=== PATIENT | female | born 1990 | race Caucasian/White ===

== ENCOUNTER 2023-07-02 08:39 | Outpatient (OUT) | payer BC, SELFPAY ==
--- NOTE | 2023-07-02 08:43 | US_ITS ---
The [address] [address] Patient Name: WINSTON MOSES MRN: [id number] date: 1990 Sex: F Assigned Patient Location: US Current Patient Location: Accession/Order Number: [id number] Exam Date: 07/02/2023 08:43 Report Date: 07/02/2023 15:12 At the request of: PABLITO PALOMO Procedure: US OB transvaginal EXAMINATION: US OB transvaginal HISTORY: MISSED MENSES COMPARISON: No relevant comparison available. FINDINGS: GESTATIONAL SAC: Present and normal appearing. YOLK SAC: Present and normal appearing. POLE: Present and normal appearing. CARDIAC: Present. UTERUS: Normal size and appearance. OVARIES: Right: Normal. Left: Normal. CERVIX: 4.2 cm in length and closed. CUL-DE-SAC: Normal. OTHER: None. AGE BY LMP: 8 weeks 1 day HAYLEY BY LMP: 02/10/2024 AGE BY US CRL: 7 weeks 2 days HAYLEY BY US CRL: 02/16/2024 US/US OB transvaginal IMPRESSION: 1. Single live intrauterine . Electronically authenticated by: ONEYDA MEDEL Date: 07/02/2023 15:12
== END 2023-07-02 08:40 | disposition home or self-care (01) ==
LOC: US 08:40
PROVIDERS: Visit Provider Obstetrics & Gynecology
DX: Z34.91 Encounter for supervision of normal pregnancy, unspecified, first trimester (principal); N92.6 Irregular menstruation, unspecified
CPT/HCPCS: 76817

== ENCOUNTER 2023-07-21 08:41 | Outpatient (OUT) | payer BC, SELFPAY ==
[2023-07-21 09:13] LABS: Basophils Percent Auto 0.5 % (0.2-2.0); Eosinophils Absolute Auto 0.1 10^3/uL (0.0-0.7); Eosinophils Percent Auto 1.4 % (0.9-7.0); Hematocrit 33.5 % (36.0-48.0); Hemoglobin 11.4 g/dL (12.0-16.0); Immature Granulocytes Abs Auto 0.01 10^3/uL (0.00-0.03); Immature Granulocytes Pct Auto 0.2 % (0.0-0.5); Lymphocytes Absolute Auto 1.5 10^3/uL (1.2-3.8); Lymphocytes Percent Auto 23.7 % (20.5-60.0); Mean Corpuscular Hemoglobin 30.6 pg (26.7-34.0); Mean Corpuscular Volume 89.8 fL (81.0-99.0); Mean Platelet Volume 11.3 fL (9.5-13.5); Monocytes Absolute Auto 0.3 10^3/uL (0.3-0.8); Monocytes Percent Auto 4.8 % (1.7-12.0); Neutrophils Absolute Auto 4.4 10^3/uL (1.4-6.5); Neutrophils Percent Auto 69.4 % (43.0-75.0); Platelet Count 187 10^3/uL (150-450); Red Blood Count 3.73 10^6/uL (4.20-5.40); Red Cell Distribution Width 11.9 % (11.0-15.0); White Blood Count 6.3 10^3/uL (4.0-11.0)
[2023-07-21 09:43] LABS: Estimated Average Glucose 100 mg/dL; Glycohemoglobin A1C 5.1 % (4.5-6.2)
[2023-07-21 09:52] LABS: Thyroid Stimulating Hormone 1.925 uIU/mL (0.358-3.740)
[2023-07-22 06:08] LABS: HBsAg Screen Negative (Negative); HCV Ab Non Reactive (Non Reactive); HIV Ab/p24 Ag Screen Non Reactive (Non Reactive); Rubella Antibodies, IgG 1.06 index (Immune >0.99)
[2023-07-22 10:10] LABS: Rapid Plasma Reagin, Quant Non Reactive titer (NonRea<1:1)
== END 2023-07-21 08:42 | disposition home or self-care (01) ==
PROVIDERS: Visit Provider Obstetrics & Gynecology
DX: N92.6 Irregular menstruation, unspecified (principal)
CPT/HCPCS: 36415; 83036; 84443; 85025; 86592; 86762; 86803; 86850; 86900; 86901; 87086; 87340; 87389

== ENCOUNTER 2023-09-07 20:08 | Outpatient (REF) | payer BC, SELFPAY ==
[2023-09-11 13:12] LABS: Age Gdln ACOG Testing Note (.); HPV Aptima Negative (Negative); IGP, Aptima HPV, rfx 16/18,45 Note (.)
== END 2023-09-07 20:09 | disposition home or self-care (01) ==
LOC: LAB 20:08
PROVIDERS: Visit Provider Physician Assistant
DX: Z12.4 Encounter for screening for malignant neoplasm of cervix (principal)
CPT/HCPCS: 87624; G0145

== ENCOUNTER 2023-10-11 13:59 | Outpatient (OUT) | payer BC, SELFPAY ==
--- NOTE | 2023-10-11 | US_ITS ---
[address] [address] Patient Name: WINSTON NAJERA MRN: [id number] date: 1990 Sex: F Assigned Patient Location: US Current Patient Location: Accession/Order Number: [id number] Exam Date: 10/11/2023 14:01 Report Date: 10/11/2023 15:36 At the request of: PABLITO PALOMO Procedure: US OB cervical length EXAMINATION: US OB anatomy, US OB cervical length HISTORY: ANATOMY COMPARISON: No relevant comparison available. TECHNIQUE: Transabdominal sonographic examination was performed for obstetrical and evaluation. FINDINGS: Number: 1 Heart Rate: 130.0 bpm H.B. /min Amniotic Fluid Volume: Subjectively normal position: Breech presentation, longitudinal lie Placental Location: ANTERIOR, the placental edge is 5.0 cm from the internal os Cervix Length: 4 cm , closed Normal anatomy: Lateral ventricles, cerebellum, posterior fossa, nose, lips, orbits, four-chamber heart, RVOT, LVOT, diaphragm, stomach, kidneys, abdominal cord insertion, bladder, umbilical cord arteries, three-vessel cord, spine, extremities BIOMETRY: BPD: 5.1 cm 21 weeks 2 days , 31% HC: 19.9 cm 22 weeks 0 days, 53% AC: 16.4 cm 21 weeks 3 days, 34% FL: 3.7 cm 21 weeks 5 days , 38% EFW:435.7 grams; 15 ounces, 38% FL/AC: 22.4 FL/BPD: 72.7 HC/AC: 1.2 GESTATIONAL AGE: Age by EDC: 21 weeks 5 days Age by current US: 21 weeks 4 days HAYLEY by current US: 02/17/2024 HAYLEY by EDC: 02/16/2024 US/US OB cervical length IMPRESSION: Normal anatomy scan Closed cervix measuring 4.0 cm in length *Reference: [employer] Practice Guideline for the performance of Obstetric Ultrasound Examinations, July 04, 2007. Electronically authenticated by: DOMO ARRIOLA Date: 10/11/2023 15:36
--- NOTE | 2023-10-11 | US_ITS ---
[address] [address] Patient Name: WINSTON NAJERA MRN: [id number] date: 1990 Sex: F Assigned Patient Location: US Current Patient Location: US Accession/Order Number: [id number] Exam Date: 10/11/2023 14:01 Report Date: 10/11/2023 15:36 At the request of: PABLITO PALOMO Procedure: US OB anatomy EXAMINATION: US OB anatomy, US OB cervical length HISTORY: ANATOMY COMPARISON: No relevant comparison available. TECHNIQUE: Transabdominal sonographic examination was performed for obstetrical and evaluation. FINDINGS: Number: 1 Heart Rate: 130.0 bpm H.B. /min Amniotic Fluid Volume: Subjectively normal position: Breech presentation, longitudinal lie Placental Location: ANTERIOR, the placental edge is 5.0 cm from the internal os Cervix Length: 4 cm , closed Normal anatomy: Lateral ventricles, cerebellum, posterior fossa, nose, lips, orbits, four-chamber heart, RVOT, LVOT, diaphragm, stomach, kidneys, abdominal cord insertion, bladder, umbilical cord arteries, three-vessel cord, spine, extremities BIOMETRY: BPD: 5.1 cm 21 weeks 2 days , 31% HC: 19.9 cm 22 weeks 0 days, 53% AC: 16.4 cm 21 weeks 3 days, 34% FL: 3.7 cm 21 weeks 5 days , 38% EFW:435.7 grams; 15 ounces, 38% FL/AC: 22.4 FL/BPD: 72.7 HC/AC: 1.2 GESTATIONAL AGE: Age by EDC: 21 weeks 5 days Age by current US: 21 weeks 4 days HAYLEY by current US: 02/17/2024 HAYLEY by EDC: 02/16/2024 US/US OB anatomy IMPRESSION: Normal anatomy scan Closed cervix measuring 4.0 cm in length *Reference: [employer] Practice Guideline for the performance of Obstetric Ultrasound Examinations, July 04, 2007. Electronically authenticated by: DOMO ARRIOLA Date: 10/11/2023 15:36
== END 2023-10-11 14:00 | disposition home or self-care (01) ==
LOC: US 13:59
PROVIDERS: Visit Provider Obstetrics & Gynecology
DX: Z34.92 Encounter for supervision of normal pregnancy, unspecified, second trimester (principal); Z3A.21 21 weeks gestation of pregnancy
CPT/HCPCS: 76805; 76817

== ENCOUNTER 2023-11-10 13:23 | Outpatient (OUT) | payer BC, SELFPAY ==
--- OUTSIDE RECORDS SUMMARY | 2023-11-10 13:33 | XMS_ITS | CCD ---
Author Name Unknown Address [address] [facility] [address] [place] [address] Organization [facility] Care Team Providers Care Wash Barrel Leader Name Role Phone Pamela Colvin Primary Care Physician Pamela Colvin Attending Unavailable Pamela Colvin Admitting Unavailable PABLITO PALOMO Attending Unavailable PAMELA DICK Attending Unavailable Medications Current Medications Medication Drug Class(es) Dates Sig (Normalized) Sig (Original) Depo-Provera (1 source) Progestin Start: 01-15-2011 Depo-Provera 4 00 mg, IntraMuscular, Refills(s) 0 Start Date: 01/15/11 Status: Ordered Completed/Discontinued Medications Medication Drug Class(es) Dates Sig (Normalized) Sig (Original) sulfamethoxazole 800 mg / trimethoprim 160 mg oral tablet (1 source) Dihydrofolate Reductase Inhibitor Antibacterial, Sulfonamide Antimicrobial Start: 01-15-2011 End: 01-22-2011 Bactrim D.S. 800 mg-160 mg Tab 0, 1 tab(s), Oral, BID, 14 tab(s), Refill(s) 0, 0, Take one tab by mouth twice a day for seven days, Print Requisition Start Date: 01/15/11 Stop Date: 01/22/11 Status: Ordered Results Test Name Value Interpretation Reference Range Facil ity Coding Summary.on 06-30-2022 Coding Summary. [id number] 4EFi2iCu+PGhlYWQ+P A2EWWAjZ42rmBWzeT6 FM8bAFY8SUFDFLYFHE F3QAH2jwZP7OJggO2D ybiAv IzetaPFyST29QMs9TB T3jQpuDYjcsU5xdXCw C1j4ZlSfWH26wI35TK axNGJzAtR4BiGrquxa bWFy U9guMrFltQAeIph+PH RhYmxlIHdpZHRoPScx MPYtTdVvpPumZE9sJc 9yZGVyLWNvbGxhcHNl OiBj d5ppUVEiIGmkCP9eiU thA5NuvLU2NJApt8w9 Lw86tHM+WNNiVOL6pT yqTFaoz842UfJhi5vv IDM3 gIZdXJgaVNJ8D59bw3 E8PMEyUKMmDHR9kMF3 oO4utPhkugusA4OfrD OzFoO5ZGD9rBYidZ3h bGln bvwqrI3uCsh+Q09ESU 7GYMWXGA5WScu5K9Tn PjwvdHI+US16URRfLB 50tVAdhKPzm1tecDg9 JzEw NRIsMIR9wNioZCtkw6 OnXXEnQ36lhRGkd1R8 IGNvbGxhcHNlOyBlbX J9cM7uEAdzjqevq9oc dzsn Efmyi1orjk38wO90U7 6sXEjbMQHbCTC3MIJk QONnpGntth9bpA6uGv 8+QXbrf0roj7ipjGr3 IjIw JMJontKmsVrlGPL6t8 VlQy38D9EktZjgu5Bd Stz9kf60sPBpx8G7zK A4KXsfQQWucT6oVXuc ZnQ6 ZTNzQuSjaU44rKZjGP gsVx6hxEhawSgjKZ5n TSQulxdbQPCrlA5mIL WfrZJraQxrDY7dPIGx bjtm l426WtDqFYH3NCVkhS YrB3LlqC8lJyAfFDMe TQXaN8PzaKGvSPtnU0 80MIxyVdK0DHNmdqVd Y2Fs CQDakRvtYwK7y6T1Xk 4Oe6DkjpndRSO1JNss VQJ0BzY4UsWcSiU5N6 YiPyb8NMMmaOgfIZ6d J3Bh FVBnunmstmpnsSP2TU IwRDUokL69iBXyKOzm Ol3fl7V9s653UFGrBR UeoK14Bd0fcRqjLAEm dCBU iI4ahdamb3bygsetBm PtKFJbWVt4HBg4MHOe jAvtApBiBFN4CjX3BG O4fPWwuD0jiExqvgum dG9w Oyc+Y54ldS8wXQC7QR H2cgsiQKHnemYtZX85 LA71T7DhFftfzSXpkR U+ABXhboFjgJniVM8p YmFj c0teo0JeQTluG9TgWM McABprIue3PHPiMZS5 aUC0nX3cMDAeJUwie4 I3oBJ8Q3PhdyJois5n b2xs KVOaSNuoS51ljTOla7 Q4XQGsmYP6IAKxaOby PlDheK69Chg+PGNvbG prn2FoYhbpe9iuj1mo dGg9 IjMwJSIgdmFsaWduPS V4b4QaNz35L29fAJql ZHRoPSIxNSUiIHZhbG mrfd6bbQ6pFg9+PGNv bCB3 rZW6lY3jDETwObF7WK vcO840JxRpuRWpEvjk s4sex5zyjGl3EoTyZQ TxdcUjfSqhWZQ5s9Xq Lz48 B78zVTqvMVVlXHHyYC AaTRMrzDyiqt8eiE8i Ii8+LE5cq5agcn14eZ 48dHI+YACkFDT0uIkm PSdw PLEjpZ5yTCcpVkV8TQ TiDyInmA76vGBqDFpm Mq6mcWealImmUM0sYR Enswtex637TsMgh4cm IDEw dVSfSLryOLL0R59fn4 U4XQFyAPLaDMM6jVE8 kB5waZnijczkkQRavV sgdmVydGljYWwtYWxp Z246 IHRvcDsnPlBhdGllbn GwPyYyTXc2W3ZcAvs0 GYMjmHgfEK5mvFLwZY xvTt5opWepsAcyCP9r NTBp thvnp454VtGpj3kgMR WraLAxQVffGOJ1V10n w9F7PXYtGEMqNJW0fJ T0hP7krWwqbkmrdFFp dDsg dmVydGljYWwtYWxpZ2 46IHRvcDsnPkJpcnRo YCEggYK3JW00PD84hW Bnf8B7gBC4T2TaJVDz bmct esyeuOP2ZDMzXASodH 83Vr3ssAegXm9aMIPc LOY4FHHliCGsX5MixU 5eMhEeTDVyFYYcV8Rl eHQt ILdbE775ANxaDaH5SP DkidLqF0IxYLDhlSfc JcZ8y7S4Fs2AT7M1ZQ 70KD49aCKvt0I0bPV0 J3Bh NHEdccdcnefzaQL1GY GpTGNfcB54Zm0xxIpt Ht0wHVEiRBG4KZFjoM LzT4EtoD1pSlAfGEKc MDAw L6XqvYRdWZxrN590IZ baHbK3VQHrvlPkV2Lj BOBmiOiiPuP3o4Z8Xu 9MPFp0QG18PY69wWSx c3R5 hWA1W5FiVYLgbjsmnn gilTM9ZPRlRHSjsK65 Au5hiPuzPj9lWJHmMO Z0KFWubFKcH9LfpB5u OiAj ZRQfHDOpZ0OhtMCfEN miJ969PDjwNeF8OANv vmQwS9LxILTbzTjlAj Y7w9N0Nd5MZKDgZN21 IFR5 oPH5SV06NV83Y6KiTj wvdGFibGU+PHRhYmxl IHdpZHRoPScxMDAlJy KbwNxqWP7eLe5bABZz LWNv bAezgOElEdEgq5qkYC FkIEhmIS8vbZepC6Tu pTZ1DKAhx7o2Hr85K5 9qK4XnuTC+PGNvbCB3 aWR0 tV4pIkRaHdW5RIpxT0 66JzFniKXtMlxxs7ao y9tinHo5BxR0WQZalg DvbKkqDLZ6c8LjZs52 Y29s IHdpZHRoPSIxNSUiIH OhwIiggx6toV5oAn3+ XLSrwLP4qJH0qE5fYu EmIaN1EIsvO299FpNf cCIv Ljnuw0tjv6wrtNh8De IwJSIgdmFsaWduPSJ0 s3NuSc36Y0MxbJlyq4 QaVnr0hb86gQJuj0I5 bGU9 P4QhNFWrxtgikSMrgC mmML6dZQAbxaumOGQp hM0qTOJaK2g4BoIaVy Y8JUrvB4NkjdO5DHTe cHQg LVyrISM8M34ol4O5KZ FtUSHhAQJ8sQS8eO3g bGlnbjogbGVmdDsgdm ClpKndOJxcEZryD919 IHRv pCyrHGEshY5uJNUtyL AlgEhwET2zFCXtbkdk PkNPTUJTLCBBTUFORE EgTjwvdGQ+PHRkIHN0 eWxl LOjyHUSicW1iKUTaQ6 f7YiRhToB1VPrkS6Io LXCndzdkGp13fK4jSy QqIhA0CYifV2MpmxB3 IDEw yXTeQQiwPOL6P32ix7 S5KRCsVOXxVGO5rEF2 yT4znCdjhbonvHCiaM sgdmVydGljYWwtYWxp Z246 IDRkiZejFoMrEyP6Ot C4UYZ2H4AmDvi7QGVo hOnnCV8lqWUdDWldDr 6atRyuiEdbPU3nXVBt bjtw IXRooR9cQSUxqABziR jcYO5hGHAbpglki543 EhTwOHN0ECHdqOEmK3 VkaH4mLjWlAIXmEMSu O3Rl eQHhWFhqG776NBnkTm Q2WYSwlhOqP4IyTAVl sRszTbO5t7C1Pm4iYR BZZWFyczwvdGQ+PHRk IHN0 dNeiDTybCJJvzJ8mJD VqW0g4KhQdYtK3ATom B6DjNXHwrnkgDt12kP 0eSgRkWgL7HNfaS8Ye bnQ6 FZWtgZCvKOopQWF0I3 0pw8O0MTOdPAMmNQJ0 nMG6cJ3uiTvbbwqtgG VmdDsgdmVydGljYWwt YWxp T160LILskHsaPdYlcO FsZTwvdGQ+PHRkIHN0 oRksCEjhLGQpeT9iDV KeH2v3MwPqBaW9GNoy O3Bh HTEcfvqnCh45zO9uWi YfEtK2HKbcS7NcivX5 OYPdzGKuEJssMMU8B4 8mh8B3CARhXAYeNQS0 dGV4 nL4doDiggjtblXLngU sgdmVydGljYWwtYWxp L741FYXdsJcxEa84aF HedZndufB8J8MwKqle dHI+ WV02KNDzSE46aZRxyC Mfi0dkaSt6HfUnPBAj FHJ5hGiiQKwof7PoPT NwA30qxZLqg6X6GZKi bGxh dBFpOqSygXM0tP9vQF axiegyc0qxasauZcak h2xuqv50oR12N58uRS dpZHRoPSIzMCUiIHZh bGln dp6feP4fMt5+PGNvbC L6nPQ9zB5tWlZgUnB8 FHbeH937NjSceIPhGc prv8yjp9iokSd5QiCt JSIg qwNifGacWBR9g8XvBq 99U72pECvgKBOsVIHf YMPuWIHinTqpgu1arT 9wIi8+DS9li9uulq86 cD48 dHI+EGXdCGA0zWouHQ nzFDSgzX6hDZkrTjL0 VSHhTvJdvA84cMCuII ymPr8ezDbatLeeTB9m NTBp cdizi775XhYoa2ymCS UpoVVoTJffUBQ9V24n f8E0GOWeXQYrPMI9mM G8oT6dpXhswohpuMMa dDsg dmVydGljYWwtYWxpZ2 46IHRvcDsnPlBoeXNp X5niuuKDSX5lNwpfgW Q+XEFkLMA2zPpoOVua YWRk aD5fBNLoZ6q9KxEiQp N1ZYjhW8VnajC7UNNm xZZhUBZgfELKcF7mno jdl7rruwocUpHuPRWl MDt0 AKg7QGMzpGdlSmMoXG U8SzG3BVU4jBQksT3j kQppvcrazN5dHgh+Rk lOOjwvdGQ+PHRkIHN0 eWxl PGryGFRxmO6uBCEjX8 q1ZqJcHrQ9IOsmR5Nn vmJ7JFKyhILdHVSsoD DMkJ2radzmk4uhnwcm IzAw VGFfIRi7QYl3GGPmyP hxSiGsUNM6UhJ5ROD5 nZUahS5giDqnlvkkuQ 9wOyc+TVJOOjwvdGQ+ PHRk SMI3cTghMEixYKKvcO 2kQDNqQ4y1MpPtPfE9 CHedZ4GrdoR0XYTfbZ PmEMBgmUVKoE9tdrew b2xv mzwlDhBaGUQqZSm5RP f8IPTaaWbeTfQkHZJ3 MbQ4CRV2bSUvtG5ltJ ntqimabF8nPch+UGF5 ZXI6 NG50PS41O5KhCbrfmE FibGU+PHRhYmxlIHdp ZHRoPScxMDAlJyBzdH nfUB5zGy2kOXPqQYBf bGxh cHNl (more content not included)... [facility] Consent for Treatmenton 06-05 Consent for Treatment [id number]:127 Normal [facility] Physician Orderon 06-24-2022 Physician Order [id number]:127 Normal [facility] XR Spine Cervical 4 or 5 Vie wson 06-24-2022 XR Spine Cervical 4 or 5 Views Exam Date/Time: 06/24/2022 11:53 EDT Reason for Exam: M54.2 Report IMPRESSION: NEGATIVE CERVICAL SPINE. CLINICAL HISTORY: M54.2. Burning sensation both hands and feet. COMMENT: 5 views. The cervical spine appears normal without evidence of fracture or subluxation. FINAL REPORT Dictated: 06/24/2022 1:34 pm Timmy Brown M.D. Signed (Electronic Signature): 06/24/2022 1:34 pm Signed by: Timmy Brown M.D. Transcribed by: ORLANDO Technologist: ANNMARIE [facility] Encounters Encounter Date Encounter Type Care Provider Facility Start: 10-11-2023 End: 10-11-2023 ambulatory PABLITO PALOMO Not Available Start: 09-07-2023 End: 09-07-2023 ambulatory PAMELA DICK Not Available Start: 06-24-2022 End: 06-25-2022 ambulatory Pamela Colvin Facility:[facility] Start: 06-24-2022 End: 06-24-2022 Patient encounter procedure Pamela Colvin [facility] Payers Date Payer Category Payer Unknown [id number] 1990 Unknown [id number] 1990 Unknown [id number] 1990 Unknown [id number] Social History Date Type Detail Facility Tobacco smoking status No Smoking Status Entered [facility] Sex Assigned At Female [facility] Evaluation + Plan note Note Date & Type Note Facility Evaluation + Plan note No data available for this section [facility] Hospital Discharge instructions Note Date & Type Note Facility Hospital Discharge instructions No data available for this section [facility] Progress note Note Date & Type Note Facility Progress note No data available for this section [facility] Summary Purpose Family History No Family History Records FoundNo Family History Records Found Advance Directives No Advanced Directives Records FoundNo Advanced Directives Records Found Additional Source Comments Care Team (unrecognized sect ion and content) Personnel Name: Pamela Colvin DO Address: [address] [place] [address], [facility], [facility] [address] [place] [address]- INFORMATION SOURCE (unrecogn ized section and content) DATE CREATED AUTHOR 07/05/2022 [facility] DATE CREATED AUTHOR AUTHOR'S ORGANIZ ATION 10/12/2023 [facility] EPIC FOR RECORDS PERTAINING TO PATIENTS WHO ARE OR HAVE BEEN ENROLLED IN A CHEMICAL DEPENDENCY/SUBSTANCEABUSE PROGRAM, SOME INFORMATION MAY BE OMITTED. This clinical summary was aggregated from multiple sources. Caution should be exercised in using it in the provision of clinical care. This summary normalizes information from multiple sources, and as a consequence, information in this document may materially change the coding, format and clinical context of patient data. In addition, data may be omitted in some cases. CLINICAL DECISIONS SHOULD BE BASED ON THE PRIMARY CLINICAL RECORDS. [facility]. provides no warranty or guarantee of the accuracy or completeness of information in this document.
[2023-11-10 14:34] LABS: Basophils Percent Auto 0.3 % (0.2-2.0); Eosinophils Absolute Auto 0.1 10^3/uL (0.0-0.7); Eosinophils Percent Auto 0.8 % (0.9-7.0); Hemoglobin 10.6 g/dL (12.0-16.0); Immature Granulocytes Abs Auto 0.04 10^3/uL (0.00-0.03); Immature Granulocytes Pct Auto 0.4 % (0.0-0.5); Lymphocytes Absolute Auto 1.6 10^3/uL (1.2-3.8); Lymphocytes Percent Auto 14.7 % (20.5-60.0); Mean Corpuscular HGB Conc 33.1 g/dL (29.9-35.2); Mean Corpuscular Hemoglobin 30.7 pg (26.7-34.0); Mean Corpuscular Volume 92.8 fL (81.0-99.0); Mean Platelet Volume 11.4 fL (9.5-13.5); Monocytes Absolute Auto 0.5 10^3/uL (0.3-0.8); Monocytes Percent Auto 4.4 % (1.7-12.0); Neutrophils Absolute Auto 8.5 10^3/uL (1.4-6.5); Neutrophils Percent Auto 79.4 % (43.0-75.0); Platelet Count 186 10^3/uL (150-450); Red Blood Count 3.45 10^6/uL (4.20-5.40); Red Cell Distribution Width 12.6 % (11.0-15.0); White Blood Count 10.7 10^3/uL (4.0-11.0)
[2023-11-10 15:12] LABS: Glucose 1 Hour 136 mg/dL
== END 2023-11-10 13:24 | disposition home or self-care (01) ==
LOC: LAB 13:23
PROVIDERS: Visit Provider Obstetrics & Gynecology
DX: Z13.1 Encounter for screening for diabetes mellitus (principal)
CPT/HCPCS: 36415; 82950; 85025

== ENCOUNTER 2024-01-11 08:32 | Outpatient (OUT) | payer BC, SELFPAY ==
--- NOTE | 2024-01-11 08:35 | US_ITS ---
[address] [address] Patient Name: WINSTON NAJERA MRN: [id number] date: 1990 Sex: F Assigned Patient Location: [facility] Current Patient Location: [facility] Accession/Order Number: [id number] Exam Date: 01/11/2024 08:36 Report Date: 01/11/2024 10:10 At the request of: DION DICK Procedure: US OB growth EXAMINATION: US OB growth HISTORY: SIZE INCONSISTENT WITH DATES COMPARISON: No relevant comparison available. FINDINGS: Heart Rate: 158.0 bpm Amniotic Fluid Volume: 14.1 cm Number: 1.0 Position: cephalic presentation, longitudinal lie Maximum Vertical Pocket: 4.2 cm cm 4.1 cm cm 3.2 cm cm 2.6 cm cm BIOMETRY: BPD: 8.3 cm cm; 33 weeks 3 days; 15% HC: 31.7 cmcm; 35 weeks 4 days , 34% AC: 30.1 cm cm; 34 weeks 0 days, 33% FL: 6.7 cm cm; 34 weeks 2 days; 28.2 % % EFW: 2381.9 grams, 5 lb 4 oz, 29% FL/AC: 22.2 FL/BPD: 80.3 HC/AC: 1.1 GESTATIONAL AGE: Age by EDC: 34 weeks 6 days HAYLEY by EDC: 02/16/24 Age by US: 34 weeks, 2 days HAYLEY by US: US/US OB growth IMPRESSION: Normal interval growth Electronically authenticated by: DOMO ARRIOLA Date: 01/11/2024 10:10
--- OUTSIDE RECORDS SUMMARY | 2024-01-11 09:00 | XMS_ITS | CCD ---
Author Organization [facility] Care Team Providers Care Sales Manager Name Role Phone Pamela Colvin Primary Care Physician Pamela Colvin MD Primary Care Provider Matt Aguero Primary Care Physician Unavail able Matt Aguero Attending Unavailable Matt Aguero Attending Unavailable Matt Aguero Attending Unavailable Matt Aguero Attending Unavailable Matt Aguero Attending Unavailable PABLITO HAM Attending Unavailable PAMELA DICK Attending Unavailable PABLITO HAM Attending Unavailable PAMELA DICK Attending Unavailable PABLITO HAM Attending Unavailable PABLITO HAM Attending Unavailable PAMELA DICK Attending Unavailable Medications Current Medications Medication Drug Class(es) Dates Sig (Normalized) Sig (Original) escitalopram 10 mg oral tablet (2 sources) Serotonin Reuptake Inhibitor Start: 11-25-2023 escitalopram 10 mg Tab 30 tab(s), 0 Refill(s), Refills(s) 0 Start Date: 11/25/23 Status: Ordered Depo-Provera (3 sources) Progestin Start: 01-15-2011 Depo-Provera 400 mg, IntraMuscular, Refills(s) 0 Start Date: 01/15/11 Status: Ordered meloxicam 7.5 mg oral tablet (2 sources) Nonsteroidal Anti-inflammatory Drug Start: 11-04-2017 methocarbamol 500 mg oral tablet (2 sources) Muscle Relaxant Start: 11-04-2017 Multivitamins with Vitamin B Complex, Vitamin C, Minerals and L-Methylfolate oral capsule (2 sources) Start: 11-26-2023 Multivitamins with Vitamin B Complex, Vitamin C, Minerals and L-Methylfolate oral capsule 1 cap(s), Oral, Daily, 30 cap(s), Refill(s) 0 Start Date: 11/26/23 Status: Ordered MV-Min-Fe Fum-FA-DHA ( 1 PO) (3 sources) MV-Min- Fe Fum-FA-DHA ( 1 PO) Take by mouth. 0 Active Completed/Discontinued Medications Medication Drug Class(es) Dates Sig (Normalized) Sig (Original) 21 day ethinyl estradiol 0.705301 mg/hr / etonogestrel 0.005 mg/hr vaginal system (2 sources) Progestin, Estrogen Start: 11-25-2023 ethinyl estradiol-etonog estrel 0.015 mg-0.120 mg Vag Ring Refill(s) 0, 3 EA, 0 Refill(s) Start Date: 11/25/23 Status: Ordered sulfamethoxazole 800 mg / trimethoprim 160 mg oral tablet (2 sources) Dihydrofolate Reductase Inhibitor Antibacterial, Sulfonamide Antimicrobial Start: 01-15-2011 End: 01-22-2011 Bactrim D.S. 800 mg-160 mg Tab 0, 1 tab(s), Oral, BID, 14 tab(s), Refill(s) 0, Take one tab by mouth twice a day for seven days Start Date: 01/15/11 Stop Date: 01/22/11 Status: Ordered Problems Problem Classification Problem Date Documented Date Episodic/Chronic Administrative/social admission (1 source) Patient encounter status; Translations: [Persons encountering health services in other specified circumstances] Onset: 4 Episodic Anxiety disorders (4 sources) Anxiety disorder; Translations: [Anxiety disorder, unspecified] Onset: 4 Chronic Disorders of teeth and jaw (2 sources) Temporomandibular joint disorder; Translations: [Other specified disorders of temporomandibular joint] Onset: 4 Episodic Other bone disease and musculoskeletal deformities (3 sources) Segmental and somatic dysfunction; Translations: [Segmental and somatic dysfunction of thoracic region] Onset: 4 Episodic Other bone disease and musculoskeletal deformities (1 source) Cervical somatic dysfunction 12-27-2023 Episodic Other bone disease and musculoskeletal deformities (1 source) Somatic dysfunction of thoracic region 12-27-2023 Episodic Other bone disease and musculoskeletal deformities (1 source) Somatic dysfunction of upper limb 12-27-2023 Episodic Other connective tissue disease (2 sources) Adhesive capsulitis of shoulder; Translations: [Adhesive capsulitis of unspecified shoulder] Onset: 4 Episodic Other connective tissue disease (1 source) Spasm; Translations: [Other muscle spasm] Onset: 4 Episodic Other connective tissue disease (1 source) Muscle spasm of cervical muscle of neck 12-27-2023 Episodic Other non-traumatic joint disorders (2 sources) Disorder of joint of shoulder region; Translations: [Other specified joint disorders, unspecified shoulder] Onset: 4 Episodic Other non-traumatic joint disorders (2 sources) Disorder of shoulder 11-26-2023 Episodic Other and delivery including normal (5 sources) Second trimester ; Translations: [Encounter for supervision of normal , unspecified, second trimester] Onset: 4 11-05-2023 Episodic Residual codes; unclassified (1 source) Body mass index 20-24 - normal; Translations: [Body mass index (BMI) 24.0-24.9, adult] Onset: 4 Episodic Spondylosis; intervertebral disc disorders; other back problems (2 sources) Neck pain; Translations: [Cervicalgia] Onset: 4 Episodic Unclassified (3 sources) OB Reminders Onset: 3 07-12-2023 Unclassified (1 source) Patient encounter status 11-25-2023 Results Test Name Value Interpretation Reference Range Facility Ambulatory Visit Summaryon 0 12-28-2023 Ambulatory Visit Summary [facility] Olayinka :1990 Visit Date:12/28/2023 Ambulatory Visit Instructions Your Diagnosis Shoulder impingement Frozen shoulder Trapezius muscle spasm Somatic dysfunction of cervical region Somatic dysfunction of thoracic region Somatic dysfunction of upper extremities BMI 24.0-24.9, adult TMJ locking Anxiety Neck pain Your Care Team Attending Physician - Matt Aguero DO Primary Care Physician - Matt Aguero DO This Is Your Medications List escitalopram (escitalopram 10 mg Tab) ethinyl estradiol-etonogestre l (ethinyl estradiol-etonogestre l 0.015 mg-0.120 mg Vag Ring) medroxyPROGESTERone (Depo-Provera) meloxicam (meloxicam 7.5 mg Tab) methocarbamol (methocarbamol 500 mg Tab) multivitamin, ( Multivitamins with Vitamin B Complex, Vitamin C, Minerals and L-Methylfolate oral capsule) Procedures Performed Tonsillectomy. Discharge Vitals Heart Rate (Peripheral) 89 Blood Pressure 90/60 Height 166.5 cm Height 66 in Weight 69.12 kg Weight 152.064 lb BMI 24.93 What to do next Scheduled Follow-Up Appointments Wednesday 8:20 AM EDT With: Matt Aguero DO Where: [facility] Medicine [place] Invalid Interpretation Code [address] [place] [address]-\.br\ Wednesday 9:00 AM EST \.br\ With: Matt Aguero DO\.br\ Where: [facility] Office/Clini c Noteon 12-28-2023 Family Medicine Office/Clinic Note Chief Complaint F/U OMT HPI Staff Patient here today for F/U OMT/Shoulder EMILY 11/26/23 No Other concerns History of Present Illness 33 Years old Female here to f/u for NECK PAIN *my dad is Almas Michaud and he loves you This is the best I've ever seen my dad Social: The patient is ; Ghulam Carter since 2022 Her 's family is Raul - there's a lot of Stangs in the area *her is a li 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 Ham - delivering at [place] Chiropractor - Dr. Aldrich HPI staff / Chief Complaint confirmed with the patient This patient was seen for this complaint previously and treated with manipulation (OMT aka OMM). The patient reports SOME improvement of symptoms after OMT. Today, the patient reports their symptoms are PRESENT and is requesting OMT again. Based on their report of symptoms and my exam findings, I believe OMT is appropriate today. The patient expresses consent for manipulation today. Today, the patient describes stiffness in the neck NECK pain is 2 out of 10 Described as tight on the left The patient describes NO radiation down the ARMS prn TYLENOL maybe once or twice a week Interval history: My shoulders are no longer bothering me She's been to the chiropractor twice since her last appt mentions today that she'll occasionally have some stiffness with her jaw this has improved since she's been he dentist hasn't mentioned if she grinds her teeth she experience time when her jaw won't open all the way - this will last for a day or so and then resolve This started approximately a year ago happening once a week now *reports an injury where she fell off a horse before age 18 the chiropractor treated my hip was out one time also addressed some mid back pain she also had a spasm in her neck PHYSICAL EXAM Constitutional: Vital signs reviewed; WINSTON CARTER is well nourished, no acute distress Lungs: Clear to auscultation, non-labored respiration - expansion is symmetric Heart: Normal rate and rhythm, normal peripheral perfusion MSK: Thoracic paraspinal muscles are tight/tender bilaterally; worse on the right Cervical AROM: Rotation is full bilaterally Flexion is full Extension is full Side bending is full bilaterally Skin: Warm, dry Neurologic: Awake, alert and oriented Psychiatric: Cooperative, appropriate mood and affect, judgement is appropriate Procedure documentation - Osteopathic Manipulation Head: OA dysfunction - treated with BLT and FPR - with objective and subjective improvement Cervical Spine: Reduced range of motion, tenderness at the insertion of the middle scalene on rib 1 on BILAT; worse on the left - treated with BLT and FPR - with objective and subjective improvement Thoracic Spine: Chronic and acute tissue texture changes of the trapezius, rhomboid BILAT; worse on the right - treated with myofascial, BLT and FPR - with objective and subjective improvement PLAN 1. Neck pain (M54.2) Acute on Chronic NO recent trauma There are no neurologic symptoms or signs that raise concern for cord compression no - lower extremity weakness no - gait or coordination difficulties no - bladder or bowel dysfunction no - Lhermitte?s sign (electric or shock-like sensations that run down the back and/or limbs upon flexion or the neck) NO OTHER obvious red flag signs some tenderness at the OA today complicated by poor posture See instructions below for more specifics for today's plan between today and the patient's next appt: F/u 1 month or PRN 2. Spasm of the trapezius muscle (M62.838) Acute on chronic Likely contributing to the above Etiology is likely a combination of sub-optimal mechanics, muscle imbalance, posture vs other Recommend that the patient work on postural exercises Improved with OMM today F/u 1 month or PRN 3. Abdominal weakness (R19.8) Acute on chronic Sub-optimal Likely playing a role in the patient's thoracic back pain as this contributes to mechanics and posture Complicated by current *will address rehab after delivery f/u 1 month or PRN 4. Poor posture (R29.3) Acute on chronic Likely contributes to above Discussed how to work on this between appts Discussed on this can play a role in straining the muscles of the cervical spine and can contribute to headaches as well Work on postural exercises see #3 F/u 1 month or PRN 7. Somatic dysfunction of the head (M99.00) Manipulation described as above Provided with permission by the patient The patient tolerated manipulation well and the procedure went as planned without incident Range of motion and function have improved with objective improvement of signs and subjective improvement of symptoms Patient to follow-up in 3-4 weeks for ad (more content not included)... Normal [facility] Comment on above: Result Comment: Elec tronically Signed By: Matt Aguero DO\.daryl\Date and Time Signed: 12/28/23 17:22 EDT Patient Educationon 12-28-19 Patient Education Orthopedics Temporomandibular Joint Syndrome Temporomandibular joint syndrome (TMJ syndrome) is a condition that causes pain in the temporomandibular joints. These joints are located near your ears and allow your jaw to open and close. For people with TMJ syndrome, chewing, biting, or other movements of the jaw can be difficult or painful. TMJ syndrome is often mild and goes away within a few weeks. However, sometimes the condition becomes a long-term (chronic) problem. What are the causes? This condition may be caused by: ? Grinding your teeth or clenching your jaw. Some people do this when they are stressed. ? Arthritis. ? An injury to the jaw. ? A head or neck injury. ? Teeth or dentures that are not aligned well. In some cases, the cause of TMJ syndrome may not be known. What are the signs or symptoms? The most common symptom of this condition is aching pain on the side of the head in the area of the TMJ. Other symptoms may include: ? Pain when moving your jaw, such as when chewing or biting. ? Not being able to open your jaw all the way. ? Making a clicking sound when you open your mouth. ? Headache. ? Earache. ? Neck or shoulder pain. How is this diagnosed? This condition may be diagnosed based on: ? Your symptoms and medical history. ? A physical exam. Your health care provider may check the range of motion of your jaw. ? Imaging tests, such as X-rays or an MRI. You may also need to see your dentist, who will check if your teeth and jaw are lined up correctly. How is this treated? TMJ syndrome often goes away on its own. If treatment is needed, it may include: ? Eating soft foods and applying ice or heat. ? Medicines to relieve pain or inflammation. ? Medicines or massage to relax the muscles. ? A splint, bite plate, or mouthpiece to prevent teeth grinding or jaw clenching. ? Relaxation techniques or counseling to help reduce stress. ? A therapy for pain in which an electrical current is applied to the nerves through the skin (transcutaneous electrical nerve stimulation). ? Acupuncture. This may help to relieve pain. ? Jaw surgery. This is rarely needed. Follow these instructions at home: Eating and drinking ? Eat a soft diet if you are having trouble chewing. ? Avoid foods that require a lot of chewing. Do not chew gum. General instructions ? Take jsua-aam-acxlruw and prescription medicines only as told by your health care provider. ? If directed, put ice on the painful area. To do this: ? Put ice in a plastic bag. ? Place a towel between your skin and the bag. ? Leave the ice on for 20 minutes, 2?3 times a day. ? Remove the ice if your skin turns bright red. This is very important. If you cannot feel pain, heat, or cold, you have a greater risk of damage to the area. ? Apply a warm, wet cloth (warm compress) to the painful area as told. ? Massage your jaw area and do any jaw stretching exercises as told by your health care provider. ? If you were given a splint, bite plate, or mouthpiece, wear it as told by your health care provider. ? Keep all follow-up visits. This is important. Where to find more information ? National [place] [employer]io[employer] Research: www.nidcr.nih.gov Contact a health care provider if: ? You have trouble eating. ? You have new or worsening symptoms. Get help right away if: ? Your jaw locks. Summary ? Temporomandibular joint syndrome (TMJ syndrome) is a condition that causes pain in the temporomandibular joints. These joints are located near your ears and allow your jaw to open and close. ? TMJ syndrome is often mild and goes away within a few weeks. However, sometimes the condition becomes a long-term (chronic) problem. ? Symptoms include an aching pain on the side of the head in the area of the TMJ, pain when chewing or biting, and being unable to open your jaw all the way. You may also make a clicking sound when you open your mouth. ? TMJ syndrome often goes away on its own. If treatment is needed, it may include medicines to relieve pain, reduce inflammation, or relax the muscles. A splint, bite plate, or mouthpiece may also be used to prevent teeth grinding or jaw clenching. This information is not intended to replace advice given to you by your health care provider. Make sure you discuss any questions you have with your health care provider. Document Revised: 05/03/2022 Document Reviewed: 05/03/2022 [employer] Patient Education ? 2022 [employer] [facility] Transfer Inon 12-28-2023 Transfer In [id number] .00TIFF [facility] Auth for Release of Medical Recordson 11-29-2023 Auth for Release of Medical Records [id number]# 1.00TIFF [facility] Ambulatory Visit Summaryon 0 11-26-2023 Ambulatory Visit Summary WINSTON CARTER :1990 Visit Date:11/26/2023 Ambulatory Visit Instructions Your Diagnosis Establishing care with new doctor, encounter for Shoulder impingement Anxiety Your Care Team Attending Physician - Matt Aguero DO Primary Care Physician - Matt Aguero DO This Is Your Medications List escitalopram (escitalopram 10 mg Tab) ethinyl estradiol-etonogestre l (ethinyl estradiol-etonogestre l 0.015 mg-0.120 mg Vag Ring) medroxyPROGESTERone (Depo-Provera) meloxicam (meloxicam 7.5 mg Tab) methocarbamol (methocarbamol 500 mg Tab) multivitamin, ( Multivitamins with Vitamin B Complex, Vitamin C, Minerals and L-Methylfolate oral capsule) sulfamethoxazole-trim ethoprim (Bactrim D.S. 800 mg-160 mg Tab) Procedures Performed Tonsillectomy. Discharge Vitals Heart Rate (Peripheral) 96 Blood Pressure 96/60 Height 166.5 cm Height 66 in Weight 66.1 kg Weight 145.42 lb BMI 23.84 What to do next Scheduled Follow-Up Appointments Wednesday 4:20 PM EDT With: Matt Aguero DO Where: [facility] Medicine [place] Invalid Interpretation Code [address] [place] [address]-\.br\ Wednesday 9:00 AM EST \.br\ With: Matt Aguero DO\.br\ Where: [facility] Family Medicine Office/Clini c Noteon 11-26-2023 Family Medicine Office/Clinic Note Chief Complaint EST CARE HPI Staff Establish Care: History: Last provider: Robert Pierson Any recent labs: DUE Health Maintenance UTD: Colonoscopy:N/A PSA: N/A Mammogram: Pelvic/Pap: 09/25 Social: Patient First child on way/boy Employed [employer] Acute: Patients father recommended you/ D Steff Current issues/complaints: Having joint issues, shoulder/ right side. 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 Ham - delivering at [place] Chiropractor - Dr. Aldrich [facility] staff / Chief Complaint confirmed with the patient Interval history: dislocated her shoulder when she was 20 still has occasional shoulder issues when she sleeps on that shoulder, she'll wake up in so much pain that she can't get off the shoulder last appt with PCP she was experiencing some hand numbness the doctor suggested EMG - it was going to be $3500 previously took escitalopram *ok to call in to resuming escitalopram LABS Cr/eGFR: No qualifying data available. A1c: No qualifying data available. TSH: No qualifying data available. Vit D: No qualifying data available. LDL: No qualifying data available. Lipids: No qualifying data available. Microalbumin: No qualifying data available. INR: No qualifying data available. Testosterone: No qualifying data available. Free and total testosterone: No qualifying data available. PHYSICAL EXAM Constitutional: Vital signs reviewed; WINSTON CARTER is well nourished, no acute distress Head: Atraumatic, normocephalic Eye: EOMI, normal conjunctiva ENT: Moist oral mucosa, external inspection of ears and nose is unremarkable Neck: Trachea is midline, no tenderness Lungs: Clear to auscultation, non-labored respiration - expansion is symmetric Heart: Normal rate and rhythm, normal peripheral perfusion Lymph: Deferred Abd: Deferred : Deferred MSK: Normal gait and station Skin: Warm, dry Neurologic: Awake, alert and oriented, speech is normal, no focal deficits, CN II-XII grossly intact Psychiatric: Cooperative, appropriate mood and affect, judgement is appropriate Review of Systems PHQ Score Initial Depression Screen Score: 0 SCORE Physical Exam Vitals & Measurements HR: 96(Peripheral) BP: 96/60 SpO2: 99% HT: 66 in HT: 166.5 cm WT: 66.1 kg WT: 145.42 lb BMI: 23.84 Assessment/Plan 1. Establishing care with new doctor, encounter for (Z76.89: Persons encountering health services in other specified circumstances) noted as it relates to significantly more time spent with reviewing the patient's records and chart preparation today 2. Shoulder impingement (M25.819: Other specified joint disorders, unspecified shoulder) Subacute Not resolving as expected Unclear etiology The patient does not engage in sports that require significant over the head activity - tennis, swimming, weight lifting, throwing sports, volleyball, gymnastics The patient DOES not work in an occupation that requires significant over the head activity with the upper extremities There is NO instability of the GH joint found on exam today There is some evidence of scapular dyskinesia on exam today; which can predispose to SIS CONSERVATIVE treatment includes NSAIDs, tylenol, PT Discussed the rationale for PT at some point in the future If no improvement, will proceed with plain films If no improvement after PT, may require MRI Discussed rationale for referral to ortho; declined today F/u 1 month 3. (Z34.90: Encounter for supervision of normal , unspecified, unspecified trimester) 4. Anxiety (F41.9: Anxiety disorder, unspecified) Total time spent TODAY preparing the chart, face to face with the patient and family and time spent documenting, reviewing, and ordering tests was 30 mins. Patient was counseled on the above diagnosis and treatment, all questions were answered and patient agrees to adhere to the plan above. Risk and benefits of appropriate procedures and medications were reviewed as well with patient, who voiced understanding and agreement. Patient was counseled on smoking cessation and/or continuing to abstain from nicotine/tobacco products as appropriate based on history; as smoking/nicotine can contribute to increased pain overall and decreased wound healing. Patient counseled on maintaining a healthy BMI as part of the total treatment of their pain a (more content not included)... Normal [facility] Comment on above: Result Comment: Elec tronically Signed By: Matt Aguero DO\Date and Time Signed: 11/26/23 10:45 EST Formson 11-26-2023 Forms [id number] #1.00TIFF Normal [facility] ALL CBC WITH AUTO DIFFon BASOPHILS ABSOLUTE AUTO 0.0 [facility] Basophils/100 WBC (Bld) 0.3 % 0.2 - 2.0 % [facility] Eosinophils/100 WBC (Bld) 0.8 % Low 0.9 - 7.0 % [facility] Erythrocyte distribution width (RBC) [Ratio] 12.6 % 11.0 - 15.0 % [facility] Hematocrit (Bld) [Volume fraction] 32.0 % Low 36.0 - 48.0 % [facility] Hemoglobin (Bld) [Mass/Vol] 10.6 g/dL Low 12.0 - 16.0 g/dL [facility] IMMATURE GRANULOCYTES ABS AUTO 0.04 High [facility] Immature granulocytes/100 WBC (Bld) 0.4 % 0.0 - 0.5 % [facility] Interpretation and review of laboratory results Abnormal [facility] LYMPHOCYTES ABSOLUTE AUTO 1.6 [facility] Lymphocytes/100 WBC (Bld) 14.7 % Low 20.5 - 60.0 % [facility] MCH (RBC) [Entitic mass] 30.7 pg 26.7 - 34.0 pg [facility] MCHC (RBC) [Mass/Vol] 33.1 g/dL 29.9 - 35.2 g/dL [facility] MCV (RBC) [Entitic vol] 92.8 fL 81.0 - 99.0 fL [facility] MONOCYTES ABSOLUTE AUTO 0.5 [facility] Monocytes/100 WBC (Bld) 4.4 % 1.7 - 12.0 % [facility] NEUTROPHILS ABSOLUTE AUTO 8.5 High [facility] Neutrophils/100 WBC (Bld) 79.4 % High 43.0 - 75.0 % [facility] Platelet mean volume (Bld) [Entitic vol] 11.4 fL 9.5 - 13.5 fL [facility] TBH EO # 0.1 [facility] TB PLT [address] [facility] RBC 3.45 Low [facility] [facility] TB WBC 10.7 [facility] CLINISYNC [facility] Urinalysis macro (dipstick) panel (U)Ordered By: Melvina Tong on 11-10-2023 Bilirubin, UA Negative Negative - 4(70) +++ mg/dL [facility] Work Phone: Blood, UA Negative Negative - 50 Joel/mcL [facility] Work Phone: Clarity, UA Clear [facility] Work Phone: Color, UA Yellow [facility] Work Phone: Glucose, UA Positive Negative - 2000(110) ++++ mg/dL [facility] Work Phone: Interpretation and review of laboratory results Abnormal [facility] Work Phone: Ketones, UA Negative Negative - 160(16) ++++ mg/dL [facility] Work Phone: Leukocytes, UA Negative Negative - 500+++ Shar/mcL [facility] Work Phone: Nitrite, UA Negative Negative - Positive [facility] Work Phone: pH, UA 6.5 5 - 9 [facility] Work Phone: Protein, UA Negative Negative - 2000(20) ++++ mg/dL [facility] Work Phone: Spec Grav, UA 1.010 1 - 1.03 [facility] Work Phone: Urobilinogen, UA 1.0 0.2 - 12 mg/dL [facility] Work Phone: [facility] Work Phone: Vital Signs Date Time Vital Sign Value Performing Clinician Faci lity 12-28-2023 16:29-0400 Blood Pressure Location [facility] 12-28-2023 16:29-0400 Diastolic blood pressure 60 mm[Hg] [facility] 12-28-2023 16:29-0400 Heart rate 89 /min [facility] 12-28-2023 16:29-0400 SaO2% (BldA) [Mass fraction] 99 % [facility] 12-28-2023 16:29-0400 Systolic blood pressure 90 mm[Hg] [facility] 11-26-2023 08:52-0500 Blood Pressure Location [facility] 11-26-2023 08:52-0500 Diastolic blood pressure 60 mm[Hg] [facility] 11-26-2023 08:52-0500 Heart rate 96 /min Matt Cromley [facility] 11-26-2023 08:52-0500 SaO2% (BldA) [Mass fraction] 99 % Wallace More [facility] 11-26-2023 08:52-0500 Systolic blood pressure 96 mm[Hg] Wallace More [facility] 11-10-2023 16:00-0500 Body weight 64.86 kg Pamela PARDO Work Phone: [facility] 11-10-2023 16:00-0500 Diastolic blood pressure 70 mm[Hg] Pamela PARDO Work Phone: [facility] 11-10-2023 16:00-0500 Systolic blood pressure 102 mm[Hg] Pamela PARDO Work Phone: [facility] Encounters Encounter Date Encounter Type Care Provider Facility Start: 11-29-2024 ambulatory Matt Aguero Facili ty:[facility] Start: 03-28-2024 ambulatory Matt Aguero Facili ty:[facility] Start: 03-07-2024 ambulatory Matt Aguero Facili ty:[facility] Start: 01-05-2024 End: 01-05-2024 ambulatory PABLITO STACIA Not Available Start: 12-28-2023 End: 12-29-2023 ambulatory Matt Aguero Facility:[facility] Start: 12-28-2023 End: 12-28-2023 Patient encounter procedure Matt Aguero [facility] Start: 12-22-2023 End: 12-22-2023 ambulatory PABLITO STACIA Not Available Start: 12-09-2023 End: 12-09-2023 ambulatory PAMELA DICK Not Available Start: 11-26-2023 End: 11-27-2023 ambulatory Matt Aguero Facility:[facility] Start: 11-26-2023 End: 11-26-2023 Patient encounter procedure Matt Aguero [facility] Start: 11-24-2023 ambulatory Matt Aguero Facility :[facility] Start: 11-24-2023 End: 11-24-2023 ambulatory PABLITO JOHNSTONO Not Available Start: 11-10-2023 End: 11-10-2023 ambulatory PAMELA DICK Not Available Start: 11-10-2023 End: 11-10-2023 flow sheet Pamela PARDO Work Phone: [facility] Comment on above: Second trimester pre gnancy Start: 11-10-2023 Bamboo flowsheet Pamela PARDO Work Phone: [facility] Start: 11-10-2023 Bamboo flowsheet Pamela PARDO Work Phone: [facility] Start: 11-10-2023 Clinisync Result Encounter Pablito Ham DO Work Phone: [facility] Unsolicited Start: 10-11-2023 End: 10-11-2023 ambulatory PABLITO HAM Not Available Start: 09-07-2023 End: 09-07-2023 ambulatory PAMELA DICK Not Available Start: 06-24-2022 End: 06-24-2022 Patient encounter procedure Pamela Colvin [facility] Procedures Date Procedure Procedure Detail Performing Clinician Start: 11-10-2023 Urnls dip stick/tabl et rgnt non-auto w/o micrscp Pamela PARDO Work Phone: Start: 11-10-2023 ALL CBC WITH AUTO DIFF Pablito Ham DO Work Phone: Tonsillectomy Matt Aguero Plan of Treatment Date Care Activity Detail Author Start: 11-24-2023 End: 11-24-2023 Patient encounter procedure 11/24/2023 10:50 AM EST Routine [facility] [address] [place] [address] Pablito Ham, DO [address] [place] [address] [facility] Start: 11-10-2023 End: 11-10-2023 Patient encounter procedure 11/10/2023 3:40 PM EST Routine [facility] [address] [place] [address] Pamela Dick PA [address] [place] [address] Second trimester [facility] Comment on above: Second trimester pre gnancy Immunizations Immunization Date Immunization Notes Care Provider Fa cility NEGATED: Highlighted row has not occurred!11-26-2023 influenza virus vaccine, unspecified formulation Matt Aguero [facility] [place] Payers Date Payer Category Payer Unknown BCBS BCBS xxxxxx [id number] 2019-Present [phone] [address] [place] [address] [id number] 2019 Unknown [id number] 1992 Unknown [id number] 1992 Unknown [id number] 1992 Unknown [id number] [id number] 1992 Unknown [id number] [id number] 1992 Unknown [id number] [id number] 1992 Unknown [id number] [id number] 1992 Unknown [id number] [id number] 1992 Unknown [id number] [id number] 1992 Unknown [id number] [id number] 1992 Unknown [id number] [id number] 1992 Unknown [id number] [id number] 1992 Unknown [id number] [id number] 1992 Unknown [id number] Social History Date Type Detail Facility Tobacco smoking status No Smoking Status Entered [facility] Sex Assigned At Female [facility] Tobacco smoking status NHIS Tobacco smoking consumption unknown [facility] Start: 05-26-2023 [facility] Start: 1990 Sex Assigned At Not on file [facility] Start: 11-26-2023 End: 12-28-2023 Tobacco smoking status Never smoked tobacco (finding) [facility] Tobacco smoking status Never [facility] Goals Date Patient Goal Desired Activity /State Personal health goal Functional Status Date Assessment Result Facility 12-28-2023 Functional Status N/A [facility] 11-26-2023 Functional Status N/A [facility] Hospital Discharge instructions 12-28-2023 Note Date & Type Note Facility 12-28-2023 Hospital Discharge instructions Patient Education 12/28/2023 16:52:59 Temporomandibular Joint Syndrome Temporomandibular Joint Syndrome Temporomandibular joint syndrome (TMJ syndrome) is a condition that causes pain in the temporomandibular joints. These joints are located near your ears and allow your jaw to open and close. For people with TMJ syndrome, chewing, biting, or other movements of the jaw can be difficult or painful. TMJ syndrome is often mild and goes away within a few weeks. However, sometimes the condition becomes a long-term (chronic) problem. What are the causes? This condition may be caused by: Grinding your teeth or clenching your jaw. Some people do this when they are stressed. Arthritis. An injury to the jaw. A head or neck injury. Teeth or dentures that are not aligned well. In some cases, the cause of TMJ syndrome may not be known. What are the signs or symptoms? The most common symptom of this condition is aching pain on the side of the head in the area of the TMJ. Other symptoms may include: Pain when moving your jaw, such as when chewing or biting. Not being able to open your jaw all the way. Making a clicking sound when you open your mouth. Headache. Earache. Neck or shoulder pain. How is this diagnosed? This condition may be diagnosed based on: Your symptoms and medical history. A physical exam. Your health care provider may check the range of motion of your jaw. Imaging tests, such as X-rays or an MRI. You may also need to see your dentist, who will check if your teeth and jaw are lined up correctly. How is this treated? TMJ syndrome often goes away on its own. If treatment is needed, it may include: Eating soft foods and applying ice or heat. Medicines to relieve pain or inflammation. Medicines or massage to relax the muscles. A splint, bite plate, or mouthpiece to prevent teeth grinding or jaw clenching. Relaxation techniques or counseling to help reduce stress. A therapy for pain in which an electrical current is applied to the nerves through the skin (transcutaneous electrical nerve stimulation). Acupuncture. This may help to relieve pain. Jaw surgery. This is rarely needed. Follow these instructions at home: Eating and drinking Eat a soft diet if you are having trouble chewing. Avoid foods that require a lot of chewing. Do not chew gum. General instructions Take nssx-pdr-yeqajlw and prescription medicines only as told by your health care provider. If directed, put ice on the painful area. To do this: ?Put ice in a plastic bag. ?Place a towel between your skin and the bag. ?Leave the ice on for 20 minutes, 2 3 times a day. ?Remove the ice if your skin turns bright red. This is very important. If you cannot feel pain, heat, or cold, you have a greater risk of damage to the area. Apply a warm, wet cloth (warm compress) to the painful area as told. Massage your jaw area and do any jaw stretching exercises as told by your health care provider. If you were given a splint, bite plate, or mouthpiece, wear it as told by your health care provider. Keep all follow-up visits. This is important. Where to find more information [employer] [place] [employer]: www.nidcr.nih.gov Contact a health care provider if: You have trouble eating. You have new or worsening symptoms. Get help right away if: Your jaw locks. Summary Temporomandibular joint syndrome (TMJ syndrome) is a condition that causes pain in the temporomandibular joints. These joints are located near your ears and allow your jaw to open and close. TMJ syndrome is often mild and goes away within a few weeks. However, sometimes the condition becomes a long-term (chronic) problem. Symptoms include an aching pain on the side of the head in the area of the TMJ, pain when chewing or biting, and being unable to open your jaw all the way. You may also make a clicking sound when you open your mouth. TMJ syndrome often goes away on its own. If treatment is needed, it may include medicines to relieve pain, reduce inflammation, or relax the muscles. A splint, bite plate, or mouthpiece may also be used to prevent teeth grinding or jaw clenching. This information is not intended to replace advice given to you by your health care provider. Make sure you discuss any questions you have with your health care provider. Document Revised: 05/03/2022 Document Reviewed: 05/03/2022 [employer] Patient Education 2022 [employer] Follow Up Care 11/26/2023 09:54:55 With:More COWART, Matt Cueva, LOREN, PED Address: [address] [place] [address] [phone] When:1 month Comments:OMT PRN - 40 min slotTo go instructions (to paste into follow up):Work on engaging core muscles - supine with knees bentOur goal is to address trunk stability and share the work with the other erector musclesWork on shoulder retraction exercisesConsider reading Driven to Distraction as discussedFor equip tech, I recommend Dr. Mar CrowleyIf you want to see a family doctor, I recommend my colleague in this office Dr. Dickson Salazar/chriss 1 month or PRN [facility] [place] History of Present illness Narrative 11-10-2023 EDVIN James - 11/10/2023 3:40 PM EST Note Date & Type Note Facility 11-10-2023 History of Presen t illness Narrative Reason for Appointment: Patient ID: Winston Carter is a 33 y.o. female who presents for Routine Visit Patient presents today for Return OB appointment. Current Medications: has a current medication list which includes the following prescription(s): mv-min-fe fum-fa-dha. Medical History: Active Ambulatory Problems Diagnosis Date Noted No Active Ambulatory Problems Resolved Ambulatory Problems Diagnosis Date Noted No Resolved Ambulatory Problems No Additional Past Medical History No family history on file. Social History Tobacco Use Smoking status: Not on file Smokeless tobacco: Not on file Substance Use Topics Alcohol use: Not on file Drug use: Not on file Past Surgical History: Procedure Laterality Date TONSILLECTOMY No Known Allergies Review of Systems: Review of Systems Constitutional: Negative. HENT: Negative. Eyes: Negative. Respiratory: Negative. Cardiovascular: Negative. Gastrointestinal: Negative. Genitourinary: Negative. Musculoskeletal: Negative. Skin: Negative. Neurological: Negative. All other systems reviewed and are negative. Hematological: Negative. Endocrine: Negative. Allergic/Immunologic: Negative. Objective Physical Exam Constitutional: Appearance: Normal appearance. She is normal weight. HENT: Head: Normocephalic. Cardiovascular: Rate and Rhythm: Normal rate. Pulses: Normal pulses. Pulmonary: Effort: Pulmonary effort is normal. Breath sounds: Normal breath sounds. Abdominal: Palpations: Abdomen is soft. Musculoskeletal: General: Normal range of motion. Neurological: General: No focal deficit present. Mental Status: She is alert and oriented to person, place, and time. Psychiatric: Mood and Affect: Mood normal. Behavior: Behavior normal. Thought Content: Thought content normal. Judgment: Judgment normal. Vitals and nursing note reviewed. Vitals: There is no height or weight on file to calculate BMI. BP: 102/70 Patient's last menstrual period was 05/06/2023. Assessment/Plan Encounter Diagnosis Name Primary? Second trimester Patient presents today for a routine obstetrics appointment. Patient is currently 26w0d with a Estimated Date of Delivery: 02/16/24. Patient presents today for a routine obstetrics appointment. Patient is currently 26w0d . Patient states she is doing well but has complaints of being tired due to current . Patient has verbalizes frequent movement. labor precautions was discussed/given Follow Up: Patient is to return to office in 4 weeks for routine OB appointment. Documented by EDVIN James on behalf of: EDVIN James documented in this encounter [facility] Hospital Discharge instructions 10-06-2023 Note Date & Type Note Facility 10-06-2023 Hospital Discharg e instructions Follow Up Care 10/06/2023 12:21:08 With:Matt Aguero DO, FAM, PED Address: [facility] [place] [address] [phone] When:1 year Comments:To go instructions:f/u as neededWork on shoulder active range of motion exercises Consider reading Driven to Distraction - by Stanton Emerson [facility] Evaluation + Plan note Note Date & Type Note Facility Evaluation + Plan note No data available for this section [facility] Evaluation + Plan note Note Date & Type Note Facility Evaluation + Plan note Future Appointments Appointment Date:12/28/2023 04:20:00 PM Scheduled Provider:Matt Aguero DO Location:[facility] Appointment Type:FM Procedure Appointment Date:03/28/2024 08:20:00 AM Scheduled Provider:Matt Aguero DO Location:[facility] Appointment Type:FM Procedure Appointment Date:11/29/2024 09:00:00 AM Scheduled Provider:Matt Aguero DO Location:[facility] Appointment Type:FM Open [facility] Evaluation + Plan note Note Date & Type Note Facility Evaluation + Plan note Future Appointments Appointment Date:03/07/2024 08:20:00 AM Scheduled Provider:Matt Aguero DO Location:[facility] Appointment Type:FM Procedure Appointment Date:03/28/2024 08:20:00 AM Scheduled Provider:Matt Aguero DO Location:[facility] Appointment Type:FM Procedure Appointment Date:11/29/2024 09:00:00 AM Scheduled Provider:Matt Aguero DO Location:[facility] Appointment Type:FM Open [facility] [place] Evaluation note Note Date & Type Note Facility Evaluation note Diagnosis Second trimester state, incidental documented in this encounter [facility] Discharge instructions Note Date & Type Note Facility Hospital Discharge instructions No data available for this section [facility] Progress note Note Date & Type Note Facility Progress note No data available for this section [facility] Summary Purpose Family History No Family History Records Found Advance Directives No Advanced Directives Records FoundNo Advanced Directives Records Found Additional Source Comments Care Team (unrecognized sect ion and content) Sales Manager Relationship Specialty Start Date End Date Pamela Colvin MD [address] [place] [address] PCP - General [facility] 07/02/23 Sales Manager Relationship Specialty Start Date End Date Pamela Colvin MD [address] [place] [address] PCP - [facility] 07/02/23 Sales Manager Relationship Specialty Start Date End Date Pamela Colvin MD [address] [place] [place] [address] PCP - General [facility] 07/02/23 Reason for Visit (unrecogniz ed section and content) Reason Comments Routine Visit INFORMATION SOURCE (unrecogn ized section and content) DATE CREATED AUTHOR 12/29/2023 [facility] DATE CREATED AUTHOR AUTHOR'S ORGANIZ ATION 01/06/2024 [facility] dical Specialists EPIC FOR RECORDS PERTAINING TO [...] BE BASED ON THE PRIMARY CLINICAL RECORDS. [facility] provides no warranty or guarantee of the accuracy or completeness of information in this document.
== END 2024-01-11 08:33 | disposition home or self-care (01) ==
LOC: NOMS 08:34
PROVIDERS: Visit Provider Physician Assistant
DX: O26.849 Uterine size-date discrepancy, unspecified trimester (principal); Z3A.34 34 weeks gestation of pregnancy
CPT/HCPCS: 76816

== ENCOUNTER 2024-01-20 20:20 | Outpatient (REF) | payer BC, SELFPAY ==
--- OUTSIDE RECORDS SUMMARY | 2024-01-20 20:24 | XMS_ITS | CCD ---
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 Name Role Phone Pamela Colvin Primary Care Physician [phone] Pamela Colvin MD Primary Care Provider [phone] Matt Aguero Primary Care Physician Unavail able PABLITO HMA Attending Unavailable PAMELA DICK Attending Unavailable PABLITO HAM Attending Unavailable PAMELA DICK Attending Unavailable PABLITO HAM Attending Unavailable PABLITO HAM Attending Unavailable PAMELA DICK Attending Unavailable Matt Aguero Attending Unavailable Matt Aguero Attending Unavailable Matt Aguero Attending Unavailable Matt Aguero Attending Unavailable Matt Aguero Attending Unavailable Matt Aguero Attending Unavailable Matt Aguero Attending Unavailable Medications Current Medications Medication Drug Class(es) Dates Sig (Normalized) Sig (Original) escitalopram 10 mg oral tablet (3 sources) Serotonin Reuptake Inhibitor Start: 11-25-2023 escitalopram 10 mg Tab 30 tab(s), 0 Refill(s), Refills(s) 0 Start Date: 11/25/23 Status: Ordered Depo-Provera (4 sources) Progestin Start: 01-15-2011 Depo-Provera 400 mg, IntraMuscular, Refills(s) 0 Start Date: 01/15/11 Status: Ordered meloxicam 7.5 mg oral tablet (3 sources) Nonsteroidal Anti-inflammatory Drug Start: 11-04-2017 methocarbamol 500 mg oral tablet (3 sources) Muscle Relaxant Start: 11-04-2017 Multivitamins with Vitamin B Complex, Vitamin C, Minerals and L-Methylfolate oral capsule (3 sources) Start: 11-26-2023 Multivitamins with Vitamin B Complex, Vitamin C, Minerals and L-Methylfolate oral capsule 1 cap(s), Oral, Daily, 30 cap(s), Refill(s) 0 Start Date: 11/26/23 Status: Ordered MV-Min-Fe Fum-FA-DHA ( 1 PO) (3 sources) MV-Min- Fe Fum-FA-DHA ( 1 PO) Take by mouth. 0 Active Completed/Discontinued Medications Medication Drug Class(es) Dates Sig (Normalized) Sig (Original) 21 day ethinyl estradiol 0.920610 mg/hr / etonogestrel 0.005 mg/hr vaginal system (3 sources) Progestin, Estrogen Start: 11-25-2023 ethinyl estradiol-etonog [...] specified circumstances] Onset: 4 Episodic Anxiety disorders (5 sources) Anxiety disorder; Translations: [Anxiety disorder, unspecified] Onset: 4 Chronic Disorders of teeth and jaw (3 sources) Temporomandibular joint disorder; Translations: [Other specified disorders of temporomandibular joint] Onset: 4 Episodic Other bone disease and musculoskeletal deformities (6 sources) Segmental and somatic dysfunction; Translations: [Segmental and somatic dysfunction of thoracic region] Onset: 4 Episodic Other bone disease and musculoskeletal deformities (2 sources) Cervical somatic dysfunction 12-27-2023 Episodic Other bone disease and musculoskeletal deformities (2 sources) Somatic dysfunction of thoracic region 12-27-2023 Episodic Other bone disease and musculoskeletal deformities (2 sources) Somatic dysfunction of upper limb 12-27-2023 Episodic Other connective tissue disease (3 sources) Adhesive capsulitis of shoulder; Translations: [Adhesive capsulitis of unspecified shoulder] Onset: 4 Episodic Other connective tissue disease (1 source) Spasm; Translations: [Other muscle spasm] Onset: 4 Episodic Other connective tissue disease (2 sources) Muscle spasm of cervical muscle of neck 12-27-2023 Episodic Other non-traumatic joint disorders (2 sources) Disorder of joint of shoulder region; Translations: [Other specified joint disorders, unspecified shoulder] Onset: 4 Episodic Other non-traumatic joint disorders (3 sources) Disorder of shoulder 11-26-2023 Episodic Other nutritional; endocrine; and metabolic disorders (1 source) Overweight in adulthood with body mass index of 25 or more but less than 30; Translations: [Body mass index (BMI) 25.0-25.9, adult] Onset: 4 Episodic Other and delivery including normal (7 sources) Second trimester ; Translations: [Encounter for supervision of normal , unspecified, second trimester] Onset: 4 11-05-2023 Episodic Residual codes; unclassified (1 source) Body mass index 20-24 - normal; Translations: [Body mass index (BMI) 24.0-24.9, adult] Onset: 4 Episodic Spondylosis; intervertebral disc disorders; other back problems (7 sources) Neck pain; Translations: [Cervicalgia] Onset: 4 Episodic Unclassified (3 sources) OB Reminders Onset: 3 07-12-2023 Unclassified (1 source) Patient encounter status 11-25-2023 Results Test Name Value Interpretation Reference Range Facility Ambulatory Visit Summaryon 0 01-18-2024 Ambulatory Visit Summary WINSTON CARTER :1990 Visit Date:01/18/2024 Ambulatory Visit Instructions Your Diagnosis Low back pain Lumbar paraspinal muscle spasm Somatic dysfunction of cervical region Somatic dysfunction of thoracic region Somatic dysfunction of upper extremities Adult BMI 25.0-25.9 kg/sq m Your Care Team Attending Physician - Matt [...] Performed Tonsillectomy. Discharge Vitals Heart Rate (Peripheral) 90 Blood Pressure 90/60 Height 166.5 cm Height 66 in Weight 70.6 kg Weight 155.32 lb BMI 25.47 What to do next Scheduled Follow-Up Appointments Wednesday 8:20 AM EDT With: Matt Aguero DO Where: [facility] Invalid Interpretation Code [address] [place] [address]-\.br\ Wednesday 2:00 PM EDT \.br\ With: Matt Aguero DO\.br\ Where: [facility] Family Medicine Office/Clini c Noteon 01-18-2024 Family Medicine Office/Clinic Note Chief Complaint F/U HPI Staff Patient here today for F/U OMT EMILY 12/28/23 Patient has no other concerns today History of Present Illness 33 Years old Female here to f/u for NECK PAIN *my dad is Almas Michaud and he loves you This is the best I've ever seen my dad Social: The patient is ; Ghulam Carter since 2022 Her 's family is Raul - there's a lot of Denys in the area *her is a li 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 Ham - delivering at [facility] - Dr. Aldrich HPI staff / [...] The patient expresses consent for manipulation today. Neck isn't bothering her today having some left low back and hip pain today hasn't been to her chiropractor since her last appt *Driven to Distraction --> hasn't read it yet PHYSICAL EXAM Constitutional: Vital signs reviewed; this patient is well nourished, no acute distress Lungs: Clear to auscultation, non-labored respiration - expansion is symmetric Heart: Normal rate and rhythm, normal peripheral perfusion MSK: Gait is fluid SI joint is tender on the left Lumbar paraspinal muscle tight/tender bilaterally; worse on the left Core muscles are sub-optimal in tension at rest Skin: Warm, dry Neurologic: Awake, alert and oriented Psychiatric: Cooperative, appropriate mood and affect, judgement is appropriate Procedure documentation - Osteopathic Manipulation: Lumbar Spine: Lumbar paraspinal restriction on the BILAT; worse on the left - treated with myofascial, BLT and FPR - with objective and subjective improvement Sacral: SI dysfunction on the BILAT; worse on the left - treated with BLT and FPR - with objective and subjective improvement Lower Extremity: Psoas restriction and tenderness on the left - treated with BLT and FPR - with objective and subjective improvement PLAN: 1. Low Back pain (M54.50) Chronic. Stable Multifactorial etiology * is likely a major factor here Does get benefit from OMT Discussed the importance of optimizing mechanics Discussed the rationale of manipulation in the future F/u 1 month or PRN *Patient denies any symptoms of progressively worsening upper/lower extremity weakness, progressively worsening gait abnormality, new onset bowel/bladder incontinence/ urinary retention, or saddle anesthesia. No new or worsening symptoms of fever, chills, night sweats. 2. Spasm of lumbar paraspinous muscle (M62.830) Acute on chronic Likely contributing to the above *see #1 Discussed with the patient today Improved with OMM F/u 1 month 3. Abdominal weakness (R19.8) Acute on chronic Sub-optimal Reduced reliance on rectus during is a commone cause of low back pain Given instructions on how to begin engaging core muscles - supine with knees bent Discussed how this will help with trunk stability and share the work with her other erector muscles f/u 1 month 4. Hip flexor tightness (M24.559) Chronic Sub-optimal control Likely stemming from sub-optimal mechanics Discussed how underuse of abdominal muscles to provide trunk stability can lead to an overreliance on hip flexors, hamstrings and lumbar paraspinals which can lead to increase/ worsening of low back pain And if the patient has DDD, arthritis etc, can aggravate those symptoms as well Trunk stability exercises reviewed today Address abdominal weakness F/u 1 month or PRN 8. Somatic dysfunction of the Lumbar Spine (M99.03) Manipulation described as above Provided with permission by the patient The patient tolerated manipulation well and the procedure went as planned without incident Range of motion and function have improved with objective improvement of signs and subjective improvement of symptoms Patient to follow-up in 3-4 weeks for additional manipulation if needed (or sooner PRN) Discussed the importance of addressing core strength 9. Somatic dysfunction of the Sacral Spine (M99.04) see OMM portion for more details 10. Somatic dysfunction of the Lower Extremities (M99.06) see OMM portion for more details Total time spent TODAY preparing the chart, face to face with the patient and family and time spent documenting, reviewing, and ordering tests was 30 mins. Time spent with manipulation was over and above the noted 30 minutes. Patient was counseled on the above diagnosis and treatment, all questions were answered and patient agrees to adhere to the plan abov (more content not included)... Normal [facility] Comment on above: Result Comment: Elec tronically Signed By: Matt Aguero DO\.br\Date and Time Signed: 01/18/24 11:38 EDT Ambulatory Visit Summaryon 0 12-28-2023 Ambulatory Visit Summary WINSTON CARTER :1990 Visit Date:12/28/2023 Ambulatory Visit Instructions Your [...] AM EDT With: Matt Aguero DO Where: [facility] Invalid Interpretation Code [address] [place] [address]-\.br\ Wednesday 9:00 AM EST \.br\ With: Matt Aguero DO\.br\ Where: [facility] Medicine Office/Clini c Noteon 12-28-2023 Family Medicine Office/Clinic [...] is Raul - there's a lot of Blugs in the area *her is a li 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 Ham - delivering at [facility] - Dr. Aldrich HPI staff / [...] for ad (more content not included)... Normal [facility] Comment on above: Result Comment: Elec tronically Signed By: Matt Aguero DO\Date and Time Signed: 12/28/23 17:22 EDT Patient [...] not chew gum. General instructions ? Take nxvx-nfw-fjecyjn and prescription medicines only as told by [...] Where to find more information ? National [place] of Dental and Craniofacial Research: www.nidcr.nih.gov Contact [...] provider. Document Revised: 05/03/2022 Document Reviewed: 05/03/2022 [employer] Patient Education ? [address] [employer] [facility] Transfer Inon 12-28-2023 Transfer In [id number]#[address]00[address] [facility] Auth for Release of Medical Recordson 11-29-2023 Auth for Release of Medical Records [id number]# 1.00TIFF [facility] Ambulatory Visit Summaryon 0 11-26-2023 Ambulatory Visit [...] PM EDT With: Matt Aguero DO Where: [facility] Invalid Interpretation Code [address] [place] [address]-\.br\ Wednesday 9:00 AM EST \.br\ With: Matt Aguero DO\.br\ Where: [facility] Medicine Office/Clini c Noteon 11-26-2023 Family Medicine Office/Clinic Note Chief Complaint EST CARE HPI Staff Establish Care: History: Last provider: Robert Pierson Any recent labs: DUE Health Maintenance UTD: Colonoscopy:N/A PSA: N/A Mammogram: Pelvic/Pap: 09/25 Social: Patient First child on way/boy Employed [employer] Acute: Patients father recommended monse/ Lc Artis Current issues/complaints: Having joint issues, shoulder/ right [...] is Raul - there's a lot of [place] in the area *her is a li 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 Ham - delivering at [facility] - Dr. Aldrich [facility] staff / Chief Complaint confirmed with [...] pain a (more content not included)... Normal [facility] Comment on above: Result Comment: Elec tronically Signed By: Matt Aguero DO\Date and Time Signed: 11/26/23 10:45 EST Formson 11-26-2023 Forms [id number] #1.00TIFF [facility] ALL CBC WITH AUTO DIFFon BASOPHILS ABSOLUTE AUTO 0.0 [facility] Basophils/100 WBC (Bld) 0.3 % 0.2 - 2.0 % [facility] Eosinophils/100 WBC (Bld) 0.8 % Low 0.9 - 7.0 % [facility] Erythrocyte distribution width (RBC) [Ratio] 12.6 % 11.0 - 15.0 % [facility] Hematocrit (Bld) [Volume fraction] 32.0 % Low 36.0 - 48.0 % [facility] Hemoglobin (Bld) [Mass/Vol] 10.6 g/dL Low 12.0 - 16.0 g/dL [facility] IMMATURE GRANULOCYTES ABS AUTO 0.04 High [facility] Immature granulocytes/100 WBC (Bld) 0.4 % 0.0 - 0.5 % [facility] Interpretation and review of laboratory results Abnormal [facility] LYMPHOCYTES ABSOLUTE AUTO 1.6 [facility] Lymphocytes/100 WBC (Bld) 14.7 % Low 20.5 - 60.0 % [facility] MCH (RBC) [Entitic mass] 30.7 pg 26.7 - 34.0 pg [facility] MCHC (RBC) [Mass/Vol] 33.1 g/dL 29.9 - 35.2 g/dL [facility] MCV (RBC) [Entitic vol] 92.8 fL 81.0 - 99.0 fL [facility] MONOCYTES ABSOLUTE AUTO 0.5 [facility] Monocytes/100 WBC (Bld) 4.4 % 1.7 - 12.0 % [facility] NEUTROPHILS ABSOLUTE AUTO 8.5 High [facility] Neutrophils/100 WBC (Bld) 79.4 % High 43.0 - 75.0 % [facility] Platelet mean volume (Bld) [Entitic vol] 11.4 fL 9.5 - 13.5 fL [facility] TBH EO # 0.1 [facility]H PLT [facility] RBC 3.45 Low [facility] TB WBC 10.7 [facility] Urinalysis macro (dipstick) panel (U)Ordered By: Melvina Tong on 11-10-2023 Bilirubin, UA Negative Negative - 4(70) +++ mg/dL [facility] Work Phone: Blood, UA Negative Negative - 50 Joel/mcL [facility] Work Phone: Clarity, UA Clear [facility] Work Phone: Color, UA Yellow [facility] Work Phone: Glucose, UA Positive Negative - 1999(110) ++++ mg/dL [facility] Work Phone: Interpretation and review of laboratory results Abnormal [facility] Work Phone: Ketones, UA Negative Negative - 160(16) ++++ mg/dL [facility] Work Phone: Leukocytes, UA Negative Negative - 500+++ Shar/mcL [facility] Work Phone: Nitrite, UA Negative Negative - Positive [facility] Work Phone: pH, UA 6.5 5 - 9 [facility] Work Phone: Protein, UA Negative Negative - 1999(20) ++++ mg/dL [facility] Work Phone: Spec Grav, UA 1.010 1 - 1.03 [facility] Work Phone: Urobilinogen, UA 1.0 0.2 - 12 mg/dL [facility] Work Phone: [facility] Work Phone: Vital Signs Date Time Vital Sign Value Performing Clinician Sage uriostegui 01-18-2024 10:35-0400 Blood Pressure Location [facility] 01-18-2024 10:35-0400 Diastolic blood pressure 60 mm[Hg] [facility] 01-18-2024 10:35-0400 Heart rate 90 /min [facility] 01-18-2024 10:35-0400 SaO2% (BldA) [Mass fraction] 98 % [facility] 01-18-2024 10:35-0400 Systolic blood pressure 90 mm[Hg] [facility] 12-28-2023 16:29-0400 Blood Pressure Location [facility] 12-28-2023 16:29-0400 Diastolic blood pressure 60 mm[Hg] [facility] 12-28-2023 16:29-0400 Heart rate 89 /min [facility] 12-28-2023 16:29-0400 SaO2% (BldA) [Mass fraction] 99 % [facility] 12-28-2023 16:29-0400 Systolic blood pressure 90 mm[Hg] [facility] 11-26-2023 08:52-0500 Blood Pressure Location [facility] 11-26-2023 08:52-0500 Diastolic blood pressure 60 mm[Hg] [facility] 11-26-2023 08:52-0500 Heart rate 96 /min [facility] 11-26-2023 08:52-0500 SaO2% (BldA) [Mass fraction] 99 % [facility] 11-26-2023 08:52-0500 Systolic blood pressure 96 mm[Hg] [facility] 11-10-2023 16:00-0500 Body weight 64.86 kg Pamela PARDO Work Phone: [facility] 11-10-2023 16:00-0500 Diastolic blood pressure 70 mm[Hg] Pamela PARDO Work Phone: [facility] 11-10-2023 16:00-0500 Systolic blood pressure 102 mm[Hg] Pamela PARDO Work Phone: [facility] Encounters Encounter Date Encounter Type Care Provider Facility Start: 11-29-2024 ambulatory Matt Diaz ty:[facility] Start: 04-28-2024 ambulatory Matt Diaz ty:[facility] Start: 03-28-2024 ambulatory Matt Diaz ty:[facility] Start: 03-07-2024 ambulatory Matt Diaz ty:[facility] Start: 01-18-2024 End: 01-19-2024 ambulatory Matt Aguero Facility:[facility] Start: 01-18-2024 End: 01-18-2024 Patient encounter procedure Matt Aguero [facility] Start: 01-05-2024 End: 01-05-2024 ambulatory PABLITO JITENDRA Not Available Start: 12-28-2023 End: 12-29-2023 ambulatory Matt Aguero Facility:[facility] Start: 12-28-2023 End: 12-28-2023 Patient encounter procedure Matt Aguero [facility] Start: 12-22-2023 End: 12-22-2023 ambulatory PABLITO JITENDRA Not Available Start: 12-09-2023 End: 12-09-2023 ambulatory PAMELA DICK Not Available Start: 11-26-2023 End: 11-27-2023 ambulatory Matt Aguero Facility:[facility] Start: 11-26-2023 End: 11-26-2023 Patient encounter procedure Matt Aguero [facility] Start: 11-24-2023 ambulatory Matt Aguero Facility :[facility] Start: 11-24-2023 End: 11-24-2023 ambulatory PABLITO JITENDRA Not Available Start: 11-10-2023 End: 11-10-2023 ambulatory PAMELA DICK Not Available Start: 11-10-2023 End: 11-10-2023 flow sheet Pamela PARDO Work Phone: [facility] Comment on above: Second trimester pre gnancy Start: 11-10-2023 Bamboo flowsheet Pamela PARDO Work Phone: [facility] Start: 11-10-2023 Bamboo flowsheet Pamela PARDO Work Phone: [facility] Start: 11-10-2023 [facility] Result Encounter Pablito Jitendra DO Work Phone: [facility] Unsolicited Start: 10-11-2023 End: 10-11-2023 ambulatory PABLITO JITENDRA Not Available Start: 09-07-2023 End: 09-07-2023 ambulatory PAMELA DICK Not Available Start: 06-24-2022 End: 06-24-2022 Patient encounter procedure Pamela Colvin [facility] Procedures Date Procedure Procedure Detail Performing Clinician Start: 11-10-2023 Urnls dip stick/tabl et rgnt non-auto w/o micrscp Pamela PARDO Work Phone: Start: 11-10-2023 ALL CBC WITH AUTO DIFF Pablito Ham DO Work Phone: Tonsillectomy Matt Aguero Plan of Treatment Date Care Activity Detail Author Start: 11-24-2023 End: 11-24-2023 Patient encounter procedure 11/24/2023 10:50 AM EST Routine [facility] [address] [place] [address] Pablito Ham, DO [address] [place], [facility] Start: 11-10-2023 End: 11-10-2023 Patient encounter procedure 11/10/2023 3:40 PM EST Routine [facility] [address] [place] [address] Pamela Dick PA [address] [place], [facility] Second trimester [facility] Comment on above: Second trimester pre gnancy Immunizations Immunization Date Immunization Notes Care Provider Fa cility NEGATED: Highlighted row has not occurred!11-26-2023 influenza virus vaccine, unspecified formulation Matt Aguero [facility] [place] Payers Date Payer Category Payer Unknown BCBS BCBS [id number] 2019-Present [phone] [address] [place] [address] [id number] 2019 Unknown [id number] 1990 Unknown [id number] [id number] 1990 Unknown [id number] 2.16.840.1.112643.3.579.2.1258 1990 Unknown [id number] 2.16.840.1.637753.3.579.2.1258 1990 Unknown [id number] 2.16.840.1.910631.3.579.2.1258 1990 Unknown [id number] 2.16.840.1.351307.3.579.2.1258 1990 Unknown [id number] 2.16.840.1.933679.3.579.2.1258 1990 Unknown [id number] 2.16.840.1.492777.3.579.2.1258 1990 Unknown [id number] 2.16.840.1.763927.3.579.2. 1990 Unknown [id number] 2.16.840.1.468534.3.579.2. 1990 Unknown [id number] 2.16.840.1.227794.3.579.2.72 1990 Unknown [id number] 2.16.840.1.312541.3.579.2. 1990 Unknown [id number] 2.16.840.1.370547.3.579.2.72 1990 Unknown [id number] 2.16.840.1.460138.3.579.2. 1990 Unknown [id number] 2.16.840.1.880681.3.579.2.72 1990 Unknown [id number] [id number] Social History Date Type Detail Facility Tobacco smoking status No Smoking Status Entered [facility] Sex Assigned At Female [facility] Tobacco smoking status NHIS Tobacco smoking consumption unknown [facility] Start: 05-26-2023 [facility] Start: 1990 Sex Assigned At Not on file [facility] Start: 11-26-2023 End: 01-18-2024 Tobacco smoking status Never smoked tobacco (finding) [facility] Tobacco smoking status Never [facility] Goals Date Patient Goal Desired Activity /State Personal health goal Functional Status Date Assessment Result Facility 01-18-2024 Functional Status N/A [facility] 12-28-2023 Functional Status N/A [facility] 11-26-2023 Functional Status N/A [facility] Clinical Notes 10-06-2023 to 12-31-2023 EDVIN James - 11/10/2023 3:40 PM EST Note Date & Type Note Facility 12-31-2023 Hospital Discharge instructions Follow Up Care 12/31/2023 09:48:20 With:More COWART, LOREN Kohler, PED Address: [address] [place] [address] [phone] When:1 month Comments:To go instructions (to paste into follow up):Work on engaging core muscles - supine with knees bentOur goal is to address trunk stability and share the work with the other erector musclesWork on shoulder retraction exercisesF/u 1 month or PRN [facility] 12-28-2023 Hospital Discharge instructions Patient Education 12/28/2023 [...] Do not chew gum. General instructions Take krqz-qmu-jmulpkf and prescription medicines only as told by [...] important. Where to find more information [employer] [place] of Dental and Craniofacial Research: www.nidcr.nih.gov Contact [...] provider. Document Revised: 05/03/2022 Document Reviewed: 05/03/2022 [employer] Patient Education 2022 [employer]. Follow Up Care 11/26/2023 09:54:55 With:More COWART, LOREN Kohler, PED Address: [address] [place] [address] [phone] When:1 month Comments:OMT PRN - 40 min slotTo go instructions (to paste into follow up):Work on engaging core muscles - supine with knees bentOur goal is to address trunk stability and share the work with the other erector musclesWork on shoulder retraction exercisesConsider reading Driven to Distraction as discussedFor foreign banknote teller, I recommend Dr. Mar CrowleyIf you want to see a family doctor, I recommend my colleague in this office Dr. Dickson Salazar/chriss 1 month or PRN [facility] [place] 11-10-2023 History of Present illness Narrative Reason for Appointment: Patient ID: [...] of: EDVIN James documented in this encounter [facility] 10-06-2023 Hospital Discharge instructions Follow Up Care 10/06/2023 12:21:08 With:Matt Aguero DO, FAM, PED Address: [facility] [address] [place] [address] [id number] When:3 year Comments:To go instructions:f/u as neededWork on shoulder active range of motion exercises Consider reading Driven to Distraction - by Stanton Emerson [facility] Evaluation + Plan note No data available for this section [facility] Evaluation + Plan note Future Appointments Appointment Date:12/28/2023 04:20:00 PM Scheduled Provider:Matt Aguero DO Location:[facility] Appointment Type: Procedure Appointment Date:03/28/2024 08:20:00 AM Scheduled Provider:Matt Aguero DO Location:[facility] Appointment Type: Procedure Appointment Date:11/29/2024 09:00:00 AM Scheduled Provider:Matt Aguero DO Location:[facility] Appointment Type:[facility] Evaluation + Plan note Future Appointments Appointment Date:03/07/2024 08:20:00 AM Scheduled Provider:Matt Aguero DO Location:[facility] Appointment Type:FM Procedure Appointment Date:03/28/2024 08:20:00 AM Scheduled Provider:Matt Aguero DO Location:[facility] Appointment Type: Procedure Appointment Date:11/29/2024 09:00:00 AM Scheduled Provider:Matt Aguero DO Location:[facility] Appointment Type:[facility] Evaluation + Plan note Future Appointments Appointment Date:03/07/2024 08:20:00 AM Scheduled Provider:Matt Aguero DO Location:[facility] Appointment Type:FM Procedure Appointment Date:03/28/2024 08:20:00 AM Scheduled Provider:Matt Aguero DO Location:[facility] Appointment Type:FM Procedure Appointment Date:04/28/2024 02:00:00 PM Scheduled Provider:Matt Aguero DO Location:[facility] Appointment Type:FM Procedure Appointment Date:11/29/2024 09:00:00 AM Scheduled Provider:Matt Aguero DO Location:[facility] Appointment Type:FM Open 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 Start Date End Date Pamela Colvin MD [address] [place] [address] PCP - General Family Medicine 07/02/23 Ground Equipment Mechanic Relationship Specialty Start Date End Date Pamela Colvin MD [address] [place] [address] PCP - General Family Medicine 07/02/23 Ground Equipment Mechanic Relationship Specialty Start Date End Date Pamela Colvin MD [address] [place] [address] PCP - General Family Medicine 07/02/23 Reason for Visit (unrecogniz ed section and content) Reason Comments Routine Visit INFORMATION SOURCE (unrecogn ized section and content) DATE CREATED AUTHOR 01/06/2024 [facility] EPIC DATE CREATED AUTHOR AUTHOR'S ORGANIZ ATION 01/19/2024 [facility] FOR RECORDS PERTAINING TO PATIENTS WHO ARE [...] BE BASED ON THE PRIMARY CLINICAL RECORDS. [facility] [facility] provides no warranty or guarantee of the accuracy or completeness of information in this document.
== END 2024-01-20 20:21 | disposition home or self-care (01) ==
LOC: LAB 20:20
PROVIDERS: Visit Provider Obstetrics & Gynecology
DX: Z34.93 Encounter for supervision of normal pregnancy, unspecified, third trimester (principal)
CPT/HCPCS: 87081

== ENCOUNTER 2024-02-04 13:55 | Outpatient (OUT) | payer BC, SELFPAY ==
--- NOTE | 2024-02-04 14:14 | US_ITS ---
[address] [address] Patient Name: WINSTON NAJERA MRN: [id number] date: 1990 Sex: F Assigned Patient Location: US Current Patient Location: US Accession/Order Number: [id number] Exam Date: 02/04/2024 14:22 Report Date: 02/04/2024 16:12 At the request of: DION DICK Procedure: US OB BPP wo non-stress EXAMINATION: US OB BPP wo non-stress HISTORY: ABDOMINAL PAIN R10.9 COMPARISON: No relevant comparison available. TECHNIQUE: Ultrasound biophysical profile was performed in the radiology department. FINDINGS: BREATHING MOVEMENTS: 2.0 GROSS BODY MOVEMENTS: 2.0 TONE: 2.0 QUALITATIVE AMNIOTIC FLUID VOLUME: 2.0 PRESENTATION: CEPHALIC HEART RATE: 135.0 bpm H.B./min AMNIOTIC FLUID VOLUME: 14.1 cm cm GESTATIONAL AGE: 38 weeks 2 days CONCLUSION: Total biophysical profile score: 8.0 Electronically authenticated by: DOMO ARRIOLA Date: 02/04/2024 16:12
--- OUTSIDE RECORDS SUMMARY | 2024-02-04 14:14 | XMS_ITS | CCD ---
Author Organization [facility] Care Team Providers Care Proof Machine Operator Name Role Phone Pamela Colvin Primary Care Physician [phone] Pamela Colvin MD Primary Care Provider Matt Aguero Primary Care Physician Unavail able Matt Aguero Attending Unavailable Matt Aguero Attending Unavailable Matt Aguero Attending Unavailable Matt Aguero Attending Unavailable Matt Aguero Attending Unavailable Matt Aguero Attending Unavailable Matt Aguero Attending Unavailable PABLITO HAM Attending Unavailable KAPIL, PAMELA Attending Unavailable STACIA, PABLITO Attending Unavailable KAPIL, PAMELA Attending Unavailable STACIA, PABLITO Attending Unavailable STACIA, PABLITO Attending Unavailable KAPIL, PAMELA Attending Unavailable STACIA, PABLITO Attending Unavailable KAPIL, PAMELA Attending Unavailable PABLITO HAM Attending Unavailable Medications Current Medications Medication Drug [...] and L-Methylfolate oral capsule (3 sources) Start: 02-23-2024 Multivitamins with Vitamin B Complex, Vitamin C, Minerals and L-Methylfolate oral capsule 1 cap(s), Oral, Daily, 30 cap(s), Refill(s) 0 Start Date: 11/26/23 Status: Ordered MV-Min-Fe Fum-FA-DHA ( 1 PO) (3 sources) MV-Min- Fe Fum-FA-DHA ( 1 PO) Take by mouth. 0 Active Completed/Discontinued Medications Medication Drug Class(es) Dates Sig (Normalized) Sig (Original) 21 day ethinyl estradiol 0.247733 mg/hr / etonogestrel 0.005 mg/hr vaginal system [...] AM EDT With: Matt Aguero DO Where: [facility] [place] Invalid Interpretation Code [address] [place] [address]-\.br\ Wednesday 2:00 PM EDT \.br\ With: Matt Aguero DO\.br\ Where: [facility] Family Medicine Office/Clini c Noteon 01-18-2024 Family [...] a li The patient is currently working; [employer] and [email or web address] 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 Ham - delivering at [place] Chiropractor - Dr. Aldrich HPI staff / [...] plan abov (more content not included)... 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 Ham - delivering at [place] Chiropractor - Dr. Aldrich HPI staff / [...] for ad (more content not included)... Normal [facility] Comment on above: Result Comment: Elec tronically Signed By: Matt Aguero DO.daryl\Date and Time Signed: 12/28/23 17:22 EDT Patient [...] not chew gum. General instructions ? Take wuxj-wxx-polkggt and prescription medicines only as told by [...] Where to find more information ? National [place] of Dental and Craniofacial Research: www.nidcr.nih.gov Contact [...] provider. Document Revised: 05/03/2022 Document Reviewed: 05/03/2022 [employer] Patient Education ? 2022 [employer] [facility] Transfer Inon 12-28-2023 Transfer In [id number]#1 .00TIFF [facility] Auth for Release of Medical Recordson 11-29-2023 Auth for Release of Medical Records [id number]# 1.00TIFF [facility] Ambulatory Visit Summaryon 0 11-26-2023 Ambulatory [...] PM EDT With: Matt Aguero DO Where: [facility] Invalid Interpretation Code [address] [place] [address]-\.br\ Wednesday 9:00 AM EST \.br\ With: Matt Aguero DO\.br\ Where: [facility] Medicine Office/Clini c Noteon 11-26-2023 Family Medicine Office/Clinic Note Chief Complaint EST CARE HPI Staff Establish Care: History: Last provider: Robert Amador recent labs: DUE Health Maintenance UTD: Colonoscopy:N/A PSA: N/A Mammogram: Pelvic/Pap: 09/25 Social: Patient First child on way/boy Employed [employer] Acute: Patients father recommended you/ Lc Artis Current issues/complaints: Having joint issues, [...] a li The patient is 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 Ham - delivering at [place] Chiropractor - Dr. Aldrich [facility] staff / Chief Complaint confirmed with the [...] pain a (more content not included)... Normal [facility] Comment on above: Result Comment: Elec tronically Signed By: Matt Aguero DO\Date and Time Signed: 11/26/23 10:45 EST Formson 11-26-2023 Forms [id number] #1.00TIFF [facility] ALL CBC WITH AUTO DIFFon BASOPHILS ABSOLUTE AUTO 0.0 [facility] Basophils/100 WBC (Bld) 0.3 % 0.2 - 2.0 % [facility] Eosinophils/100 WBC (Bld) 0.8 % Low 0.9 - 7.0 % [facility] Erythrocyte distribution width (RBC) [Ratio] 12.6 % 11.0 - 15.0 % [facility] Hematocrit (Bld) [Volume fraction] 32.0 % Low 36.0 - 48.0 % [facility] Hemoglobin (Bld) [Mass/Vol] 10.6 g/dL Low 12.0 - 16.0 g/dL [facility] IMMATURE GRANULOCYTES ABS AUTO 0.04 High [facility] Immature granulocytes/100 WBC (Bld) 0.4 % 0.0 - 0.5 % [facility] Interpretation and review of laboratory results Abnormal [facility] LYMPHOCYTES ABSOLUTE AUTO 1.6 [facility] Lymphocytes/100 WBC (Bld) 14.7 % Low 20.5 - 60.0 % [facility] MCH (RBC) [Entitic mass] 30.7 pg 26.7 - 34.0 pg [facility] MCHC (RBC) [Mass/Vol] 33.1 g/dL 29.9 - 35.2 g/dL [facility] MCV (RBC) [Entitic vol] 92.8 fL 81.0 - 99.0 fL [facility] MONOCYTES ABSOLUTE AUTO 0.5 [facility] Monocytes/100 WBC (Bld) 4.4 % 1.7 - 12.0 % [facility] NEUTROPHILS ABSOLUTE AUTO 8.5 High [facility] Neutrophils/100 WBC (Bld) 79.4 % High 43.0 - 75.0 % [facility] Platelet mean volume (Bld) [Entitic vol] 11.4 fL 9.5 - 13.5 fL [facility] TBH EO # 0.1 [facility] TBH PLT 186 [facility] TB RBC 3.45 Low [facility] TB WBC 10.7 [facility] Urinalysis macro (dipstick) panel (U)Ordered By: Melvina Tong on 11-10-2023 Bilirubin, UA Negative Negative - 4(70) +++ mg/dL [facility] Work Phone: Blood, UA Negative Negative - 50 Joel/mcL [facility] Work Phone: Clarity, UA Clear [facility] Work Phone: Color, UA Yellow [facility] Work Phone: Glucose, UA Positive Negative - 1999(110) ++++ mg/dL [facility] Work Phone: Interpretation and review of laboratory results Abnormal [facility] Work Phone: Ketones, UA Negative Negative - 160(16) ++++ mg/dL [facility] Work Phone: Leukocytes, UA Negative Negative - 500+++ Shar/mcL [facility] Work Phone: Nitrite, UA Negative Negative - Positive [facility] Work Phone: pH, UA 6.5 5 - 9 [facility] Work Phone: Protein, UA Negative Negative - 1999(20) ++++ mg/dL [facility] Work Phone: Spec Grav, UA 1.010 1 - 1.03 [facility] Work Phone: Urobilinogen, UA 1.0 0.2 - 12 mg/dL [facility] Work Phone: [facility] Work Phone: Vital Signs Date Time Vital Sign Value Performing Clinician Sage uriostegui 01-18-2024 10:35-0400 Blood Pressure Location [facility] 01-18-2024 10:35-0400 Diastolic blood pressure 60 mm[Hg] [facility] 01-18-2024 10:35-0400 [facility] 90 [facility] 01-18-2024 10:35-0400 SaO2% (BldA) [Mass fraction] 98 % [facility] 01-18-2024 10:35-0400 Systolic blood pressure 90 mm[Hg] [facility] 12-28-2023 16:29-0400 Blood Pressure Location [facility] 12-28-2023 16:29-0400 Diastolic blood pressure 60 mm[Hg] [facility] 12-28-2023 16:29-0400 Heart rate 89 /min [facility] 12-28-2023 16:29-0400 SaO2% (BldA) [Mass fraction] 99 % [facility] 12-28-2023 16:29-0400 Systolic blood pressure 90 mm[Hg] [facility] 11-26-2023 08:52-0500 Blood Pressure Location [facility] 11-26-2023 08:52-0500 Diastolic blood pressure 60 mm[Hg] [facility] 11-26-2023 08:52-0500 Heart rate 96 /min [facility] 11-26-2023 08:52-0500 SaO2% (BldA) [Mass fraction] 99 % [facility] 11-26-2023 08:52-0500 Systolic blood pressure 96 mm[Hg] [facility] 11-10-2023 16:00-0500 Body weight 64.86 kg Pamela PARDO Work Phone: [facility] 11-10-2023 16:00-0500 Diastolic blood pressure 70 mm[Hg] Pamela PARDO Work Phone: [facility] 11-10-2023 16:00-0500 Systolic blood pressure 102 mm[Hg] Pamela PARDO Work Phone: [facility] Encounters Encounter Date Encounter Type Care Provider Facility Start: 11-29-2024 ambulatory Matt Diaz ty:[facility] Start: 04-28-2024 ambulatory Matt Diaz ty:[facility] Start: 03-28-2024 ambulatory Matt Diaz ty:[facility] Start: 03-07-2024 ambulatory Matt Aguero Facili ty:[facility] Start: 02-01-2024 End: 02-01-2024 ambulatory PABLITO STACIA Not Available Start: 01-27-2024 End: 01-27-2024 ambulatory PAMELA JUSTICEEY Not Available Start: 01-20-2024 End: 01-20-2024 ambulatory PABLITO STACIA Not Available Start: 01-18-2024 End: 01-19-2024 ambulatory Matt Aguero Facility:[facility] Start: 01-18-2024 End: 01-18-2024 Patient encounter procedure Matt Aguero [facility] Start: 01-05-2024 End: 01-05-2024 ambulatory PABLITO STACIA Not Available Start: 12-28-2023 End: 12-29-2023 ambulatory Matt Aguero Facility:[facility] Start: 12-28-2023 End: 12-28-2023 Patient encounter procedure Matt Aguero [facility] Start: 12-22-2023 End: 12-22-2023 ambulatory PABLITO STACIA Not Available Start: 12-09-2023 End: 12-09-2023 ambulatory PAMELA DICK Not Available Start: 11-26-2023 End: 11-27-2023 ambulatory Matt Aguero Facility:[facility] Start: 11-26-2023 End: 11-26-2023 Patient encounter procedure Matt Aguero [facility] Start: 11-24-2023 ambulatory Matt Aguero Facility :[facility] Start: 11-24-2023 End: 11-24-2023 ambulatory PABLITO STACIA Not Available Start: 11-10-2023 End: 11-10-2023 ambulatory [...] End: 06-24-2022 Patient encounter procedure Pamela Colvin [facility] Procedures Date Procedure Procedure Detail Performing Clinician Start: 11-10-2023 Urnls dip stick/tabl et rgnt non-auto w/o micrscp Pamela PARDO Work Phone: Start: 11-10-2023 ALL CBC WITH AUTO DIFF Pablito Ham DO Work Phone: Tonsillectomy Matt Aguero Plan of Treatment Date Care Activity Detail Author Start: 11-24-2023 End: 11-24-2023 Patient encounter procedure 11/24/2023 10:50 AM EST Routine [facility] [address] [place] [address] Pablito Ham DO [address] [place] [address] [facility] Start: 11-10-2023 End: 11-10-2023 Patient encounter procedure 11/10/2023 3:40 PM EST Routine [facility] [address] [place] [address] Pamela Dick PA [address] [place] [address] Second trimester [facility] Comment on above: Second trimester pre gnancy Immunizations Immunization Date Immunization Notes Care Provider Fa cility NEGATED: Highlighted row has not occurred!11-26-2023 influenza virus vaccine, unspecified formulation Matt Aguero [facility] Payers Date Payer Category Payer Unknown BCBS BCBS [id number] 2019-Present [phone] [address] [place] [address] [id number] 2019 Unknown [id number] 1990 Unknown [id number] [id number] 1992 Unknown [id number] 2.16.840.1.086819.3.579.2.727 1992 Unknown [id number] 2.16.840.1.272985.3.579.2.727 1992 Unknown [id number] 2.16.840.1.575041.3.579.2.727 1992 Unknown [id number] 2.16.840.1.226909.3.579.2.727 1992 Unknown [id number] 2.16.840.1.409671.3.579.2.727 1992 Unknown [id number] 2.16.840.1.097655.3.579.2.727 1992 Unknown [id number] 2.16.840.1.308211.3.579.2.727 1992 Unknown [id number] 2.16.840.1.833723.3.579.2.1259 1992 Unknown [id number] 2.16.840.1.474272.3.579.2.9 1992 Unknown [id number] 2.16.840.1.366050.3.579.2.1259 1992 Unknown [id number] 2.16.840.1.113242.3.579.2.1259 1992 Unknown [id number] 2.16.840.1.732006.3.579.2.9 1992 Unknown [id number] 2.16.840.1.440695.3.579.2.9 1992 Unknown [id number] 2.16.840.1.742053.3.579.2.9 1992 Unknown [id number] 2.16.840.1.327749.3.579.2.9 1992 Unknown [id number] 2.16.840.1.599194.3.579.2.9 1992 Unknown [id number] 2.16.840.1.628049.3.579.2.1258 Social History Date Type Detail Facility Tobacco smoking status No Smoking Status Entered [facility] Sex Assigned At Female [facility] Tobacco smoking status NHIS Tobacco smoking consumption unknown [facility] Start: 05-26-2023 [facility] Start: 1990 Sex Assigned At Not on file [facility] Start: 11-26-2023 End: 01-18-2024 Tobacco smoking status Never smoked tobacco (finding) [facility] Tobacco smoking status Never [facility] Goals Date Patient Goal Desired Activity /State Personal health goal Functional Status Date Assessment Result Facility 01-18-2024 Functional Status N/A [facility] 12-28-2023 Functional Status N/A [facility] 11-26-2023 Functional Status N/A [facility] Clinical Notes 10-06-2023 to 12-31-2023 EDVIN James - 11/10/2023 3:40 PM EST Note Date & Type Note Facility 12-31-2023 Hospital Discharge instructions Follow Up Care 12/31/2023 09:48:20 With:Matt Aguero DO, FAM, PED Address: [address] [place] [address] [place] [address] [phone] When:1 month Comments:To go instructions (to paste into follow up):Work on engaging core muscles - supine with knees bentOur goal is to address trunk stability and share the work with the other erector musclesWork on shoulder retraction exercisesF/u 1 month or PRN [facility] [place] 12-28-2023 Hospital Discharge instructions Patient Education 12/28/2023 [...] Do not chew gum. General instructions Take dyjo-jjo-uejoxyu and prescription medicines only as told by [...] important. Where to find more information National [place] of Dental and Craniofacial Research: www.nidcr.nih.gov Contact [...] provider. Document Revised: 05/03/2022 Document Reviewed: 05/03/2022 [employer] Patient Education 2022 [employer] Follow Up Care 11/26/2023 09:54:55 With:Matt Aguero DO, FAM, PED Address: [address] [place] [address] [phone] When:1 month Comments:OMT PRN - 40 min slotTo go instructions (to paste into follow up):Work on engaging core muscles - supine with knees bentOur goal is to address trunk stability and share the work with the other erector musclesWork on shoulder retraction exercisesConsider reading Driven to Distraction as discussedFor student records coordinator, I recommend Dr. Mar CrowleyIf you want to see a family doctor, I recommend my colleague in this office Dr. Dickson Salazar/chriss 1 month or PRN [facility] [place] 11-10-2023 History of Present illness Narrative Reason [...] of: EDVIN James documented in this encounter [facility] 10-06-2023 Hospital Discharge instructions Follow Up Care 10/06/2023 12:21:08 With:Matt Aguero DO, FAM, PED Address: [address] [place] [address] [phone] When:1 year Comments:To go instructions:f/u as neededWork on shoulder active range of motion exercises Consider reading Driven to Distraction - by Stanton Emerson [facility] [place] Evaluation + Plan note No data available for this section [facility] Evaluation + Plan note Future Appointments Appointment Date:12/28/2023 04:20:00 PM Scheduled Provider:Matt Aguero DO Location:[facility] Appointment Type:FM Procedure Appointment Date:03/28/2024 08:20:00 AM Scheduled Provider:Matt Aguero DO Location:[facility] Appointment Type:FM Procedure Appointment Date:11/29/2024 09:00:00 AM Scheduled Provider:Matt Aguero DO Location:[facility] Appointment Type:[facility] Medicine [place] Evaluation + Plan note Future Appointments Appointment Date:03/07/2024 08:20:00 AM Scheduled Provider:Matt Aguero DO Location:[facility] Appointment Type:FM Procedure Appointment Date:03/28/2024 08:20:00 AM Scheduled Provider:Matt Aguero DO Location:[facility] Appointment Type:FM Procedure Appointment Date:11/29/2024 09:00:00 AM Scheduled Provider:Matt Aguero DO Location:[facility] Appointment Type:[facility] Evaluation + Plan note Future Appointments Appointment Date:03/07/2024 08:20:00 AM Scheduled Provider:Matt Aguero DO Location:[facility] Appointment Type:FM Procedure Appointment Date:03/28/2024 08:20:00 AM Scheduled Provider:Matt Aguero DO Location:[facility] Appointment Type:FM Procedure Appointment Date:04/28/2024 02:00:00 PM Scheduled Provider:Matt Aguero DO Location:[facility] Appointment Type:FM Procedure Appointment Date:11/29/2024 09:00:00 AM Scheduled Provider:Matt Aguero DO Location:[facility] Appointment Type:[facility] Evaluation note Diagnosis Second trimester state, incidental documented [facility] this encounter [facility] No data available for this section [facility] No data available for this section [facility] Summary Purpose Family History No Family History Records Found Advance Directives No Advanced Directives Records FoundNo Advanced Directives Records Found Additional Source Comments Care Team (unrecognized sect ion and content) Proof Machine Operator Relationship Specialty Start Date End Date Pamela Colvin MD [address] [place] [address] [place] [phone] PCP - General Family Medicine 07/02/23 Proof Machine Operator Relationship Specialty Start Date End Date Pamela Colvin MD [address] [place] [phone] PCP - General Family Medicine 07/02/23 Proof Machine Operator Relationship Specialty Start Date End Date Pamela Colvin MD [address] [place] [address] PCP - General Family Medicine 07/02/23 Reason for Visit (unrecogniz ed section and content) Reason Comments Routine Visit INFORMATION SOURCE (unrecogn ized section and content) DATE CREATED AUTHOR 01/19/2024 [facility] DATE CREATED AUTHOR 'S MARA SANTANA 02/02/2024 [facility] dical Specialists [facility] FOR RECORDS PERTAINING TO PATIENTS WHO ARE [...] BE BASED ON THE PRIMARY CLINICAL RECORDS. [facility] [employer] provides no warranty or guarantee of the accuracy or completeness of information in this document.
--- NOTE | 2024-02-04 14:15 | US_ITS ---
The [address] [address] Patient Name: WINSTON NAJERA MRN: [id number] date: 1990 Sex: F Assigned Patient Location: US Current Patient Location: US Accession/Order Number: [id number] Exam Date: 02/04/2024 14:22 Report Date: 02/04/2024 16:14 At the request of: DION DICK Procedure: US OB placenta EXAMINATION: US OB transvaginal, US OB placenta HISTORY: ABDOMINAL PAIN R10.9 COMPARISON: No relevant comparison available. FINDINGS: position: Cephalic presentation, longitudinal lie Amniotic fluid volume: 14.1 cm, normal range 6.5 to 26.5 cm Largest fluid pocket: 6.8 cm Placenta: Anterior. No intraplacental or retroplacental echogenic abnormality. Grade 2. Heart rate: 135 beats minute Cervix: 3.2 cm, small amount of fluid identified within the endocervical canal measuring up to 2 mm. Clinical age: 38 weeks 2 days Clinical HAYLEY: 02/16/2024 US/US OB placenta IMPRESSION: No evidence of placental abruption The cervix measures 3.2 cm in length with a small fluid in the endocervical canal Electronically authenticated by: DOMO ARRIOLA Date: 02/04/2024 16:14
--- NOTE | 2024-02-04 14:15 | US_ITS ---
The [address] [address] Patient Name: WINSTON NAJERA MRN: [id number] date: 1990 Sex: F Assigned Patient Location: US Current Patient Location: US Accession/Order Number: [id number] Exam Date: 02/04/2024 14:22 Report Date: 02/04/2024 16:14 At the request of: DION DICK Procedure: US OB transvaginal EXAMINATION: US OB transvaginal, US OB placenta HISTORY: ABDOMINAL PAIN R10.9 COMPARISON: No relevant comparison available. FINDINGS: position: Cephalic presentation, longitudinal lie Amniotic fluid volume: 14.1 cm, normal range 6.5 to 26.5 cm Largest fluid pocket: 6.8 cm Placenta: Anterior. No intraplacental or retroplacental echogenic abnormality. Grade 2. Heart rate: 135 beats minute Cervix: 3.2 cm, small amount of fluid identified within the endocervical canal measuring up to 2 mm. Clinical age: 38 weeks 2 days Clinical HAYLEY: 02/16/2024 US/US OB transvaginal IMPRESSION: No evidence of placental abruption The cervix measures 3.2 cm in length with a small fluid in the endocervical canal Electronically authenticated by: DOMO ARRIOLA Date: 02/04/2024 16:14
== END 2024-02-04 14:59 | disposition home or self-care (01) ==
LOC: US 13:58 → FBC 13:59
PROVIDERS: Visit Provider Physician Assistant
DX: R10.9 Unspecified abdominal pain (principal); Z3A.38 38 weeks gestation of pregnancy
CPT/HCPCS: 76815; 76817; 76819

== ENCOUNTER 2024-02-10 05:04 | Inpatient (IN) | payer BC, SELFPAY ==
[2024-02-10] VITALS (77 sets, daily range): BP systolic 86–170; BP diastolic 50–103; PULSE 58–184; TEMP 36.4–37.1
--- OUTSIDE RECORDS SUMMARY | 2024-02-10 05:06 | XMS_ITS | CCD ---
Author Organization [facility] Care Team Providers Care Manufacturing Planner Name Role Phone Pamela Colvin Primary Care [...] PAMELA Attending Unavailable STACIA, PABLITO Attending Unavailable Medications Current Medications Medication Drug [...] (Normalized) Sig (Original) 21 day ethinyl estradiol 0.456641 mg/hr / etonogestrel 0.005 mg/hr vaginal system [...] AM EDT With: Matt Aguero DO Where: [facility] [place] Invalid Interpretation Code [address] [place] [address]-\.br\ Wednesday 2:00 PM EDT \.br\ With: Matt Aguero DO\.br\ Where: [facility] Medicine Office/Clini c Noteon 01-18-2024 Family Medicine [...] a li The patient is currently working; [employer]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 Ham - delivering at [employer] Chi[facility]ractor - Dr. Aldrich HPI staff / [...] plan abov (more content not included)... 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 Ham - delivering at [employer] Chiropractor - Dr. Aldrich HPI staff / [...] for ad (more content not included)... Normal [facility] Comment on above: Result Comment: Elec [...] not chew gum. General instructions ? Take xwkm-onn-qzarxcl and prescription medicines only as told by [...] Where to find more information ? National Vernal of Dental and Craniofacial Research: www.nidcr.nih.gov Contact [...] provider. Document Revised: 05/03/2022 Document Reviewed: 05/03/2022 [employer] Patient Education ? [address] [employer] [address] [facility] Transfer Inon 12-28-2023 Transfer In [id number] [facility] Auth for Release of Medical Recordson 11-29-2023 Auth for Release of Medical Records [id number]# 1.00TIFF [facility] Ambulatory Visit Summaryon 0 11-26-2023 [...] PM EDT With: Matt Aguero DO Where: [facility] [place] Invalid Interpretation Code [address] [place] [address]-\.br\ Wednesday 9:00 AM EST \.br\ With: Matt Aguero DO\.br\ Where: [facility] Family Medicine Office/Clini c Noteon 11-26-2023 Family Medicine Office/Clinic Note Chief Complaint EST CARE HPI Staff Establish Care: History: Last provider: Robert Pierson Any recent labs: DUE Health Maintenance UTD: Colonoscopy:N/A PSA: N/A Mammogram: Pelvic/Pap: 09/25 Social: Patient First child on way/boy Employed [employer] Acute: Patients father recommended you/ D Steff [...] a li 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 Ham - delivering at [employer] Chiropractor - Dr. Aldrich [employer] staff / Chief Complaint confirmed with the [...] pain a (more content not included)... Normal [facility] Comment on above: Result Comment: Elec tronically Signed By: Matt Aguero DO.br\Date and Time Signed: 11/26/23 10:45 EST Formson 11-26-2023 Forms [id number] #1.00TIFF Normal [facility] ALL CBC WITH AUTO DIFFon BASOPHILS ABSOLUTE AUTO 0.[address] [facility] Basophils/100 WBC (Bld) 0.3 % 0.2 - 2.0 % [facility] Eosinophils/100 WBC (Bld) 0.8 % Low 0.9 - 7.0 % [facility] Erythrocyte distribution width (RBC) [Ratio] 12.6 % 11.0 - 15.0 % [facility] Hematocrit (Bld) [Volume fraction] 32.0 % Low 36.0 - 48.0 % [facility] Hemoglobin (Bld) [Mass/Vol] 10.6 g/dL Low 12.0 - 16.0 g/dL [facility] IMMATURE GRANULOCYTES ABS AUTO 0.[address] [facility] Immature granulocytes/100 WBC (Bld) 0.4 % 0.0 - 0.5 % [facility] Interpretation and review of laboratory results Abnormal [facility] LYMPHOCYTES ABSOLUTE AUTO 1.[address] [facility] Lymphocytes/100 WBC (Bld) 14.7 % Low 20.5 - 60.0 % [facility] MCH (RBC) [Entitic mass] 30.7 pg 26.7 - 34.[address] [facility] MCHC (RBC) [Mass/Vol] 33.1 g/dL 29.9 - 35.2 g/dL [facility] MCV (RBC) [Entitic vol] 92.8 fL 81.0 - 99.[address] [facility] MONOCYTES ABSOLUTE AUTO 0.[address] [facility] Monocytes/100 WBC (Bld) 4.4 % 1.7 - 12.0 % [facility] NEUTROPHILS ABSOLUTE AUTO 8.[address] [facility] Neutrophils/100 WBC (Bld) 79.4 % High 43.0 - 75.0 % [facility] Platelet mean volume (Bld) [Entitic vol] 11.4 fL 9.5 - 13.[address] [facility] EO # 0.[address] [facility] PLT [address] [facility] RBC 3.[address] [facility] TB WBC 10.[address] [facility] Urinalysis macro (dipstick) panel (U)Ordered By: Melvina Tong on 11-10-2023 Bilirubin, UA Negative Negative - 4(70) +++ mg/dL [facility] Work Phone: Blood, UA Negative Negative - 50 Joel/mcL [facility] Work Phone: Clarity, UA Clear [facility] Work Phone: Color, UA Yellow [facility] Work Phone: Glucose, UA Positive Negative - 1999(110) ++++ mg/dL [facility] Work Phone: Interpretation and review of laboratory results Abnormal [facility] Work Phone: Ketones, UA Negative Negative - 160(16) ++++ mg/dL [facility] Work Phone: Leukocytes, UA Negative Negative - 500+++ Shar/mcL [facility] Work Phone: Nitrite, UA Negative Negative - Positive [facility] Work Phone: pH, UA 6.5 5 - 9 [facility] Work Phone: Protein, UA Negative Negative - 1999(20) ++++ mg/dL [facility] Work Phone: Spec Grav, UA 1.010 1 - 1.03 [facility] Work Phone: Urobilinogen, UA 1.0 0.2 - 12 mg/dL [facility] Work Phone: [facility] Work Phone: Vital Signs Date Time Vital Sign Value Performing Clinician Sage uriostegui 01-18-2024 10:35-0400 Blood Pressure Location [facility] 01-18-2024 10:35-0400 Diastolic blood pressure 60 mm[Hg] [facility] 01-18-2024 10:35-0400 Heart rate 90 /min [facility] 01-18-2024 10:35-0400 SaO2% (BldA) [Mass fraction] 98 % [facility] 01-18-2024 10:35-0400 Systolic blood pressure 90 mm[Hg] [facility] 12-28-2023 16:29-0400 Blood Pressure Location [facility] 12-28-2023 16:29-0400 Diastolic blood [facility] 60 mm[Hg[facility] 12-28-2023 16:29-0400 Heart rate 89 /min [facility] 12-28-2023 16:29-0400 SaO2% (BldA) [Mass fraction] 99 % [facility] 12-28-2023 16:29-0400 Systolic blood pressure 90 mm[Hg] [facility] 11-26-2023 08:52-0500 Blood Pressure Location [facility] 11-26-2023 08:52-0500 Diastolic blood pressure 60 mm[Hg] [facility] 11-26-2023 08:52-0500 Heart rate 96 /min [facility] 11-26-2023 08:52-0500 SaO2% (BldA) [Mass fraction] 99 % [facility] 11-26-2023 08:52-0500 Systolic blood pressure 96 mm[Hg] [facility] 11-10-2023 16:00-0500 Body weight 64.86 kg Pamela PARDO Work Phone: [facility] 11-10-2023 16:00-0500 Diastolic blood pressure 70 mm[Hg] Pamela PARDO Work Phone: [facility] 11-10-2023 16:00-0500 Systolic blood pressure 102 mm[Hg] Pamela PARDO Work Phone: [facility] Encounters Encounter Date Encounter Type Care Provider Facility Start: 11-29-2024 ambulatory Matt Diaz ty:[facility] Start: 04-28-2024 ambulatory Matt Diaz ty:[facility] Start: 03-28-2024 ambulatory Matt Duvali ty:[facility] Start: 03-07-2024 ambulatory Matt Aguero Facili ty:[facility] Start: 02-07-2024 End: 02-07-2024 ambulatory PABLITO STACIA Not Available Start: 02-03-2024 End: 02-03-2024 ambulatory PAMELA KAPIL Not Available Start: 02-01-2024 End: 02-01-2024 ambulatory PABLITO STACIA Not Available Start: 01-27-2024 End: 01-27-2024 ambulatory PAMELA KAPIL Not Available Start: 01-20-2024 End: 01-20-2024 ambulatory PABLITO STACIA Not Available Start: 01-18-2024 End: 01-19-2024 ambulatory Matt Aguero Facility:[facility] Start: 01-18-2024 End: 01-18-2024 Patient encounter procedure Matt Aguero [facility] Start: 01-05-2024 End: 01-05-2024 ambulatory PABLITO STACIA Not Available Start: 12-28-2023 End: 12-29-2023 ambulatory Matt Aguero Facility:[facility] Start: 12-28-2023 End: 12-28-2023 Patient encounter procedure Matt Aguero [facility] Start: 12-22-2023 End: 12-22-2023 ambulatory PABLITO STACIA Not Available Start: 12-09-2023 End: 12-09-2023 ambulatory PAMELA KAPIL Not Available Start: 11-26-2023 End: 11-27-2023 ambulatory Matt Aguero Facility:[facility] Start: 11-26-2023 End: 11-26-2023 Patient encounter procedure Matt Aguero [facility] Start: 11-24-2023 ambulatory Matt Aguero Facility :[facility] Start: 11-24-2023 End: 11-24-2023 ambulatory PABLITO STACIA Not Available Start: 11-10-2023 End: 11-10-2023 ambulatory PAMELA KAPIL Not Available Start: 11-10-2023 End: 11-10-2023 flow [...] Patient encounter procedure Pamela Colvin [facility] Procedures Date Procedure Procedure Detail Performing Clinician Start: 11-10-2023 Urnls dip stick/tabl et rgnt non-auto w/o micrscp Pamela PARDO Work Phone: Start: 11-10-2023 ALL CBC WITH AUTO DIFF Pablito Ham DO Work Phone: Tonsillectomy Matt Aguero Plan of Treatment Date Care Activity Detail Author Start: 11-24-2023 End: 11-24-2023 Patient encounter procedure 11/24/2023 10:50 AM EST Routine [facility] [address] [place] [address] Pablito Ham DO [address] [place] [address] [facility] Start: 11-10-2023 End: 11-10-2023 Patient encounter procedure 11/10/2023 3:40 PM EST Routine [facility] [address] [place] [address] Pamela Dick PA [address] [place] [address] Second trimester [facility] Comment on above: Second trimester pre gnancy Immunizations Immunization Date Immunization Notes Care Provider Fa cility NEGATED: Highlighted row has not occurred!11-26-2023 influenza virus vaccine, unspecified formulation Matt Aguero [facility] [place] Payers Date Payer Category Payer Unknown BCBS BCBS [id number] 2019-Present [phone] [address] [place] [address] [id number] 2019 Unknown [id number] 1992 Unknown [id number] 2.16.840.1.693429.3.579.2.727 1992 Unknown [id number] 2.16.840.1.875372.3.579.2.727 1992 Unknown [id number] 2.16.840.1.128323.3.579.2.727 1992 Unknown [id number] 2.16.840.1.624765.3.579.2.727 1992 Unknown [id number] 2.16.840.1.631513.3.579.2.727 1992 Unknown [id number] 2.16.840.1.083818.3.579.2.727 1992 Unknown [id number] 2.16.840.1.113850.3.579.2.727 1992 Unknown [id number] 2.16.840.1.763522.3.579.2.727 1992 Unknown [id number] 2.16.840.1.867535.3.579.2.1259 1992 Unknown [id number] 2.16.840.1.480424.3.579.2.1259 1992 Unknown [id number] 2.16.840.1.617376.3.579.2.9 1992 Unknown [id number] 2.16.840.1.129932.3.579.2.1258 1992 Unknown [id number] 2.16.840.1.637482.3.579.2.1258 1992 Unknown [id number] 2.16.840.1.822457.3.579.2.1258 1992 Unknown [id number] 2.16.840.1.523027.3.579.2.1258 1992 Unknown [id number] 2.16.840.1.003317.3.579.2.1258 1992 Unknown [id number] 2.16.840.1.036667.3.579.2.1258 1992 Unknown [id number] 2.16.840.1.029401.3.579.2.1258 1992 Unknown [id number] 2.16.840.1.784643.3.579.2.1258 1992 Unknown [id number] 2.16.840.1.423462.3.579.2.9 Social History Date Type Detail Facility Tobacco smoking status No Smoking Status Entered [facility] Sex Assigned At Female [facility] Tobacco smoking status NHIS Tobacco smoking consumption unknown [facility] Start: 05-26-2023 [facility] Start: 1990 Sex Assigned At Not on file [facility] Start: 11-26-2023 End: 01-18-2024 Tobacco smoking status Never smoked tobacco (finding) [facility] Tobacco smoking status Never [facility] Goals Date Patient Goal Desired Activity /State Personal health goal Functional Status Date Assessment Result Facility 01-18-2024 Functional Status N/A [facility] 12-28-2023 Functional Status N/A [facility] 11-26-2023 Functional Status N/A [facility] Clinical Notes 10-06-2023 to 12-31-2023 EDVIN James - 11/10/2023 3:40 PM EST Note Date & Type Note Facility 12-31-2023 Hospital Discharge instructions Follow Up Care 12/31/2023 09:48:20 With:Matt Aguero DO, FAM, PED Address: [facility][note 3] [address] [place] [address] [phone] When:1 month Comments:To go instructions (to paste into follow up):Work on engaging core muscles - supine with knees bentOur goal is to address trunk stability and share the work with the other erector musclesWork on shoulder retraction exercisesF/u 1 month or PRN [facility] 12-28-2023 Hospital Discharge instructions Patient [...] Do not chew gum. General instructions Take aacm-xgy-rhvnueh and prescription medicines only as told by [...] important. Where to find more information National Vernal of Dental and Craniofacial Research: www.nidcr.nih.gov Contact [...] provider. Document Revised: 05/03/2022 Document Reviewed: 05/03/2022 [employer] Patient Education 2022 [email or web address] Follow Up Care 11/26/2023 09:54:55 With:More COWART, LOREN Kohler, PED Address: [address] [place] [address] [phone] When:1 month Comments:OMT PRN - 40 min slotTo go instructions (to paste into follow up):Work on engaging core muscles - supine with knees bentOur goal is to address trunk stability and share the work with the other erector musclesWork on shoulder retraction exercisesConsider reading Driven to Distraction as discussedFor splitting machine feeder, I recommend Dr. Mar CrowleyIf you want to see a family doctor, I recommend my colleague in this office Dr. Dickson Salazar/u 1 month or PRN [facility] [place] 11-10-2023 History of Present illness Narrative Reason [...] of: EDVIN James documented in this encounter [facility] 10-06-2023 Hospital Discharge instructions Follow Up Care 10/06/2023 12:21:08 With:Matt Aguero DO, FAM, PED Address: [address] [place] [address] [phone] When:1 year Comments:To go instructions:f/u as neededWork on shoulder active range of motion exercises Consider reading Driven to Distraction - by Stanton Emerson [facility] [place] Evaluation + Plan note No data available for this section [facility] Evaluation + Plan note Future Appointments Appointment Date:12/28/2023 04:20:00 PM Scheduled Provider:Matt Aguero DO Location:[facility] Appointment Type:FM Procedure Appointment Date:03/28/2024 08:20:00 AM Scheduled Provider:Matt Aguero DO Location:[facility] Appointment Type:FM Procedure Appointment Date:11/29/2024 09:00:00 AM Scheduled Provider:Matt Aguero DO Location:[facility] Appointment Type:FM [facility] Evaluation + Plan note Future Appointments Appointment Date:03/07/2024 08:20:00 AM Scheduled Provider:Matt Aguero DO Location:[facility] Appointment Type:FM Procedure Appointment Date:03/28/2024 08:20:00 AM Scheduled Provider:Matt Aguero DO Location:[facility] Appointment Type:FM Procedure Appointment Date:11/29/2024 09:00:00 AM Scheduled Provider:Matt Aguero DO Location:[facility] Appointment Type:[facility] Evaluation + Plan note Future Appointments Appointment Date:03/07/2024 08:20:00 AM Scheduled Provider:Matt Aguero DO Location:[facility] Appointment Type:FM Procedure Appointment Date:03/28/2024 08:20:00 AM Scheduled Provider:Matt Aguero DO Location:[facility] Appointment Type:FM Procedure Appointment Date:04/28/2024 02:00:00 PM Scheduled Provider:Matt Aguero DO Location:[facility] Appointment Type:FM Procedure Appointment Date:11/29/2024 09:00:00 AM Scheduled Provider:Matt Aguero DO Location:[facility] Appointment Type:[facility] Evaluation note Diagnosis Second trimester state, incidental [facility] No data available for this section [facility] No data available for this section [facility] Summary Purpose Family History No Family History Records Found Advance Directives No Advanced Directives Records FoundNo Advanced Directives Records Found Additional Source Comments Care Team (unrecognized sect ion and content) Manufacturing Planner Relationship Specialty Start Date End Date Pamela Colvin MD [address] [place] [address] PCP - [facility] 07/02/23 Manufacturing Planner Relationship Specialty Start Date End Date Pamela Colvin MD [address] [place] [address] PCP - [facility] 07/02/23 Manufacturing Planner Relationship Specialty Start Date End Date Pamela Colvin MD [address] [place] [address] PCP - [facility] 07/02/23 Reason for Visit (unrecogniz ed section and content) Reason Comments Routine Visit INFORMATION SOURCE (unrecogn ized section and content) DATE CREATED AUTHOR 01/19/2024 [facility] DATE CREATED AUTHOR AUTHOR'S MARA SANTANA 02/08/2024 [facility] EPIC FOR RECORDS PERTAINING TO [...] BE BASED ON THE PRIMARY CLINICAL RECORDS. [employer] provides no warranty or guarantee of the accuracy or completeness of information in this document.
[2024-02-10] MEDS: 0.9 % SODIUM CHLORIDE 1,000 ML 125 ML IV ×2 (05:49→12:25)
[2024-02-10 05:52] LABS: Hematocrit 32.8 % (36.0-48.0); Mean Corpuscular HGB Conc 33.5 g/dL (29.9-35.2); Mean Corpuscular Hemoglobin 29.3 pg (26.7-34.0); Mean Corpuscular Volume 87.2 fL (81.0-99.0); Platelet Count 137 10^3/uL (150-450); Red Blood Count 3.76 10^6/uL (4.20-5.40); Red Cell Distribution Width 13.4 % (11.0-15.0); White Blood Count 7.9 10^3/uL (4.0-11.0)
[2024-02-10] MEDS: OXYTOCIN/0.9 % SODIUM CHLORIDE 10 UNITS/500 ML PLAST..BAG 6 UNIT IV (05:57)
[2024-02-10 10:16] LABS: Amphetamine Screen Urine NEGATIVE (NEGATIVE); Barbiturates Screen Urine NEGATIVE (NEGATIVE); Benzodiazepines Screen Urine NEGATIVE (NEGATIVE); Buprenorphine Screen Urine NEGATIVE (NEGATIVE); Cannabinoid Screen Urine NEGATIVE (NEGATIVE); Cocaine Screen Urine NEGATIVE (NEGATIVE); Methadone Screen Urine NEGATIVE (NEGATIVE); Methamphetamines Screen Urine NEGATIVE (NEGATIVE); Opiate Screen Urine NEGATIVE (NEGATIVE); Oxycodone Screen Urine NEGATIVE (NEGATIVE); Phencyclidine Screen Urine NEGATIVE (NEGATIVE); Tricyclic Antidepressant Urine NEGATIVE (NEGATIVE)
[2024-02-10] MEDS: 0.9 % SODIUM CHLORIDE 1,000 ML 1000 ML IV (11:08)
[2024-02-10] MEDS: ROPIVACAINE HCL/PF 400 MG/200 ML PREMIX 12 MG EPIDURAL (12:27)
[2024-02-10] MEDS: ROPIVACAINE HCL 0.2% PF 40 MG/20 ML VIAL EPIDURAL (12:30)
--- NOTE | 2024-02-10 16:24 | PM.OBPRCVD ---
Procedure Intrapartal events: None Induction method: per pitocin protocol Delivery augmentation: rupture of membranes and pitocin Delivery monitor: external FHT and external uterine Route of delivery: Episiotomy Description: midline L&D Laceration Description: periurethral - 2nd degree Delivery repair: Vicryl Estimated blood loss (mL): 250 Anesthesia type: Epidural Disposition: floor Infant presentation: vertex
[2024-02-10] MEDS: OXYTOCIN/0.9 % SODIUM CHLORIDE 20 UNITS/1,000 ML PLAST..BAG 125 UNIT IV (16:39)
[2024-02-10] MEDS: IBUPROFEN 600 MG TABLET PO ×2 (17:39→23:12)
[2024-02-10] MEDS: GLYCERIN/WITCH HAZEL PADS 1 PAD TOPICAL (17:39)
[2024-02-10] MEDS: BENZOCAINE/MENTHOL 85 GRAM SPRAY BOTTLE 1 APPLIC TOPICAL (17:40)
[2024-02-11 06:06] LABS: Basophils Percent Auto 0.2 % (0.2-2.0); Eosinophils Percent Auto 0.3 % (0.9-7.0); Hematocrit 25.5 % (36.0-48.0); Hemoglobin 8.5 g/dL (12.0-16.0); Immature Granulocytes Abs Auto 0.04 10^3/uL (0.00-0.03); Immature Granulocytes Pct Auto 0.3 % (0.0-0.5); Mean Corpuscular HGB Conc 33.3 g/dL (29.9-35.2); Mean Corpuscular Hemoglobin 29.5 pg (26.7-34.0); Mean Corpuscular Volume 88.5 fL (81.0-99.0); Mean Platelet Volume 13.1 fL (9.5-13.5); Monocytes Absolute Auto 0.8 10^3/uL (0.3-0.8); Monocytes Percent Auto 5.7 % (1.7-12.0); Neutrophils Absolute Auto 10.5 10^3/uL (1.4-6.5); Neutrophils Percent Auto 78.5 % (43.0-75.0); Platelet Count 109 10^3/uL (150-450); Red Blood Count 2.88 10^6/uL (4.20-5.40); Red Cell Distribution Width 13.8 % (11.0-15.0); White Blood Count 13.4 10^3/uL (4.0-11.0)
[2024-02-11] MEDS: IBUPROFEN 600 MG TABLET PO ×3 (06:42→21:10)
[2024-02-11 08:50] VITALS: BP 108/68; PULSE 66
[2024-02-11] MEDS: DOCUSATE SODIUM 100 MG CAPSULE PO ×2 (08:50→21:10)
[2024-02-11] MEDS: ACETAMINOPHEN 325 MG TABLET 650 MG PO (08:50)
--- NOTE | 2024-02-11 09:11 | P.OBPN_ITS ---
OB - PN: Subj Subjective Patient comments: no complaints and pain well controlled [place] status: doing well Exam Constitutional Vital Signs, click to edit/add: Last Vital Signs Temp 98.2 F 02/10/24 23:30 Pulse 66 02/11/24 08:50 Resp 16 02/11/24 09:05 BP 108/68 02/11/24 08:50 O2 Del Method Room Air 02/11/24 09:05 Documenting provider has reviewed patient's vital signs: yes Common normals: no apparent distress Respiratory Common normals: clear to auscultation bilaterally Cardio Common normals: regular rate and regular rhythm GI Common normals: Normal to inspection, nondistended, normoactive bowel sounds present Extremity Common normals: no clubbing, cyanosis or edema and no calf tenderness Results Labs Labs: Short CBC 02/11/24 Range/Units 06:00 WBC 13.4 H (4.0-11.0) 10^3/uL Hgb 8.5 L (12.0-16.0) g/dL Hct 25.5 L (36.0-48.0) % Plt Count 109 L (150-450) 10^3/uL OB - PN: A/P Plan - Vaginal Delivery day: 1 Plan: routine care Time Spent with Patient Time: Total time spent is greater than 50% in coordination of care (as documented) at patient's floor/unit and/or counseling patient: Total time spent with greater than 50% in coordination of care (as documented) at patient's floor/unit and/or counseling patient: less than 15 minutes
[2024-02-11 17:47] VITALS: BP 107/62; PULSE 76; TEMP 36.9
[2024-02-12 00:01] VITALS: BP 108/53; PULSE 67; TEMP 36.9
[2024-02-12] MEDS: IBUPROFEN 600 MG TABLET PO (05:36)
[2024-02-12] MEDS: DOCUSATE SODIUM 100 MG CAPSULE PO (08:29)
[2024-02-12] MEDS: ACETAMINOPHEN 325 MG TABLET 650 MG PO (08:29)
--- NOTE | 2024-02-12 09:09 | P.OBPN_ITS ---
OB - PN: Subj Subjective Patient comments: no complaints [place] status: doing well feeding status: exclusively bottle feeding Exam Constitutional Vital Signs, click to edit/add: Last Vital Signs Temp 98.4 F 02/12/24 00:01 Pulse 67 02/12/24 00:01 Resp 14 02/12/24 00:04 BP 108/53 02/12/24 00:01 O2 Del Method Room Air 02/12/24 00:04 Documenting provider has reviewed patient's vital signs: yes Common normals: no apparent distress General appearance: cooperative Orientation/consciousness: Yes awake, Yes oriented to person, Yes oriented to place and Yes oriented to time HENMT Common normals: normocephalic Eye Common normals: EOMs intact bilaterally Neck & C-Spine Common normals: full ROM Lymph Lymphatic: no lymphadenopathy noted Chest Common normals: inspection of chest normal Respiratory Common normals: normal respiratory effort Auscultation: clear to auscultation bilaterally Cardio Common normals: regular rate and regular rhythm Rate: regular rate Rhythm: regular rhythm GI Inspection: normal to inspection Palpation: soft Common normals: no CVA tenderness Back & Pelvis Common normals: no CVA tenderness Extremity Common normals: normal to inspection Neuro Common normals: oriented x3 Sensorium/orientation: awake, oriented to person, oriented to place and oriented to time Psych Common normals: mental status grossly normal Attitude: calm OB - PN: A/P Plan - Vaginal Delivery day: 2 Plan: discharge home Time Spent with Patient Time: Total time spent is greater than 50% in coordination of care (as documented) at patient's floor/unit and/or counseling patient: Total time spent with greater than 50% in coordination of care (as documented) at patient's floor/unit and/or counseling patient: less than 15 minutes
--- OUTSIDE RECORDS SUMMARY | 2024-02-14 10:47 | XMS_ITS | CCD ---
Author Organization [facility] Care Team Providers Care Gimp Tacker Name Role Phone Pamela Colvin Primary Care Physician Pamela Colvin MD Primary Care Provider [phone] Matt Aguero Primary Care Physician Unavail able [...] (Normalized) Sig (Original) 21 day ethinyl estradiol 0.614647 mg/hr / etonogestrel 0.005 mg/hr vaginal system [...] AM EDT With: Matt Aguero DO Where: [facility] [place] Invalid Interpretation Code [address] [place] [address]-\.br\ Wednesday 2:00 PM EDT \.br\ With: Matt Aguero DO\.br\ Where: [facility] Medicine Office/Clini c Noteon 01-18-2024 Family Medicine [...] a li The patient is currently working; [employer]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 Ham - delivering at [facility] - Dr. Aldrich HPI staff / [...] plan abov (more content not included)... 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 Ham - delivering at [facility] - Dr. Aldrich HPI staff / [...] for ad (more content not included)... [facility] Comment on above: Result Comment: Elec [...] not chew gum. General instructions ? Take uybu-dzs-slrzsaz and prescription medicines only as told by [...] Where to find more information ? National Sheldon of Dental and Craniofacial Research: www.nidcr.nih.gov Contact [...] provider. Document Revised: 05/03/2022 Document Reviewed: 05/03/2022 [employer] Patient Education ? 2022 [employer] [facility] Transfer Inon 12-28-2023 Transfer In [id number]#1 .00TIFF [facility] Auth for Release of Medical Recordson 11-29-2023 Auth for Release of Medical Records [id number] 1.00TIFF [facility] Ambulatory Visit Summaryon 0 11-26-2023 Ambulatory [...] PM EDT With: Matt Aguero DO Where: [facility] [place] Invalid Interpretation Code [address] [place] [address]-\.br\ Wednesday 9:00 AM EST \.br\ With: Matt Aguero DO\.br\ Where: [facility] Family Medicine Office/Clini c Noteon 11-26-2023 Family Medicine Office/Clinic Note Chief Complaint EST CARE HPI Staff Establish Care: History: Last provider: Robert Pierson Any recent labs: DUE Health Maintenance UTD: Colonoscopy:N/A PSA: N/A Mammogram: Pelvic/Pap: 09/25 Social: Patient First child on way/boy Employed [employer] Acute: Patients father recommended you/ D Steff [...] a li 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 Ham - delivering at [facility] - Dr. Aldrich [facility] staff / Chief Complaint confirmed [...] pain a (more content not included)... [facility] Comment on above: Result Comment: Elec tronically Signed By: Matt Aguero DO.br\Date and Time Signed: 11/26/23 10:45 EST Formson 11-26-2023 Forms [id number] #1.00TIFF [facility] ALL CBC WITH AUTO DIFFon BASOPHILS ABSOLUTE AUTO 0.0 [facility] Basophils/100 WBC (Bld) 0.3 % 0.2 - 2.0 % [facility] Eosinophils/100 WBC (Bld) 0.8 % Low 0.9 - 7.0 % [facility] Erythrocyte distribution width (RBC) [Ratio] 12.6 % 11.0 - 15.0 % [facility] Hematocrit (Bld) [Volume fraction] 32.0 % Low 36.0 - 48.0 % [facility] Hemoglobin (Bld) [Mass/Vol] 10.6 g/dL Low 12.0 - 16.0 g/dL [facility] IMMATURE GRANULOCYTES ABS AUTO 0.04 High [facility] Immature granulocytes/100 WBC (Bld) 0.4 % 0.0 - 0.5 % [facility] Interpretation and review of laboratory results Abnormal [facility] LYMPHOCYTES ABSOLUTE AUTO 1.6 [facility] Lymphocytes/100 WBC (Bld) 14.7 % Low 20.5 - 60.0 % [facility] MCH (RBC) [Entitic mass] 30.7 pg 26.7 - 34.0 pg [facility] MCHC (RBC) [Mass/Vol] 33.1 g/dL 29.9 - 35.2 g/dL [facility] MCV (RBC) [Entitic vol] 92.8 fL 81.0 - 99.0 fL [facility] MONOCYTES ABSOLUTE AUTO 0.5 [facility] Monocytes/100 WBC (Bld) 4.4 % 1.7 - 12.0 % [facility] NEUTROPHILS ABSOLUTE AUTO 8.5 High [facility] Neutrophils/100 WBC (Bld) 79.4 % High 43.0 - 75.0 % [facility] Platelet mean volume (Bld) [Entitic vol] 11.4 fL 9.5 - 13.5 fL [facility] TBH EO # 0.1 [facility] PLT 186 [facility] TBH RBC 3.45 Low [facility] TB WBC 10.7 [facility] Urinalysis macro (dipstick) panel (U)Ordered By: Melvina Tong on 11-10-2023 Bilirubin, UA Negative Negative - 4(70) +++ mg/dL [facility] Work Phone: Blood, UA Negative Negative - 50 Joel/mcL [facility] Work Phone: Clarity, UA Clear [facility] Work Phone: Color, UA Yellow [facility] Work Phone: Glucose, UA Positive Negative - 1999(110) ++++ mg/dL [facility] Work Phone: Interpretation and review of laboratory results Abnormal [facility] Work Phone: Ketones, UA Negative Negative - 160(16) ++++ mg/dL [facility] Work Phone: Leukocytes, UA Negative Negative - 500+++ Shar/mcL [facility] Work Phone: Nitrite, UA Negative Negative - Positive [facility] Work Phone: pH, UA 6.5 5 - 9 [facility] Work Phone: Protein, UA Negative Negative - 1999(20) ++++ mg/dL [facility] Work Phone: Spec Grav, UA 1.010 1 - 1.03 [facility] Work Phone: Urobilinogen, UA 1.0 0.2 - 12 mg/dL [facility] Work Phone: [facility] Work Phone: Vital Signs Date Time Vital Sign Value Performing Clinician Sage uriostegui 01-18-2024 10:35-0400 Blood Pressure Location [facility] 01-18-2024 10:35-0400 Diastolic blood pressure 60 mm[Hg] [facility] 01-18-2024 10:35-0400 Heart rate 90 /min [facility] 01-18-2024 10:35-0400 SaO2% (BldA) [Mass fraction] 98 % [facility] 01-18-2024 10:35-0400 Systolic blood pressure 90 mm[Hg] [facility] 12-28-2023 16:29-0400 Blood Pressure Location [facility] 12-28-2023 16:29-0400 Diastolic blood pressure 60 mm[facility]Hg] [facility] 12-28-2023 16:29-0400 Heart rate 89 /min [facility] 12-28-2023 16:29-0400 SaO2% (BldA) [Mass fraction] 99 % [facility] 12-28-2023 16:29-0400 Systolic blood pressure 90 mm[Hg] [facility] 11-26-2023 08:52-0500 Blood Pressure Location [facility] 11-26-2023 08:52-0500 Diastolic blood pressure 60 mm[Hg] [facility] 11-26-2023 08:52-0500 Heart rate 96 /min [facility] 11-26-2023 08:52-0500 SaO2% (BldA) [Mass fraction] 99 % [facility] 11-26-2023 08:52-0500 Systolic blood pressure 96 mm[Hg] [facility] 11-10-2023 16:00-0500 Body weight 64.86 kg Pamela PARDO Work Phone: [facility] 11-10-2023 16:00-0500 Diastolic blood pressure 70 mm[Hg] Pamela PARDO Work Phone: [facility] 11-10-2023 16:00-0500 Systolic blood pressure 102 mm[Hg] Pamela PARDO Work Phone: [facility] Encounters Encounter Date Encounter Type Care Provider Facility Start: 11-29-2024 ambulatory Matt Diaz ty:[facility] Start: 04-28-2024 ambulatory Matt Diaz ty:[facility] Start: 03-28-2024 ambulatory Matt Duvali ty:[facility] Start: 03-07-2024 ambulatory Matt Aguero Facili ty:[facility] Start: 02-07-2024 End: 02-07-2024 ambulatory PABLITO STACIA Not Available Start: 02-03-2024 End: 02-03-2024 ambulatory PAMELA KAPIL Not Available Start: 02-01-2024 End: 02-01-2024 ambulatory PABLITO STACIA Not Available Start: 01-27-2024 End: 01-27-2024 ambulatory PAMELA KAPIL Not Available Start: 01-20-2024 End: 01-20-2024 ambulatory PABLITO STACIA Not Available Start: 01-18-2024 End: 01-19-2024 ambulatory Matt Aguero Facility:[facility] Start: 01-18-2024 End: 01-18-2024 Patient encounter procedure Matt Aguero [facility] Start: 01-05-2024 End: 01-05-2024 ambulatory PABLITO STACIA Not Available Start: 12-28-2023 End: 12-29-2023 ambulatory Matt Aguero Facility:[facility] Start: 12-28-2023 End: 12-28-2023 Patient encounter procedure Matt Aguero [facility] Start: 12-22-2023 End: 12-22-2023 ambulatory PABLITO STACIA Not Available Start: 12-09-2023 End: 12-09-2023 ambulatory PAMELA KAPIL Not Available Start: 11-26-2023 End: 11-27-2023 ambulatory Matt Aguero Facility:[facility] Start: 11-26-2023 End: 11-26-2023 Patient encounter procedure Matt Aguero [facility] Start: 11-24-2023 ambulatory Matt Aguero Facility :[facility] Start: 11-24-2023 End: 11-24-2023 ambulatory PABLITO STACIA [...] Pamela Colvin [facility] Procedures Date Procedure Procedure Detail Performing Clinician Start: 11-10-2023 Urnls dip stick/tabl et rgnt non-auto w/o micrscp Pamela PARDO Work Phone: Start: 11-10-2023 ALL CBC WITH AUTO DIFF Pablito Ham DO Work Phone: Tonsillectomy Matt Aguero Plan of Treatment Date Care Activity Detail Author Start: 11-24-2023 End: 11-24-2023 Patient encounter procedure 11/24/2023 10:50 AM EST Routine [facility] [address] [place] [address] Pablito Ham DO [address] [place] [address] [facility] Start: 11-10-2023 End: 11-10-2023 Patient encounter procedure 11/10/2023 3:40 PM EST Routine [facility] [address] [place] [address] Pamela Dick PA [address] [place] [address] Second trimester [facility] Comment on above: Second trimester pre gnancy Immunizations Immunization Date Immunization Notes Care Provider Fa cility NEGATED: Highlighted row has not occurred!11-26-2023 influenza virus vaccine, unspecified formulation Matt Aguero [facility] [place] Payers Date Payer Category Payer Unknown BCBS BCBS [id number] 2019-Present [phone] [address] [place] [address] [id number] 2019 Unknown [id number] 1992 Unknown [id number] 2.16.840.1.248683.3.579.2.727 1992 Unknown [id number] 2.16.840.1.179035.3.579.2.727 1992 Unknown [id number] 2.16.840.1.085749.3.579.2.727 1992 Unknown [id number] 2.16.840.1.639758.3.579.2.727 1992 Unknown [id number] 2.16.840.1.176718.3.579.2.727 1992 Unknown [id number] 2.16.840.1.007151.3.579.2.727 1992 Unknown [id number] 2.16.840.1.051046.3.579.2.727 1992 Unknown [id number] 2.16.840.1.738208.3.579.2.727 1992 Unknown [id number] 2.16.840.1.572705.3.579.2.1259 1992 Unknown [id number] 2.16.840.1.502525.3.579.2.1259 1992 Unknown [id number] 2.16.840.1.168748.3.579.2.9 1992 Unknown [id number] 2.16.840.1.207351.3.579.2.1258 1992 Unknown [id number] 2.16.840.1.028320.3.579.2.1258 1992 Unknown [id number] 2.16.840.1.861803.3.579.2.1258 1992 Unknown [id number] 2.16.840.1.021779.3.579.2.1258 1992 Unknown [id number] 2.16.840.1.302241.3.579.2.1258 1992 Unknown [id number] 2.16.840.1.651941.3.579.2.1258 1992 Unknown [id number] 2.16.840.1.944541.3.579.2.1258 1992 Unknown [id number] 2.16.840.1.223385.3.579.2.1258 1992 Unknown [id number] 2.16.840.1.999656.3.579.2.9 Social History Date Type Detail Facility Tobacco smoking status No Smoking Status Entered [facility] Sex Assigned At Female [facility] Tobacco smoking status NHIS Tobacco smoking consumption unknown [facility] Start: 05-26-2023 [facility] Start: 1990 Sex Assigned At Not on file [facility] Start: 11-26-2023 End: 01-18-2024 Tobacco smoking status Never smoked tobacco (finding) [facility] Tobacco smoking status Never [facility] Goals Date Patient Goal Desired Activity /State Personal health goal Functional Status Date Assessment Result Facility 01-18-2024 Functional Status N/A [facility] 12-28-2023 Functional Status N/A [facility] 11-26-2023 Functional Status N/A [facility] Clinical Notes 10-06-2023 to 12-31-2023 EDVIN James - 11/10/2023 3:40 PM EST Note Date & Type Note Facility 12-31-2023 Hospital Discharge instructions Follow Up Care 12/31/2023 09:48:20 With:Matt Aguero DO, FAM, PED Address: [facility] [place] [address] [place] [address] [phone] When:1 month Comments:To go instructions (to paste into follow up):Work on engaging core muscles - supine with knees bentOur goal is to address trunk stability and share the work with the other erector musclesWork on shoulder retraction exercisesF/u 1 month or PRN [facility] 12-28-2023 Hospital Discharge instructions Patient Education 12/28/2023 [...] Do not chew gum. General instructions Take clpm-cju-qtkvfyv and prescription medicines only as told by [...] important. Where to find more information National Sheldon of Dental and Craniofacial Research: www.nidcr.nih.gov Contact [...] provider. Document Revised: 05/03/2022 Document Reviewed: 05/03/2022 [employer] Patient Education 2022 [employer]. Follow Up Care 11/26/2023 09:54:55 With:More COWART, LOREN Kohler, PED Address: [address] [place] [address] [phone] When:1 month Comments:OMT PRN - 40 min slotTo go instructions (to paste into follow up):Work on engaging core muscles - supine with knees bentOur goal is to address trunk stability and share the work with the other erector musclesWork on shoulder retraction exercisesConsider reading Driven to Distraction as discussedFor golf coach, I recommend Dr. Mar CrowleyIf you want to see a family doctor, I recommend my colleague in this office Dr. Dickson Salazar/u 1 month or PRN [facility] [place] 11-10-2023 History of Present illness Narrative Reason [...] James documented in this encounter [facility] 10-06-2023 Hospital Discharge instructions Follow Up Care 10/06/2023 12:21:08 With:Matt Aguero DO, FAM, PED Address: [address] [place] [address] [phone] When:1 year Comments:To go instructions:f/u as neededWork on shoulder active range of motion exercises Consider reading Driven to Distraction - by Stanton Emerson [facility] [place] Evaluation + Plan note No data available for this section [facility] Evaluation + Plan note Future Appointments Appointment Date:12/28/2023 04:20:00 PM Scheduled Provider:Matt Aguero DO Location:[facility] Appointment Type:FM Procedure Appointment Date:03/28/2024 08:20:00 AM Scheduled Provider:Matt Aguero DO Location:[facility] Appointment Type:FM Procedure Appointment Date:11/29/2024 09:00:00 AM Scheduled Provider:Matt Aguero DO Location:[facility] Appointment Type:FM [facility] Evaluation + Plan note Future Appointments Appointment Date:03/07/2024 08:20:00 AM Scheduled Provider:Matt Aguero DO Location:[facility] Appointment Type:FM Procedure Appointment Date:03/28/2024 08:20:00 AM Scheduled Provider:Matt Aguero DO Location:[facility] Appointment Type:FM Procedure Appointment Date:11/29/2024 09:00:00 AM Scheduled Provider:Matt Aguero DO Location:[facility] Appointment Type:[facility] Evaluation + Plan note Future Appointments Appointment Date:03/07/2024 08:20:00 AM Scheduled Provider:Matt Aguero DO Location:[facility] Appointment Type:FM Procedure Appointment Date:03/28/2024 08:20:00 AM Scheduled Provider:aMtt Aguero DO Location:[facility] Appointment Type:FM Procedure Appointment Date:04/28/2024 02:00:00 PM Scheduled Provider:Matt Aguero DO Location:[facility] Appointment Type:FM Procedure Appointment Date:11/29/2024 09:00:00 AM Scheduled Provider:Matt Aguero DO Location:[facility] Appointment Type:[facility] Evaluation note Diagnosis Second trimester state, incidental [facility] No data available for this section [facility] No data available for this section [facility] Summary Purpose Family History No Family History Records Found Advance Directives No Advanced Directives Records FoundNo Advanced Directives Records Found Additional Source Comments Care Team (unrecognized sect ion and content) Gimp Tacker Relationship Specialty Start Date End Date Pamela Colvin MD [address] [place] [address] PCP - [facility] 07/02/23 Gimp Tacker Relationship Specialty Start Date End Date Pamela Colvin MD [address] [place] [address] PCP - [facility] 07/02/23 Gimp Tacker Relationship Specialty Start Date End Date Pamela Colvin MD [address] [place] [address] PCP - [facility] 07/02/23 Reason for Visit (unrecogniz ed section and content) Reason Comments Routine Visit INFORMATION SOURCE (unrecogn ized section and content) DATE CREATED AUTHOR 01/19/2024 [facility] DATE CREATED AUTHOR AUTHOR'S MARA SANTANA 02/08/2024 [facility] Special[facility] EPIC FOR RECORDS PERTAINING TO [...] BE BASED ON THE PRIMARY CLINICAL RECORDS. [employer] provides no warranty or guarantee of the accuracy or completeness of information in this document.
== END 2024-02-12 13:25 | disposition home or self-care (01) | DRG 807 ==
PROVIDERS: Admitting Provider Obstetrics & Gynecology; Visit Provider Midwife
DX: O70.1 Second degree perineal laceration during delivery (principal); Z37.0 Single live birth; Z3A.39 39 weeks gestation of pregnancy; O71.82 Other specified trauma to perineum and vulva
CPT/HCPCS: 36415; 59050; 59410; 80307; 85025; 85027; 86850; 86900; 86901; 96365; 96366; 96376

== ENCOUNTER 2024-10-25 19:07 | Outpatient (REF) | payer OTHER, SELFPAY ==
--- OUTSIDE RECORDS SUMMARY | 2024-10-25 19:12 | XMS_ITS | CCD ---
Author Organization [facility] Care Team Providers Care Instructor Business Education Name Role Phone Pamela Colvin Primary Care Physician Pamela Colvin MD Primary Care Provider [phone] Matt Aguero Primary Care Physician Unavail able PABLITO HAM Attending Unavailable PAMELA DICK Attending Unavailable JITENDRA, PABLITO Attending Unavailable PAMELA DICK Attending Unavailable JITENDRA, PABLITO Attending Unavailable JITENDRA, PABLITO Attending Unavailable PAMELA DICK Attending Unavailable JITENDRA, PABLITO Attending Unavailable KAPIL, PAMELA Attending Unavailable JITENDRA, PABLITO Attending Unavailable PAMELA DICK Attending Unavailable JITENDRA, PABLITO Attending Unavailable PABLITO HAM Attending Unavailable DO Matt Aguero Referring Unavailable DO Matt Aguero Admitting Unavailable DO Matt Aguero Attending Unavailable DO Matt Aguero Admitting Unavailable DO Matt Aguero Attending Unavailable DO Matt Aguero Attending Unavailable DO Matt Aguero Attending Unavailable DO Matt Aguero Admitting Unavailable Jarad Rodríguez Attending Unavailable DO Matt Aguero Referring Unavailable DO Matt Aguero Attending Unavailable DO Matt Aguero Attending Unavailable DO Matt Aguero Attending Unavailable DO Matt Aguero Attending Unavailable DO Matt Aguero Attending Unavailable DO Matt Aguero Attending Unavailable DO Matt Aguero Attending Unavailable DO Matt Aguero Attending Unavailable DO Matt Aguero Attending Unavailable DO Matt Aguero Attending Unavailable DO Matt Aguero Attending Unavailable DO Matt Aguero Attending Unavailable DO Matt Aguero Attending Unavailable Matt Aguero Attending Unavailable Matt Aguero Admitting Unavailable Matt Aguero Attending Unavailable Medications Current Medications Medication Drug Class(es) Dates Sig (Normalized) Sig (Original) amoxicillin 875 mg / clavulanate 125 mg oral tablet (1 source) Penicillin-class Antibacterial Start: 09-15-2024 End: 09-22-2024 take 1 tablet by mouth every twelve hours Augmentin 875 mg-125 mg Tab 1 tab(s), Oral, q12hr for 7 day(s), 14 tab(s), Refill(s) 0, [facility], 166, cm, 09/15/24 13:53:00 EST, Height/Length Dosing, 65.4, kg, 09/15/24 13:53:00 EST, Weight Dosing Start Date: 09/15/24 Stop Date: 09/22/24 Status: Ordered cyclobenzaprine hydrochloride 5 mg oral tablet (10 sources) Muscle Relaxant Start: 08-22-2024 take 1 tablet by mouth three times daily cyclobenzaprine 5 mg Tab 5 mg = 1 tab(s), Oral, TID, # 90 tab(s), Refills(s) 5, Pharmacy: [facility], 166, cm, 08/22/24 16:32:00 EST, Height/Length Dosing, 65, kg, 08/22/24 16:32:00 EST, Weight Dosing Start Date: 08/22/24 Status: Ordered Start: 06-22-2024 take 1 tablet by renetta th twice daily cyclobenzaprine 5 mg Tab 5 mg = 1 tab(s), Oral, BID, # 60 tab(s), Refills(s) 5, Pharmacy: [facility], 166, cm, 06/22/24 14:07:00 EDT, Height/Length Dosing, 64.3, kg, 06/22/24 14:04:00 EDT, Weight Dosing Start Date: 06/22/24 Status: Ordered Start: 06-09-2024 take 1 tablet by renetta th at bedtime cyclobenzaprine 5 mg Tab 5 mg = 1 tab(s), Oral, Bedtime, # 30 tab(s), Refills(s) 5, Pharmacy: [facility], 166, cm, 06/09/24 14:26:00 EDT, Height/Length Dosing, 64.5, kg, 06/09/24 14:26:00 EDT, Weight Dosing Start Date: 06/09/24 Status: Ordered Start: 05-02-2024 take 1 tablet by renetta th at bedtime cyclobenzaprine 5 mg Tab 5 mg = 1 tab(s), Oral, Bedtime, # 30 tab(s), Refills(s) 0, Pharmacy: [facility], 166, cm, 05/02/24 14:30:00 EDT, Height/Length Dosing, 62, kg, 05/02/24 14:30:00 EDT, Weight Dosing Start Date: 05/02/24 Status: Ordered DULoxetine 30 mg delayed release oral capsule (5 sources) Serotonin and Norepinephrine Reuptake Inhibitor Start: 09-15-2024 take 1 capsule by mouth twice daily duloxetine 30 mg oral delayed release capsule 30 mg = 1 cap(s), Oral, BID, # 60 cap(s), Refills(s) 11, Pharmacy: [facility], 166, cm, 09/15/24 13:53:00 EST, Height/Length Dosing, 65.4, kg, 09/15/24 13:53:00 EST, Weight Dosing Start Date: 09/15/24 Status: Ordered Start: 07-18-2024 take 1 capsule by mo [facility] twice daily duloxetine 30 mg oral delayed release capsule 30 mg = 1 cap(s), Oral, BID, # 60 cap(s), Refills(s) 5, Pharmacy: [facility], 166, cm, 07/18/24 8:33:00 EDT, Height/Length Dosing, 64.4, kg, 07/18/24 8:33:00 EDT, Weight Dosing Start Date: 07/18/24 Status: Ordered escitalopram 10 mg oral tablet (11 sources) Serotonin Reuptake Inhibitor Start: 07-18-2024 take 1 tablet by mouth once daily escitalopram 10 mg Tab 10 mg = 1 tab(s), Oral, Daily, # 90 tab(s), Refills(s) 4, Pharmacy: [facility], 166, cm, 07/18/24 8:33:00 EDT, Height/Length Dosing, 64.4, kg, 07/18/24 8:33:00 EDT, Weight Dosing Start Date: 07/18/24 Status: Ordered Start: 07-02-2024 take 1 tablet by renetta th once daily escitalopram 10 mg Tab 10 mg = 1 tab(s), Oral, Daily, # 90 tab(s), Refills(s) 4, Pharmacy: [facility], 166, cm, 03/07/24 8:30:00 EDT, Height/Length Dosing, 62.1, kg, 03/07/24 8:30:00 EDT, Weight Dosing Start Date: 04/04/24 Status: Ordered Start: 11-25-2023 escitalopram 1 0 mg Tab 30 tab(s), 0 Refill(s), Refills(s) 0 Start Date: 11/25/23 Status: Ordered 21 day ethinyl estradiol 0.736986 mg/hr / etonogestrel 0.005 mg/hr vaginal system (13 sources) Progestin, Estrogen Start: 05-01-2024 EluRyng 0. 120 mg-0.015 mg/24 hours vaginal ring Refill(s) 0, 1 EA, 0 Refill(s), INSERT ONE RING VAGINALLY AND LEAVE IN PLACE FOR 3 CONSECUTIVE WEEKS, THEN REMOVE FOR 1 WEEK. INSERT NEW RING 7 DAYS AFTER THE LAST WAS REMOVED Start Date: 05/01/24 Status: Ordered Start: 11-25-2023 ethinyl estrad iol-etonogestrel 0.015 mg-0.120 mg Vag Ring Refill(s) 0, 3 EA, 0 Refill(s) Start Date: 11/25/23 Status: Ordered fluconazole 150 mg oral tablet (2 sources) Azole Antifungal Start: 08-22-2024 fluconazole 1 50 mg Tab 300 mg = 2 tab(s), Oral, q7day, # 8 tab(s), Refills(s) 0, Pharmacy: [facility], 166, cm, 08/22/24 16:32:00 EST, Height/Length Dosing, 65, kg, 08/22/24 16:32:00 EST, Weight Dosing Start Date: 08/22/24 Status: Ordered Depo-Provera (4 sources) Progestin Start: 01-15-2011 Depo-Provera 4 00 mg, IntraMuscular, Refills(s) 0 Start Date: 01/15/11 Status: Ordered meloxicam 15 mg oral tablet (13 sources) Nonsteroidal Anti-inflammatory Drug Start: 08-22-2024 take 1 tablet by mouth once daily meloxicam 15 mg Tab 15 mg = 1 tab(s), Oral, Daily, # 30 tab(s), Refills(s) 0, other reason (Rx) Start Date: 08/22/24 Status: Ordered Start: 06-22-2024 take 1 tablet by renetta th once daily meloxicam 15 mg Tab 15 mg = 1 tab(s), Oral, Daily, # 90 tab(s), Refills(s) 0, Pharmacy: [facility], 166, cm, 06/22/24 14:07:00 EDT, Height/Length Dosing, 64.3, kg, 06/22/24 14:04:00 EDT, Weight Dosing Start Date: 06/22/24 Status: Ordered Start: 06-09-2024 take 1 tablet by [facility] once daily meloxicam 15 mg Tab 15 mg = 1 tab(s), Oral, Daily, # 90 tab(s), Refills(s) 0, Pharmacy: [facility], 166, cm, 06/09/24 14:26:00 EDT, Height/Length Dosing, 64.5, kg, 06/09/24 14:26:00 EDT, Weight Dosing Start Date: 06/09/24 Status: Ordered Start: 05-02-2024 take 1 tablet by [facility] once daily meloxicam 7.5 mg Tab 7.5 mg = 1 tab(s), Oral, Daily, # 30 tab(s), Refills(s) 2, Pharmacy: [facility], 166, cm, 05/02/24 14:30:00 EDT, Height/Length Dosing, 62, kg, 05/02/24 14:30:00 EDT, Weight Dosing Start Date: 05/02/24 Status: Ordered Start: 11-04-2017 methocarbamol 500 mg oral tablet (3 sources) Muscle Relaxant Start: 11-04-2017 Multivitamins with Vitamin B Complex, Vitamin C, Minerals and L-Methylfolate oral capsule (15 sources) Start: 11-26-2023 Multi vitamins with Vitamin B Complex, Vitamin C, Minerals [...] Problem Date Documented Date Episodic/Chronic Administrative/social admission (2 sources) Patient encounter status; Translations: [Persons encountering health services in other specified circumstances] Onset: 4 Episodic Anxiety disorders (18 sources) Anxiety disorder; Translations: [Anxiety disorder, unspecified] Onset: 4 Chronic Bacterial infection; unspecified site (1 source) Bacterial infectious disease; Translations: [Other specified bacterial agents as the cause of diseases classified elsewhere] Onset: 4 Episodic Disorders of teeth and jaw (16 sources) Temporomandibular joint disorder; Translations: [Other specified disorders of temporomandibular joint] Onset: 4 Episodic Mycoses (3 sources) Pityriasis versicolor; Translations: [Pityriasis versicolor] Onset: 4 Episodic Other bone disease and musculoskeletal deformities (20 sources) Segmental and somatic dysfunction; Translations: [Segmental and somatic dysfunction of thoracic region] Onset: 4 Episodic Other bone disease and musculoskeletal deformities (14 sources) Cervical somatic dysfunction 12-27-2023 Episodic Other bone disease and musculoskeletal deformities (14 sources) Somatic dysfunction of thoracic region 12-27-2023 Episodic Other bone disease and musculoskeletal deformities (14 sources) Somatic dysfunction of upper limb 12-27-2023 Episodic Other bone disease and musculoskeletal deformities (12 sources) Somatic dysfunction of abdominal region 03-07-2024 Episodic Other bone disease and musculoskeletal deformities (12 sources) Somatic dysfunction of head region 03-03-2024 Episodic Other bone disease and musculoskeletal deformities (12 sources) Somatic dysfunction of lumbar region 03-03-2024 Episodic Other bone disease and musculoskeletal deformities (8 sources) Somatic dysfunction of lower limb 06-09-2024 Episodic Other bone disease and musculoskeletal deformities (8 sources) Somatic dysfunction of sacral region 06-09-2024 Episodic Other connective tissue disease (17 sources) Adhesive capsulitis of shoulder; Translations: [Adhesive capsulitis of unspecified shoulder] Onset: 4 Episodic Other connective tissue disease (1 source) Spasm; Translations: [Other muscle spasm] Onset: 4 Episodic Other connective tissue disease (14 sources) Muscle spasm of cervical muscle of neck 12-27-2023 Episodic Other connective tissue disease (11 sources) Abnormal posture; Translations: [Abnormal posture] Onset: 4 Episodic Other connective tissue disease (5 sources) Musculoskeletal pain 07-18-2024 Episodic Other nervous system disorders (6 sources) Anesthesia of skin; Translations: [Anesthesia of skin] Onset: 4 Episodic Other nervous system disorders (5 sources) Paresthesia; Translations: [Paresthesia of skin] Onset: 4 Episodic Other nervous system disorders (10 sources) Numbness of hand 05-02-2024 Episodic Other nervous system disorders (10 sources) Paresthesia of foot 05-02-2024 Episodic Other non-traumatic joint disorders (4 sources) Disorder of joint of shoulder region; Translations: [Other specified joint disorders, unspecified shoulder] Onset: 4 Episodic Other non-traumatic joint disorders (15 sources) Disorder of shoulder 11-26-2023 Episodic Other nutritional; endocrine; and metabolic disorders (1 source) Overweight in adulthood with body mass index of 25 or more but less than 30; Translations: [Body mass index (BMI) 25.0-25.9, adult] Onset: 4 Episodic Other and delivery including normal (20 sources) Second trimester ; Translations: [Encounter for supervision of normal , unspecified, second trimester] Onset: 4 11-05-2023 Episodic Other screening for suspected conditions (not mental disorders or infectious disease) (1 source) Procedure carried out on subject; Translations: [Encounter for screening for lipoid disorders] Onset: 4 Episodic Other upper respiratory infections (2 sources) Chronic sinusitis; Translations: [Chronic sinusitis, unspecified] Onset: 4 Chronic Residual codes; unclassified (6 sources) Body mass index 20-24 - normal; Translations: [Body mass index (BMI) 24.0-24.9, adult] Onset: 4 Episodic Spondylosis; intervertebral disc disorders; other back problems (9 sources) Solitary sacroiliitis; Translations: [Sacroiliitis, not elsewhere classified] Onset: 4 Chronic Spondylosis; intervertebral disc disorders; other back problems (20 sources) Neck pain; Translations: [Cervicalgia] Onset: 4 Episodic Unclassified (3 sources) OB Reminders Onset: 3 07-12-2023 Unclassified (6 sources) Patient encounter status 11-25-2023 Results Test Name Value Interpretation Reference Range Facility Ambulatory Visit Summaryon 1 11-16-2023 Ambulatory Visit Summary Ambulatory Visit Summary [facility] Olayinka :1990 Visit Date:09/15/2024 Ambulatory Visit Instructions Your Diagnosis Bacterial sinusitis Musculoskeletal pain Other specified bacterial agents as the cause of diseases classified elsewhere Your Care Team Attending Physician - Matt Aguero DO Primary Care Physician - Matt Aguero DO This Is Your Medications List amoxicillin-clavulana te (Augmentin 875 mg-125 mg Tab) duloxetine (duloxetine 30 mg oral delayed release capsule) Contact prescribing physician if questions or concerns cyclobenzaprine (cyclobenzaprine 5 mg Tab) ethinyl estradiol-etonogestre l (EluRyng 0.120 mg-0.015 mg/24 hours vaginal ring) fluconazole (fluconazole 150 mg Tab) meloxicam (meloxicam 15 mg Tab) multivitamin, ( Multivitamins with Vitamin B Complex, Vitamin C, Minerals and L-Methylfolate oral capsule) Procedures Performed Tonsillectomy. Discharge Vitals Heart Rate (Peripheral) 83 Blood Pressure 110/62 Height 166 cm Height 65 in Weight 65.4 kg Weight 144.182 lb BMI 23.73 What to do next Scheduled Follow-Up Appointments Wednesday 9:00 AM EST With: Matt Aguero DO Where: [facility] [address] [place] [address]- Medications What How Much When Why Instructions New amoxicillin-clavulana te (Augmentin 875 mg-125 mg Tab) 1 Tablets By Mouth Every 12 hours Duration: 7 Days Pickup at [facility] Unchanged duloxetine (duloxetine 30 mg oral delayed release capsule) 1 Capsules By Mouth 2 times a day Musculoskeletal pain Pickup at [facility] 1985 Unchanged cyclobenzaprine (cyclobenzaprine 5 mg Tab) 1 Tablets By Mouth 3 times a day Spasm of thoracic back muscle Head ache Contact prescribing physician if questions or concerns Unchanged ethinyl estradiol-etonogestre l (EluRyng 0.120 mg-0.015 mg/ 24 hours vaginal ring) 1 EA, 0 Refill(s), INSERT ONE RING VAGINALLY AND LEAVE IN PLACE FOR 3 CONSECUTIVE WEEKS, THEN REMOVE FOR 1 WEEK. INSERT NEW RING 7 DAYS AFTER THE LAST WAS REMOVED Contact prescribing physician if questions or concerns Unchanged fluconazole (fluconazole 150 mg Tab) 2 Tablets By Mouth Every 7 days Tinea versicolor Contact prescribing physician if questions or concerns Unchanged meloxicam (meloxicam 15 mg Tab) 1 Tablets By Mouth Every day Contact prescribing physician if questions or concerns Unchanged multivitamin, ( Multivitamins with Vitamin B Complex, Vitamin C, Minerals and L-Methylfolate oral capsule) 1 Capsules By Mouth Every day Contact prescribing physician if questions or concerns Pharmacy Information [facility]: [address] [place] [address] [place] [phone] Allergies No Known Allergies Problems Ongoing - Any problem that you are currently receiving treatment for. Anxiety Bacterial sinusitis Frozen shoulder Low back pain Musculoskeletal pain Neck pain Numbness and tingling of both feet Posture abnormality Radicular low back pain Sacroiliitis Screening for hyperlipidemia Shoulder impingement Somatic dysfunction of abdominal region Somatic dysfunction of cervical region Somatic dysfunction of head region Somatic dysfunction of lower extremities Somatic dysfunction of lumbar region Somatic dysfunction of sacral region Somatic dysfunction of thoracic region Somatic dysfunction of upper extremities Spasm of lumbar paraspinous muscle Spasm of thoracic back muscle Tinea versicolor TMJ locking Trapezius muscle spasm Historical - Any problem that you are no longer receiving treatment for. Numbness in both hands Patient Survey You may receive a survey via text or e-mail asking about your office visit. Please share your experience with us by completing your survey. We appreciate your feedback and thank you for choosing us for your care. Devin Foster [facility] Family Medicine Office/Clini c Noteon 09-15-2024 Family Medicine Office/Clinic Note Family Medicine Office/Clinic Note Chief Complaint Medication f/u HPI Staff Patient here for 1 month F/U -pt states no complaints or concerns. 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 - Víctor Carlos named after his grandfather has been back to work nearly a month now (as of 06/09/24) List of Providers: Electrician Constructor Supervisor - Dr. Ham - delivering at [place] Chiropractor - Dr. Aldrich HPI staff / Chief Complaint confirmed with the patient Interval history: _ (anything tagged from the patients medical record will be at the bottom of this section) thought about cancelling today because she's doing well c/o congestion started last weekend jaw is somewhat better - previously had pain when she opened her jaw too far minimal pain when opening her jaw less pain with chewing *right TMJ fluconazole has helped somewhat with her spots - they are less itchy LABS Cr/eGFR: eGFR: 100 mL/min/1.73 m2 (08/09/24 09:25:00) Creatinine: 0.8 mg/dL (08/09/24 09:25:00) TSH: TSH: 2.28 mcIU/mL (08/09/24 09:25:00) LDL: LDL Direct: 145 mg/dL High (08/09/24 09:25:00) Lipids: Chol: 225 mg/dL High (08/09/24 09:25:00) HDL: 62 mg/dL (08/09/24 09:25:00) LDL Direct: 145 mg/dL High (08/09/24 09:25:00) Tri mg/dL (08/09/24 09:25:00) VLDL: 28 mg/dL (08/09/24 09:25:00) Future Appointments [facility] Appt. Date: 11/29/2024 9:00 AM Scheduled Provider: Matt Aguero DO [address] [place], [place], [id number] Phone: -- Fax: -- [phone], [address] [place], [address] Phone: -- Fax: [phone] From last note: Review of Systems PHQ Score Initial Depression Screen Score: 0 SCORE Physical Exam Vitals & Measurements HR: 83(Peripheral) BP: 110/62 SpO2: 100% HT: 65 in HT: 166 cm WT: 65.4 kg WT: 144.182 lb BMI: 23.73 Constitutional: Vital signs reviewed; Winston is well nourished, no acute distress - patient is Afebrile Head: Atraumatic, normocephalic Neck: Trachea is midline, there is minimal tenderness in the anterior lymph nodes Eye: EOMI, normal conjunctiva ENT: Moist oral mucosa mild turbinate hypertrophy with purplish discoloration Mild bilateral maxillary and frontal sinus tenderness Some evidence of excoriation in bilateral ear canals TMs clear bilaterally; this is no evidence of inner ear infection Lungs: Clear to auscultation, non-labored respiration Heart: Normal rate and rhythm, normal peripheral perfusion Abd: Deferred : Deferred Extremities: Deferred Skin: Warm, dry Neurologic: Awake, alert and oriented, speech is normal Psychiatric: Cooperative, appropriate mood and affect Assessment/Plan 1. Bacterial sinusitis (J32.9: Chronic sinusitis, unspecified) Acute New to ks Allergies vs viral etiology have been considered However, given the duration of symptoms and exam findings today, will treat as if this is bacterial sinusitis No known drug allergies - Augmentin 875-125 BID x 5-7 days Discussed treating symptoms with tylenol/ NSAIDs Discussed pseudoephedrine for sinus pressure - 30mg 1-2 tabs up for 4 times a day F/u with PCP if no improvement or if symptoms worsen Musculoskeletal pain (M79.18: Myalgia, other site) chronic stable no changes today refills for duloxetine submitted cyclobenzaprine is up to date f/u PRN Ordered: duloxetine, 30 mg = 1 cap(s), Oral, BID, # 60 cap(s), Refills(s) 11, Pharmacy: [facility], 166, cm, 09/15/24 13:53:00 EST, Height/Length Dosing, 65.4, kg, 09/15/24 13:53:00 EST, Weight Dosing Other specified bacterial agents as the cause of diseases classified elsewhere (B96.89: Other specified bacterial agents as the cause of diseases classified elsewhere) Orders: amoxicillin-clavulana te, 1 tab(s), Oral, q12hr for 7 day(s), 14 tab(s), Refill(s) 0, [facility], 166, cm, 09/15/24 13:53:00 EST, Height/Length Dosing, 65.4, kg, 09/15/24 13:53:00 EST, Weight Dosing Follow-up No qualifying data available Problem List/Past Medical History Ongoing Anxiety Bacterial sinusitis Frozen shoulder Low back pain Musculoskeletal pain Neck pain Numbness and tingling of both feet Posture abnormality Radicular low back pain Sacroiliitis Screening for hyperlipidemia Shoulder impingement Somatic dysfunction of abdominal region Somatic dysfunction of cervical region Somatic dysfunction of head region Somatic dysfunction of lower extremities Somatic dysfunction of lumbar region (more content not included)... Normal [facility] Comment on above: Result Comment: Elec tronically Signed By: Matt Aguero DO.daryl\Date and Time Signed: 09/15/24 14:12 EST Family Medicine Office/Clini c Noteon 08-23-2024 Family Medicine Office/Clinic Note Family Medicine Office/Clinic Note Chief Complaint Back pain/ review labs HPI Staff Patient here today for Back pain /OMT Lab review EMILY 07/18/24 Lab 08/19/24 No other concerns History of Present Illness 33 Years old Female here to f/u for Neck and LOW BACK PAIN *my dad is Almas Michaud and he loves you This is the best I've ever seen my dad Social: The patient is ; Ghulam Carter since 2022 Her 's family is Raul - there's a lot of Stangs in the area *her is a li --> he's been great with Víctor (their ) The patient 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 Ham - delivering at [place] Chiropractor - Dr. Aldrich [facility] staff / Chief Complaint confirmed with the patient Today, the patient reports their symptoms are PRESENT and is requesting OMT. Based on their report of symptoms and my exam findings, I believe OMT is appropriate today. The patient expresses consent for manipulation today. The patient is aware that a student may be present during treatment. having increased jaw pain is no longer taking the meloxicam is taking duloxetine BID is taking both tabs of cyclobenzaprine at night did occasionally use during the day and that was effective low back pain is ok From last note: (tagged below) PHYSICAL EXAM Constitutional: Vital signs reviewed; this patient is well nourished, no acute distress Lungs: Clear to auscultation, non-labored respiration - expansion is symmetric Heart: Normal rate and rhythm, normal peripheral perfusion MSK: Gait is fluid Cervical AROM is appropriatee does have some tenderness at bilat TMJ, as well as r Skin: Warm, dry Neurologic: Awake, alert and oriented Psychiatric: Cooperative, appropriate mood and affect, judgement is appropriate Procedure documentation - Osteopathic Manipulation: Head: OA dysfunction and pterygoid dysfunction - treated with pterygoid release and OA dysfunction treated with BLT and FPR - with [...] Back pain (M54.50) Chronic. Stable Multifactorial etiology Medication does seem to provide ample benefit Does get benefit from OMT - doing better today - deferred Discussed the importance of optimizing mechanics Discussed the rationale of manipulation in the future F/u 1 month or PRN *Patient denies any symptoms of progressively worsening upper/lower extremity weakness, progressively worsening gait abnormality, new onset bowel/bladder incontinence/ urinary retention, or saddle anesthesia. No new or worsening symptoms of fever, chills, night sweats. 2. Neck pain (M54.2) Acute on Chronic NO recent trauma There are no neurologic symptoms or signs that raise concern for cord compression no - lower extremity weakness no - gait or coordination difficulties no - bladder or bowel dysfunction no - Lhermitte???s sign (electric or shock-like sensations that run down the back and/or limbs upon flexion or the neck) *if positive, cervical spondylotic myelopathy NO OTHER obvious red flag signs Discussed the role of anti-inflammatory medication taking either PRN or consistently Discussed the role of anti-spasm medications especially in patients who have headaches regularly F/u 1 month or PRN 3. Spasm of lumbar paraspinous muscle (M62.830), Spasm of thoracic paraspinal muscle (M62.830), Cervical paraspinal muscle spasm (M62.838) Acute on chronic Likely contributing to the above Etiology is likely a combination of sub-optimal mechanics, muscle imbalance, posture vs other Discussed with the patient today about the importance of optimizing function and mechanics Emphasis placed on improving posture and trunk strength, stability Improved with OMM F/u 1 month 4. Spasm of the trapezius muscle (M62.838) Acute on chronic Likely contributing to the above Etiology is likely a combination of sub-optimal mechanics, muscle imbalance, posture vs other Recommend that the patient work on postural exercises Improved with OMM today F/u 1 month or PRN 5. Abdominal weakness (R19.8) Acute on chronic Sub-optimal *complicated by recent * Likely playing a role in the patient's low back pain - as weak core muscles lead to overuse of posterior erector muscle groups and hip flexors for postural stability Given instructions on how to begin engaging core muscles - supine with (more content not included)... Normal [facility] Comment on above: Result Comment: Elec tronically Signed By: Matt Aguero DO\Date and Time Signed: 08/23/24 20:05 EST Ambulatory Visit Summaryon 1 10-22-2023 Ambulatory Visit Summary Ambulatory Visit Summary WINSTON CARTER :1990 Visit Date:08/22/2024 Ambulatory Visit Instructions Your Diagnosis Sacroiliitis Radicular low back pain Spasm of lumbar paraspinous muscle, Spasm of thoracic back muscle Somatic dysfunction of thoracic region Somatic dysfunction of head region Somatic dysfunction of cervical region Tinea versicolor TMJ locking BMI 23.0-23.9, adult Head ache Your Care Team Attending Physician - Matt Aguero DO Primary Care Physician - Matt Aguero DO This Is Your Medications List cyclobenzaprine (cyclobenzaprine 5 mg Tab) fluconazole (fluconazole 150 mg Tab) meloxicam (meloxicam 15 mg Tab) Contact prescribing physician if questions or concerns duloxetine (duloxetine 30 mg oral delayed release capsule) ethinyl estradiol-etonogestre l (EluRyng 0.120 mg-0.015 mg/24 hours vaginal ring) multivitamin, ( Multivitamins with Vitamin B Complex, Vitamin C, Minerals and L-Methylfolate oral capsule) Procedures Performed Tonsillectomy. Discharge Vitals Heart Rate (Peripheral) 97 Blood Pressure 106/70 Height 166 cm Height 65 in Weight 65 kg Weight 143.3 lb BMI 23.59 What to do next Scheduled Follow-Up Appointments Wednesday 1:40 PM EST With: Matt Agueor DO Where: [facility] [address] [facility] [address] [place] [address]- Wednesday 9:00 AM EST With: Matt Aguero DO Where: [facility] [address] [facility] [address] [place] [address]- You Need to Schedule the Following Appointments Follow Up with Matt Aguero DO, FAM, PED When: Within 1 month Comments: OMT PRN - 40 min slot To go instructions (for follow up): On the day of manipulation, I strongly encourage you to to drink more water to help flush your system after today's treatment Work on using your core muscles more when standing and sitting, and especially when leaning away from your centerline or when lifting things This may take some concentration and work initially but it will eventually become more natural to you Work on shoulder retraction exercises For patients who can tolerate anti-inflammatories and/or tylenol, those medications can help provide some comfort while you work on optimizing function Getting adequate rest is important for managing musculoskeletal pain F/u 1 month or PRN Where: [address] [place] [address] [id number] Medications What How Much When Why Instructions New fluconazole (fluconazole 150 mg Tab) 2 Tablets By Mouth Every 7 days Tinea versicolor Pickup at [facility] 1985 New meloxicam (meloxicam 15 mg Tab) 1 Tablets By Mouth Every day Changed cyclobenzaprine (cyclobenzaprine 5 mg Tab) 1 Tablets By Mouth 3 times a day Spasm of thoracic back muscle Head ache Pickup at [facility] 1985 Unchanged duloxetine (duloxetine 30 mg oral delayed release capsule) 1 Capsules By Mouth 2 times a day Musculoskeletal pain Contact prescribing physician if questions or concerns Unchanged ethinyl estradiol-etonogestre l (EluRyng 0.120 mg-0.015 mg/ 24 hours vaginal ring) 1 EA, 0 Refill(s), INSERT ONE RING VAGINALLY AND LEAVE IN PLACE FOR 3 CONSECUTIVE WEEKS, THEN REMOVE FOR 1 WEEK. INSERT NEW RING 7 DAYS AFTER THE LAST WAS REMOVED Contact prescribing physician if questions or concerns Unchanged multivitamin, ( Multivitamins with Vitamin B Complex, Vitamin C, Minerals and L-Methylfolate oral capsule) 1 Capsules By Mouth Every day Contact prescribing physician if questions or concerns Pharmacy Information [facility] 1986: [address] [place] [id number] [phone] Allergies No Known Allergies Problems Ongoing - Any problem that you are currently receiving treatment for. Anxiety Frozen shoulder Low back pain Musculoskeletal pain Neck pain Numbness and tingling of both feet Posture abnormality Radicular low back pain Sacroiliitis Screening for hyperlipidemia Shoulder impingement Somatic dysfunction of abdominal region Somatic dysfunction of cervical region Somatic dysfunction of head region Somatic dysfunction of lower extremities Somatic dysfunction of lumbar region Somatic dysfunction of sacral region Somatic dysfunction of thoracic region Somatic dysfunction of upper extremities Spasm of lumbar paraspinous muscle Spasm of thoracic back muscle Tinea versicolor TMJ locking Trapezius muscle spasm Historical - Any problem that you are no longer receiving treatment for. Numbness in both hands Patient Survey You may receive a survey via text or e-mail asking about your office visit. Please share your experience with us by completing your survey. We appreciate your feedback and thank you for choosing us for your care. Education Materials Heat Therapy Heat therapy can help ease sore, stiff (more content not included)... Normal [facility] CBC w/ Auto Diffon 11-06-202 4 Basophils/100 WBC (Bld) 0.6 % Normal 0.0-2.0 [facility] Comment on above: Performed By: #### 2 [id number] #### [facility] [address] [place] [address] Basophils/Leukocytes Auto (Bld) [Pure # fraction] 0.0 E9/L Normal 0.0-0.2 [facility] Comment on above: Performed By: #### 2 [id number] #### [facility] [address] [place] [address] Eosinophils (Bld) [#/Vol] 0.1 E9/L Normal 0.0-0.5 [facility] Comment on above: Performed By: #### 2 [id number] #### [facility] [address] [place] [address] Eosinophils/100 WBC (Bld) 1.4 % Normal 0.0-8.0 [facility] Comment on above: Performed By: #### 2 [id number] #### [facility] [address] [place] [address] Erythrocyte distribution width (RBC) [Ratio] 13.2 % Normal 10.9-14.2 [facility] Comment on above: Performed By: #### 2 [id number] #### [facility] [address] [place] [address] Hematocrit (Bld) [Volume fraction] 37.8 % Normal 34.0-46.0 [facility] Comment on above: Performed By: #### 2 [id number] #### [facility] [address] [place] [address] Hemoglobin (Bld) [Mass/Vol] 13.1 g/dL Normal 12.0-16.0 [facility] Comment on above: Performed By: #### 2 [id number] #### [facility] [address] [place] [address] Lymphocytes (Bld) [#/Vol] 1.7 E9/L Normal 1.0-4.0 [facility] Comment on above: Performed By: #### 2 [id number] #### [facility] [address] [place] [address] Lymphocytes/100 WBC (Bld) 25.7 % Normal 14.0-50.0 [facility] Comment on above: Performed By: #### 2 [id number] #### [facility] [address] [place] [address] MCH (RBC) [Entitic mass] 30.8 pg Normal 27.0-34.0 [facility] Comment on above: Performed By: #### 2 [id number] #### [facility] [address] [place] [address] MCHC (RBC) [Mass/Vol] 34.7 g/dL Normal 31.4-36.0 [facility] Comment on above: Performed By: #### 2 [id number] #### [facility] [address] [place] [address] MCV (RBC) [Entitic vol] 88.8 fL Normal 80.0-100.0 [facility] Comment on above: Performed By: #### 2 [id number] #### [facility] [address] [place] [address] Monocytes (Bld) [#/Vol] 0.4 E9/L Normal 0.2-1.0 [facility] Comment on above: Performed By: #### 2 [id number] #### [facility] [address] [place] [address] Neutrophils (Bld) [#/Vol] 4.3 E9/L Normal 2.0-7.5 [facility] Comment on above: Performed By: #### 2 [id number] #### [facility] [address] [place] [address] Neutrophils/100 WBC (Bld) 66.3 % Normal 36.0-75.0 [facility] Comment on above: Performed By: #### 2 [id number] #### [facility] [address] [place] [address] Platelet 260.0 E9/L Normal 150.0-500.0 [facility] Comment on above: Performed By: #### 2 [id number] #### [facility] [address] [place] [address] Platelet mean volume (Bld) [Entitic vol] 9.9 fL Normal 6.4-10.8 [facility] Comment on above: Performed By: #### 2 [id number] #### [facility] [address] [place] [address] RBC (Bld) [#/Vol] 4.3 E12/L Normal 4.3-5.9 [facility] Comment on above: Performed By: #### 2 [id number] #### [facility] [address] [place] [address] WBC corrected for nucl RBC Auto (Bld) [#/Vol] 6.5 E9/L Normal 4.0-11.0 [facility] Comment on above: Performed By: #### 2 [id number] #### [facility] [address] [place] [address] CHEMISTRYOrdered By: SYSTEM SYSTEM on 08-09-2024 Albumin [Mass/Vol] 4.4 g/dL Normal 3.3 - 5.0 gm/dL [facility] Albumin/Globulin [Mass ratio] 1.5 {ratio} Normal 1.1 - 2.2 [facility] ALP [Catalytic activity/Vol] 64 [iU]/d Normal 21 - 98 Int._Unit/L [facility] ALT No additional P-5'-P [Catalytic activity/Vol] 12 [iU]/d Normal 6 - 46 Int._Unit/L [facility] Anion gap [Moles/Vol] 10 mmol/L Normal 6 - 16 mEq/L R [facility] AST [Catalytic activity/Vol] 20 [iU]/d Normal 5 - 43 Int._Unit/L [facility] Bilirubin [Mass/Vol] 0.4 mg/dL Normal 0.0 - 1 .1 mg/dL [facility] Calcium [Mass/Vol] 9.4 mg/dL Normal 8.9 - 11. 1 mg/dL [facility] Chloride [Moles/Vol] 104 mmol/L Normal 101 - 1 11 mmol/L [facility] Cholesterol [Mass/Vol] 225 mg/dL High 120 - 200 mg/dL [facility] Cholesterol in HDL [Mass/Vol] 62 mg/dL Invalid Interpretation Code [facility] Comment on above: Result Comment: '>= 60 LOW RISK' '<= 40 HIGH RISK' Cholesterol in LDL [Mass/Vol] 145 mg/dL High <=129mg/dL [facility] Cholesterol in VLDL [Mass/Vol] 28 mg/dL Normal 7 - 40 mg/dL [facility] CO2 [Moles/Vol] 26 mmol/L Normal 21 - 31 mmol/L [facility] Cobalamin (Vitamin B12) [Mass/Vol] 511 pg/mL Normal 50 - 1500 pg/mL [facility] Creatinine [Mass/Vol] 0.8 mg/dL Normal 0.5 - 1.3 mg/dL [facility] eGFR 100 mL/min/1.73 m2 Normal >=59mL/mi n/1 .73 m2 [facility] Folate [Mass/Vol] 21.3 ng/mL Normal >=6.7ng/mL [facility] Globulin (S) [Mass/Vol] 2.9 g/dL Normal 1.4 - 4.0 gm/dL [facility] Glucose [Mass/Vol] 80 mg/dL Normal 55 - 199 mg/dL [facility] Potassium [Moles/Vol] 4.1 mmol/L Normal 3.5 - 5.3 mmol/L [facility] Protein [Mass/Vol] 7.3 g/dL Normal 6.0 - 7.8 gm/dL [facility] Sodium [Moles/Vol] 136 mmol/L Normal 135 - 145 mmol/L [facility] Triglyceride [Mass/Vol] 140 mg/dL Normal <=149mg/dL [facility] TSH Qn 2.28 m[IU]/L Normal 0.34 - 5.60 mcIU/mL [facility] Urea nitrogen [Mass/Vol] 10 mg/dL Normal 5 - 21 mg/dL [facility] Urea nitrogen/Creatinine [Mass ratio] 12 mg/mg Normal 10 - 20 [facility] CMPon 08-09-2024 Albumin [Mass/Vol] 4.4 g/dL Normal 3.3-5.0 [facility] Comment on above: Performed By: #### 2 [id number] #### [facility] [address] [place] [address] Albumin/Globulin (S) [Mass conc ratio] 1.5 Normal 1.1-2.2 [facility] Comment on above: Performed By: #### 2 [id number] #### [facility] [address] [place] [address] ALP [Catalytic activity/Vol] 64 Int._Unit/L Normal 21-98 [facility] Comment on above: Performed By: #### 2 [id number] #### [facility] [address] [place] [address] ALT No additional P-5'-P [Catalytic activity/Vol] 12 Int._Unit/L Normal 6-46 [facility] Comment on above: Performed By: #### 2 [id number] #### [facility] [address] [place] [address] Anion gap [Moles/Vol] 10 mmol/L Normal 6-16 [facility] Comment on above: Performed By: #### 2 [id number] #### [facility] [address] [place] [address] AST [Catalytic activity/Vol] 20 Int._Unit/L Normal 5-43 [facility] Comment on above: Performed By: #### 2 [id number] #### [facility] [address] [place] [address] Bilirubin [Mass/Vol] 0.4 mg/dL Normal 0.0-1.1 [facility] Comment on above: Performed By: #### 2 [id number] #### [facility] [address] [place] [address] Calcium [Mass/Vol] 9.4 mg/dL Normal 8.9-11.1 [facility] Comment on above: Performed By: #### 2 [id number] #### [facility] [address] [place] [address] Chloride [Moles/Vol] 104 mmol/L Normal 101-111 [facility] Comment on above: Performed By: #### 2 [id number] #### [facility] [address] [place] [address] CO2 [Moles/Vol] 26 mmol/L Normal 21-31 [facility] Comment on above: Performed By: #### 2 [id number] #### [facility] [address] [place] [address] Creatinine [Mass/Vol] 0.8 mg/dL Normal 0.5-1.3 [facility] Comment on above: Performed By: #### 2 [id number] #### [facility] [address] [place] [address] Globulin (S) [Mass/Vol] 2.9 g/dL Normal 1.4-4.0 [facility] Comment on above: Performed By: #### 2 [id number] #### [facility] [address] [place] [address] Glucose [Mass/Vol] 80 mg/dL Normal 55-199 [facility] Comment on above: Performed By: #### 2 [id number] #### [facility] [address] [place] [address] Potassium [Moles/Vol] 4.1 mmol/L Normal 3.5-5.3 [facility] Comment on above: Performed By: #### 2 [id number] #### [facility] [address] [place] [address] Protein [Mass/Vol] 7.3 g/dL Normal 6.0-7.8 [facility] Comment on above: Performed By: #### 2 [id number] #### [facility] [address] [place] [address] Sodium [Moles/Vol] 136 mmol/L Normal 135-145 [facility] Comment on above: Performed By: #### 2 [id number] #### [facility] [address] [place] [address] Urea nitrogen [Mass/Vol] 10 mg/dL Normal 5-21 [facility] Comment on above: Performed By: #### 2 [id number] #### [facility] [address] [place] [address] Urea nitrogen/Creatinine [Mass ratio] 12 No Units Normal 10-20 [facility] Comment on above: Performed By: #### 2 [id number] #### [facility] [address] [place] [address] Folateon 08-09-2024 Folate [Mass/Vol] 21.3 ng/mL Normal >=6.7 [facility] Comment on above: Performed By: #### 2 [id number] #### [facility] [address] [place] [address] HEMATOLOGYOrdered By: SYSTEM SYSTEM on 08-09-2024 Basophils/100 WBC (Bld) 0.6 % Normal 0.0 - 2.0 % [facility] Basophils/Leukocytes Auto (Bld) [Pure # fraction] 0.0 E9/L Normal 0.0 - 0.2 E9/L [facility] Eosinophils (Bld) [#/Vol] 0.1 E9/L Normal 0.0 - 0.5 E9/L [facility] Eosinophils/100 WBC (Bld) 1.4 % Normal 0.0 - 8.0 % [facility] Erythrocyte distribution width (RBC) [Ratio] 13.2 % Normal 10.9 - 14.2 % [facility] Hematocrit (Bld) [Volume fraction] 37.8 % Normal 34.0 - 46.0 % [facility] Hemoglobin (Bld) [Mass/Vol] 13.1 g/dL Normal 12.0 - 16.0 gm/dL [facility] Lymphocytes (Bld) [#/Vol] 1.7 E9/L Normal 1.0 - 4.0 E9/L [facility] Lymphocytes/100 WBC (Bld) 25.7 % Normal 14.0 - 50.0 % [facility] MCH (RBC) [Entitic mass] 30.8 pg Normal 27.0 - 34.0 pg [facility] MCHC (RBC) [Mass/Vol] 34.7 g/dL Normal 31.4 - 36.0 gm/dL [facility] MCV (RBC) [Entitic vol] 88.8 fL Normal 80.0 - 100.0 fL [facility] Monocytes (Bld) [#/Vol] 0.4 E9/L Normal 0.2 - 1.0 E9/L [facility] Monocytes/100 WBC (Bld) 6.0 % Normal 4.0 - 14.0 % [facility] Neutrophils (Bld) [#/Vol] 4.3 E9/L Normal 2.0 - 7.5 E9/L [facility] Neutrophils/100 WBC (Bld) 66.3 % Normal 36.0 - 75.0 % [facility] Platelet 260.0 E9/L Normal 150.0 - 500.0 E9/L [facility] Platelet mean volume (Bld) [Entitic vol] 9.9 fL Normal 6.4 - 10.8 fL [facility] RBC (Bld) [#/Vol] 4.3 E12/L Normal 4.3 - 5.9 E12/L [facility] WBC corrected for nucl RBC Auto (Bld) [#/Vol] 6.5 E9/L Normal 4.0 - 11.0 E9/L [facility] Lipid Panelon 08-09-2024 Cholesterol [Mass/Vol] 225 mg/dL High 120-200 [facility] Comment on above: Performed By: #### 2 [id number] #### [facility] [address] [place] [address] Cholesterol in HDL [Mass/Vol] 62 mg/dL Invalid Interpretation Code [facility] Comment on above: Result Comment: '>= 60 LOW RISK' '<= 40 HIGH RISK' Performed By: #### 2 [id number] #### [facility] [address] [place] [address] Cholesterol in LDL [Mass/Vol] 145 mg/dL High <=129 [facility] Comment on above: Performed By: #### 2 [id number] #### [facility] [address] [place] [address] Cholesterol in VLDL [Mass/Vol] 28 mg/dL Normal 7-40 [facility] Comment on above: Performed By: #### 2 [id number] #### [facility] [address] [place] [address] Triglyceride [Mass/Vol] 140 mg/dL Normal <=149 [facility] Comment on above: Performed By: #### 2 [id number] #### [facility] [address] [place] [address] TSH With T4fr Reflexon 08-09 TSH Qn 2.28 m[IU]/L Normal 0.34-5.60 [facility] Comment on above: Performed By: #### 1 [id number] #### [facility] [address] [place] [address] Vit B12on 08-09-2024 Cobalamin (Vitamin B12) [Mass/Vol] 511 pg/mL Normal 50-1500 [facility] Comment on above: Performed By: #### 2 [id number] #### [facility] [address] [place] [address] eGFRon 08-09-2024 eGFR 100 mL/min/1.73 m2 Normal >=59 [facility] Comment on above: Performed By: #### 1 [id number] #### [facility] [address] [place] [id number] Ambulatory Visit Summaryon 1 Ambulatory Visit Summary Ambulatory Visit Summary WINSTON CARTER :1990 Visit Date:07/18/2024 Ambulatory Visit Instructions Your Diagnosis Sacroiliitis Anxiety Numbness and tingling of both feet Radicular low back pain Screening for hyperlipidemia BMI 23.0-23.9, adult Musculoskeletal pain Paresthesia of skin Your Care Team Attending Physician - Matt Aguero DO Primary Care Physician - Matt Aguero DO This Is Your Medications List duloxetine (duloxetine 30 mg oral delayed release capsule) escitalopram (escitalopram 10 mg Tab) Contact prescribing physician if questions or concerns cyclobenzaprine (cyclobenzaprine 5 mg Tab) ethinyl estradiol-etonogestre l (EluRyng 0.120 mg-0.015 mg/24 hours vaginal ring) meloxicam (meloxicam 15 mg Tab) multivitamin, ( Multivitamins with Vitamin B Complex, Vitamin C, Minerals and L-Methylfolate oral capsule) Procedures Performed Tonsillectomy. Discharge Vitals Heart Rate (Peripheral) 84 Blood Pressure 96/66 Height 166 cm Height 65 in Weight 64.4 kg Weight 141.68 lb BMI 23.37 What to do next Scheduled Follow-Up Appointments Wednesday 3:40 PM EST With: Matt Aguero DO Where: [address] [place] [address]- Wednesday 9:00 AM EST With: Matt Aguero DO Where: [place] [address] [place] [address]- Wednesday 9:00 AM EST With: Matt Aguero DO Where: [place] [facility] [address] [place] [address]- You Need to Schedule the Following Appointments Follow Up with Matt Aguero DO, LOREN, PED When: Within 1 month Comments: OMT PRN - 40 min slot STOP escitalopram BEGIN duloxetine/ cymbalta you'll start with 30mg daily if that's enough/ adequate, continue that if after at least 7 days, you're tolerating well but there's still room for improvement, you can increase to twice a day. An alternative, is to take both tabs at once. If you end up taking both tabs, we could always switch to single 60mg tab in the future ---- To go instructions (for follow up): On the day of manipulation, I strongly encourage you to to drink more water to help flush your system after today's treatment Work on using your core muscles more when standing and sitting, and especially when leaning away from your centerline or when lifting things This may take some concentration and work initially but it will eventually become more natural to you Work on shoulder retraction exercises For patients who can tolerate anti-inflammatories and/or tylenol, those medications can help provide some comfort while you work on optimizing function Getting adequate rest is important for managing musculoskeletal pain F/u 1 month or PRN Where: [facility] [place] [address] [place] [id number] You Need to Complete the Following CBC w/ Auto Diff, Blood, Routine collect, 07/18/24, Order for future visit, Lab Collect, Anemia, Print Label By Order Location Comprehensive Metabolic Panel, Blood, Routine collect, 07/18/24, Order for future visit, Lab Collect, Screening for hyperlipidemia, Print Label By Order Location Folate Level, Blood, Routine collect, 07/18/24, Order for future visit, Lab Collect, Numbness and tingling of both feet, Print Label By Order Location Lipid Panel, Blood, Routine collect, 07/18/24, Order for future visit, Lab Collect, Screening for hyperlipidemia, Print Label By Order Location TSH With T4fr Reflex, Blood, Routine collect, 07/18/24, Order for future visit, Lab Collect, Numbness and tingling of both feet, Print Label By Order Location Vitamin B12 Level, Blood, Routine collect, 07/18/24, Order for future visit, Lab Collect, Numbness and tingling of both feet, Print Label By Order Location Medications What How Much When Why Instructions New duloxetine (duloxetine 30 mg oral delayed release capsule) 1 Capsules By Mouth 2 times a day Musculoskeletal pain Refills: 5 Pickup at [facility] 1985 Unchanged escitalopram (escitalopram 10 mg Tab) 1 Tablets By Mouth Every day Pickup at [facility] 1985 Unchanged cyclobenzaprine (cyclobenzaprine 5 mg Tab) 1 Tablets By Mouth 2 times a day Spasm of thoracic back muscle Head ache Contact prescribing physician if questions or concerns Unchanged ethinyl estradiol-etonogestre l (EluRyng 0.120 mg-0.015 mg/ 24 hours vaginal ring) 1 EA, 0 Refill(s), INSERT ONE RING VAGINALLY AND LEAVE IN PLACE FOR 3 CONSECUTIVE WEEKS, THEN REMOVE FOR 1 WEEK. INSERT NEW RING 7 DAYS AFTER THE LAST WAS REMOVED Contact prescribing physician if questions or concerns Unchanged meloxicam (meloxicam 15 mg Tab) 1 Tablets By Mouth Every day Contact prescribing physician if questions or concerns Unchanged multivitamin, ( Multivitamins with Vitamin B Complex, Vitamin C, (more content not included)... Normal [facility] Family Medicine Office/Clini c Noteon 07-18-2024 Family Medicine Office/Clinic Note Family Medicine Office/Clinic Note Chief Complaint Back Pain HPI Staff Patient here today for Back pain /OMT EMILY 06/22/24 No New concerns today History of Present Illness 33 Years old Female here to f/u for LOW BACK PAIN Social: *my dad is Almas Michaud and he loves you This is the best I've ever seen my dad Social: The patient is ; Ghulam Carter since 2022 Her 's family is Raul - there's a lot of Blugs in the area *her is a li --> he's been great with Víctor (their ) The patient is currently working; [employer] 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 Ham - delivering at [place] Chiropractor - Dr. Aldrich [facility] staff / Chief Complaint confirmed with [...] for manipulation today. Today, the patient describes low back pain, hips and down into her ankles Low back pain is 0 out of 10 today as the patient sits At worst, low back pain is 1-2 out of 10 At best, low back pain is 0 out of 10 Described as dull ache along the belt line The patient describes NO radiation down the LEGS walking, standing for extended periods of time SOMETIMES seems to make it worse shoulder pain has returned occasionally will wake her from sleep knee pain has been minimal lately Interval history: hasn't been sleeping well lately when I don't sleep well, I feel worse overall, achiness has increased still taking meloxicam and cyclobenzaprine, now, two at bedtime hasn't noticed a difference since doubling the dose of cyclobenzaprine From last note: (tagged below) from last note: increase cyclobenzaprine to 5mg twice a day you can also double your dose at bedtime if that's better for you f/u PRN [1] forgot her muscle relaxer last night, and meloxicam this morning so I'm preston achy feet still hurt most mornings, but not nearly as bad as before explains today, that she had a lot of achiness prior to her it was worse in the first trimester when when could no longer take NSAIDs but then pain was better for the remainder of her desires one more child plans to try for second kiddo in fall is aware to avoid NSAIDs when trying to get [2] Review of Systems PHQ Score Initial Depression Screen Score: 0 SCORE Physical Exam Vitals & Measurements HR: 84(Peripheral) BP: 96/66 SpO2: 99% HT: 65 in HT: 166 cm WT: 64.4 kg WT: 141.68 lb BMI: 23.37 PHYSICAL EXAM Constitutional: Vital signs reviewed; this patient is well nourished, no acute distress Lungs: Clear to auscultation, non-labored respiration - expansion is symmetric Heart: Normal rate and rhythm, normal peripheral perfusion MSK: Gait is fluid Skin: Warm, dry Neurologic: Awake, alert and oriented Psychiatric: Cooperative, pleasant Assessment/Plan 1. Sacroiliitis (M46.1: Sacroiliitis, not elsewhere classified) Impression Acute on chronic Sub-optimal control of symptoms - overall improved This appears to be a combination of weak abdominals, poor posture, with sub-optimal mechanics OMT has been HELPFUL in the past Plan: imaging reviewed previously no changes to meloxicam and cyclobenzaprine discussed decreasing if cymbalta helps See instructions below for more specifics for today's plan between today and the patient's next appt: defer rheum referral f/u 1 month *Patient denies any symptoms of progressively worsening upper/lower extremity weakness, progressively worsening gait abnormality, new onset bowel/bladder incontinence/ urinary retention, or saddle anesthesia. No new or worsening symptoms of fever, chills, night sweats. 2. Anxiety (F41.9: Anxiety disorder, unspecified) Chronic Stable Coping is appropriate No new concerns See instructions below for more specifics for today's plan between today and the patient's next appt: Patient contracts for safety F/u 3 months 3. Numbness and tingling of both feet (R20.0: Anesthesia of skin) Chronic Stable EMG negative Unclear etiology N/v intact Will test labs F/u after Ordered: Folate Level TSH With T4fr Reflex Vitamin B12 Level 4. Radicular low back pain (M54.10: Radiculopathy, site unspecified) see #1 5. Screening for hyperlipidemia (Z13.220: Encounter for screening for lipoid disorders) The patient meets criteria for assessing for HLD based on age and family history Will d/w pt at f/u appt Ordered: Comprehensive Metabolic Panel Lip (more content not included)... Normal [facility] Comment on above: Result Comment: Elec tronically Signed By: Matt Aguero DO\Date and Time Signed: 07/18/24 09:21 EDT Family Medicine Office/Clini c Noteon 06-27-2024 Family Medicine Office/Clinic Note Family Medicine Office/Clinic Note Chief Complaint Review testing HPI Staff Patient here for shoulder Pain Discuss EMG EMILY 06/09/24 EMG 06/12/24 History of Present Illness 33 Years old Female here to f/u for Neck and LOW BACK PAIN Social: *my dad is Almas Michaud and he loves you This is the best I've ever seen my dad Social: The patient is ; Ghulam Carter since 2022 Her 's family is Raul - there's a lot of Stangs in the area *her is a li --> he's been great with Víctor (their ) The patient 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 - Víctor Carlos named after his grandfather has been back to work nearly a month now (as of 06/09/24) List of Providers: Electrician Constructor Supervisor - Dr. Ham - delivering at [place] Chiropractor - Dr. Aldrich HPI staff / Chief Complaint confirmed with the patient forgot her muscle relaxer last night, and meloxicam this morning so I'm preston achy feet still hurt most mornings, but not nearly as bad as before explains today, that she had a lot of achiness prior to her it was worse in the first trimester when when could no longer take NSAIDs but then pain was better for the remainder of her desires one more child plans to try for second kiddo in fall is aware to avoid NSAIDs when trying to get From last note: (tagged below) 1. Numbness and tingling of both feet, (R20.0: Anesthesia of skin)Numbness in both hands Chronic Stable Some improvement since last appt But has not resolved lumbar six vew films essentially unremarkable aside from what appears to be sacroilliitis on the right has EMG scheduled on wednesday will review results at f/u appt [1] 4. Spasm of lumbar paraspinous muscle, (M62.830: Muscle spasm of back)Spasm of thoracic back muscle improved since last appt refill for cyclobenzaprine submitted [2] Head ache (R51.9: Headache, unspecified) associated with neck pain improved with cyclobenzaprine no change today f/u PRN [3] refills for meloxicam (At the higher dose) and cyclobenzaprine submitted today proceed with EMG [4] Review of Systems PHQ Score Initial Depression Screen Score: 0 SCORE Physical Exam Vitals & Measurements HR: 80(Peripheral) BP: 98/66 SpO2: 97% HT: 65 in HT: 166 cm WT: 64.3 kg WT: 141.46 lb BMI: 23.33 PHYSICAL EXAM Constitutional: Vital signs reviewed; this patient is well nourished, no acute distress Lungs: Clear to auscultation, non-labored respiration - expansion is symmetric Heart: Normal rate and rhythm, normal peripheral perfusion MSK: Gait is fluid SI joint is tender on the right Lumbar paraspinal muscle tight/tender bilaterally; worse on the right Lumbar AROM is full Core muscles are sub-optimal in tension at rest Cervical AROM is full Skin: Warm, dry Neurologic: Awake, alert and oriented Psychiatric: Cooperative, appropriate mood and affect, judgement is appropriate Assessment/Plan 1. Sacroiliitis (M46.1: Sacroiliitis, not elsewhere classified) Chronic Stable Improved with meloxicam fam hx of sponyloarthritis discussed rationale for referral to rheum defer for now as she wants to avoid additional medications until after her last child is born f/u PRN 2. Head ache (R51.9: Headache, unspecified) Chronic Sub-optimal control Multifactorial etiology Discussed mechanics and posture Discussed stress management Discussed medications Improved with current regimen will increase cyclobenzaprine to BID f/u 1 month Ordered: cyclobenzaprine, 5 mg = 1 tab(s), Oral, BID, # 60 tab(s), Refills(s) 5, Pharmacy: [facility], 166, cm, 06/22/24 14:07:00 EDT, Height/Length Dosing, 64.3, kg, 06/22/24 14:04:00 EDT, Weight Dosing 3. Spasm of thoracic back muscle (M62.830: Muscle spasm of back) continue cyclobenzaprine Ordered: cyclobenzaprine, 5 mg = 1 tab(s), Oral, BID, # 60 tab(s), Refills(s) 5, [facility], 166, cm, 06/22/24 14:07:00 EDT, Height/Length Dosing, 64.3, kg, 06/22/24 14:04:00 EDT, Weight Dosing 4. Numbness and tingling of both feet (R20.0: Anesthesia of skin) improved EMG negative unclear etiology has never seen podiatry will defer for now f/u PRN Paresthesia of skin (R20.2: Paresthesia of skin) Orders: meloxicam, 15 mg = 1 tab(s), Oral, Daily, # 90 tab(s), Refills(s) 0, Pharmacy: [facility], 166, cm, 06/22/24 14:07:00 EDT, Height/Length Dosing, 64.3, kg, 06/22/24 14:04:00 EDT, Weight Dosing Total time spent TODAY preparing the chart for today's appt which included reviewing the patient's medical record, updating the patient's history in the EMR, time spent face to face with the patient including education about their conditions and counseling on how to manage, care coordination and time spent documenting, reviewing, and ordering tests was 30 mins. Patient was counseled on the above diagnos (more content not included)... Normal [facility] Comment on above: Result Comment: Elec tronically Signed By: Matt Aguero DO\.br\Date and Time Signed: 06/27/24 08:08 EDT Ambulatory Visit Summaryon 0 06-22-2024 Ambulatory Visit Summary Ambulatory Visit Summary BLUSandyWINSTON :1990 Visit Date:06/22/2024 Ambulatory Visit Instructions Your Diagnosis Sacroiliitis Head ache Spasm of thoracic back muscle Numbness and tingling of both feet Paresthesia of skin Your Care Team Attending Physician - Matt Aguero DO Primary Care Physician - Matt Aguero DO This Is Your Medications List cyclobenzaprine (cyclobenzaprine 5 mg Tab) meloxicam (meloxicam 15 mg Tab) Contact prescribing physician if questions or concerns escitalopram (escitalopram 10 mg Tab) ethinyl estradiol-etonogestre l (EluRyng 0.120 mg-0.015 mg/24 hours vaginal ring) multivitamin, ( Multivitamins with Vitamin B Complex, Vitamin C, Minerals and L-Methylfolate oral capsule) Procedures Performed Tonsillectomy. Discharge Vitals Heart Rate (Peripheral) 80 Blood Pressure 98/66 Height 166 cm Height 65 in Weight 64.3 kg Weight 141.46 lb BMI 23.33 What to do next Scheduled Follow-Up Appointments Wednesday 8:20 AM EDT With: Matt Aguero DO Where: [address] [place] [address]- Wednesday 3:40 PM EST With: Matt Aguero DO Where: [address] [facility] [place] [address]- Wednesday 9:00 AM EST With: Matt Aguero DO Where: [address] [place] [address]- Wednesday 9:00 AM EST With: Matt Aguero DO Where: [address] [place] [address]- You Need to Schedule the Following Appointments Follow Up with Matt Aguero DO, [facility], PED When: Within 1 month Comments: 20 min slot increase cyclobenzaprine to 5mg twice a day you can also double your dose at bedtime if that's better for you f/u PRN Where: [facility] [address] [place] [address] [phone] Medications What How Much When Why Instructions Changed cyclobenzaprine (cyclobenzaprine 5 mg Tab) 1 Tablets By Mouth 2 times a day Spasm of thoracic back muscle Head ache Pickup at [facility] Unchanged meloxicam (meloxicam 15 mg Tab) 1 Tablets By Mouth Every day Pickup at [facility] Unchanged escitalopram (escitalopram 10 mg Tab) 1 Tablets By Mouth Every day Contact prescribing physician if questions or concerns Unchanged ethinyl estradiol-etonogestre l (EluRyng 0.120 mg-0.015 mg/ 24 hours vaginal ring) 1 EA, 0 Refill(s), INSERT ONE RING VAGINALLY AND LEAVE IN PLACE FOR 3 CONSECUTIVE WEEKS, THEN REMOVE FOR 1 WEEK. INSERT NEW RING 7 DAYS AFTER THE LAST WAS REMOVED Contact prescribing physician if questions or concerns Unchanged multivitamin, ( Multivitamins with Vitamin B Complex, Vitamin C, Minerals and L-Methylfolate oral capsule) 1 Capsules By Mouth Every day Contact prescribing physician if questions or concerns Pharmacy Information [facility]: [address] [place] [id number] [phone] Medications and Immunizations Administered Not Given influenza virus vaccine, inactivated, Patient Refuses Allergies No Known Allergies Problems Ongoing - Any problem that you are currently receiving treatment for. Anxiety Frozen shoulder Low back pain Neck pain Numbness and tingling of both feet Posture abnormality Radicular low back pain Sacroiliitis Shoulder impingement Somatic dysfunction of abdominal region Somatic dysfunction of cervical region Somatic dysfunction of head region Somatic dysfunction of lower extremities Somatic dysfunction of lumbar region Somatic dysfunction of sacral region Somatic dysfunction of thoracic region Somatic dysfunction of upper extremities Spasm of lumbar paraspinous muscle Spasm of thoracic back muscle TMJ locking Trapezius muscle spasm Historical - Any problem that you are no longer receiving treatment for. Numbness in both hands Patient Survey You may receive a survey via text or e-mail asking about your office visit. Please share your experience with us by completing your survey. We appreciate your feedback and thank you for choosing us for your care. Normal [facility] Family Medicine Office/Clini c Noteon 06-09-2024 Family Medicine Office/Clinic Note Family Medicine Office/Clinic Note HPI Staff Patient here for shoulder pain /OMT EMILY 05/02/24 EMG 06/12/24 X ray 05/29/24 History of Present Illness 33 Years old Female here to f/u for Neck and LOW BACK PAIN Social: *my dad is Almas Michaud and he loves you This is the best I've ever seen my dad Social: The patient is ; Ghulam Carter since 2022 Her 's family is Raul - there's a lot of Stangs in the area *her is a li --> he's been great with Víctor (their ) The patient 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 Ham - delivering at [place] Chiropractor - Dr. Aldrich [facility] staff / Chief Complaint confirmed with [...] The patient expresses consent for manipulation today. the medications have helped I definitely feel worse in the morning if I don't take them feet continue to be achey/tingly in the morning... and after 50 steps, it's better ankles don't hurt quite as bad, but the arch of her foot are uncomfortable first thing in the morning hands have not been tingly at all since last appt wrists are a little achy Today, the patient describes chronic low back stiffness Low back pain is 0 out of 10 today as the patient sits At worst, low back pain is 1-2 out of 10 *hip was out earlier this week but that resolved At best, low back pain is 0 out of 10 Described as dull ache along the belt line The patient describes some radiation down the legs Neck pain/ trap pain is chronic in nature with varying intensity middle and top on the right Described as aching occasionally sharp on the right side The patient does not have symptoms that radiate down the arms Strength in the upper extremities is not affected The patient is somewhat consistent with medication reports an increase in tinea - but it's not that bad right now May 02, 2024 last appointment here Increased pain in bilateral ankles sometimes described as burning or tingling and occasional numbness Worsening neck and trap pain with some radiation down her upper extremities strength is not affected 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 Was recommended to have cervical x-ray and EMG but she did not complete these due to cost Low back pain without red flags Recommend lumbar x-ray Begin meloxicam 7.5 mg daily Begin cyclobenzaprine 5 mg nightly Given that her symptoms are complicated by occasional intermittent numbness in her feet, I would recommend evaluation by EMG Consider physical therapy; declined Numbness in both hands has returned in the last few months-discussed the rationale for evaluation with EMG, declined due to worsening symptoms in her bilateral lower extremities Will aniak back to this in the future Follow-up 1 month From last note: (tagged below) PHYSICAL EXAM Constitutional: Vital signs reviewed; this patient is well nourished, no acute distress Lungs: Clear to auscultation, non-labored respiration - expansion is symmetric Heart: Normal rate and rhythm, normal peripheral perfusion MSK: Gait is fluid SI joint is tender on the left Lumbar paraspinal muscle tight/tender bilaterally; worse on the right Core muscles are sub-optimal in tension at rest Cervical AROM is full right sided scalene tenderness Skin: Warm, dry Neurologic: Awake, alert and oriented Psychiatric: Cooperative, pleasant Procedure documentation - Osteopathic Manipulation: Head: OA dysfunction - treated with BLT and FPR - with objective and subjective improvement Cervical Spine: Reduced range of motion, tenderness at the insertion of the middle scalene on rib 1 on BILAT; worse on the right - treated with BLT and FPR - with objective and subjective improvement Thoracic Spine: Chronic and acute tissue texture changes of the trapezius, rhomboid BILAT; worse on the left - treated with myofascial, BLT and FPR - with objective and subjective improvement Lumbar Spine: Lumbar paraspinal restriction on the BILAT; worse on the right - treated with myofascial, BLT and FPR - with objective and subjective improvement Sacral: SI dysfunction on the BILAT; worse on the right - treated with BLT and FPR - with objective and subjective improvement Lower Extremity: Psoas restriction and tenderness on the right, and fibular head dysfunction and lateral gastroc restriction bilat but WORSE on the left, ANTERIOR talus on tibia bilat WORSE on the left requiring HVLA technique - treated with BLT and (more content not included)... Normal [facility] Comment on above: Result Comment: Elec tronically Signed By: Matt Aguero DO\Date and Time Signed: 06/09/24 17:26 EDT XR Spine Lumbar Complete Inc gini Saldaña 05-27-2024 XR Spine Lumbar Complete Including Bendi Exam Date/Time: 05/24/2024 11:54 EDT Reason for Exam: M54.40 low bakc pain;Back pain Report IMPRESSION: NEGATIVE STUDY. CLINICAL INFORMATION: Back pain, M54.40 low back pain COMPARISON: NONE. COMMENT: 7) views. Lumbar vertebral bodies are normal in height and alignment on flexion, extension, and neutral position. No fracture, dislocation, bone lesion. Disc spaces maintained. Ordering Provider: Matt Aguero FINAL REPORT Dictated: 05/27/2024 1:13 pm Harry Becker MD Signed (Electronic Signature): 05/27/2024 1:13 pm Signed by: Harry Becker MD Transcribed by: ORLANDO Technologist: AMARIS Technical Comments Radiation Dose: Ka,r in mGy = na DAP = na Normal [facility] Family Medicine Office/Clini c Noteon 05-05-2024 Family Medicine Office/Clinic Note Family Medicine Office/Clinic Note Chief Complaint Shoulder pain HPI Staff Patient here for F/U Back and neck pain /OMT EMILY 03/07/24 Patient wants to discuss her wrist and ankle pain. 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 - Víctor Carlos named after his grandfather 1 child - born February 2024 *going back to work May 04 List of Providers: Electrician Constructor Supervisor - Dr. Ham - delivering at [place] Chiropractor - Dr. Aldrich HPI staff / [...] for manipulation today. Today, the patient describes chronic low back stiffness Low back pain is 1 out of 10 today as the patient sits At worst, low back pain is 2-3 out of 10 At best, low back pain is 0 out of 10 Described as dull ache along the belt line The patient describes some radiation down the legs She is also describing chronic, intermittent pain in bilat ankles - sometimes described as burning or tingling occasional numbness has not noticed a correlation with activity or inactivity related to numbness however, the pain in her ankles does seem to be worse after periods of rest Neck pain/ trap pain is chronic in nature with varying intensity middle and top on the right Described as aching occasionally sharp on the right side The patient does not have symptoms that radiate down the arms Strength in the upper extremities is not affected The patient is somewhat consistent with medication Interval history: is having worse right wrist pain this has been an issue in the past for her it used to be tingly was evaluated for this in the past with cervical xray sent for EMG didn't complete due to concerns with cost also c/o bilat ankle pain that's worse in the morning, or when she rests and becomes active again *last appt declined low back OMT but I wondered if that was complicating shoulder and neck issues From last note: (tagged below) PHYSICAL EXAM Constitutional: Vital signs reviewed; this patient is well nourished, no acute distress Lungs: Clear to auscultation, non-labored respiration - expansion is symmetric Heart: Normal rate and rhythm, normal peripheral perfusion MSK: Gait is fluid SI joint is tender on the left Lumbar paraspinal muscle tight/tender bilaterally; worse on the right Core muscles are sub-optimal in tension at rest Cervical AROM is full right sided scalene tenderness Skin: Warm, dry Neurologic: Awake, alert and oriented Psychiatric: Cooperative, appropriate mood and affect, judgement is appropriate Procedure documentation - Osteopathic Manipulation: Head: OA dysfunction - treated with BLT and FPR - with objective and subjective improvement Cervical Spine: Reduced range of motion, tenderness at the insertion of the middle scalene on rib 1 on BILAT; worse on the right - treated with BLT and FPR - with objective and subjective improvement Thoracic Spine: Chronic and acute tissue texture changes of the trapezius, rhomboid BILAT; worse on the left - treated with myofascial, BLT and FPR - with objective and subjective improvement Lumbar Spine: Lumbar paraspinal restriction on the BILAT; worse on the right - treated with myofascial, BLT and FPR - with objective and subjective improvement Sacral: SI dysfunction on the BILAT; worse on the right - treated with BLT and FPR - with objective and subjective improvement Lower Extremity: Psoas restriction and tenderness on the right, and fibular head dysfunction and lateral gastroc restriction on the right - treated with BLT and FPR - with objective and subjective improvement PLAN: 1. Low Back pain (M54.50) Chronic. Stable Multifactorial etiology Medication does seem to provide ample benefit Does get benefit from OMT Discussed the importance of optimizing mechanics Discussed the rationale of manipulation in the future F/u 1 month or PRN *Patient denies any symptoms of progressively worsening upper/lower extremity weakness, progressively worsening gait abnormality, new onset bowel/bladder incontinence/ urinary retention, or saddle anesthesia. No new or worsening symptoms of fever, chills, night sweats. 2. Neck pain (M54.2) Ac (more content not included)... Normal [facility] Comment on above: Result Comment: Elec tronically Signed By: Matt Aguero DO\.br\Date and Time Signed: 05/05/24 17:27 EDT Ambulatory Visit Summaryon 0 05-02-2024 Ambulatory Visit Summary Ambulatory Visit Summary WINSTON CARTER Olayinka :1990 Visit Date:05/02/2024 Ambulatory Visit Instructions Your Diagnosis Low back pain Neck pain Shoulder impingement Spasm of thoracic back muscle, Spasm of lumbar paraspinous muscle Numbness in both hands, Numbness and tingling of both feet Posture abnormality Somatic dysfunction of head region Somatic dysfunction of cervical region Somatic dysfunction of thoracic region Somatic dysfunction of lumbar region Somatic dysfunction of upper extremities Somatic dysfunction of abdominal region BMI 22.0-22.9, adult Paresthesia of skin Your Care Team Attending Physician - Matt Aguero DO Primary Care Physician - Matt Aguero DO This Is Your Medications List cyclobenzaprine (cyclobenzaprine 5 mg Tab) meloxicam (meloxicam 7.5 mg Tab) Contact prescribing physician if questions or concerns escitalopram (escitalopram 10 mg Tab) ethinyl estradiol-etonogestre l (EluRyng 0.120 mg-0.015 mg/24 hours vaginal ring) multivitamin, ( Multivitamins with Vitamin B Complex, Vitamin C, Minerals and L-Methylfolate oral capsule) Procedures Performed Tonsillectomy. Discharge Vitals Heart Rate (Peripheral) 74 Blood Pressure 98/60 Height 166 cm Height 65 in Weight 62 kg Weight 136.4 lb BMI 22.5 What to do next Scheduled Follow-Up Appointments 2023 3:00 PM EDT With: Matt Aguero DO Where: [address] [place] [address]- Wednesday 2:00 PM EDT With: Matt Aguero DO Where: [address] [place] [address]- Wednesday 9:00 AM EST With: Matt Aguero DO Where: [address] [place] [address]- You Need to Schedule the Following Appointments Follow Up with Matt Aguero DO, LOREN, PED When: Within 1 month Comments: OMT PRN - 40 min slot To go instructions (for follow up): Have xray of lumbar spine done soon - you can have this done at the [facility] near [facility] on [address] the hospital will call to schedule your EMG soon Meloxicam Begin meloxicam 7.5 mg daily to help with your pain If after a week or two, there's still room for improvement, you can try doubling the dose If that works better, let me know and we can update the prescription to 15mg daily Begin cyclobenzaprine 5mg at bedtime ----- On the day of manipulation, I strongly encourage you to to drink more water to help flush your system after today's treatment Work on using your core muscles more when standing and sitting, and especially when leaning away from your centerline or when lifting things This may take some concentration and work initially but it will eventually become more natural to you Work on shoulder retraction exercises For patients who can tolerate anti-inflammatories and/or tylenol, those medications can help provide some comfort while you work on optimizing function Getting adequate rest is important for managing musculoskeletal pain F/u 1 month or PRN Where: [facility] [address] [place] [id number] You Need to Complete the Following XR Spine Lumbar Complete Including Bending, 05/02/24, Routine, Order for future visit, Transport Mode: Ambulatory, Reason: Back pain, No, Low back pain, pp_set_radiology[facility] Medications What How Much When Why Instructions New cyclobenzaprine (cyclobenzaprine 5 mg Tab) 1 Tablets By Mouth At bedtime Spasm of thoracic back muscle Pickup at [facility] 1985 New meloxicam (meloxicam 7.5 mg Tab) 1 Tablets By Mouth Every day Low back pain Refills: 2 Pickup at [facility] 1985 Unchanged escitalopram (escitalopram 10 mg Tab) 1 Tablets By Mouth Every day Contact prescribing physician if questions or concerns Unchanged ethinyl estradiol-etonogestre l (EluRyng 0.120 mg-0.015 mg/ 24 hours vaginal ring) 1 EA, 0 Refill(s), INSERT ONE RING VAGINALLY AND LEAVE IN PLACE FOR 3 CONSECUTIVE WEEKS, THEN REMOVE FOR 1 WEEK. INSERT NEW RING 7 DAYS AFTER THE LAST WAS REMOVED Contact prescribing physician if questions or concerns Unchanged multivitamin, ( Multivitamins with Vitamin B Complex, Vitamin C, Minerals and L-Methylfolate oral capsule) 1 Capsules By Mouth Every day Contact prescribing physician if questions or concerns Pharmacy Information [facility] 1985: [address] [facility] [place], [place] [id number] [phone] Allergies No Known Allergies Problems Ongoing - Any problem that you are currently receiving treatment for. Anxiety Frozen shoulder Low back pain Neck pain Numbness and tingling of both feet Numbness in both hands Posture abnormality Shoulder impingement Somatic dysfunction of abdominal region Somatic dysfunction of cervical regio (more content not included)... Normal [facility] Ambulatory Visit Summaryon 0 03-07-2024 Ambulatory Visit Summary WINSTON CARTER :1990 Visit Date:03/07/2024 Ambulatory Visit Instructions Your Diagnosis Low back pain Neck pain Spasm of thoracic back muscle, Spasm of lumbar paraspinous muscle Frozen shoulder Somatic dysfunction of cervical region Somatic dysfunction of thoracic region Somatic dysfunction of upper extremities Somatic dysfunction of lumbar region Somatic dysfunction of head region BMI 22.0-22.9, adult Your Care Team Attending Physician - Matt Aguero DO Primary Care Physician - Matt Aguero DO This Is Your Medications List multivitamin, ( Multivitamins with Vitamin B Complex, Vitamin C, Minerals and L-Methylfolate oral capsule) Procedures Performed Tonsillectomy. Discharge Vitals Heart Rate (Peripheral) 83 Blood Pressure 100/64 Height 166 cm Height 65 in Weight 62.1 kg Weight 136.62 lb BMI 22.54 What to do next Scheduled Follow-Up Appointments Wednesday 8:20 AM EDT With: Matt Aguero DO Where: [facility] Invalid Interpretation Code [address] [place] [address].br\ Wednesday 9:00 AM EST \.br\ With: Matt Aguero DO\.br\ Where: [facility] Ambulatory Visit Summary WINSTON CARTER Olayinka :1990 Visit Date:03/07/2024 Ambulatory Visit Instructions Your Diagnosis Low back pain Neck pain Spasm of thoracic back muscle, Spasm of lumbar paraspinous muscle Frozen shoulder Somatic dysfunction of cervical region Somatic dysfunction of thoracic region Somatic dysfunction of upper extremities Somatic dysfunction of lumbar region Somatic dysfunction of head region BMI 22.0-22.9, adult Your Care Team Attending Physician - Matt Aguero DO Primary Care Physician - Matt Aguero DO This Is Your Medications List multivitamin, ( Multivitamins with Vitamin B Complex, Vitamin C, Minerals and L-Methylfolate oral capsule) Procedures Performed Tonsillectomy. Discharge Vitals Heart Rate (Peripheral) 83 Blood Pressure 100/64 Height 166 cm Height 65 in Weight 62.1 kg Weight 136.62 lb BMI 22.54 What to do next Scheduled Follow-Up Appointments Wednesday 8:20 AM EDT With: Matt Aguero DO Where: [facility] Invalid Interpretation Code [address] [place] [address].br\ Wednesday 9:00 AM EST \.br\ With: Matt Aguero DO\.br\ Where: [facility] Family Medicine Office/Clini c Noteon 03-07-2024 Family Medicine Office/Clinic Note Chief Complaint Lower back and neck pain HPI Staff Patient here for Back and neck pain EMILY 01/18/24 Lab Patient here today for OMT she has recently delivered her baby his name is BEE History of Present Illness 33 Years old Female here to f/u for Neck and LOW BACK PAIN *my dad is Almas Michaud and he loves you This is the best I've ever seen my dad Social: The patient is ; Ghulam Carter since 2022 Her 's family is Raul - there's a lot of Blugs in the area *her is a li --> he's been great with Víctor (their ) 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 Ham - delivering at [place] Chiropractor - Dr. Aldrich HPI staff / [...] The patient expresses consent for manipulation today. Minimal low back pain today Neck pain/ trap pain is chronic in nature with varying intensity middle and top on the right Described as aching occasionally sharp on the right side The patient does not have symptoms that radiate down the arms Strength in the upper extremities is not affected feeling stronger with carrying Víctor The patient is on a multivitamin since her last appt, she delivered Víctor on February 09 no issues with the delivery delivered on a and discharged to home on wednesday he's a good baby bottle feeding From last note: (tagged below) PHYSICAL EXAM Constitutional: Vital signs reviewed; this patient is well nourished, no acute distress Lungs: Clear to auscultation, non-labored respiration - expansion is symmetric Heart: Normal rate and rhythm, normal peripheral perfusion MSK: Gait is fluid SI joint is tender on the right Lumbar paraspinal muscle tight/tender bilaterally; worse on the right Lumbar AROM is full Core muscles are sub-optimal in tension at rest Cervical AROM is full - tenderness along the right middle scalene Skin: Warm, dry Neurologic: Awake, alert and oriented Psychiatric: Cooperative, appropriate mood and affect, judgement is appropriate Procedure documentation - Osteopathic Manipulation: Head: OA dysfunction - treated with BLT and FPR - with objective and subjective improvement Cervical Spine: Reduced range of motion, tenderness at the insertion of the middle scalene on rib 1 on BILAT; worse on the right - treated with BLT and FPR - with objective and subjective improvement Thoracic Spine: Chronic and acute tissue texture changes of the trapezius, rhomboid BILAT; worse on the right - treated with myofascial, BLT and FPR - with objective and subjective improvement Lumbar Spine: Lumbar paraspinal restriction on the BILAT; worse on the right - treated with myofascial, BLT and FPR - with objective and subjective improvement PLAN: 1. Low Back pain (M54.50) Chronic. Stable Multifactorial etiology *in this case, complicated by her recent and all the time she spends looking down on her little one She declined OMT on the low back today but I wonder if that was a mistake... as I got to her lower thoracics and into the lumbar paraspinals, she was restricted and tender - in the diaphragm as well Does get benefit from OMT Discussed the importance of optimizing mechanics Discussed the rationale of manipulation in the future F/u 1 month or PRN *Patient denies any symptoms of progressively worsening upper/lower extremity weakness, progressively worsening gait abnormality, new onset bowel/bladder incontinence/ urinary retention, or saddle anesthesia. No new or worsening symptoms of fever, chills, night sweats. 2. Neck pain (M54.2) Acute on Chronic NO recent trauma There are no neurologic symptoms or signs that raise concern for cord compression no - lower extremity weakness no - gait or coordination difficulties no - bladder or bowel dysfunction no - Lhermitte?s sign (electric or shock-like sensations that run down the back and/or limbs upon flexion or the neck) *if positive, cervical spondylotic myelopathy NO OTHER obvious red flag signs F/u 1 month or PRN 3. Spasm of lumbar paraspinous muscle (M62.830), Spasm of thoracic paraspinal muscle (M62.830), Cervical paraspinal muscle spasm (M62.838) Acute on chronic Likely contributing to the above Etiology is likely a combination of sub-optimal mechanics, muscle imbalance, posture vs other Discussed with the patient today about the importance of optimizing function and mechanics Emphasis placed on improving posture and trunk strength, stability I (more content not included)... Normal [facility] Comment on above: Result Comment: Elec tronically Signed By: Matt Aguero DO\.br\Date and Time Signed: 03/07/24 09:30 EDT Ambulatory Visit Summaryon 0 01-18-2024 Ambulatory Visit [...] AM EDT With: Matt Aguero DO Where: [facility] Invalid Interpretation Code [address] [place] [address]-\.br\ Wednesday 2:00 PM EDT \.br\ With: Matt Aguero DO\.br\ Where: 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 Ham - delivering at [place] Chiropractor - Dr. Aldrich [facility] staff / Chief Complaint confirmed with [...] plan abov (more content not included)... Normal [facility] Comment on above: Result Comment: [...] AM EDT With: Matt Aguero DO Where: [facility] Medicine [place] Invalid Interpretation Code [address] [place] [address]-\.br\ Wednesday 9:00 AM EST \.br\ With: Matt Aguero DO\.br\ Where: 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 Ham - delivering at [place] Chiropractor - Dr. Aldrich [facility] staff / Chief Complaint confirmed with [...] weeks for ad (more content not included)... [facility] Comment on above: Result Comment: Elec tronically [...] not chew gum. General instructions ? Take lxnj-aeo-frjbnma and prescription medicines only as told by [...] Where to find more information ? National [place] [employer]io[employer] Research: www.nidcr.nih.gov Contact [...] provider. Document Revised: 05/03/2022 Document Reviewed: 05/03/2022 Elsevier Patient Education ? 2022 [employer]. [facility] Transfer Inon 12-28-2023 Transfer In [id number] .00TIFF [facility] Auth for Release of Medical Recordson 11-29-2023 Auth for Release of Medical Records [id number]# 1.00TIFF [facility] Ambulatory Visit Summaryon 0 11-26-2023 Ambulatory Visit Summary RAUL WINSTON Olayinka :1990 Visit Date:11/26/2023 Ambulatory Visit Instructions Your Diagnosis Establishing care with new doctor, encounter for Shoulder impingement Anxiety Your Care Team Attending Physician - Matt Aguero DO Primary Care Physician - aMtt Aguero DO This Is Your Medications List [...] PM EDT With: Matt Aguero DO Where: [facility] Family Medicine [place] Invalid Interpretation Code [address] [place] [address]-\.br\ Wednesday 9:00 AM EST \.br\ With: More COWART, Matt Cueva\.br\ Where: [facility] Medicine [facility] Family Medicine Office/Clini c Noteon 11-26-2023 Family Medicine Office/Clinic Note Chief Complaint EST CARE HPI Staff Establish Care: History: Last provider: Robert Amador recent labs: DUE Health Maintenance UTD: Colonoscopy:N/A PSA: N/A Mammogram: Pelvic/Pap: 09/25 Social: Patient First child on way/boy Employed [employer] Acute: Patients father recommended you/ D Steff [...] a li 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 Ham - delivering at [place] Chiropractor - Dr. Aldrich HPI staff / [...] their pain a (more content not included)... [facility] Comment on above: Result Comment: Elec tronically Signed By: Matt Aguero DO.daryl\Date and Time Signed: 11/26/23 10:45 EST Formson 11-26-2023 Forms [id number] 2 [id number] #1.00TIFF [facility] ALL CBC WITH AUTO DIFFon BASOPHILS ABSOLUTE AUTO 0.0 [facility] Basophils/100 WBC (Bld) 0.3 % 0.2 - 2.0 % [facility] Eosinophils/100 WBC (Bld) 0.8 % Low 0.9 - 7.0 % [facility] Erythrocyte distribution width (RBC) [Ratio] 12.6 % 11.0 - 15.0 % [facility] Hematocrit (Bld) [Volume fraction] 32.0 % Low 36.0 - 48.0 % [facility] Hemoglobin (Bld) [Mass/Vol] 10.6 g/dL Low 12.0 - 16.0 g/dL [facility] IMMATURE GRANULOCYTES ABS AUTO 0.04 High [facility] Immature granulocytes/100 WBC (Bld) 0.4 % 0.0 - 0.5 % [facility] Interpretation and review of laboratory results Abnormal [facility] LYMPHOCYTES ABSOLUTE AUTO 1.6 [facility] Lymphocytes/100 WBC (Bld) 14.7 % Low 20.5 - 60.0 % [facility] MCH (RBC) [Entitic mass] 30.7 pg 26.7 - 34.0 pg [facility] MCHC (RBC) [Mass/Vol] 33.1 g/dL 29.9 - 35.2 g/dL [facility] MCV (RBC) [Entitic vol] 92.8 fL 81.0 - 99.0 fL [facility] MONOCYTES ABSOLUTE AUTO 0.5 [facility] Monocytes/100 WBC (Bld) 4.4 % 1.7 - 12.0 % [facility] NEUTROPHILS ABSOLUTE AUTO 8.5 High [facility] Neutrophils/100 WBC (Bld) 79.4 % High 43.0 - 75.0 % [facility] Platelet mean volume (Bld) [Entitic vol] 11.4 fL 9.5 - 13.5 fL [facility] TBH EO # 0.1 [facility]H PLT 186 [facility] TB RBC 3.45 Low [facility] WBC 10.7 [facility] CLINISYNC [facility] Urinalysis macro (dipstick) panel (U)Ordered By: Melvina Tong on 11-10-2023 Bilirubin, UA Negative Negative - 4(70) +++ mg/dL [facility] Work Phone: Blood, UA Negative Negative - 50 Joel/mcL [facility] Work Phone: Clarity, UA Clear [facility] Work Phone: Color, UA Yellow [facility] Work Phone: Glucose, UA Positive Negative - 1999(110) ++++ mg/dL [facility] Work Phone: Interpretation and review of laboratory results Abnormal [facility] Work Phone: Ketones, UA Negative Negative - 160(16) ++++ mg/dL [facility] Work Phone: Leukocytes, UA Negative Negative - 500+++ Shar/mcL [facility] Work Phone: Nitrite, UA Negative Negative - Positive [facility] Work Phone: pH, UA 6.5 5 - 9 [facility] Work Phone: Protein, UA Negative Negative - 1999(20) ++++ mg/dL [facility] Work Phone: Spec Grav, UA 1.010 1 - 1.03 [facility] Work Phone: Urobilinogen, UA 1.0 0.2 - 12 mg/dL [facility] Work Phone: [facility] Work Phone: Vital Signs Date Time Vital Sign Value Performing Clinician Sage uriostegui 09-15-2024 13:49-0500 Blood Pressure Location [facility] 09-15-2024 13:49-0500 Diastolic blood pressure 62 mm[Hg] [facility] 09-15-2024 13:49-0500 Heart rate 83 /min [facility] 09-15-2024 13:49-0500 SaO2% (BldA) [Mass fraction] 100 % [facility] 09-15-2024 13:49-0500 Systolic blood pressure 110 mm[Hg] [facility] 08-22-2024 16:27-0500 Blood Pressure Location [facility] 08-22-2024 16:27-0500 Diastolic blood pressure 70 mm[Hg] [facility] 08-22-2024 16:27-0500 Heart rate 97 /min [facility] 08-22-2024 16:27-0500 SaO2% (BldA) [Mass fraction] 98 % [facility] 08-22-2024 16:27-0500 Systolic blood pressure 106 mm[Hg] [facility] 07-18-2024 08:29-0400 Blood Pressure Location [facility] 07-18-2024 08:29-0400 Diastolic blood pressure 66 mm[Hg] [facility] 07-18-2024 08:29-0400 Heart rate 84 /min [facility] 07-18-2024 08:29-0400 SaO2% (BldA) [Mass fraction] 99 % [facility] 07-18-2024 08:29-0400 Systolic blood pressure 96 mm[Hg] [facility] 06-22-2024 14:03-0400 Blood Pressure Location [facility] 06-22-2024 14:03-0400 Diastolic blood pressure 66 mm[Hg] [facility] 06-22-2024 14:03-0400 Heart rate 80 /min [facility] 06-22-2024 14:03-0400 SaO2% (BldA) [Mass fraction] 97 % [facility] 06-22-2024 14:03-0400 Systolic blood pressure 98 mm[Hg] [facility] 06-09-2024 14:14-0400 Blood Pressure Location [facility] 06-09-2024 14:14-0400 Diastolic blood pressure 62 mm[Hg] [facility] 06-09-2024 14:14-0400 Heart rate 87 /min [facility] 06-09-2024 14:14-0400 Respiratory rate 15 /min [facility] 06-09-2024 14:14-0400 SaO2% (BldA) [Mass fraction] 99 % [facility] 06-09-2024 14:14-0400 Systolic blood pressure 108 mm[Hg] [facility] 05-02-2024 14:26-0400 Blood Pressure Location [facility] 05-02-2024 14:26-0400 Diastolic blood pressure 60 mm[Hg] [facility] 05-02-2024 14:26-0400 Heart rate 74 /min [facility] 05-02-2024 14:26-0400 SaO2% (BldA) [Mass fraction] 99 % [facility] 05-02-2024 14:26-0400 Systolic blood pressure 98 mm[Hg] [facility] 03-07-2024 08:26-0400 Blood Pressure Location [facility] 03-07-2024 08:26-0400 Diastolic blood pressure 64 mm[Hg] [facility] 03-07-2024 08:26-0400 Heart rate 83 /min [facility] 03-07-2024 08:26-0400 SaO2% (BldA) [Mass fraction] 99 % [facility] 03-07-2024 08:26-0400 Systolic blood pressure 100 mm[Hg] [facility] 01-18-2024 10:35-0400 Blood Pressure Location [facility] 01-18-2024 10:35-0400 Diastolic blood pressure 60 mm[Hg] [facility] 01-18-2024 10:35-0400 Heart rate 90 /min [facility] 01-18-2024 10:35-0400 SaO2% (BldA) [Mass fraction] 98 % [facility] 01-18-2024 10:35-0400 Systolic blood pressure 90 mm[Hg] [facility] 12-28-2023 16:29-0400 Blood Pressure Location [facility] 12-28-2023 16:29-0400 Diastolic blood pressure 60 mm[Hg] [facility] 12-28-2023 16:29-0400 Heart rate 89 /min [facility] 12-28-2023 16:29-0400 SaO2% (BldA) [Mass fraction] 99 % [facility] 12-28-2023 16:29-0400 Systolic blood pressure 90 mm[Hg] [facility] 11-26-2023 08:52-0500 [facility] 11-26-2023 08:52-0500 Diastolic blood pressure 60 mm[Hg] [facility] 11-26-2023 08:52-0500 Heart rate 96 /min [facility] 11-26-2023 08:52-0500 SaO2% (BldA) [Mass fraction] 99 % [facility] 11-26-2023 08:52-0500 Systolic blood pressure 96 mm[Hg] [facility] 11-10-2023 16:00-0500 Body weight 64.86 kg Pamela PARDO Work Phone: [facility] 11-10-2023 16:00-0500 Diastolic blood pressure 70 mm[Hg] Pamela PARDO Work Phone: [facility] 11-10-2023 16:00-0500 Systolic blood pressure 102 mm[Hg] Pamela PARDO Work Phone: [facility] Healthcare Encounters Encounter Date Encounter Type Care Provider Facility Start: 11-29-2024 ambulatory DO Matt Aguero [facility] ility:[facility] Start: 09-19-2024 ambulatory DO Matt Aguero Fac ility:[facility] Start: 09-15-2024 End: 09-15-2024 ambulatory Matt Aguero Facility:[facility] Start: 09-15-2024 End: 09-15-2024 Patient encounter procedure Matt Aguero [facility] [facility] Start: 08-22-2024 End: 08-22-2024 ambulatory DO Matt Aguero Facility:[facility] Start: 08-22-2024 End: 08-22-2024 Patient encounter procedure Matt Aguero [facility] Start: 08-09-2024 End: 08-09-2024 Lab Drop off Matt Aguero [facility] Start: 08-09-2024 End: 08-09-2024 ambulatory Jarad Rodríguez Facility:[facility] Start: 08-09-2024 End: 08-09-2024 Patient encounter procedure Jarad Mixoney [facility] Start: 07-18-2024 End: 07-18-2024 ambulatory DO Matt Aguero Facility:[facility] Start: 07-18-2024 End: 07-18-2024 Patient encounter procedure Matt Aguero [facility] Start: 07-04-2024 ambulatory DO Matt Aguero Fac ility:[facility] Start: 06-22-2024 End: 06-22-2024 ambulatory DO Matt Aguero Facility:[facility] Start: 06-22-2024 End: 06-22-2024 Patient encounter procedure Matt Aguero [facility] Start: 06-12-2024 End: 06-12-2024 ambulatory DO Matt Aguero Facility:[facility] Start: 06-12-2024 End: 06-12-2024 Patient encounter procedure Matt Aguero [facility] Start: 06-09-2024 End: 06-09-2024 ambulatory DO Matt Aguero Facility:[facility] Start: 06-09-2024 End: 06-09-2024 Patient encounter procedure Matt Aguero [facility] Start: 05-25-2024 ambulatory DO Matt Aguero Fac ility:[facility] Start: 05-24-2024 End: 05-24-2024 ambulatory DO Matt Aguero Facility:[facility] Start: 05-24-2024 End: 05-24-2024 Patient encounter procedure Matt Aguero [facility] Start: 05-02-2024 End: 05-02-2024 ambulatory DO Matt Aguero Facility:[facility] Start: 05-02-2024 End: 05-02-2024 Patient encounter procedure Matt Aguero [facility] Start: 03-28-2024 End: 03-28-2024 ambulatory DO Matt Aguero Facility:[facility] Start: 03-28-2024 End: 03-28-2024 Patient encounter procedure Matt Aguero [facility] Start: 03-27-2024 End: 03-27-2024 ambulatory PABLITO JITENDRA Not Available Start: 03-07-2024 End: 03-07-2024 ambulatory DO Matt Aguero Facility:[facility] Start: 03-07-2024 End: 03-07-2024 Patient encounter procedure Matt Aguero [facility] Start: 02-07-2024 End: 02-07-2024 ambulatory PABLITO JITENDRA Not Available Start: 02-03-2024 End: 02-03-2024 ambulatory PAMELA KAPIL Not Available Start: 02-01-2024 End: 02-01-2024 ambulatory PABLITO JITENDRA Not Available Start: 01-27-2024 End: 01-27-2024 ambulatory PAMELA KAPIL Not Available Start: 01-20-2024 End: 01-20-2024 ambulatory PABLITO JITENDRA Not Available Start: 01-18-2024 End: 01-18-2024 ambulatory DO Matt Aguero Facility:[facility] Start: 01-18-2024 End: 01-18-2024 Patient encounter procedure Matt Aguero [facility] Start: 01-05-2024 End: 01-05-2024 ambulatory PABLITO JITENDRA Not Available Start: 12-28-2023 End: 12-28-2023 ambulatory DO Matt Aguero Facility:[facility] Start: 12-28-2023 End: 12-28-2023 Patient encounter procedure Matt Aguero [facility] Start: 12-22-2023 End: 12-22-2023 ambulatory PABLITO JITENDRA Not Available Start: 12-09-2023 End: 12-09-2023 ambulatory PAMELA DICK Not Available Start: 11-26-2023 End: 11-26-2023 ambulatory DO Matt Aguero Facility:[facility] Start: 11-26-2023 End: 11-26-2023 Patient encounter procedure Matt Aguero [facility] [place] Start: 11-24-2023 ambulatory DO Matt Aguero Facil ity:[facility] Start: 11-24-2023 End: 11-24-2023 ambulatory PABLITO JITENDRA Not Available Start: 11-10-2023 End: 11-10-2023 flow sheet Pamela PARDO Work Phone: [facility] Comment on above: Second trimester pre gnancy Start: 11-10-2023 End: 11-10-2023 ambulatory PAMELA DICK Not Available Start: 11-10-2023 Bamboo flowsheet Pamela PARDO Work Phone: [facility] Start: 11-10-2023 Bamboo flowsheet Pamela PARDO Work Phone: [facility] Start: 11-10-2023 Clinisync Result Encounter Pablito Jitendra DO Work Phone: [facility] Unsolicited Start: 10-11-2023 End: 10-11-2023 ambulatory PABLITO JITENDRA Not Available Start: 09-07-2023 End: 09-07-2023 ambulatory PAMELA DICK Not Available Start: 06-24-2022 End: 06-24-2022 Patient encounter procedure Pamela Colvin [facility] Procedures Date Procedure Procedure Detail Performing Clinician Start: 11-10-2023 Urnls dip stick/tabl et rgnt non-auto w/o micrscp Pamela PARDO Work Phone: Start: 11-10-2023 ALL CBC WITH AUTO DIFF Pablito Jitendra DO Work Phone: Tonsillectomy Matt Aguero Plan of Treatment Date Care Activity Detail Author Start: 11-24-2023 End: 11-24-2023 Patient encounter procedure 11/24/2023 10:50 AM EST Routine [facility] [address] [place] [id number] Pablito Ham DO [address] [place], [place] [id number] [facility] Start: 11-10-2023 End: 11-10-2023 Patient encounter procedure 11/10/2023 3:40 PM EST Routine [facility] [address] [place] [address] Pamela Dick PA [address] [place], [place] [id number] Second trimester [facility] Comment on above: Second trimester pre gnancy Immunizations Immunization Date Immunization Notes Care Provider Fa jason NEGATED: Highlighted row has not occurred!06-22-2024 influenza virus vaccine, unspecified formulation Matt Aguero [facility] NEGATED: Highlighted row has not occurred!11-26-2023 influenza virus vaccine, unspecified formulation Matt Aguero [facility] Payers Date Payer Category Payer Unknown BCBS BCBS [id number] 2019-Present [phone] [address] [place] [address] [id number] 2019 Unknown [id number] 1992 Unknown [id number] 2.16.840.1.997157.3.579.2.1259 1992 Unknown [id number] 2.16.840.1.991302.3.579.2.1259 1992 Unknown [id number] 2.16.840.1.654691.3.579.2.9 1992 Unknown [id number] 2.16.840.1.008501.3.579.2.1258 1992 Unknown [id number] 2.16.840.1.522800.3.579.2.1258 1992 Unknown [id number] 2.16.840.1.032606.3.579.2.1258 1992 Unknown [id number] 2.16.840.1.780598.3.579.2.1258 1992 Unknown [id number] 2.16.840.1.283056.3.579.2.1258 1992 Unknown [id number] 2.16.840.1.022198.3.579.2.1258 1992 Unknown [id number] 2.16.840.1.175475.3.579.2.1258 1992 Unknown [id number] 2.16.840.1.338285.3.579.2.1258 1992 Unknown [id number] 2.16.840.1.914761.3.579.2.1258 1992 Unknown [id number] 2.16.840.1.943070.3.579.2.1258 1992 Unknown [id number] 2.16.840.1.318458.3.579.2. 1992 Unknown [id number] 2.16.840.1.454691.3.579.2. 1992 Unknown [id number] 2.16.840.1.930825.3.579.2. 1992 Unknown [id number] 2.16.840.1.744537.3.579.2. 1992 Unknown [id number] 2.16.840.1.756016.3.579.2. 1992 Unknown [id number] 2.16.840.1.164189.3.579.2.727 1992 Unknown [id number] 2.16.840.1.862710.3.579.2.72 1992 Unknown [id number] 2.16.840.1.886161.3.579.2 1992 Unknown [id number] 2.16.840.1.424611.3.579.2. 1992 Unknown [id number] 2.16.840.1.321963.3.579.2. 1992 Unknown [id number] 2.16.840.1.613624.3.579.2 1992 Unknown [id number] 2.16.840.1.046384.3.579.2 1992 Unknown [id number] 2.16840.1.895610.3.579.2 1992 Unknown [id number] 2.16840.1.226893.3.579.2 1992 Unknown [id number] 2.16.840.1.160381.3.579.2 1992 Unknown [id number] 2.16.840.1.523797.3.579.2 1992 Unknown [id number] 2.16840.1.747699.3.579.2 1992 Unknown [id number] 2.16840.1.159683.3.579.2 1992 Unknown [id number] 2.16840.1.031372.3.579.2 1992 Unknown [id number] 2.16840.1.068193.3.579.2 Social History Date Type Detail Facility Tobacco smoking status No Smoking Status Entered [facility] Sex Assigned At Female [facility] Tobacco smoking status NHIS Tobacco smoking consumption unknown [facility] Start: 05-26-2023 [facility] Start: 1990 Sex Assigned At Not on file N [facility] Start: 11-26-2023 End: 09-15-2024 Tobacco smoking status Never smoked tobacco (finding) [facility] Tobacco smoking status Never [facility] Goals Date Patient Goal Desired Activity /State Personal health goal Functional Status Date Assessment Result Facility 09-15-2024 Functional Status N/A [facility] 08-22-2024 Functional Status N/A [facility] 07-18-2024 Functional Status N/A [facility] 06-22-2024 Functional Status N/A [facility] 06-09-2024 Functional Status N/A [facility] 05-02-2024 Functional Status N/A [facility] 03-07-2024 Functional Status N/A [facility] 01-18-2024 Functional Status N/A [facility] 12-28-2023 Functional Status N/A [facility] 11-26-2023 Functional Status N/A [facility] Clinical Notes 10-06-2023 to 08-22-2024 EDVIN James - 11/10/2023 3:40 PM ESTRadiologyLaboratory Note Date & Type Note Facility 08-22-2024 Hospital Discharge instructions Patient Education 08/22/2024 17:34:07 Heat Therapy, [id number] Heat Therapy Heat therapy can help ease sore, stiff, injured, and tight muscles and joints. Heat relaxes your muscles. This may help ease your pain and muscle spasms. What are the risks? If you have any of the following conditions, do not use heat therapy unless your doctor says it is okay. These conditions include: New bruises. Open wounds. Any of these in the area being treated: ?Healing wounds. ?Infected skin. ?Scarred skin. Problems with how blood moves through your body (circulation). Loss of feeling (numbness) in the part of your body that is being treated. Unusual swelling of the part of the body that is being treated. Blood clots. Diabetes. Heart disease. Cancer. Not being able to communicate pain. This may include young children and people who have problems with their brain function (dementia). How to use heat therapy There are different kinds of heat therapy. These include: Moist heat pack. Hot water bottle. Electric heating pad. Heated gel pack. Heated wrap. Warm water bath. Your doctor will tell you how to use heat therapy. In general, you should: 1.Place a towel between your skin and the heat source. 2.Leave the heat on for 20 30 minutes. Your skin may turn pink. 3.Take off the heat if your skin turns bright red. This is very important. If you cannot feel pain, heat, or cold, you have a greater risk of getting burned. Your doctor may also tell you to take a warm water bath. To do this: 1.Put a non-slip pad in the bathtub to prevent a fall. 2.Fill the bathtub with warm water. 3.Check the water temperature. 4.Soak in the water for 15 20 minutes, or as told by your doctor. 5.Be careful when you stand up after the bath. You may feel dizzy. 6.Pat yourself dry after the bath. Do not rub your skin to dry it. General recommendations for heat therapy Be careful not to burn your skin when using heat therapy. High heat or using heat for a long time can cause wilson. Do not sleep while using heat therapy. Only use heat therapy while you are awake. Check your skin during heat therapy. Do not use heat therapy if you have a new injury, especially if you have swelling on the injured area. Do not use heat therapy on areas of your skin that are already irritated, such as with a rash or sunburn. Do not use heat therapy if your skin turns bright red. Contact a doctor if: You have blisters, redness, swelling, or loss of feeling in the area where you use heat therapy. You have new pain. You have pain that gets worse. Summary Heat therapy is the use of heat to help ease sore, stiff, injured, and tight muscles and joints. There are different types of heat therapy. Your doctor will tell you which one to use. Only use heat therapy while you are awake. Watch your skin to make sure you do not get burned while using heat therapy. This information is not intended to replace advice given to you by your health care provider. Make sure you discuss any questions you have with your health care provider. Document Revised: 07/23/2021 Document Reviewed: 07/23/2021 [employer] Patient Education 2023 [employer]. Follow Up Care 06/22/2024 15:23:46 With:More COWART, LOREN Kohler, NABILA Address: [address] [place] [address] [phone] When:1 month Comments:OMT PRN - 40 min slotTo go instructions (for follow up):On the day of manipulation, I strongly encourage you to to drink more water to help flush your system after today's treatmentWork on using your core muscles more when standing and sitting, and especially when leaning away from your centerline or when lifting thingsThis may take some concentration and work initially but it will eventually become more natural to youWork on shoulder retraction exercisesFor patients who can tolerate anti-inflammatories and/or tylenol, those medications can help provide some comfort while you work on optimizing functionGetting adequate rest is important for managing musculoskeletal painF/u 1 month or PRN [facility] [place] 08-22-2024 Note Patient Education Physical Medicine and Rehabilitation Heat Therapy Heat therapy can help ease sore, stiff, injured, and tight muscles and joints. Heat relaxes your muscles. This may help ease your pain and muscle spasms. What are the risks? If you have any of the following conditions, do not use heat therapy unless your doctor says it is okay. These conditions include: ??? New bruises. ??? Open wounds. ??? Any of these in the area being treated: ? Healing wounds. ? Infected skin. ? Scarred skin. ??? Problems with how blood moves through your body (circulation). ??? Loss of feeling (numbness) in the part of your body that is being treated. ??? Unusual swelling of the part of the body that is being treated. ??? Blood clots. ??? Diabetes. ??? Heart disease. ??? Cancer. ??? Not being able to communicate pain. This may include young children and people who have problems with their brain function (dementia). How to use heat therapy There are different kinds of heat therapy. These include: ??? Moist heat pack. ??? Hot water bottle. ??? Electric heating pad. ??? Heated gel pack. ??? Heated wrap. ??? Warm water bath. Your doctor will tell you how to use heat therapy. In general, you should: 1. Place a towel between your skin and the heat source. 2. Leave the heat on for 20?30 minutes. Your skin may turn pink. 3. Take off the heat if your skin turns bright red. This is very important. If you cannot feel pain, heat, or cold, you have a greater risk of getting burned. Your doctor may also tell you to take a warm water bath. To do this: 1. Put a non-slip pad in the bathtub to prevent a fall. 2. Fill the bathtub with warm water. 3. Check the water temperature. 4. Soak in the water for 15?20 minutes, or as told by your doctor. 5. Be careful when you stand up after the bath. You may feel dizzy. 6. Pat yourself dry after the bath. Do not rub your skin to dry it. General recommendations for heat therapy ??? Be careful not to burn your skin when using heat therapy. High heat or using heat for a long time can cause wilson. ??? Do not sleep while using heat therapy. Only use heat therapy while you are awake. ??? Check your skin during heat therapy. ??? Do not use heat therapy if you have a new injury, especially if you have swelling on the injured area. ??? Do not use heat therapy on areas of your skin that are already irritated, such as with a rash or sunburn. ??? Do not use heat therapy if your skin turns bright red. Contact a doctor if: ??? You have blisters, redness, swelling, or loss of feeling in the area where you use heat therapy. ??? You have new pain. ??? You have pain that gets worse. Summary ??? Heat therapy is the use of heat to help ease sore, stiff, injured, and tight muscles and joints. ??? There are different types of heat therapy. Your doctor will tell you which one to use. ??? Only use heat therapy while you are awake. ??? Watch your skin to make sure you do not get burned while using heat therapy. This information is not intended to replace advice given to you by your health care provider. Make sure you discuss any questions you have with your health care provider. Document Revised: 07/23/2021 Document Reviewed: 07/23/2021 [employer] Patient Education ? 2023 [employer]. [facility] 08-09-2024 Note Nurse Consultation N ote Reason for Visit lab draw Assessment/Plan Routine lab draw (Z01.89: Encounter for other specified special examinations) Medications cyclobenzaprine 5 mg Tab, 5 mg= 1 tab(s), Oral, BID, 5 refills duloxetine 30 mg oral delayed release capsule, 30 mg= 1 cap(s), Oral, BID, 5 refills EluRyng 0.120 mg-0.015 mg/24 hours vaginal ring escitalopram 10 mg Tab, 10 mg= 1 tab(s), Oral, Daily, 4 refills meloxicam 15 mg Tab, 15 mg= 1 tab(s), Oral, Daily Multivitamins with Vitamin B Complex, Vitamin C, Minerals and L-Methylfolate oral capsule, 1 cap(s), Oral, Daily Allergies No Known Allergies Immunizations Vaccine Date Status Comments influenza virus vaccine, inactivated - Not Given Patient Refuses influenza virus vaccine, inactivated - Not Given Patient Refuses [facility] 06-22-2024 Hospital Discharge instructions Follow Up Care 06/22/2024 15:20:50 With:Matt Aguero DO, FAM, PED Address: [address] [place] [address] [address] [place] [address] [phone] When:1 month Comments:OMT PRN - 40 min slotSTOP escitalopramBEGIN duloxetine/ cymbaltayou'll start with 30mg dailyif that's enough/ adequate, continue thatif after at least 7 days, you're tolerating well but there's still room for improvement, you can increase to twice a day. An alternative, is to take both tabs at once.If you end up taking both tabs, we could always switch to single 60mg tab in the future----To go instructions (for follow up):On the day of manipulation, I strongly encourage you to to drink more water to help flush your system after today's treatmentWork on using your core muscles more when standing and sitting, and especially when leaning away from your centerline or when lifting thingsThis may take some concentration and work initially but it will eventually become more natural to youWork on shoulder retraction exercisesFor patients who can tolerate anti-inflammatories and/or tylenol, those medications can help provide some comfort while you work on optimizing functionGetting adequate rest is important for managing musculoskeletal painF/u 1 month or PRN [facility] 06-15-2024 Hospital Discharge instructions Follow Up Care 06/15/2024 11:39:49 With:Matt Aguero DO, FAM, PED Address: [address] [place] [address] [phone] When:1 month Comments:20 min slotincrease cyclobenzaprine to 5mg twice a dayyou can also double your dose at bedtime if that's better for youf/u PRN [facility] 05-02-2024 Hospital Discharge instructions Follow Up Care 05/02/2024 15:30:17 With:Matt Aguero DO, FAM, PED Address: [address] [place] [address] [phone] When:1 month Comments:OMT PRN - 40 min slotrefills for meloxicam (At the higher dose) and cyclobenzaprine submitted todayproceed with EMG-----To go instructions (for follow up):On the day of manipulation, I strongly encourage you to to drink more water to help flush your system after today's treatmentWork on using your core muscles more when standing and sitting, and especially when leaning away from your centerline or when lifting thingsThis may take some concentration and work initially but it will eventually become more natural to youWork on shoulder retraction exercisesFor patients who can tolerate anti-inflammatories and/or tylenol, those medications can help provide some comfort while you work on optimizing functionGetting adequate rest is important for managing musculoskeletal painF/u 1 month or PRN [facility] 05-02-2024 Hospital Discharge instructions Patient Education 05/02/2024 15:23:18 Managing Chronic Back Pain Managing Chronic Back Pain Chronic back pain is back pain that lasts for 12 weeks or longer. It often affects the lower back. Back pain may feel like a muscle ache or a sharp, stabbing pain. It can be mild, moderate, or severe. If you have been diagnosed with chronic back pain, there are things you can do to manage your symptoms. You may have to try different things to see what works best for you. Your health care provider may also give you specific instructions. How to manage lifestyle changes Treating chronic back pain often starts with rest and pain relief, followed by exercises to restore movement and strength to your back (physical therapy). You may need surgery if other treatments do not help, or if your pain is caused by a condition or an injury. Follow your treatment plan as told by your health care provider. This may include: Relaxation techniques. Talk therapy or counseling with a mental health specialist. A form of talk therapy called cognitive behavioral therapy (CBT) can be especially helpful. This therapy helps you set goals and follow up on the changes that you make. Acupuncture or massage therapy. Local electrical stimulation. Injections. These deliver numbing or pain-relieving medicines into your spine or the area of pain. How to recognize changes in your chronic back pain Your condition may improve with treatment. However, back pain may not go away or may get worse over time. Watch your symptoms carefully and let your health care provider know if your symptoms get worse or do not improve. Your back pain may be getting worse if you have: Pain that begins to cause problems with posture. Pain that gets worse when you are sitting, standing, walking, bending, or lifting. Pain that affects you while you are active, or at rest, or both. Pain that eventually makes it hard to move around (limits mobility). Pain that occurs with fever, weight loss, or difficulty urinating. Pain that causes numbness and tingling. How to use body mechanics and posture to help with pain Healthy body mechanics and good posture can help to relieve stress on your back. Body mechanics refers to the movements and positions of your body during your daily activities. Posture is part of body mechanics. Good posture means: Your spine is in its natural S-curve, or neutral, position. Your shoulders are pulled back slightly. Your head is not tipped forward. Follow these guidelines to improve your posture and body mechanics in your everyday activities. Standing When standing, keep your spine neutral and your feet about hip-width apart. Keep your knees slightly bent. Your ears, shoulders, and hips should line up. When you do a task in which you powder coat painter one place for a long time, place one foot on a stable object that is 2 4 inches (5 10 cm) high, such as a footstool. This helps keep your spine neutral. Sitting When sitting, keep your spine neutral and your feet flat on the floor. Use a footrest, if necessary, and keep your thighs parallel to the floor. Avoid rounding your shoulders, and avoid tilting your head forward. When working at a desk or a computer, keep your desk at a height where your hands are slightly lower than your elbows. Slide your chair under your desk so you are close enough to maintain good posture. When working at a computer, place your monitor at a height where you are looking straight ahead and you do not have to tilt your head forward or downward to view the screen. Lifting Keep your feet at least shoulder-width apart and tighten the muscles of your abdomen. Bend your knees and hips and keep your spine neutral. Be sure to lift using the strength of your legs, not your back. Do not lock your knees straight out. Always ask for help to lift heavy or awkward objects. Resting When lying down and resting, avoid positions that are most painful. If you have pain with activities such as sitting, bending, stooping, or squatting, lie in a position in which your body does not bend very much. For example, avoid curling up on your side with your arms and knees near your chest ( position). If you have pain with activities such as standing for a long time or reaching with your arms, lie with your spine in a neutral position and bend your knees slightly. Try: ?Lying on your side with a pillow between your knees. ?Lying on your back with a pillow under your knees. Follow these instructions at home: Medicines Treatment may include vfdg-bkg-rwoqovo or prescription medicines for pain and inflammation that are taken by mouth or applied to the skin. Another treatment may include muscle relaxants. Take imhu-kuo-zizivpr and prescription medicines only as told by your health care provider. Ask your health care provider if the medicine prescribed to you: ?Requires you to avoid driving or using machinery. ?Can cause constipation. You may need to take these actions to prevent or treat constipation: ?Drink enough fluid to keep your urine pale yellow. ?Take woso-xfp-ikuermv or prescription medicines. ?Eat foods that are high in fiber, such as beans, whole grains, and fresh fruits and vegetables. ?Limit foods that are high in fat and processed sugars, such as fried or sweet foods. Lifestyle Do not use any products that contain nicotine or tobacco, such as cigarettes, e-cigarettes, and chewing tobacco. If you need help quitting, ask your health care provider. Eat a healthy diet that includes foods such as vegetables, fruits, fish, and lean meats. Work with your health care provider to achieve or maintain a healthy weight. General instructions Get regular exercise as told. Exercise improves flexibility and strength. If physical therapy was prescribed, do exercises as told by your health care provider. Use ice or heat therapy as told by your health care provider. Keep all follow-up visits as told by your health care provider. This is important. Where can I get support? Consider joining a support group for people managing chronic back pain. Ask your health care provider about support groups in your area. You can also find online and in-person support groups through: The [place] [employer]: theacpa.org Pain Connection Program: painconnection.org Contact a health care provider if: You have pain that is not relieved with rest or medicine. Your pain gets worse, or you have new pain. You have a fever. You have rapid weight loss. You have trouble doing your normal activities. Get help right away if: You have weakness or numbness in one or both of your legs or feet. You have trouble controlling your bladder or your bowels. You have severe back pain and have any of the following: ?Nausea or vomiting. ?Abdominal pain. ?Shortness of breath or you faint. Summary Chronic back pain is often treated with rest, pain relief, and physical therapy. Talk therapy, acupuncture, massage, and local electrical stimulation may help. Follow your treatment plan as told by your health care provider. Joining a support group may help you manage chronic back pain. This information is not intended to replace advice given to you by your health care provider. Make sure you discuss any questions you have with your health care provider. Document Revised: 10/31/2020 Document Reviewed: 07/09/2020 [employer] Patient Education 2022 [employer] Follow Up Care 01/18/2024 11:32:40 With:Matt Aguero DO, FAM, PED Address: [address] [place] [address] [phone] When:1 month Comments:OMT PRN - 40 min slotTo go instructions (for follow up):Have xray of lumbar spine done soon - you can have this done at the [facility] near [facility] on [address] [facility] will call to schedule your EMG soonMeloxicamBegin meloxicam 7.5 mg daily to help with your painIf after a week or two, there's still room for improvement, you can try doubling the doseIf that works better, let me know and we can update the prescription to 15mg daily Begin cyclobenzaprine 5mg at bedtime-----On the day of manipulation, I strongly encourage you to to drink more water to help flush your system after today's treatmentWork on using your core muscles more when standing and sitting, and especially when leaning away from your centerline or when lifting thingsThis may take some concentration and work initially but it will eventually become more natural to youWork on shoulder retraction exercisesFor patients who can tolerate anti-inflammatories and/or tylenol, those medications can help provide some comfort while you work on optimizing functionGetting adequate rest is important for managing musculoskeletal painF/u 1 month or PRN [facility] [place] 05-02-2024 Note Patient Education Orthopedics Managing Chronic Back Pain Chronic back pain is back pain that lasts for 12 weeks or longer. It often affects the lower back. Back pain may feel like a muscle ache or a sharp, stabbing pain. It can be mild, moderate, or severe. If you have been diagnosed with chronic back pain, there are things you can do to manage your symptoms. You may have to try different things to see what works best for you. Your health care provider may also give you specific instructions. How to manage lifestyle changes Treating chronic back pain often starts with rest and pain relief, followed by exercises to restore movement and strength to your back (physical therapy). You may need surgery if other treatments do not help, or if your pain is caused by a condition or an injury. Follow your treatment plan as told by your health care provider. This may include: ? Relaxation techniques. ? Talk therapy or counseling with a mental health specialist. A form of talk therapy called cognitive behavioral therapy (CBT) can be especially helpful. This therapy helps you set goals and follow up on the changes that you make. ? Acupuncture or massage therapy. ? Local electrical stimulation. ? Injections. These deliver numbing or pain-relieving medicines into your spine or the area of pain. How to recognize changes in your chronic back pain Your condition may improve with treatment. However, back pain may not go away or may get worse over time. Watch your symptoms carefully and let your health care provider know if your symptoms get worse or do not improve. Your back pain may be getting worse if you have: ? Pain that begins to cause problems with posture. ? Pain that gets worse when you are sitting, standing, walking, bending, or lifting. ? Pain that affects you while you are active, or at rest, or both. ? Pain that eventually makes it hard to move around (limits mobility). ? Pain that occurs with fever, weight loss, or difficulty urinating. ? Pain that causes numbness and tingling. How to use body mechanics and posture to help with pain Healthy body mechanics and good posture can help to relieve stress on your back. Body mechanics refers to the movements and positions of your body during your daily activities. Posture is part of body mechanics. Good posture means: ? Your spine is in its natural S-curve, or neutral, position. ? Your shoulders are pulled back slightly. ? Your head is not tipped forward. Follow these guidelines to improve your posture and body mechanics in your everyday activities. Standing ? When standing, keep your spine neutral and your feet about hip-width apart. Keep your knees slightly bent. Your ears, shoulders, and hips should line up. ? When you do a task in which you powder coat painter one place for a long time, place one foot on a stable object that is 2?4 inches (5?10 cm) high, such as a footstool. This helps keep your spine neutral. Sitting ? When sitting, keep your spine neutral and your feet flat on the floor. Use a footrest, if necessary, and keep your thighs parallel to the floor. Avoid rounding your shoulders, and avoid tilting your head forward. ? When working at a desk or a computer, keep your desk at a height where your hands are slightly lower than your elbows. Slide your chair under your desk so you are close enough to maintain good posture. ? When working at a computer, place your monitor at a height where you are looking straight ahead and you do not have to tilt your head forward or downward to view the screen. Lifting ? Keep your feet at least shoulder-width apart and tighten the muscles of your abdomen. ? Bend your knees and hips and keep your spine neutral. Be sure to lift using the strength of your legs, not your back. Do not lock your knees straight out. ? Always ask for help to lift heavy or awkward objects. Resting ? When lying down and resting, avoid positions that are most painful. ? If you have pain with activities such as sitting, bending, stooping, or squatting, lie in a position in which your body does not bend very much. For example, avoid curling up on your side with your arms and knees near your chest ( position). ? If you have pain with activities such as standing for a long time or reaching with your arms, lie with your spine in a neutral position and bend your knees slightly. Try: ? Lying on your side with a pillow between your knees. ? Lying on your back with a pillow under your knees. Follow these instructions at home: Medicines ? Treatment may include hrrb-gdr-ooqgeen or prescription medicines for pain and inflammation that are taken by mouth or applied to the skin. Another treatment may include muscle relaxants. Take cxbq-zpi-duhmclm and prescription medicines only as told by your health care provider. ? Ask your health (more content not included)... [facility] 12-31-2023 Hospital Discharge instructions Follow Up Care 12/31/2023 09:48:20 With:Matt Aguero DO, FAM, PED Address: [address] [place] [address] [phone] When:1 month Comments:To go instructions (to paste into follow up):Work on engaging core muscles - supine with knees bentOur goal is to address trunk stability and share the work with the other erector musclesWork on shoulder retraction exercisesF/u 1 month or PRN [facility] [place] 12-28-2023 Hospital Discharge instructions Follow Up Care 12/28/2023 17:23:12 With:More COWART, LOREN Kohler, PED Address: [address] [place] [address] [phone] When:1 month Comments:OMT PRN - 40 min slotTo go instructions (for follow up):Read Driven to Distraction by Stanton Emerson to learn more about ADHD https://www.[email or web address].com.[employer]/slide shows/rpdi-jdmttstz-hkezv-off-our -feet/On the day of manipulation, I strongly encourage you to to drink more water to help flush your system after today's treatmentWork on using your core muscles more when standing and sitting, and especially when leaning away from your centerline or when lifting thingsThis may take some concentration and work initially but it will eventually become more natural to youWork on shoulder retraction exercisesFor patients who can tolerate anti-inflammatories and/or tylenol, those medications can help provide some comfort while you work on optimizing functionGetting adequate rest is important for managing musculoskeletal painF/u 1 month or PRN [facility] [place] 12-28-2023 Hospital Discharge instructions Patient Education 12/28/2023 [...] Do not chew gum. General instructions Take numg-cep-kjlwkvw and prescription medicines only as told by [...] important. Where to find more information National [place] [employer]io[employer]: www.nidcr.nih.gov Contact [...] provider. Document Revised: 05/03/2022 Document Reviewed: 05/03/2022 [employer] Patient Education 2022 [employer]. Follow Up Care 11/26/2023 09:54:55 With:Matt Aguero DO, FAM, PED Address: [address] [facility] [place] [address] [phone] When:1 month Comments:OMT PRN - 40 min slotTo go instructions (to paste into follow up):Work on engaging core muscles - supine with knees bentOur goal is to address trunk stability and share the work with the other erector musclesWork on shoulder retraction exercisesConsider reading Driven to Distraction as discussedFor reporting consultant, I recommend Dr. Mar CrowleyIf you want to see a family doctor, I recommend my colleague in this office Dr. Dickson Salazar/chriss 1 month or PRN [facility] [place] 11-26-2023 Hospital Discharge instructions Follow Up Care 11/26/2023 09:59:10 With:Matt Aguero DO, FAM, PED Address: [address] [place] [address] [phone] When:1 month Comments:OMT PRN - 40 min slotTo go instructions (for follow up):On the day of manipulation, I strongly encourage you to to drink more water to help flush your system after today's treatmentWork on using your core muscles more when standing and sitting, and especially when leaning away from your centerline or when lifting thingsThis may take some concentration and work initially but it will eventually become more natural to youWork on shoulder retraction exercisesFor patients who can tolerate anti-inflammatories and/or tylenol, those medications can help provide some comfort while you work on optimizing functionGetting adequate rest is important for managing musculoskeletal painF/u 1 month or PRN [facility] [place] 11-10-2023 History of Present illness Narrative Reason [...] of: EDVIN James documented in this encounter [facility] 10-06-2023 Hospital Discharge instructions Follow Up Care 10/06/2023 12:21:08 With:Matt Aguero DO, LOREN, PED Address: [address] [place] [address] [address] [place] [address] [phone] When:1 year Comments:To go instructions:f/u as neededWork on shoulder active range of motion exercises Consider reading Driven to Distraction - by Stanton Emerson [facility] Evaluation + Plan note No data available for this section [facility] Evaluation + Plan note Future Appointments Appointment Date:12/28/2023 04:20:00 PM Scheduled Provider:Matt Aguero DO Location:[facility] Appointment Type:FM Procedure Appointment Date:03/28/2024 08:20:00 AM Scheduled Provider:Matt Aguero DO Location:[facility] Appointment Type:FM Procedure Appointment Date:11/29/2024 09:00:00 AM Scheduled Provider:Matt Aguero DO Location:[facility] Appointment Type:FM Open [facility] Evaluation + Plan note Future Appointments Appointment Date:03/07/2024 08:20:00 AM Scheduled Provider:Matt Aguero DO Location:[facility] Appointment Type:FM Procedure Appointment Date:03/28/2024 08:20:00 AM Scheduled Provider:Matt Aguero DO Location:[facility] Appointment Type:FM Procedure Appointment Date:11/29/2024 09:00:00 AM Scheduled Provider:Matt Aguero DO Location:[facility] Appointment Type:[facility] Evaluation + Plan note Future [...] Aguero DO Location:[facility] Appointment Type:[facility] Evaluation + Plan note Future Appointments Appointment Date:03/28/2024 08:20:00 AM Scheduled Provider:Matt Aguero DO Location:[facility] Appointment Type:FM Procedure Appointment Date:04/28/2024 02:00:00 PM Scheduled Provider:Matt Aguero DO Location:[facility] Appointment Type:FM Procedure Appointment Date:11/29/2024 09:00:00 AM Scheduled Provider:Matt Aguero DO Location:[facility] Appointment Type:[facility] Evaluation + Plan note Future Appointments Appointment Date:05/02/2024 02:20:00 PM Scheduled Provider:Matt Aguero DO Location:[facility] Appointment Type:FM Procedure Appointment Date:11/29/2024 09:00:00 AM Scheduled Provider:Matt Aguero DO Location:[facility] Appointment Type:[facility] Evaluation + Plan note Future Appointments Appointment Date:05/25/2024 03:00:00 PM Scheduled Provider:Matt Aguero DO Location:[facility] Appointment Type:FM Open Appointment Date:06/09/2024 02:00:00 PM Scheduled Provider:Matt Aguero DO Location:[facility] Appointment Type:FM Procedure Appointment Date:11/29/2024 09:00:00 AM Scheduled Provider:Matt Aguero DO Location:[facility] Appointment Type: Open Future Scheduled TestsXR Spine Lumbar Complete Including Bending 05/02/24 [facility] Evaluation + Plan note Future Appointments Appointment Date:06/09/2024 02:00:00 PM Scheduled Provider:Matt Aguero DO Location:[facility] Appointment Type:FM Procedure Appointment Date:06/12/2024 01:00:00 PM Scheduled [facility]EMG Bilateral Lower Extremity Appointment Date:11/29/2024 09:00:00 AM Scheduled Provider:Matt Aguero DO Location:[facility] Appointment Type: Open [facility] Evaluation + Plan note Future Appointments Appointment Date:06/12/2024 11:00:00 AM Scheduled Provider: [facility]:EMG Bilateral Lower Extremity Appointment Date:07/04/2024 11:40:00 AM Scheduled Provider:Matt Aguero DO Location:[facility] Appointment Type:FM Open Appointment Date:11/29/2024 09:00:00 AM Scheduled Provider:Matt Aguero DO Location:[facility] Appointment Type: Open [facility] Evaluation + Plan note Future Appointments Appointment Date:07/04/2024 11:40:00 AM Scheduled Provider:Matt Aguero DO Location:[facility] Appointment Type:FM Open Appointment Date:11/29/2024 09:00:00 AM Scheduled Provider:Matt Aguero DO Location:[facility] Appointment Type:[facility] Evaluation + Plan note Future Appointments Appointment Date:07/18/2024 08:20:00 AM Scheduled Provider:Matt Aguero DO Location:[facility] Appointment Type:FM Procedure Appointment Date:08/22/2024 03:40:00 PM Scheduled Provider:Matt Aguero DO Location:[facility] Appointment Type:FM Procedure Appointment Date:09/19/2024 09:00:00 AM Scheduled Provider:Matt Aguero DO Location:[facility] Appointment Type: Procedure Appointment Date:11/29/2024 09:00:00 AM Scheduled Provider:Matt Aguero DO Location:[facility] Appointment Type: Open [facility] Evaluation + Plan note Future Appointments Appointment Date:08/22/2024 03:40:00 PM Scheduled Provider:Matt Aguero DO Location:[facility] Appointment Type:FM Procedure Appointment Date:09/19/2024 09:00:00 AM Scheduled Provider:Matt Aguero DO Location:[facility] Appointment Type: Procedure Appointment Date:11/29/2024 09:00:00 AM Scheduled Provider:Matt Aguero DO Location:[facility] Appointment Type: Open [facility] Scheduled TestsTSH With T4fr Reflex 07/18/24CBC w/ Auto Diff 07/18/24Comprehensive Metabolic Panel 07/18/24Folate Level 07/18/24Lipid Panel 07/18/24Vitamin B12 Level 07/18/24 [facility] Evaluation + Plan note Future Appointments Appointment Date:08/22/2024 03:40:00 PM Scheduled Provider:Matt Aguero DO Location:[facility] Appointment Type:FM Procedure Appointment Date:09/15/2024 01:40:00 PM Scheduled Provider:Matt Aguero DO Location:[facility] Appointment Type: Open Appointment Date:09/19/2024 09:00:00 AM Scheduled Provider:Matt Aguero DO Location:[facility] Appointment Type:FM Procedure Appointment Date:11/29/2024 09:00:00 AM Scheduled Provider:Matt Aguero DO Location:[facility] Appointment Type:[facility] Evaluation + Plan note Future Appointments Appointment Date:09/15/2024 01:40:00 PM Scheduled Provider:Matt Aguero DO Location:[facility] Appointment Type: Open Appointment Date:11/29/2024 09:00:00 AM Scheduled Provider:Matt Aguero DO Location:[facility] Appointment Type: Open [facility] [place] Evaluation + Plan note Future Appointments Appointment Date:11/29/2024 09:00:00 AM Scheduled Provider:Matt Aguero DO Location:[facility] Appointment Type:[facility] [place] Evaluation note Diagnosis Second trimester state, incidental [facility] No data available for this section [facility] No data available for this section [facility] Summary Purpose Family History No Family History Records Found Advance Directives No Advanced Directives Records FoundNo Advanced Directives Records FoundNo Advanced Directives Records FoundNo Advanced Directives Records FoundNo Advanced Directives Records FoundNo Advanced Directives Records FoundNo Advanced Directives Records FoundNo Advanced Directives Records FoundNo Advanced Directives Records Found Additional Source Comments Care Team (unrecognized sect ion and content) Instructor Business Education Relationship Specialty Start Date End Date Pamela Colvin MD [address] [place] [address] PCP - General Family Medicine 07/02/23 Instructor Business Education Relationship Specialty Start Date End Date Pamela Colvin [place] [address] [place] [address] PCP - General Family Medicine 07/02/23 Instructor Business Education Relationship Specialty Start Date End Date Pamela Colvin [place] [address] [place] [address] PCP - General Family Medicine 07/02/23 Reason for Visit (unrecogniz ed section and content) Reason Comments Routine Visit INFORMATION SOURCE (unrecogn ized section and content) DATE CREATED AUTHOR 03/27/2024 [facility] DATE CREATED AUTHOR AUTHOR'S ORGANIZ ATION 08/11/2024 [facility] DATE CREATED AUTHOR AUTHOR'S ORGANIZ ATION 08/25/2024 [facility] DATE CREATED AUTHOR AUTHOR'S ORGANIZ ATION 09/18/2024 [facility] FOR RECORDS PERTAINING TO PATIENTS WHO ARE [...] BE BASED ON THE PRIMARY CLINICAL RECORDS. [employer] provides no warranty or guarantee of the accuracy or completeness of information in this document.
[2024-10-31 13:08] LABS: Age Gdln ACOG Testing Note (.); HPV Aptima Negative (Negative); IGP, Aptima HPV, rfx 16/18,45 Note (.)
== END 2024-10-25 19:08 | disposition home or self-care (01) ==
LOC: LAB 19:07
PROVIDERS: Visit Provider Obstetrics & Gynecology
DX: Z01.419 Encounter for gynecological examination (general) (routine) without abnormal findings (principal)
CPT/HCPCS: 87624; 88175

== ENCOUNTER 2025-09-13 14:02 | Outpatient (OUT) | payer OTHER, SELFPAY ==
--- OUTSIDE RECORDS SUMMARY | 2025-09-13 14:07 | XMS_ITS | CCD ---
Author Organization [facility] Care Team Providers Care Short Piece Handler Name Role Phone Pamela Colvin Primary Care Physician Pamela Colvin MD Primary Care Provider Matt Aguero Primary Care Physician Unavail able Matt Aguero Attending Unavailable Matt Aguero Admitting Unavailable Matt Aguero Attending Unavailable PABLITO HAM Attending Unavailable PAMELA DICK Attending Unavailable JITENDRA, PABLITO Attending Unavailable KAPILPAMELA RIOJAS Attending Unavailable JITENDRA, PABLITO Attending Unavailable JITENDRA, PABLITO Attending Unavailable JITENDRA, PABLITO Attending Unavailable KAPILPAMELA RIOJAS Attending Unavailable JITENDRA, PABLITO Attending Unavailable KAPILPAMELA RIOJAS Attending Unavailable JITENDRA, PABLITO Attending Unavailable PABLITO HAM Attending Unavailable Matt Aguero Attending Unavailable Matt Aguero Attending Unavailable Matt Aguero Attending Unavailable Matt Aguero Attending Unavailable Matt Aguero Referring Unavailable Matt Aguero Admitting Unavailable Matt Aguero Attending Unavailable Matt Aguero Admitting Unavailable Matt Aguero Attending Unavailable Matt Aguero Attending Unavailable Matt Aguero Admitting Unavailable Jarad Rodríguez Attending Unavailable Matt Aguero Referring Unavailable Matt Aguero Attending Unavailable Matt Aguero Attending Unavailable Matt Aguero Attending Unavailable Matt Aguero Attending Unavailable Matt Aguero Attending Unavailable Matt Aguero Attending Unavailable Matt Aguero Attending Unavailable Matt Aguero Attending Unavailable Matt Aguero Attending Unavailable Pamela Colvin DO Primary Care Provider [phone] Medications Current Medications MedicationDrug Class(es)DatesSig (Normalized)Sig (Original)amoxicillin 875 mg / clavulanate 125 mg oral tablet (1 source)Penicillin-class AntibacterialStart: 09-15-2024 End: 15-37-3361yyly 1 tablet by mouth every twelve hoursAugmentin 875 mg-125 mg Tab 1 tab(s), Oral, q12hr for 7 day(s), 14 tab(s), Refill(s) 0, [facility], 166, cm, 09/15/24 13:53:00 EST, Height/Length Dosing, 65.4, kg, 09/15/24 13:53:00 EST, Weight Dosing Start Date: 09/15/24 Stop Date: 09/22/24 Status: Orderedcyclobenzaprine hydrochloride 5 mg oral tablet (14 sources)Muscle RelaxantStart: 77-55-1040ighe 1 tablet by mouth twice daily cyclobenzaprine 5 mg Tab 5 mg = 1 tab(s), Oral, BID, # 60 tab(s), Refills(s) 5, Pharmacy: [facility], 166, cm, 06/22/24 14:07:00 EDT, Height/Length Dosing, 64.3, kg, 06/22/24 14:04:00 EDT,Weight Dosing Start Date: 06/22/24 Status: OrderedStart: 65-17-9080gaql 1 tablet by mouth three times daily cyclobenzaprine 5 mg Tab 5 mg = 1 tab(s), Oral, TID, # 90 tab(s), Refills(s) 5, Pharmacy: [facility], 166, cm, 08/22/24 16:32:00 EST, Height/Length Dosing, 65, kg, 08/22/24 16:32:00 EST, Weight Dosing Start Date: 08/22/24 Status: OrderedDULoxetine 30 mg delayed release oral capsule (9 sources)Serotonin and Norepinephrine Reuptake InhibitorStart: 56-94-8944bopu 1 capsule by mouth twice dailyduloxetine 30 mg oral delayed release capsule 30 mg = 1 cap(s), Oral, BID, # 60 cap(s), Refills(s) 11, Pharmacy: [facility], 166, cm, 09/15/24 13:53:00 EST, Height/Length Dosing, 65.4, kg,09/15/24 13:53:00 EST, Weight Dosing Start Date: 09/15/24 Status: Orderedescitalopram 10 mg oral tablet (11 sources)Serotonin Reuptake InhibitorStart: 96-44-1166zhah 1 tablet by mouth once dailyescitalopram 10 mg Tab 10 mg = 1 tab(s), Oral, Daily, # 90 tab(s), Refills(s) 4, Pharmacy: [facility], 166, cm, 07/18/24 8:33:00 EDT, Height/Length Dosing, 64.4, kg, 07/18/24 8:33:00 EDT, Weight Dosing Start Date: 07/18/24 Status: OrderedStart: 52-07-5133aqyg 1 tablet by mouth once daily escitalopram 10 mg Tab 10 mg = 1 tab(s), Oral, Daily, # 90 tab(s), Refills(s) 4, Pharmacy: [facility], 166, cm, 03/07/24 8:30:00 EDT, Height/Length Dosing, 62.1, kg, 03/07/24 8:30:00 EDT, Weight Dosing Start Date: 04/04/24 Status: OrderedStart: 26-81-7265kvuykqayxshx 10 mg Tab 30 tab(s), 0 Refill(s), Refills(s) 0 Start Date: 11/25/23 Status: Lpldvbn21 day ethinyl estradiol 0.713568 mg/hr / etonogestrel 0.005 mg/hr vaginal system (18 sources)Progestin, EstrogenStart: 64-07-9914kquujygkshrt-ethinyl estradiol (NuvaRing) 0.12-0.015 MG/24HR vaginal ring Indications: 6 weeks follow-up Insert vaginally and leave in place for 21 consecutive days (3 weeks), then remove.Wait for 7 days before inserting new ring. 3 each 3 06/02/2024 ActiveStart: 35-56-7310KuqPvvw 0.120 mg-0.015 mg/24 hours vaginal ring Refill(s) 0, 1 EA, 0 Refill(s), INSERT ONE RING VAGINALLY AND LEAVE IN PLACE FOR 3 CONSECUTIVE WEEKS, THEN REMOVE FOR 1 WEEK. INSERT NEW RING 7 DAYS AFTER THE LAST WAS REMOVED Start Date: 05/01/24 Status: OrderedStart: 82-44-4688yqyvgas estradiol-etonogestrel 0.015 mg-0.120 mg Vag Ring Refill(s) 0, 3 EA, 0 Refill(s) Start Date: 11/25/23 Status: Orderedfluconazole 150 mg oral tablet (2 sources)Azole AntifungalStart: 27-69-3248qouvtviqtqd 150 mg Tab 300 mg = 2 tab(s), Oral, q7day, # 8 tab(s), Refills(s) 0, Pharmacy: [facility], 166, cm, 08/22/24 16:32:00 EST, Height/Length Dosing, 65, kg, 08/22/24 16:32:00 EST, Weight Dosing Start Date: 08/22/24 Status: OrderedDepo-Provera (4 sources)ProgestinStart: 00-08-8984Myql-Provera 400 mg, IntraMuscular, Refills(s) 0 Start Date: 01/15/11 Status: Orderedmeloxicam 15 mg oral tablet (17 sources)Nonsteroidal Anti-inflammatory DrugStart: 68-61-4997pwgu 1 tablet by mouth once dailymeloxicam 15 mg Tab 15 mg = 1 tab(s), Oral, Daily, # 30 tab(s), Refills(s) 1, Pharmacy: [facility], 168, cm, 11/29/24 9:13:00 EST, Height/Length Dosing, 68.1, kg, 11/29/24 9:13:00 EST, Weight Dosing Start Date: 11/29/24 Status: OrderedStart: 85-40-2528nntb 1 tablet by mouth once daily meloxicam 15 mg Tab 15 mg = 1 tab(s), Oral, Daily, # 30 tab(s), Refills(s) 0, other reason (Rx) Start Date: 08/22/24 Status: OrderedStart: 33-70-1567ulnh 1 tablet by mouth once dailymeloxicam 7.5 mg Tab 7.5 mg = 1 tab(s), Oral, Daily, # 30 tab(s), Refills(s) 2, Pharmacy: [facility], 166, cm, 05/02/24 14:30:00 EDT, Height/Length Dosing, 62, kg, 05/02/24 14:30:00 EDT, Weight Dosing Start Date: 05/02/24 Status: OrderedStart: 45-03-348387 hr metFORMIN hydrochloride 500 mg extended release oral tablet (3 sources)BiguanideStart: 10-25-2024 End: 13-61-9495vwij 1 tablet by mouth every twenty-four hours at mealtime metFORMIN XR (Glucophage-XR) 500 MG 24 hr tablet Indications: Insulin resistance Take 1 tablet (500mg) by mouth in the evening. Take with meals Do not crush, chew, or split. 30 tablet 11 10/25/2024 10/25/2025 Activemethocarbamol 500 mg oral tablet (3 sources)Muscle RelaxantStart: 75-72-5226Hbslcvcu Multivitamins with Vitamin B Complex, Vitamin C, Minerals and L-Methylfolate oral capsule (16 sources)Start: 92-30-5869Yicwujnu Multivitamins with Vitamin B Complex, Vitamin C, Minerals and L-Methylfolate oral capsule 1 cap(s), Oral, Daily, 30 cap(s), Refill(s) 0 Start Date: 11/26/23 Status: Ordered Completed/Discontinued Medications MedicationDrug Class(es)DatesSig (Normalized)Sig (Original) MV-Min-Fe Fum-FA-DHA ( 1 PO) (5 sources) End: 07-36-5231Xnnuzpok MV-Min-Fe Fum-FA-DHA ( 1 PO) Take by mouth. 03/27/2024 Discontinued (Other) MV-Min-Fe Fum-FA-DHA ( 1 PO) Take by mouth. 0 Activesulfamethoxazole 800 mg / trimethoprim 160 mg oral tablet (2 sources)Dihydrofolate Reductase Inhibitor Antibacterial, Sulfonamide AntimicrobialStart: 01-15-2011 End: 59-77-9177Cdfigvj D.S. 800 mg-160 mg Tab 0, 1 tab(s), Oral, BID, 14 tab(s), Refill(s) 0, Take one tab by mouth twice a day for seven days Start Date: 01/15/11 Stop Date: 01/22/11 Status: Ordered Problems Problem ClassificationProblemDateDocumented DateEpisodic/Chronic Administrative/social admission (2 sources)Patient encounter status; Translations: [Persons encountering health services in other specified circumstances]Onset: 37-71-7879KkbkbzktPutrigc disorders (19 sources)Anxiety disorder; Translations: [Anxiety disorder, unspecified] Onset: 84-13-3540NlffsazWzjgoexzi infection; unspecified site (1 source)Bacterial infectious disease; Translations: [Other specified bacterial agents as the cause of diseases classified elsewhere]Onset: 00-27-3490Qmuxlnlj Contraceptive and procreative management (1 source)Contraception status; Translations: [Encounter for other general counseling and advice on contraception]Onset: 21-85-0916KmsgxsloRlhrqbkup of teeth and jaw (17 sources)Temporomandibular joint disorder; Translations: [Other specified disorders of temporomandibular joint]Onset: 13-37-2039JcbpslytJmgjhmv (4 sources)Pityriasis versicolor; Translations: [Pityriasis versicolor]Onset: 42-78-5083JxiwbcymXlwow bone disease and musculoskeletal deformities (20 sources)Segmental and somatic dysfunction; Translations: [Segmental and somatic dysfunction of thoracic region]Onset: 33-01-1517YjgwdbjgNhwcp bone disease and musculoskeletal deformities (15 sources)Cervical somatic ypzkpdgiqpg99-73-1956FfghvjnrWhfrj bone disease and musculoskeletal deformities (15 sources)Somatic dysfunction of thoracic uquxsz37-58-5928GqhjrepgAwwjp bone disease and musculoskeletal deformities (15 sources)Somatic dysfunction of upper bfme57-05-9097NgacsabxPvxrb bone disease and musculoskeletal deformities (13 sources)Somatic dysfunction of abdominal lbzrfa18-87-6399CyxkzblcTiavz bone disease and musculoskeletal deformities (13 sources)Somatic dysfunction of head -24-7716XpbjsankBzumc bone disease and musculoskeletal deformities (13 sources)Somatic dysfunction of lumbar ngejpl31-94-3793ZuxoxzrzBzouv bone disease and musculoskeletal deformities (9 sources)Somatic dysfunction of lower ettc69-88-3745SzwrfloxGnfpy bone disease and musculoskeletal deformities (9 sources)Somatic dysfunction of sacral -67-2604VsdcqlwnTyjcl connective tissue disease (18 sources)Adhesive capsulitis of shoulder; Translations: [Adhesive capsulitis of unspecified shoulder]Onset: 78-23-4776ZxamvpjkOyzam connective tissue disease (1 source)Spasm; Translations: [Other muscle spasm]Onset: 98-70-0769Rjowzqsi Other connective tissue disease (15 sources)Muscle spasm of cervical muscle of vtwj47-51-1834GaakvpjeNfulc connective tissue disease (12 sources)Abnormal posture; Translations: [Abnormal posture]Onset: 05-01-2024 EpisodicOther connective tissue disease (6 sources)Musculoskeletal ifdc90-90-8176UwmdpqykRclro nervous system disorders (6 sources)Anesthesia of skin; Translations: [Anesthesia of skin]Onset: 57-75-9878XrzmvfqcYdthf nervous system disorders (5 sources)Paresthesia; Translations: [Paresthesia of skin]Onset: 05-02-2024 EpisodicOther nervous system disorders (11 sources)Numbness of bpxn29-07-2477UwrqpjwvZnziv nervous system disorders (11 sources)Paresthesia of vggv36-79-9413MazeceouFfezb non-traumatic joint disorders (4 sources)Disorder of joint of shoulder region; Translations: [Other specified joint disorders, unspecified shoulder]Onset: 78-91-3654HickxmybKyzzq non- traumatic joint disorders (16 sources)Disorder of zjwryfct79-23-1779XaouicpkIxkzw nutritional; endocrine; and metabolic disorders (2 sources)Insulin resistance; Translations: [Insulin resistance]10-25-2024 ChronicOther nutritional; endocrine; and metabolic disorders (1 source)Overweight in adulthood with body mass index of 25 or more but less than 30; Translations: [Body mass index (BMI) 25.0-25.9, adult]Onset: 01-18-2024 EpisodicOther and delivery including normal (20 sources)Second trimester ; Translations: [Encounter for supervision of normal , unspecified, second trimester]Onset: 081342-79-6801 EpisodicOther screening for suspected conditions (not mental disorders or infectious disease) (1 source)Procedure carried out on subject; Translations: [Encounter for screening for lipoid disorders]Onset: 66-85-0312EktwrtzdYfflc upper respiratory infections (3 sources)Chronic sinusitis; Translations: [Chronic sinusitis, unspecified] Onset: 59-56-4394ZonemfeWsqutyca codes; unclassified (7 sources)Body mass index 20-24 - normal; Translations: [Body mass index (BMI) 24.0-24.9, adult]Onset: 49-76-0708PawctgrrCfguwxyrlng; intervertebral disc disorders; other back problems (10 sources)Solitary sacroiliitis; Translations: [Sacroiliitis, not elsewhere classified]Onset: 95-71-0806JwbzbvqZrlgnkhtxdc; intervertebral disc disorders; other back problems (20 sources)Neck pain; Translations: [Cervicalgia]Onset: 26-79-3008Lcavqemu Unclassified (13 sources)OB RemindersOnset: 736133-87-9090Yztvagcwnnji (9 sources)Patient encounter pmvmno98-32-1837 Results Test NameValueInterpretationReference RangeFacilityAmbulatory Visit Summaryon 31-45-2683Lleugrggke Visit SummaryAmbulatory Visit Summary 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 CARTER Olayinka :1990 Visit Date:11/29/2024 Ambulatory Visit Instructions Your Diagnosis Wellness examination control counseling BMI 24.0-24.9, adult Your Care Team Attending Physician - Matt Aguero DO Primary Care Physician - Matt Aguero DO This Is Your Medications List meloxicam (meloxicam 15 mg Tab) Contact prescribing physician if questions or concerns cyclobenzaprine (cyclobenzaprine 5 mg Tab) duloxetine (duloxetine 30 mg oral delayed release capsule) ethinyl estradiol-etonogestrel (EluRyng 0.120 mg-0.015 mg/24 hours vaginal ring) multivitamin, ( Multivitamins with Vitamin B Complex, Vitamin C, Minerals and L-Methylfolate oral capsule) Procedures Performed Tonsillectomy. Discharge Vitals Heart Rate (Peripheral) 102 Blood Pressure 90/60 Height 168 cm Height 66 in Weight 68.1 kg Weight 150.135 lb BMI 24.13 Medications What How Much When Why Instructions New meloxicam (meloxicam 15 mg Tab) 1 Tablets By Mouth Every day Refills: 1 Pickup at [facility] Unchanged cyclobenzaprine (cyclobenzaprine 5 mg Tab) 1 Tablets By Mouth 3 times a day Spasm of thoracic back muscle Head ache Contact prescribing physician if questions or concerns Unchanged duloxetine (duloxetine 30 mg oral delayed release capsule) 1 Capsules By Mouth 2 times a day Musculoskeletal pain Contact prescribing physician if questions or concerns Unchanged ethinyl estradiol-etonogestrel (EluRyng 0.120 mg-0.015 mg/ 24 hours vaginal ring) 1 EA, 0Refill(s), INSERT ONE RING VAGINALLY AND LEAVE IN [...] physician if questions or concerns Pharmacy Information [facility]: [address] [facility] [place], [place] [id number] [phone] Allergies No Known Allergies Problems Ongoing - Any problem that you are currently receiving treatment for. Anxiety Bacterial sinusitis control counseling Frozen shoulder Low back pain Musculoskeletal pain [...] Tinea versicolor TMJ locking Trapezius muscle spasm Wellness examination Historical - Any problem that you are no longer receiving treatment for. Numbness in both hands Patient Survey You may receive a survey via text or e-mail asking about your office visit. Please share your experience with us by completing your survey. We appreciate your feedback and thank you for choosing us for your care. [facility] Medicine Office/Clinic Noteon [id number] Medicine Office/Clinic NoteS[facility] Office/Clinic Note Chief Complaint Wellness HPI Staff Patient here for Annual Wellness EMILY 09/15/24 Labs 08/29/24 No Concerns today. 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 Ham - delivering at [employer] Chiropractor - Dr. Aldrich [facility] staff / Chief Complaint confirmed with the patient had her recent RATE MANAGER visit with Dr. Ham still planning to get in the fall plan is to have two kids, total using Nuvaring duloxetine has been a game changer taking cyclobenzaprine at night waking up feeling a lot less sore From last note: having increased jaw pain is no longer taking the meloxicam is taking duloxetine BID is taking both tabs of cyclobenzaprine at night did occasionally use during the day and that was effective low back pain is ok [1] Review of Systems PHQ Score Initial Depression Screen Score: 0 SCORE Physical Exam Vitals & Measurements HR: 102(Peripheral) BP: 90/60 SpO2: 98% HT: 66 in HT: 168 cm WT: 68.1 kg WT: 150.135 lb BMI: 24.13 Constitutional: Vital signs reviewed; WINSTON CARTER is [...] and affect, judgement is appropriate Assessment/Plan 1. Wellness examination (Z00.00: Encounter for general adult medical examination without abnormal findings) healthy 34 year old female no concerns 2. control counseling (Z30.09: Encounter for other general counseling and advice on contraception) discussed IUD vs nuvaring BMI 24.0-24.9, adult (Z68.24: Body mass index [BMI] 24.0-24.9, adult) on metformin rx'd by Dr. Ham Orders: fluconazole, 300 mg = 2 tab(s), Oral, q7day, # 8 tab(s), Refills(s) 0, Pharmacy: [facility], 166, cm, 08/22/24 16:32:00 EST, Height/Length Dosing, 65, kg, 08/22/24 16:32:00 EST, Weight Dosing Total time spent TODAY preparing [...] and treatment, all questions were answered and patientagrees to adhere to the plan above. Risk and benefits of appropriate procedures and medications were reviewed as well with patient, whovoiced understanding and agreement. Patient, when appropriate, was counseled on smoking cessation and/or continuing to abstain from nicotine/tobacco products as appropriate based on history; as smoking/nicotine can contribute to increased pain overall and decreased wound healing. Patient counseled on maintaining a healthy BMI as part of the total treatment of their pain and to reduce stress/strain on joints. While I advocate for body image positivity, we know that all cause morbidity and mortality increases as the BMI rises above 25 and worse above a BMI of 30. Patient invited to return here for an additional appt when needed or they may call to speak with the nurse with any questions or concerns that arise in the mean time. Follow-up No qualifying data available Problem List/Past Medical History Ongoing Anxiety Bacterial sinusitis control counseling Frozen shoulder Low back pain Musculoskeletal pain [...] of thoracic region Somatic dysfunction of upper (more content not included)...[facility] Berger HospitalComment on above:Result Comment: Electronically Signed By: Matt Aguero DO\Date and Time Signed: 11/29/24 09:46 ESTIGP,APTIMA HPV,AGE GDLNon 43-19-0137UNB GDLN ACOG TESTINGNote.NOMS HealthcareComment on above:TESTS RESULT FLAG UNITS REF RANGE LAB Clinician Provided Cytology Information Source.............Cervix;Endocervix No. of containers..01 ThinPrep Vial Age Algo ACOG Laine... FLAG LEGEND: L-Low Normal,H-High Normal,LL-Alert Low,HH-Alert High <-Panic Low,>-Panic High,A-Abnormal,AA-Critical Abnormal Performed at: 01 =G [address] [place] [address] Nasrin Hernández MD, HPV APTIMANegativeNegativeNOMS HealthcareComment on above:This nucleic acid amplification test detects fourteen high- risk HPV types (16,18,31,33,35,39,45,51,52,56,58,59,66,68) without differentiation. Performed at: =[address] [id number] Teaching Associate: Nasrin Hernández MD, Phone: [phone] Performed at: [address] [id number] Teaching Associate: Nasrin Hernández MD, Phone: [phone] IGP, APTIMA HPV, RFX 16/18,45Note.NOMS HealthcareComment on above:TESTS RESULT FLAG UNITS REF RANGE LAB DIAGNOSIS: 02 NEGATIVE FOR INTRAEPITHELIAL LESION OR MALIGNANCY. Specimen adequacy: 02 Satisfactory for evaluation. Endocervical and/or squamous metaplastic cells (endocervical component) are present. Performed by: 02 Isreal Campbell, Video Game Developer ([facility]) . 02 Note: Note 02 The Pap smear is a screening test designed to aid in the detection of premalignant and malignant conditions of the uterine cervix. It is not a diagnostic procedure and should not be used as the sole means of detecting cervical cancer. Both false-positive and false-negative reports do occur. Test Methodology: Note 02 This liquid based ThinPrep(R) pap test was screened with the use of an image guided system. HPV Genotype Reflex Note 02 Criteria not met, HPV Genotype not performed. FLAG LEGEND: L-Low Normal,H-High Normal,LL-Alert Low,HH-Alert High <-Panic Low,>-Panic High,A-Abnormal,AA-Critical Abnormal Performed at: [address] [facility] [address] [place] [address] Nasrin Hernández MD, BRUSH-SPATULA CERVIX ENDOCERVIX CLINISYNCNOMS HealthcareAmbulatory Visit Summaryon [id number] Visit SummaryAmbulatory Visit Summary WINSTON CARTER :1990 Visit Date:09/15/2024 Ambulatory Visit Instructions Your Diagnosis Bacterial sinusitis Musculoskeletal pain Other specified bacterial agents as the cause of diseases classified elsewhere Your Care Team Attending Physician - Matt Aguero DO Primary Care Physician - Matt Aguero DO This Is Your Medications List amoxicillin-clavulanate (Augmentin 875 mg-125 mg Tab) duloxetine (duloxetine 30 mg oral delayed release capsule) Contact prescribing physician if questions or concerns cyclobenzaprine (cyclobenzaprine 5 mg Tab) ethinyl estradiol-etonogestrel (EluRyng 0.120 mg-0.015 mg/24 hours vaginal ring) [...] AM EST With: Matt Aguero DO Where: [facility] [place] [address] [place] [address]- Medications What How Much When Why Instructions New amoxicillin-clavulanate (Augmentin 875 mg-125 mg Tab) 1 Tablets By Mouth Every 12 hours Duration: 7 Days Pickup at [facility] Unchanged duloxetine (duloxetine 30 mg oral delayed release capsule) 1 Capsules By Mouth 2 times a day Musculoskeletal pain Pickup at [facility] Unchanged cyclobenzaprine (cyclobenzaprine 5 mg Tab) 1 Tablets By Mouth 3 times a day Spasm of thoracic back muscle Head ache Contact prescribing physician if questions or concerns Unchanged ethinyl estradiol-etonogestrel (EluRyng 0.120 mg-0.015 mg/ 24 hours vaginal ring) 1 EA, 0Refill(s), INSERT ONE RING VAGINALLY AND LEAVE IN [...] physician if questions or concerns Pharmacy Information [facility] [address] [facility] [facility] [address] [facility] [address] [place] [place] [id number] [phone] Allergies No Known Allergies Problems Ongoing - [...] you for choosing us for your care. 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 - Víctor Carlos named after his grandfather has been back to work nearly a month now (as of 06/09/24) List of Providers: Corporate Relations Manager - Dr. Ham - delivering at [employer] Chiropractor - [facility] Ald[facility] [...] VLDL: 28 mg/dL (08/09/24 09:25:00) Future Appointments [facility] [place] Appt. Date: 11/29/2024 9:00 AM Scheduled Provider: Matt Aguero DO [address] [place], [place], [id number] Phone: -- Fax: -- [address] [place], [address] Phone: -- Fax: [phone] From last note: Review of Systems PHQ [...] (J32.9: Chronic sinusitis, unspecified) Acute New to pr Allergies vs viral etiology have been considered However, given the duration of symptoms and exam findings today, will treat as if this is bacterialsinusitis No known drug allergies - Augmentin 875-125 [...] BID, # 60 cap(s), Refills(s) 11, Pharmacy: [facility], 166, cm, 09/15/24 13:53:00 EST, Height/Length Dosing, 65.4, kg, 09/15/24 13:53:00 EST, Weight Dosing Other specified bacterial agents as the cause of diseases classified elsewhere (B96.89: Other specified bacterial agents as the cause of diseases classified elsewhere) Orders: amoxicillin-clavulanate, 1 tab(s), Oral, q12hr for 7 day(s), 14 tab(s), Refill(s) 0, [facility], 166, cm, 09/15/24 13:53:00 EST, [...] dysfunction of lumbar region (more content not included)...[facility] HospitalComment on above: Result Comment: Electronically Signed By: Matt Aguero DO\Date and Time Signed: 09/15/24 14:12 [facility] Medicine Office/Clinic Noteon [id number] Medicine Office/Clinic NoteFami Medicine Office/Clinic Note Chief Complaint Back pain/ [...] (their ) The patient is 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 - Víctor Carlos named after his grandfather has been back to work nearly a month now (as of 06/09/24) List of Providers: Corporate Relations Manager - Dr. Ham - delivering at [facility] - Dr. Aldrich HPI staff / [...] insertion of the middle scalene on rib 1on BILAT; worse on the left - treated with BLT and FPR - with objective and subjective improvement Thoracic Spine: Chronic and acute tissue texture changes of the trapezius, rhomboid BILAT; worse onthe right - treated with myofascial, BLT and [...] that run down the back and/or limbs uponflexion or the neck) *if positive, cervical spondylotic [...] muscles - supine with (more content not included)...[facility] HospitalComment on above:Result Comment: Electronically Signed By: Matt Aguero DO\.br\Date and Time Signed: 08/23/24 20:05 ESTAmbulatory Visit Summaryon [id number] Visit SummaryAmbulatory Visit Summary 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 Discharge Vitals Heart Rate (Peripheral) 97 Blood Pressure 106/70 Height 166 cm Height 65 in Weight 65 kg Weight 143.3 lb BMI 23.59 What to do next Scheduled Follow-Up Appointments Wednesday 1:40 PM EST With: Matt Aguero DO Where: [facility] [address] [place] [address]- Wednesday 9:00 AM EST With: Matt Aguero DO Where: [facility] [address] [place] [address]- You Need to Schedule the Following Appointments [...] PRN Where: [address] [place] [address] [id number] Medications What How Much When Why Instructions New fluconazole (fluconazole 150 mg Tab) 2 Tablets By Mouth Every 7 days [facility] New meloxicam (meloxicam 15 mg Tab) 1 Tablets By Mouth Every day Changed cyclobenzaprine (cyclobenzaprine 5 mg Tab) 1 Tablets By Mouth 3 times a day Spasm of thoracic back muscle Head ache [facility] at [facility] 1985 Unchanged duloxetine (duloxetine 30 mg oral delayed release capsule) 1 Capsules By Mouth 2 times a day Musculoskeletal pain Contact prescribing physician if questions or concerns Unchanged ethinyl estradiol-etonogestrel (EluRyng 0.120 mg-0.015 mg/ 24 hours vaginal ring) 1 EA, 0Refill(s), INSERT ONE RING VAGINALLY AND LEAVE IN [...] physician if questions or concerns Pharmacy Information [facility] 1986: [address] [facility] [place], [place] [id number] [phone] Allergies No Known Allergies Problems Ongoing - [...] help ease sore, stiff (more content not included)...Normal [facility] w/ Auto Diffon 51-85-3666Abqwjgdaj/100 WBC (Bld) 0.6 %Normal0.0-2.0[facility] PrebleComment on above:Performed By: #### [id number] #### [facility] [address], [place] [address]Sqnwdzojj/Leukocytes Auto (Bld) [Pure # fraction]0.0 E9/LNormal 0.0-0.2Fisher [facility] Pratt HospitalComment on above:Performed By: #### [id number] #### [facility] [address], [place] [address]Wmwbigmsxkb (Bld) [#/Vol]0.1 E9/LNormal0.0-0.5Fisher [facility] Pratt HospitalComment on above:Performed By: #### [id number] #### [facility] [address], [place] [address]Dfkzbfmzysd/100 WBC (Bld)1.4 %Normal0.0-8.0[facility] PrebleComment on above:Performed By: #### [id number] #### [facility] [address] [place] [address]Rtfggoirxns distribution width (RBC) [Ratio]13.2 %Normal 10.9-14.2FSelect Medical Cleveland Clinic Rehabilitation Hospital, Edwin ShawComment on above:Performed By: #### [id number] #### [facility] [address] [place] [address]Nawbldbmav (Bld) [Volume fraction]37.8 %Mcrguu72.0-46.0[facility] PrebleComment on above:Performed By: #### [id number] #### [facility] [address] [place] [address]Mkiadoujgh (Bld) [Mass/Vol]13.1 g/bSAyyhio58.0-16.0[facility] PrebleComment on above:Performed By: #### [id number] #### [facility] [address] [place] [address]Cjbjwuuvtdv (Bld) [#/Vol]1.7 E9/LNormal1.0-4.0[facility] PrebleComment on above:Performed By: #### [id number] #### [facility] [address] [place] [address]Pdyipaqxcnf/100 WBC (Bld)25.7 %Wdxyjj98.0-50.0[facility] PrebleComment on above:Performed By: #### [id number] #### [facility] [address] [place] [address] 220[address]LUK (RBC) [Entitic mass]30.8 riXhofow80.0-34.0[facility] PrebleComment on above:Performed By: #### [id number] #### [facility] [address] [place] [address]ZAYR (RBC) [Mass/Vol]34.7 g/uQWzxted83.4-36.0[facility] PrebleComment on above:Performed By: #### [id number] #### [facility] [address], [place] [address]MUW (RBC) [Entitic vol]88.8 nOVcjjge23.0-100.0[facility] PrebleComment on above:Performed By: #### [id number] #### [facility] [address] [place] [address]Dwbyvvjxt (Bld) [#/Vol]0.4 E9/LNormal0.2-1.0[facility] PrebleComment on above:Performed By: #### [id number] #### [facility] [address] [place] [address]Lmkefevlrom (Bld) [#/Vol]4.3 E9/LNormal2.0-7.5FSelect Medical Cleveland Clinic Rehabilitation Hospital, Edwin ShawComment on above:Performed By: #### [id number] #### [facility] [address] [place] [address]Tgdmpcvwdrs/100 WBC (Bld)66.3 %Yeveka97.0-75.0[facility] PrebleComment on above:Performed By: #### [id number] #### [facility] [address] [place] [address]Oqxirdnl971.0 E9/OYuihld265.0-500.0[facility] Comment on above:Performed By: #### [id number] #### [facility] [address] [place] [address]Bycmzlfk mean volume (Bld) [Entitic vol]9.9 fLNormal6.4-10.8 [facility] PrebleComment on above:Performed By: #### [id number] #### [facility] [address] [place] [address]EMQ (Bld) [#/Vol]4.3 E12/LNormal4.3-5.9[facility] PrebleComment on above:Performed By: #### [id number] #### [facility] [address] [place] [address]YJP corrected for nucl RBC Auto (Bld) [#/Vol]6.5 E9/LNormal 4.0-11.0Fisher [facility] Pratt HospitalComment on above:Performed By: #### [id number] #### [facility] [address] [place], [place] [address]NWAUNHUZIXjdqwxi By: SYSTEM SYSTEM on 13-54-0454Asmcqvp [Mass/Vol]4.4 g/dLNormal3.3 - 5.0 gm/dLRemisol ChemAlbumin/Globulin [Mass ratio] 1.5 {ratio}Normal1.1 - 2.2Remisol ChemALP [Catalytic activity/Vol]64 [iU]/d Jaeiys34 - 98 Int._Unit/LRemisol ChemALT No additional P-5'-P [Catalytic activity/Vol]12 [iU]/dNormal6 - 46 Int._Unit/LRemisol ChemAnion gap [Moles/Vol] 10 mmol/LNormal6 - 16 mEq/LRemisol ChemAST [Catalytic activity/Vol]20 [iU]/d Normal5 - 43 Int._Unit/LRemisol ChemBilirubin [Mass/Vol]0.4 mg/dLNormal0.0 - 1.1 mg/dLRemisol ChemCalcium [Mass/Vol]9.4 mg/dLNormal8.9 - 11.1 mg/dLRemisol Chem Chloride [Moles/Vol]104 mmol/YDiwydj159 - 111 mmol/LRemisol ChemCholesterol [Mass/Vol]225 mg/rOUuqv977 - 200 mg/dLRemisol ChemCholesterol in HDL [Mass/Vol] 62 mg/dLInvalid Interpretation CodeRemisol ChemComment on above:Result Comment: '>= 60 LOW RISK' '<= 40 HIGH RISK'Cholesterol in LDL [Mass/Vol]145 mg/dLHigh<=129mg/dLRemisol ChemCholesterol in VLDL [Mass/Vol]28 mg/dLNormal7 - 40 mg/dLRemisol ChemCO2 [Moles/Vol]26 mmol/EXefeky40 - 31 mmol/LRemisol ChemCobalamin (Vitamin B12) [Mass/Vol]511 pg/fYRvkzdd29 - 1500 pg/mLRemisol ChemCreatinine [Mass/Vol]0.8 mg/dLNormal0.5 - 1.3 mg/dLRemisol ToxvpJIV544 mL/min/1.73 m0Acljar >=59mL/min/1.73 w5Mblsyun ChemFolate [Mass/Vol]21.3 ng/mLNormal>=6.7ng/mLRemisol ChemGlobulin (S) [Mass/Vol]2.9 g/dLNormal1.4 - 4.0 gm/dLRemisol ChemGlucose [Mass/Vol]80 mg/zKRcjifl85 - 199 mg/dLRemisol ChemPotassium [Moles/Vol]4.1 mmol/LNormal3.5 - 5.3 mmol/LRemisol ChemProtein [Mass/Vol]7.3 g/dLNormal6.0 - 7.8 gm/dLRemisol ChemSodium [Moles/Vol]136 mmol/ULyceqs890 - 145 mmol/LRemisol ChemTriglyceride [Mass/Vol]140 mg/dLNormal<=149mg/dLRemisol ChemTSH Qn2.28 m[IU]/LNormal0.34 - 5.60 mcIU/mLRemisol ChemUrea nitrogen [Mass/Vol]10 mg/dL Normal5 - 21 mg/dLRemisol ChemUrea nitrogen/Creatinine [Mass ratio]12 mg/mg Gwrjxp79 - 20Remisol ChemCMPon 06-33-3559Iedrdpn [Mass/Vol]4.4 g/dLNormal3.3-5.0 [facility] PrebleComment on above:Performed By: #### [id number] #### [facility] [address], [place] [address]Tupjzqi/Globulin (S) [Mass conc ratio]1.3Opylya5.1-2.2Fisher [facility] Pratt HospitalComment on above:Performed By: #### [id number] #### [facility] [address], [place] [address]EFU [Catalytic activity/Vol]64 Int._Unit/EAmnrbh50-63HtdsphKettering Health PrebleComment on above:Performed By: #### [id number] #### [facility] [address], [place] [address]LWP No additional P-5'-P [Catalytic activity/Vol]12 Int._Unit/L Normal6-46[facility] PrebleComment on above:Performed By: #### [id number] #### [facility] [address], [place] [address]Uhvcp gap [Moles/Vol]10 mmol/LNormal6-16[facility] PrebleComment on above:Performed By: #### [id number] #### [facility] [address], [place] [address]WIL [Catalytic activity/Vol]20 Int._Unit/LNormal5-43[facility] PrebleComment on above:Performed By: #### [id number] #### [facility] [address], [place] [address]Iudmbmipm [Mass/Vol]0.4 mg/dLNormal0.0-1.1FSelect Medical Cleveland Clinic Rehabilitation Hospital, Edwin ShawComment on above:Performed By: #### [id number] #### [facility] [address], [place] [address]Dsujeli [Mass/Vol]9.4 mg/dLNormal8.9-11.1FSelect Medical Cleveland Clinic Rehabilitation Hospital, Edwin ShawComment on above:Performed By: #### [id number] #### [facility] [address], [place] [address]Vmfdqcbl [Moles/Vol]104 mmol/DWoklgq438-361WaixpaKettering Health PrebleComment on above:Performed By: #### [id number] #### [facility] [address], [place] [address]WG0 [Moles/Vol]26 mmol/VXfdujy04-34UxubfaKettering Health Preble Comment on above:Performed By: #### [id number] #### [facility] [address], [place] [address]Trlxrfrfht [Mass/Vol]0.8 mg/dLNormal0.5-1.3FSelect Medical Cleveland Clinic Rehabilitation Hospital, Edwin ShawComment on above:Performed By: #### [id number] #### [facility] [address], [place] [address]Jrmbdxqp (S) [Mass/Vol]2.9 g/dLNormal1.4-4.0[facility] PrebleComment on above:Performed By: #### [id number] #### [facility] [address], [place] [address]Tvircej [Mass/Vol]80 mg/kEIafczi48-569RnolmsKettering Health PrebleComment on above:Performed By: #### [id number] #### [facility] [address], [place] [address]Awgjqnkpt [Moles/Vol]4.1 mmol/LNormal3.5-5.3FSelect Medical Cleveland Clinic Rehabilitation Hospital, Edwin ShawComment on above:Performed By: #### [id number] #### [facility] [address] [place] [address]Ghoqdju [Mass/Vol]7.3 g/dLNormal6.0-7.8[facility] PrebleComment on above:Performed By: #### [id number] #### [facility] [address] [place] [address]Gbynex [Moles/Vol]136 mmol/JGnwbrq735-796HufiorKettering Health PrebleComment on above:Performed By: #### [id number] #### [facility] [address] [place] [address]Wvgn nitrogen [Mass/Vol]10 mg/dLNormal5-21[facility] PrebleComment on above:Performed By: #### [id number] #### [facility] [address], [place] [address]Daxw nitrogen/Creatinine [Mass ratio]12 No PqvlhBwtwif17-67 [facility] PrebleComment on above:Performed By: #### [id number] #### [facility] [address], [place] [address]Gmjyahzs 74-37-1663Eponou [Mass/Vol]21.3 ng/mLNormal>=6.7FSelect Medical Cleveland Clinic Rehabilitation Hospital, Edwin ShawComment on above:Performed By: #### [id number] #### [facility] [address] [place], [place] [address]WWEIGEDLVIEhtevbv By: SYSTEM SYSTEM on 79-66-3736Wekvjcwdv/100 WBC (Bld)0.6 %Normal0.0 - 2.0 %Remisol HemeBasophils/Leukocytes Auto (Bld) [Pure # fraction]0.0 E9/LNormal0.0 - 0.2 E9/LRemisol HemeEosinophils (Bld) [#/Vol]0.1 E9/LNormal0.0 - 0.5 E9/LRemisol HemeEosinophils/100 WBC (Bld)1.4 %Normal0.0 - 8.0 %Remisol HemeErythrocyte distribution width (RBC) [Ratio]13.2 %Qvllok60.9 - 14.2 %Remisol HemeHematocrit (Bld) [Volume fraction]37.8 %Xcebra45.0 - 46.0 % Remisol HemeHemoglobin (Bld) [Mass/Vol]13.1 g/xVQwwykp64.0 - 16.0 gm/dLRemisol HemeLymphocytes (Bld) [#/Vol]1.7 E9/LNormal1.0 - 4.0 E9/LRemisol Heme Lymphocytes/100 WBC (Bld)25.7 %Oaxwmw19.0 - 50.0 %Remisol HemeMCH (RBC) [Entitic mass]30.8 nrLhylag41.0 - 34.0 pgRemisol HemeMCHC (RBC) [Mass/Vol]34.7 g/dL Niyosc12.4 - 36.0 gm/dLRemisol HemeMCV (RBC) [Entitic vol]88.8 fUCehmae83.0 - 100.0 fLRemisol HemeMonocytes (Bld) [#/Vol]0.4 E9/LNormal0.2 - 1.0 E9/LRemisol HemeMonocytes/100 WBC (Bld)6.0 %Normal4.0 - 14.0 %Remisol HemeNeutrophils (Bld) [#/Vol]4.3 E9/LNormal2.0 - 7.5 E9/LRemisol HemeNeutrophils/100 WBC (Bld)66.3 % Wxpqax91.0 - 75.0 %Remisol SepfYbnkbocv374.0 E9/FDgvtic562.0 - 500.0 E9/LRemisol HemePlatelet mean volume (Bld) [Entitic vol]9.9 fLNormal6.4 - 10.8 fLRemisol HemeRBC (Bld) [#/Vol]4.3 E12/LNormal4.3 - 5.9 E12/LRemisol HemeWBC corrected for nucl RBC Auto (Bld) [#/Vol]6.5 E9/LNormal4.0 - 11.0 E9/LRemisol HemeLipid Panel on 75-94-8492Xvhqcuvkoxw [Mass/Vol]225 mg/zWDkbb596-395TlyqoeKettering Health PrebleComment on above:Performed By: #### [id number] #### [facility] [address], [place] [address]Kmpynpxrutm in HDL [Mass/Vol]62 mg/dLInvalid Interpretation CodeKettering Health PrebleComment on above:Result Comment: '>= 60 LOW RISK' '<= 40 HIGH RISK'Performed By: #### [id number] #### [facility] [address], [place] [address]Vonedehvnke in LDL [Mass/Vol]145 mg/dLHigh<=129[facility] PrebleComment on above:Performed By: #### [id number] #### [facility] [address], [place] [address]Dglkgahktpj in VLDL [Mass/Vol]28 mg/dLNormal7-40[facility] PrebleComment on above:Performed By: #### [id number] #### [facility] [address], [place] [address]Jszvrtxnfuml [Mass/Vol]140 mg/dLNormal<=149[facility] PrebleComment on above:Performed By: #### [id number] #### [facility] [address], [place] [address]WMS With T4fr Reflexon 58-79-4128KBS Qn2.28 m[IU]/LNormal 0.34-5.60[facility] PrebleComment on above:Performed By: #### [id number] #### [facility] [address], [place] [address]Qxt B12on 66-75-2285Dfectdloq (Vitamin B12) [Mass/Vol]511 pg/mL Yelavu81-7916AmvpciKettering Health PrebleComment on above:Performed By: #### [id number] #### [facility] [address], [place] [address]hJIHrs 51-79-5162vOWG068 mL/min/1.73 y5Ayprns>=59[facility] PrebleComment on above:Performed By: #### [id number] #### [facility] [address], [place] [address]Ndpvukbhnu Visit Summaryon 22-30-1290Kbcuawzuwz Visit Summary Ambulatory Visit Summary RAUL WINSTON :1990 Visit Date:07/18/2024 Ambulatory Visit Instructions Your [...] concerns cyclobenzaprine (cyclobenzaprine 5 mg Tab) ethinyl estradiol-etonogestrel (EluRyng 0.120 mg-0.015 mg/24 hours vaginal ring) [...] PM EST With: Matt Aguero DO Where: [facility] [address] [facility] [address] [place] [address]- Wednesday 9:00 AM EST With: Matt Aguero DO Where: [facility] [address] [facility] [address] [place] [address]- Wednesday 9:00 AM EST With: Matt Aguero DO Where: [facility] [address] [place] [address]- You Need to Schedule the Following Appointments [...] pain F/u 1 month or PRN Where: [facility] [address] [place] [address] [phone] You Need to Complete the Following CBC [...] day Musculoskeletal pain Refills: 5 Pickup at [facility] 1985 Unchanged escitalopram (escitalopram 10 mg Tab) 1 Tablets By Mouth Every day Pickup at [facility] 1985 Unchanged cyclobenzaprine (cyclobenzaprine 5 mg Tab) 1 Tablets By Mouth 2 times a day Spasm of thoracic back muscle Head ache Contact prescribing physician if questions or concerns Unchanged ethinyl estradiol-etonogestrel (EluRyng 0.120 mg-0.015 mg/ 24 hours vaginal ring) 1 EA, 0Refill(s), INSERT ONE RING VAGINALLY AND LEAVE IN [...] B Complex, Vitamin C, (more content not included)...[facility] HospitalFami Medicine Office/Clinic Noteon 25-50-7799Qnrcwv Medicine Office/Clinic NoteFami Medicine Office/Clinic Note Chief Complaint Back Pain [...] (their ) The patient is currently working; [employer]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 - Víctor Carlos named after his grandfather has been back to work nearly a month now (as of 06/09/24) List of Providers: Corporate Relations Manager - Dr. Ham - delivering at [facility] - Dr. 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 - Víctor Carlos named after his grandfather has been back to work nearly a month now (as of 06/09/24) List of Providers: Corporate Relations Manager - Dr. Ham - delivering at [facility] - Dr. Aldrich HPI staff / [...] BID, # 60 tab(s), Refills(s) 5, Pharmacy: [facility] 1985, 166, cm, 06/22/24 14:07:00 EDT, Height/Length Dosing, 64.3, kg, 06/22/24 14:04:00 EDT, Weight Dosing 3. Spasm of thoracic back muscle (M62.830: Muscle spasm of back) continue cyclobenzaprine Ordered: cyclobenzaprine, 5 mg = 1 tab(s), Oral, BID, # 60 tab(s), Refills(s) 5, [facility], 166, cm, 06/22/24 14:07:00 EDT, [...] Daily, # 90 tab(s), Refills(s) 0, [facility], 166, cm, 06/22/24 14:07:00 EDT, [...] on the above diagnos (more content not included)...Normal [facility] PrebleComment on above:Result Comment: Electronically Signed By: Matt Aguero DO\.br\Date and Time Signed: 06/27/24 08:08 EDT Ambulatory Visit Summaryon 62-75-6019Fxhmqfspoe Visit SummaryAmbulatory Visit Summary WINSTON CARTER :1990 Visit Date:06/22/2024 Ambulatory Visit Instructions Your [...] concerns escitalopram (escitalopram 10 mg Tab) ethinyl estradiol-etonogestrel (EluRyng 0.120 mg-0.015 mg/24 hours vaginal ring) multivitamin, ( Multivitamins with Vitamin B Complex, Vitamin C, Minerals and L-Methylfolate oral capsule) Procedures Performed Tonsillectomy. Discharge Vitals Heart Rate (Peripheral) 80 Blood Pressure 98/66 Height 166 cm Height 65 in Weight 64.3 kg Weight 141.46 lb BMI 23.33 What to do next Scheduled Follow-Up Appointments Wednesday 8:20 AM EDT With: Matt Aguero DO Where: [address] [place] [address]- Wednesday 3:40 PM EST With: Matt Aguero DO Where: [address] [place] [address]- Wednesday 9:00 AM EST With: Matt Aguero DO Where: [address] [place] [address]- Wednesday 9:00 AM EST With: Matt Aguero DO Where: [address] [place] [address]- You Need to Schedule the Following Appointments Follow Up with Matt Aguero DO, LOREN, PED When: Within 1 month Comments: 20 min slot increase cyclobenzaprine to 5mg twice a day you can also double your dose at bedtime if that's better for you f/u PRN Where: [address] [place] [address] [phone] Medications What How Much When Why Instructions Changed cyclobenzaprine (cyclobenzaprine 5 mg Tab) 1 Tablets By Mouth 2 times a day Spasm of thoracic back muscle Head ache Pickup at [facility] 1985 Unchanged meloxicam (meloxicam 15 mg Tab) 1 Tablets By Mouth Every day Pickup at [facility] 1985 Unchanged escitalopram (escitalopram 10 mg Tab) 1 Tablets By Mouth Every day Contact prescribing physician if questions or concerns Unchanged ethinyl estradiol-etonogestrel (EluRyng 0.120 mg-0.015 mg/ 24 hours vaginal ring) 1 EA, 0Refill(s), INSERT ONE RING VAGINALLY AND LEAVE IN [...] physician if questions or concerns Pharmacy Information [facility]: [address] [facility] [address] [place] [id number] [phone] Medications and Immunizations Administered Not Given influenza [...] you for choosing us for your care. 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 - Víctor Carlos named after his grandfather has been back to work nearly a month now (as of 06/09/24) List of Providers: Corporate Relations Manager - Dr. Ham - delivering at [facility] - [facility]. Aldrich [facility] [...] symptoms in her bilateral lower extremities [place] back to this in the future Follow-up [...] insertion of the middle scalene on rib 1on BILAT; worse on the right - treated with BLT and FPR - with objective and subjective improvement Thoracic Spine: Chronic and acute tissue texture changes of the trapezius, rhomboid BILAT; worse onthe left - treated with myofascial, BLT and FPR - with objective and subjective improvement Lumbar Spine: Lumbar paraspinal restriction on the BILAT; worse on the right - treated with myofascial, BLT and FPR - with objective and subjective improvement Sacral: SI dysfunction on the BILAT; worse on the right - treated with BLT and FPR - with objectiveand subjective improvement Lower Extremity: Psoas restriction and tenderness on the right, and fibular head dysfunction and lateral gastroc restriction bilat but WORSE on the left, ANTERIOR talus on tibia bilat WORSE on the left requiring HVLA technique - treated with BLT and (more content not included)...[facility] HospitalComment on above:Result Comment: Electronically Signed By: Matt Aguero DO\Date and Time Signed: 06/09/24 17:26 EDTXR Spine Lumbar Complete Including Bendion 76-70-0836AU Spine Lumbar Complete Including BendiExam Date/Time: 05/24/2024 11:54 EDT Reason for Exam: [...] Ka,r in mGy = na DAP = naNormalFisher [facility] Medicine Office/Clinic Noteon 96-67-6675Znrqvo Medicine Office/Clinic NoteFasturdy [facility] hospital Medicine Office/Clinic Note Chief Complaint Shoulder pain [...] (their ) The patient 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 Ham - delivering at [facility] - Dr. Aldrich HPI staff / [...] insertion of the middle scalene on rib 1on BILAT; worse on the right - treated with BLT and FPR - with objective and subjective improvement Thoracic Spine: Chronic and acute tissue texture changes of the trapezius, rhomboid BILAT; worse onthe left - treated with myofascial, BLT and FPR - with objective and subjective improvement Lumbar Spine: Lumbar paraspinal restriction on the BILAT; worse on the right - treated with myofascial, BLT and FPR - with objective and subjective improvement Sacral: SI dysfunction on the BILAT; worse on the right - treated with BLT and FPR - with objectiveand subjective improvement Lower Extremity: Psoas restriction and [...] Neck pain (M54.2) Ac (more content not included)...[facility] HospitalComment on above:Result Comment: Electronically Signed By: Matt Aguero DO\.br\Date and Time Signed: 05/05/24 17:27 EDTAmbulatory Visit Summaryon 05-02-2024 Ambulatory Visit SummaryAmbulatory Visit Summary WINSTON CARTER :1990 Visit Date:05/02/2024 Ambulatory Visit Instructions Your [...] concerns escitalopram (escitalopram 10 mg Tab) ethinyl estradiol-etonogestrel (EluRyng 0.120 mg-0.015 mg/24 hours vaginal ring) [...] With: Matt Aguero DO Where: [facility] [address] [place] [address]- Wednesday 2:00 PM EDT With: Matt Aguero DO Where: [facility] [address] [facility] [address] [place] [address]- Wednesday 9:00 AM EST With: Matt Aguero DO Where: [facility] [address] [facility] [address] [place] [address]- You Need to Schedule the Following Appointments Follow Up with Matt Aguero DO, LOREN, PED When: Within 1 month Comments: OMT PRN - 40 min slot To go instructions (for follow up): Have xray of lumbar spine done soon - you can have this done at the [facility] near [facility] on [address] the hospital will call to schedule [...] F/u 1 month or PRN Where: [address] [facility] [address] [place] [address] [phone] You Need to Complete the Following XR Spine Lumbar Complete Including Bending, 05/02/24, Routine, Order for future visit, Transport Mode: Ambulatory, Reason: Back pain, No, Low back pain, pp_set_radiology_subspecialty, [facility] Medications What How Much When Why Instructions New cyclobenzaprine (cyclobenzaprine 5 mg Tab) 1 Tablets By Mouth At bedtime Spasm of thoracic backmuscle Pickup at [facility] New meloxicam (meloxicam 7.5 mg Tab) 1 Tablets By Mouth Every day Low back pain Refills: 2 Pickup at [facility] 1985 Unchanged escitalopram (escitalopram 10 mg Tab) 1 Tablets By Mouth Every day Contact prescribing physician if questions or concerns Unchanged ethinyl estradiol-etonogestrel (EluRyng 0.120 mg-0.015 mg/ 24 hours vaginal ring) 1 EA, 0Refill(s), INSERT ONE RING VAGINALLY AND LEAVE IN [...] physician if questions or concerns Pharmacy Information [facility]: [address] [facility] [place], [place] [id number] [phone] Allergies No Known Allergies Problems Ongoing - Any problem that you are currently receiving treatment for. Anxiety Frozen shoulder Low back pain Neck pain Numbness and tingling of both feet Numbness in both hands Posture abnormality Shoulder impingement Somatic dysfunction of abdominal region Somatic dysfunction of cervical regio (more content not included)...[facility] HospitalAmbulatory Visit Summaryon 45-50-7232Tdnwzzskci Visit Summary WINTSON CARTER :1990 Visit Date:03/07/2024 Ambulatory Visit Instructions [...] With: Matt Aguero DO [facility] [address] [place] [address].br\ Wednesday 9:00 AM EST \.br\ With: Matt Aguero DO\.br\ [facility] WINSTON CAR[facility] :1990 Visit Date:03/07/2024 [...] With: Matt Aguero DO [facility] [address] [place] [address].br\ Wednesday 9:00 AM EST \.br\ With: Matt Aguero DO\.br\ Where: [facility] Medicine Office/Clinic Noteon 15-10-9900Ltvqnk Medicine Office/Clinic NoteChief Complaint Lower back and neck pain HPI [...] (their ) The 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 Ham - delivering at [facility] - [facility]. Aldrich [facility] [...] insertion of the middle scalene on rib 1on BILAT; worse on the right - treated with BLT and FPR - with objective and subjective improvement Thoracic Spine: Chronic and acute tissue texture changes of the trapezius, rhomboid BILAT; worse onthe right - treated with myofascial, BLT and [...] trunk strength, stability I (more content not included)...[facility] HospitalComment on above:Result Comment: Electronically Signed By: Matt Aguero DO\Date and Time Signed: 03/07/24 09:30 EDTNo Panel InformationOrdered By: Radiologist Radiology on 65-04-2779QYHU [facility] Work Phone: No Panel Informationon 70-76-5365Gxvzlemmx Study observation (narrative)NOMS HealthcareUS OB BPP WO NON-STRESSon 02-04-2024 [place] [address] Ultrasound Report Signed Patient: WINSTON CARTER MR#: [id number] : 1990 Acct:[id number] Age/Sex: 33 / F ADM Date: 02/04/24 Loc: US Attending Dr: Pamela Dick Ordering Physician: Pamela Dick Date of Service: 02/04/24 Procedure(s): US OB BPP wo non-stress Accession Number(s): [id number] cc: Pamela Dick; PAMELA COLVIN [address] [address] Patient Name: WINSTON CARTER MRN: [id number] date: 1990 Sex: F Assigned Patient Location: US Current Patient Location: US Accession/Order Number: [id number] Exam Date: 02/04/2024 14:22 Report Date: 02/04/2024 16:12 At the request of: PAMELA DICK Procedure: US OB BPP wo non-stress EXAMINATION: US OB BPP wo non-stress HISTORY: ABDOMINAL PAIN R10.9 COMPARISON: No relevant comparison available. TECHNIQUE: Ultrasound biophysical profile was performed in the radiology department. FINDINGS: BREATHING MOVEMENTS: 2.0 GROSS BODY MOVEMENTS: 2.0 TONE: 2.0 QUALITATIVE AMNIOTIC FLUID VOLUME: 2.0 PRESENTATION: CEPHALIC HEART RATE: 135.0 bpm H.B./min AMNIOTIC FLUID VOLUME: 14.1 cm cm GESTATIONAL AGE: 38 weeks 2 days CONCLUSION: Total biophysical profile score: 8.0 Electronically authenticated by: DOMO ARRIOLA Date: 02/04/2024 16:12 Dictated By: Domo Arriola M.D. Signed By: 02/04/241613 DD/ 11 TD/TT: Truck Driver Flatbed:Amber Isidro MD - 02/04/2024 [place] [address] Ultrasound Report Signed Patient: WINSTON CARTER MR#: [id number] : 1990 Acct:[id number] Age/Sex: 33 / F ADM Date: 02/04/24 Loc: US Attending Dr: Pamela Dick Ordering Physician: Pamela Dick Date of Service: 02/04/24 Procedure(s): US OB BPP wo non-stress Accession Number(s): [id number] cc: Pamela Dick; PAMELA COLVIN [place] [address] Patient Name: WINSTON CARTER MRN: [id number] date: 1990 Sex: F Assigned Patient Location: US Current Patient Location: US Accession/Order Number: [id number] Exam Date: 02/04/2024 14:22 Report Date: 02/04/2024 16:12 At the request of: PAMELA DICK Procedure: US OB BPP wo non-stress EXAMINATION: US OB BPP wo non-stress HISTORY: ABDOMINAL PAIN R10.9 COMPARISON: No relevant comparison available. TECHNIQUE: Ultrasound biophysical profile was performed in the radiology department. FINDINGS: BREATHING MOVEMENTS: 2.0 GROSS BODY MOVEMENTS: 2.0 TONE: 2.0 QUALITATIVE AMNIOTIC FLUID VOLUME: 2.0 PRESENTATION: CEPHALIC HEART RATE: 135.0 bpm H.B./min AMNIOTIC FLUID VOLUME: 14.1 cm cm GESTATIONAL AGE: 38 weeks 2 days CONCLUSION: Total biophysical profile score: 8.0 Electronically authenticated by: DOMO ARRIOLA Date: 02/04/2024 16:12 Dictated By: Domo Arriola M.D. Signed By: 02/04/241613 DD/ 11 TD/TT: Truck Driver Flatbed: LENY HealthcareRadiology Study observation (narrative)NOMS HealthcareUS OB BPP WO NON-STRESSOrdered By: Radiologist Radiology on 45-44-8208ZNSP [employer] Work Phone: us OB PLACENTAon [phone] [address] Ultrasound Report Signed Patient: WINSTON CRATER MR#: [id number] : 1990 Acct:[id number] Age/Sex: 33 / F ADM Date: 02/04/24 Loc: US Attending Dr: Pamela Dick Ordering Physician: Pamela Dick Date of Service: 02/04/24 Procedure(s): US OB placenta Accession Number(s): [id number] cc: Pamela Dick; PAMELA COLVIN [place] [id number] Patient Name: WINSTON CARTER MRN: [id number] date: 1990 Sex: F Assigned Patient Location: US Current Patient Location: US Accession/Order Number: [id number] Exam Date: 02/04/2024 14:22 Report Date: 02/04/2024 16:14 At the request of: PAMELA DICK Procedure: US OB placenta EXAMINATION: US OB transvaginal, US OB placenta HISTORY: ABDOMINAL PAIN R10.9 COMPARISON: No relevant comparison available. FINDINGS: position: Cephalic presentation, longitudinal lie Amniotic fluid volume: 14.1 cm, normal range 6.5 to 26.5 cm Largest fluid pocket: 6.8 cm Placenta: Anterior. No intraplacental or retroplacental echogenic abnormality. Grade 2. Heart rate: 135 beats minute Cervix: 3.2 cm, small amount of fluid identified within the endocervical canal measuring up to 2 mm. Clinical age: 38 weeks 2 days Clinical HAYLEY: 02/16/2024 US/US OB placenta IMPRESSION: No evidence of placental abruption The cervix measures 3.2 cm in length with a small fluid in the endocervical canal Electronically authenticated by: DOMO ARRIOLA Date: 02/04/2024 16:14 Dictated By: Domo Arriola M.D. Signed By: 02/04/241616 DD/ 13 TD/TT: Truck Driver Flatbed:TBHRadiology, Radiologist, - 02/04/2024 [place] [address] Ultrasound Report Signed Patient: WINSTON CARTER MR#: [id number] : 1990 Acct:[id number] Age/Sex: 33 / F ADM Date: 02/04/24 Loc: US Attending Dr: Pamela Dick Ordering Physician: Pamela Dick Date of Service: 02/04/24 Procedure(s): US OB placenta Accession Number(s): [id number] cc: Pamela Dick; PAMELA COLVIN [address] [place] [id number] Patient Name: WINSTON CARTER MRN: [id number] date: 1990 Sex: F Assigned Patient Location: US Current Patient Location: US Accession/Order Number: [id number] Exam Date: 02/04/2024 14:22 Report Date: 02/04/2024 16:14 At the request of: PAMELA DICK Procedure: US OB placenta EXAMINATION: US OB transvaginal, US OB placenta HISTORY: ABDOMINAL PAIN R10.9 COMPARISON: No relevant comparison available. FINDINGS: position: Cephalic presentation, longitudinal lie Amniotic fluid volume: 14.1 cm, normal range 6.5 to 26.5 cm Largest fluid pocket: 6.8 cm Placenta: Anterior. No intraplacental or retroplacental echogenic abnormality. Grade 2. Heart rate: 135 beats minute Cervix: 3.2 cm, small amount of fluid identified within the endocervical canal measuring up to 2 mm. Clinical age: 38 weeks 2 days Clinical HAYLEY: 02/16/2024 US/US OB placenta IMPRESSION: No evidence of placental abruption The cervix measures 3.2 cm in length with a small fluid in the endocervical canal Electronically authenticated by: DOMO ARRIOLA Date: 02/04/2024 16:14 Dictated By: Domo Arriola M.D. Signed By: 02/04/24 1617 DD/ 13 TD/TT: Truck Driver Flatbed: LENY Castelan OB TRANSVAGINALon 29-07-39[address] [address] Ultrasound Report Signed Patient: WINSTON CARTER MR#: [id number] : 1990 Acct:[id number] Age/Sex: 33 / F ADM Date: 02/04/24 Loc: US Attending Dr: Pamela Dick Ordering Physician: Pamela Dick Date of Service: 02/04/24 Procedure(s): US OB transvaginal Accession Number(s): [id number] cc: Pamela Dick; PAMELA COLVIN [place] [id number] Patient Name: WINSTON CARTER MRN: [id number] date: 1990 Sex: F Assigned Patient Location: US Current Patient Location: US Accession/Order Number: [id number] Exam Date: 02/04/2024 14:22 Report Date: 02/04/2024 16:14 At the request of: PAMELA DICK Procedure: US OB transvaginal EXAMINATION: US OB transvaginal, US OB placenta HISTORY: ABDOMINAL PAIN R10.9 COMPARISON: No relevant comparison available. FINDINGS: position: Cephalic presentation, longitudinal lie Amniotic fluid volume: 14.1 cm, normal range 6.5 to 26.5 cm Largest fluid pocket: 6.8 cm Placenta: Anterior. No intraplacental or retroplacental echogenic abnormality. Grade 2. Heart rate: 135 beats minute Cervix: 3.2 cm, small amount of fluid identified within the endocervical canal measuring up to 2 mm. Clinical age: 38 weeks 2 days Clinical HAYLEY: 02/16/2024 US/US OB transvaginal IMPRESSION: No evidence of placental abruption The cervix measures 3.2 cm in length with a small fluid in the endocervical canal Electronically authenticated by: DOMO ARRIOLA Date: 02/04/2024 16:14 Dictated By: Domo Arriola M.D. Signed By: 02/04/24 1617 DD/ 13 TD/TT: Truck Driver Flatbed:TBHRadiology, Radiologist, - 02/04/2024 The [address] [place] [address] Ultrasound Report Signed Patient: WINSTON CARTER MR#: [id number] : 1990 Acct:[id number] Age/Sex: 33 / F ADM Date: 02/04/24 Loc: US Attending Dr: Pamela Dick Ordering Physician: Pamela Dick Date of Service: 02/04/24 Procedure(s): US OB transvaginal Accession Number(s): [id number] cc: Pamela Dick; PAMELA COLVIN [place] [address] Patient Name: WINSTON CARTER MRN: [id number] date: 1990 Sex: F Assigned Patient Location: US Current Patient Location: US Accession/Order Number: [id number] Exam Date: 02/04/2024 14:22 Report Date: 02/04/2024 16:14 At the request of: PAMELA DICK Procedure: US OB transvaginal EXAMINATION: US OB transvaginal, US OB placenta HISTORY: ABDOMINAL PAIN R10.9 COMPARISON: No relevant comparison available. FINDINGS: position: Cephalic presentation, longitudinal lie Amniotic fluid volume: 14.1 cm, normal range 6.5 to 26.5 cm Largest fluid pocket: 6.8 cm Placenta: Anterior. No intraplacental or retroplacental echogenic abnormality. Grade 2. Heart rate: 135 beats minute Cervix: 3.2 cm, small amount of fluid identified within the endocervical canal measuring up to 2 mm. Clinical age: 38 weeks 2 days Clinical HAYLEY: 02/16/2024 US/US OB transvaginal IMPRESSION: No evidence of placental abruption The cervix measures 3.2 cm in length with a small fluid in the endocervical canal Electronically authenticated by: DOMO ARRIOLA Date: 02/04/2024 16:14 Dictated By: Domo Arriola M.D. Signed By: 02/04/247 DD/ 13 TD/TT: Truck Driver Flatbed: LENY HealthcareAmbulatory Visit Summaryon 97-77-1532Vjhuojcyol Visit Summary WINSTON CARTER :1990 Visit Date:01/18/2024 [...] List escitalopram (escitalopram 10 mg Tab) ethinyl estradiol-etonogestrel (ethinyl estradiol-etonogestrel 0.015 mg-0.120 mg Vag Ring) medroxyPROGESTERone (Depo-Provera) [...] AM EDT With: Matt Aguero DO Where: [facility] Medicine [facility]etInvalnc Interpretation [address] [place] [address].br\ Wednesday 2:00 PM EDT \.br\ With: Matt Aguero DO\.br\ Where: [facility] Medicine [facility] Medicine Office/Clinic Noteon 52-50-7568Kneujz Medicine Office/Clinic NoteChief Complaint F/U HPI Staff Patient here today [...] a li 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 Ham - delivering at [facility] - Dr. Aldrich [facility] [...] mins. Time spent with manipulation was over andabove the noted 30 minutes. Patient was counseled on the above diagnosis and treatment, all questions were answered and patientagrees to adhere to the plan abov (more content not included)...[facility] HospitalComment on above:Result Comment: Electronically Signed By: Matt Aguero DO\Date and Time Signed: 01/18/24 11:38 EDTUS OB GROWTHon 29-49[place], [place] [address] Ultrasound Report Signed Patient: WINSTON CARTER MR#: [id number] : 1990 Acct:[id number] Age/Sex: 33 / F ADM Date: 01/11/24 Loc: [facility] Attending Dr: Pamela Dick Ordering Physician: Pamela Dick Date of Service: 01/11/24 Procedure(s): US OB growth Accession Number(s): [id number] cc: Pamela Dick; PAMELA COLVIN [place] [address] Patient Name: WINSTON CARTER MRN: [facility]:[id number] date: 1990 Sex: F Assigned Patient [facility] Current Patient Location: [facility] Accession/Order Number: [id number] Exam Date: 01/11/2024 08:36 Report Date: 01/11/2024 10:10 At the request of: PAMELA DICK Procedure: US OB growth EXAMINATION: US OB growth HISTORY: SIZE INCONSISTENT WITH DATES COMPARISON: No relevant comparison available. FINDINGS: Heart Rate: 158.0 bpm Amniotic Fluid Volume: 14.1 cm Number: 1.0 Position: cephalic presentation, longitudinal lie Maximum Vertical Pocket: 4.2 cm cm 4.1 cm cm 3.2 cm cm 2.6 cm cm BIOMETRY: BPD: 8.3 cm cm; 33 weeks 3 days; 15% HC: 31.7 cmcm; 35 weeks 4 days , 34% AC: 30.1 cm cm; 34 weeks 0 days, 33% FL: 6.7 cm cm; 34 weeks 2 days; 28.2 % % EFW: 2381.9 grams, 5 lb 4 oz, 29% FL/AC: 22.2 FL/BPD: 80.3 HC/AC: 1.1 GESTATIONAL AGE: Age by EDC: 34 weeks 6 days HAYLEY by EDC: 02/16/24 Age by US: 34 weeks, 2 days HAYLEY by US: US/US OB growth IMPRESSION: Normal interval growth Electronically authenticated by: DOMO ARRIOLA Date: 01/11/2024 10:10 Dictated By: Domo Arriola M.D. Signed By: 01/11/24 1013 DD/ 1010 TD/TT: Truck Driver Flatbed:TBHRadiology, Radiologist, - 01/11/[address] [address] Ultrasound Report Signed Patient: WINSTON CARTER MR#: [id number] : 1990 Acct:[id number] Age/Sex: 33 / F ADM Date: 01/11/24 Loc: [facility] Attending Dr: Pamela Dick Ordering Physician: Pamela Dick Date of Service: 01/11/24 Procedure(s): US OB growth Accession Number(s): [id number] cc: Pamela Dick; PAMELA COLVIN [place] [id number] Patient Name: WINSTON CARTER MRN: [id number] date: 1990 Sex: F Assigned Patient Location: [facility] Current Patient Location: [facility] Accession/Order Number: [id number] Exam Date: 01/11/2024 08:36 Report Date: 01/11/2024 10:10 At the request of: PAMELA DICK Procedure: US OB growth EXAMINATION: US OB growth HISTORY: SIZE INCONSISTENT WITH DATES COMPARISON: No relevant comparison available. FINDINGS: Heart Rate: 158.0 bpm Amniotic Fluid Volume: 14.1 cm Number: 1.0 Position: cephalic presentation, longitudinal lie Maximum Vertical Pocket: 4.2 cm cm 4.1 cm cm 3.2 cm cm 2.6 cm cm BIOMETRY: BPD: 8.3 cm cm; 33 weeks 3 days; 15% HC: 31.7 cmcm; 35 weeks 4 days , 34% AC: 30.1 cm cm; 34 weeks 0 days, 33% FL: 6.7 cm cm; 34 weeks 2 days; 28.2 % % EFW: 2381.9 grams, 5 lb 4 oz, 29% FL/AC: 22.2 FL/BPD: 80.3 HC/AC: 1.1 GESTATIONAL AGE: Age by EDC: 34 weeks 6 days HAYLEY by EDC: 02/16/24 Age by US: 34 weeks, 2 days HAYLEY by US: US/US OB growth IMPRESSION: Normal interval growth Electronically authenticated by: DOMO ARRIOLA Date: 01/11/2024 10:10 Dictated By: Domo Arriola M.D. Signed By: 01/11/24 1013 DD/ 1010 TD/TT: Truck Driver Flatbed: LENY HealthcareRadiology Study observation (narrative)LENY KirklandUS OB GROWTHOrdered By: Radiologist Radiology on 02-46-4359UHVB [facility] Work Phone: ambulatory Visit Summaryon 30-02-7992Zukfzvbrya Visit Summary WINSTON CARTER :1990 Visit Date:12/28/2023 [...] List escitalopram (escitalopram 10 mg Tab) ethinyl estradiol-etonogestrel (ethinyl estradiol-etonogestrel 0.015 mg-0.120 mg Vag Ring) medroxyPROGESTERone (Depo-Provera) [...] AM EDT With: Matt Aguero DO Where: [facility] Medicine WellfleetInvalid Interpretation [address] [place] [address].br\ Wednesday 9:00 AM EST \.br\ With: Matt Augero DO\.br\ Where: [facility] Medicine [facility] Medicine Office/Clinic Noteon 47-35-1204Fnucjw Medicine Office/Clinic NoteChief Complaint F/U OMT HPI Staff Patient here [...] a li 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 Ham - delivering at [facility] - Dr. Aldrich [facility] [...] insertion of the middle scalene on rib 1on BILAT; worse on the left - treated with BLT and FPR - with objective and subjective improvement Thoracic Spine: Chronic and acute tissue texture changes of the trapezius, rhomboid BILAT; worse onthe right - treated with myofascial, BLT and [...] muscles of the cervical spine and can contributeto headaches as well Work on postural exercises [...] 3-4 weeks for ad (more content not included)...Normal [facility] PrebleComment on above:Result Comment: Electronically Signed By: Matt Aguero DO\Date and Time Signed: 12/28/23 17:22 EDT Patient Educationon 93-15-4839Rvdglxg EducationOrthopedics Temporomandibular Joint Syndrome Temporomandibular joint syndrome (TMJ [...] of the head in the area of theTMJ. Other symptoms may include: ? Pain when [...] not chew gum. General instructions ? Take tcjx-wse-dwtqvgd and prescription medicines only as told by [...] Where to find more information ? National [place] of [employer] and [employer]iofacial Research: www.nidcr.nih.gov Contact [...] the area of the TMJ, pain when chewingor biting, and being unable to open your jaw all the way. You may also make a clicking sound when you open your mouth. ? TMJ syndrome often goes away on its own. If treatment is needed, it may include medicines to relieve pain, reduce inflammation, or relax the muscles. A splint, bite plate, or mouthpiece may also beused to prevent teeth grinding or jaw clenching. This information is not intended to replace advice given to you by your health care provider. Make sure you discuss any questions you have with your health care provider. Document Revised: 05/03/2022 Document Reviewed: 05/03/2022 [employer] Patient Education ? 2022 [employer].[facility] Transfer Inon 53-95-4066Fnldxeyx In [id number]#1.00TIFFNoWadsworth-Rittman HospitalALL CBC WITH AUTO DIFFon 79-63-1847IHJIITLPB ABSOLUTE AUTO0.0NOND HealthcareBasophils/100 WBC (Bld)0.3 %0.2 - 2.0 %NOMS HealthcareEosinophils/100 WBC (Bld)0.8 %Low0.9 - 7.0 %NOMS HealthcareErythrocyte distribution width (RBC) [Ratio]12.6 %11.0 - 15.0 %NOMS HealthcareHematocrit (Bld) [Volume fraction]32.0 %Low36.0 - 48.0 %NOM HealthcareHemoglobin (Bld) [Mass/Vol]10.6 g/dLLow12.0 - 16.0 g/dLNOThe Rehabilitation InstituteIMMATURE GRANULOCYTES ABS AUTO0.04HighNOND Healthcare Immature granulocytes/100 WBC (Bld)0.4 %0.0 - 0.5 %NOM HealthcareInterpretation and review of laboratory resultsAbnormalNOND HealthcareLYMPHOCYTES ABSOLUTE AUTO1.6NOMS HealthcareLymphocytes/100 WBC (Bld)14.7 %Low20.5 - 60.0 %NOMS [facility] LimaMCH (RBC) [Entitic mass]30.7 pg26.7 - 34.0 pgNOBarnes-Jewish HospitalHC (RBC) [Mass/Vol]33.1 g/dL29.9 - 35.2 g/dLNOThe Rehabilitation InstituteMCV (RBC) [Entitic vol]92.8 fL 81.0 - 99.0 fLNOND HealthcareMONOCYTES ABSOLUTE AUTO0.5NOThe Rehabilitation Institute Monocytes/100 WBC (Bld)4.4 %1.7 - 12.0 %NOMS HealthcareNEUTROPHILS ABSOLUTE AUTO 8.5HighNOMS HealthcareNeutrophils/100 WBC (Bld)79.4 %High43.0 - 75.0 %NOMS HealthcarePlatelet mean volume (Bld) [Entitic vol]11.4 fL9.5 - 13.5 fLNOMS HealthcareTBH EO #0.1NOMS HealthcareTBH OYF133LKUR HealthcareTBH RBC3.45LowNOMS HealthcareTBH WBC10.7NOMS HealthcareCLINISYNCNOMS HealthcareUrinalysis macro (dipstick) panel (U)Ordered By: Melvina Tong on 96-83-0255Hjlnchdnw, UA NegativeNegative - 4(70) +++ mg/dLNOMS Healthcare Work Phone: Blood, UANegativeNegative - 50 Joel/mcLNOMS Healthcare Work Phone: Clarity, UAClearNOMS Healthcare Work Phone: Color, UAYellowNOMS Healthcare Work Phone: Glucose, UAPositiveNegative - 2000(110) ++++ mg/dLNOMS Healthcare Work Phone: Interpretation and review of laboratory results AbnormalNOMS Healthcare Work Phone: Ketones, UANegativeNegative - 160(16) ++++ mg/dLNOMS Healthcare Work Phone: Leukocytes, UANegativeNegative - 500+++ Shar/mcLNOMS Healthcare Work Phone: Nitrite, UANegativeNegative - PositiveNOMS Healthcare Work Phone: [phone], UA6.55 - 9[facility] Work Phone: Protein, UANegativeNegative - 2000(20) ++++ mg/dLNOMS Healthcare Work Phone: Spec Grav, UA1.0101 - 1.03[facility] Work Phone: Urobilinogen, UA1.00.2 - 12 mg/dLNOMS Healthcare Work Phone: [facility] Work Phone: no Panel InformationOrdered By: Radiologist Radiology on 79-50-6290[facility] Work Phone: no Panel Informationon 91-02-0265Ghqzpqxwd Study observation (narrative)LENY KirklandUS OB ANATOMYon 03-98-3149[place], [place] [address] Ultrasound Report Signed Patient: WINSTON CARTER MR#: [id number] : 1990 Acct:[id number] Age/Sex: 33 / F ADM Date: 10/11/23 Loc: US Attending Dr: Pablito Ham D.O. Ordering Physician: Pablito Ham D.O. Date of Service: 10/11/23 Procedure(s): US OB anatomy Accession Number(s): [id number] cc: PAMELA COLVIN ; Pablito Ham D.O. The [address] [address] Patient Name: WINSTON CARTER MRN: [id number]:[id number] date: 1990 Sex: F Assigned Patient Location: US Current Patient Location: US Accession/Order Number: [id number] Exam Date: 10/11/2023 14:01 Report Date: 10/11/2023 15:36 At the request of: PABLITO HAM Procedure: US OB anatomy EXAMINATION: US OB anatomy, US OB cervical length HISTORY: ANATOMY COMPARISON: No relevant comparison available. TECHNIQUE: Transabdominal sonographic examination was performed for obstetrical and evaluation. FINDINGS: Number: 1 Heart Rate: 130.0 bpm H.B. /min Amniotic Fluid Volume: Subjectively normal position: Breech presentation, longitudinal lie Placental Location: ANTERIOR, the placental edge is 5.0 cm from the internal os Cervix Length: 4 cm , closed Normal anatomy: Lateral ventricles, cerebellum, posterior fossa, nose, lips, orbits, four-chamber heart, RVOT, LVOT, diaphragm, stomach, kidneys, abdominal cord insertion, bladder, umbilical cord arteries, three-vessel cord, spine, extremities BIOMETRY: BPD: 5.1 cm 21 weeks 2 days , 31% HC: 19.9 cm 22 weeks 0 days, 53% AC: 16.4 cm 21 weeks 3 days, 34% FL: 3.7 cm 21 weeks 5 days , 38% EFW:435.7 grams; 15 ounces, 38% FL/AC: 22.4 FL/BPD: 72.7 HC/AC: 1.2 GESTATIONAL AGE: Age by EDC: 21 weeks 5 days Age by current US: 21 weeks 4 days HAYLEY by current US: 02/17/2024 HAYLEY by EDC: 02/16/2024 US/US OB anatomy IMPRESSION: Normal anatomy scan Closed cervix measuring 4.0 cm in length *Reference: AIUM Practice Guideline for the performance of Obstetric Ultrasound Examinations, July 04, 2007. Electronically authenticated by: DOMO ARRIOLA Date: 10/11/2023 15:36 Dictated By: Domo Arriola M.D. Signed By: 10/11/23 1539 DD/ 1536 TD/TT: Truck Driver Flatbed:TBHRadiology, Radiologist, - 10/12/2023 [place] [address] Ultrasound Report Signed Patient: WINSTON CARTER MR#: [id number] : 1990 Acct:[id number] Age/Sex: 33 / F ADM Date: 10/11/23 Loc: US Attending Dr: Pablito Ham D.O. Ordering Physician: Pablito Ham D.O. Date of Service: 10/11/23 Procedure(s): US OB anatomy Accession Number(s): [id number] cc: PAMELA COLVIN ; Pablito Ham D.O. The [place] [address] Patient Name: WINSTON CARTER MRN: [id number] date: 1990 Sex: F Assigned Patient Location: US Current Patient Location: US Accession/Order Number: [id number] Exam Date: 10/11/2023 14:01 Report Date: 10/11/2023 15:36 At the request of: PABLITO HAM Procedure: US OB anatomy EXAMINATION: US OB anatomy, US OB cervical length HISTORY: ANATOMY COMPARISON: No relevant comparison available. TECHNIQUE: Transabdominal sonographic examination was performed for obstetrical and evaluation. FINDINGS: Number: 1 Heart Rate: 130.0 bpm H.B. /min Amniotic Fluid Volume: Subjectively normal position: Breech presentation, longitudinal lie Placental Location: ANTERIOR, the placental edge is 5.0 cm from the internal os Cervix Length: 4 cm , closed Normal anatomy: Lateral ventricles, cerebellum, posterior fossa, nose, lips, orbits, four-chamber heart, RVOT, LVOT, diaphragm, stomach, kidneys, abdominal cord insertion, bladder, umbilical cord arteries, three-vessel cord, spine, extremities BIOMETRY: BPD: 5.1 cm 21 weeks 2 days , 31% HC: 19.9 cm 22 weeks 0 days, 53% AC: 16.4 cm 21 weeks 3 days, 34% FL: 3.7 cm 21 weeks 5 days , 38% EFW:435.7 grams; 15 ounces, 38% FL/AC: 22.4 FL/BPD: 72.7 HC/AC: 1.2 GESTATIONAL AGE: Age by EDC: 21 weeks 5 days Age by current US: 21 weeks 4 days HAYLEY by current US: 02/17/2024 HAYLEY by EDC: 02/16/2024 US/US OB anatomy IMPRESSION: Normal anatomy scan Closed cervix measuring 4.0 cm in length *Reference: AIUM Practice Guideline for the performance of Obstetric Ultrasound Examinations, July 04, 2007. Electronically authenticated by: DOMO ARRIOLA Date: 10/11/2023 15:36 Dictated By: Domo Arriola M.D. Signed By: 10/11/23 1539 DD/ 1536 TD/TT: Truck Driver Flatbed: LENY Castelan OB CERVICAL LENGTHon 07-46-0754[place]Ann[place], [place] [address] Ultrasound Report Signed Patient: WINSTON CARTER MR#: [id number] : 1990 Acct:[id number] Age/Sex: 33 / F ADM Date: 10/11/23 Loc: US Attending Dr: Pablito Ham D.O. Ordering Physician: Pablito Ham D.O. Date of Service: 10/11/23 Procedure(s): US OB cervical length Accession Number(s): [id number] cc: PAMELA COLVIN ; Pablito Ham D.O. [place] [id number] Patient Name: WINSTON CARTER MRN: [id number]:[id number] date: 1990 Sex: F Assigned Patient Location: US Current Patient Location: US Accession/Order Number: [id number] Exam Date: 10/11/2023 14:01 Report Date: 10/11/2023 15:36 At the request of: PABLITO HAM Procedure: US OB cervical length EXAMINATION: US OB anatomy, US OB cervical length HISTORY: ANATOMY COMPARISON: No relevant comparison available. TECHNIQUE: Transabdominal sonographic examination was performed for obstetrical and evaluation. FINDINGS: Number: 1 Heart Rate: 130.0 bpm H.B. /min Amniotic Fluid Volume: Subjectively normal position: Breech presentation, longitudinal lie Placental Location: ANTERIOR, the placental edge is 5.0 cm from the internal os Cervix Length: 4 cm , closed Normal anatomy: Lateral ventricles, cerebellum, posterior fossa, nose, lips, orbits, four-chamber heart, RVOT, LVOT, diaphragm, stomach, kidneys, abdominal cord insertion, bladder, umbilical cord arteries, three-vessel cord, spine, extremities BIOMETRY: BPD: 5.1 cm 21 weeks 2 days , 31% HC: 19.9 cm 22 weeks 0 days, 53% AC: 16.4 cm 21 weeks 3 days, 34% FL: 3.7 cm 21 weeks 5 days , 38% EFW:435.7 grams; 15 ounces, 38% FL/AC: 22.4 FL/BPD: 72.7 HC/AC: 1.2 GESTATIONAL AGE: Age by EDC: 21 weeks 5 days Age by current US: 21 weeks 4 days HAYLEY by current US: 02/17/2024 HAYLEY by EDC: 02/16/2024 US/US OB cervical length IMPRESSION: Normal anatomy scan Closed cervix measuring 4.0 cm in length *Reference: AIUM Practice Guideline for the performance of Obstetric Ultrasound Examinations, July 04, 2007. Electronically authenticated by: DOMO ARRIOLA Date: 10/11/2023 15:36 Dictated By: Domo Arriola M.D. Signed By: 10/11/23 1539 DD/ 1536 TD/TT: Truck Driver Flatbed:VALHRadiology, Radiologist, - 10/12/2023 [place] [address] Ultrasound Report Signed Patient: WINSTON CARTER MR#: [id number] : 1990 Acct:[id number] Age/Sex: 33 / F ADM Date: 10/11/23 Loc: US Attending Dr: Pablito Ham D.O. Ordering Physician: Pablito Ham D.O. Date of Service: 10/11/23 Procedure(s): US OB cervical length Accession Number(s): [id number] cc: PAMELA COLVIN ; Pablito Ham D.O. The [place] [address] Patient Name: WINSTON CARTER MRN: [facility]:[id number] date: 1990 Sex: F Assigned Patient Location: Current Patient Location: US Accession/Order Number: [id number] Exam Date: 10/11/2023 14:01 Report Date: 10/11/2023 15:36 At the request of: PABLITO HAM Procedure: US OB cervical length EXAMINATION: US OB anatomy, US OB cervical length HISTORY: ANATOMY COMPARISON: No relevant comparison available. TECHNIQUE: Transabdominal sonographic examination was performed for obstetrical and evaluation. FINDINGS: Number: 1 Heart Rate: 130.0 bpm H.B. /min Amniotic Fluid Volume: Subjectively normal position: Breech presentation, longitudinal lie Placental Location: ANTERIOR, the placental edge is 5.0 cm from the internal os Cervix Length: 4 cm , closed Normal anatomy: Lateral ventricles, cerebellum, posterior fossa, nose, lips, orbits, four-chamber heart, RVOT, LVOT, diaphragm, stomach, kidneys, abdominal cord insertion, bladder, umbilical cord arteries, three-vessel cord, spine, extremities BIOMETRY: BPD: 5.1 cm 21 weeks 2 days , 31% HC: 19.9 cm 22 weeks 0 days, 53% AC: 16.4 cm 21 weeks 3 days, 34% FL: 3.7 cm 21 weeks 5 days , 38% EFW:435.7 grams; 15 ounces, 38% FL/AC: 22.4 FL/BPD: 72.7 HC/AC: 1.2 GESTATIONAL AGE: Age by EDC: 21 weeks 5 days Age by current US: 21 weeks 4 days HAYLEY by current US: 02/17/2024 HAYLEY by EDC: 02/16/2024 US/US OB cervical length IMPRESSION: Normal anatomy scan Closed cervix measuring 4.0 cm in length *Reference: AIUM Practice Guideline for the performance of Obstetric Ultrasound Examinations, July 04, 2007. Electronically authenticated by: DOMO ARRIOLA Date: 10/11/2023 15:36 Dictated By: Domo Arriola M.D. Signed By: 10/11/231538 DD/ 35 TD/TT: Truck Driver Flatbed: LENY [facility] Vital Signs Date TimeVital SignValuePerforming VkfkffywvSvkcacic42-72-7067 09:09-0500Blood [facility]Rob[facility] 11-29-2024 09:09-0500Diastolic blood mm[Hg][facility]02-26-2025 09:09-0500Heart polv053 /min [facility]02-26-2025 09:09-7608NfD1% (BldA) [Mass fraction]98 %[facility]02-26-2025 09:09-0500Systolic blood mm[Hg][facility]01-22-2025 14:14-0500Body .68 kgCorey Jitendra DO Work Phone: [facility] HospitalIyaqlxxide90-35-0457 14:14-0500Diastolic blood wyrfahij82 mm[Hg]Pablito Jitendra DO Work Phone: [facility] HospitalOwzukftknk33-70-9360 14:14-0500Systolic blood eouxmjyu072 mm[Hg]Pablito Jitendra DO Work Phone: [facility] HospitalFtlrfrsqra06-31-7082 13:49-0500Blood Pressure LocationK[facility] 09-15-2024 13:49-0500Diastolic blood ompkafkp96 mm[Hg][facility]12-13-2024 13:49-0500Heart rate83 /min [facility]12-13-2024 13:49-9008CdH8% (BldA) [Mass fraction]100 %[facility]12-13-2024 13:49-0500Systolic blood dveyejif153 mm[Hg][facility]11-19-2024 16:27-0500Blood Pressure LocationK[facility]11-19-2024 16:27-0500Diastolic blood nytnknyk92 mm[Hg] [facility]11-19-2024 16:27-0500Heart rate97 /minK[facility]11-19-2024 16:27-7113LeP5% (BldA) [Mass fraction]98 %[facility]11-19-2024 16:27-0500 Systolic blood vddmqepz010 mm[Hg][facility]10-15-2024 08:29-0400Blood [facility]-15-2024 08:29-0400Diastolic blood bbfytcns83 mm[Hg][facility]10-15-2024 08:29-0400Heart rate84 /minK[facility]10-15-2024 08:29-0504HbB4% (BldA) [Mass fraction]99 %[facility]10-15-2024 08:29-0400Systolic blood kcsmzrot22 mm[Hg][facility]09-19-2024 14:03-0400Blood Pressure LocationK[facility]09-19-2024 14:03-0400 Diastolic blood pzokfaqf17 mm[Hg][facility]09-19-2024 14:03-0400Heart rate80 /min[facility]09-19-2024 14:03-2185GuS5% (BldA) [Mass fraction]97 %[facility]09-19-2024 14:03-0400Systolic blood atjricyo12 mm[Hg][facility]09-06-2024 14:14Blood Pressure LocationK[facility] 06-09-2024 14:14040Diastolic blood kgbaqigv23 mm[Hg][facility]09-06-2024 14:140400Heart rate87 /min [facility]09-06-2024 14:0400Respiratory rate15 /min[facility]09-06-2024 14:147441UhX4% (BldA) [Mass fraction]99 %[facility]09-06-2024 14:140400 Systolic blood vzhlivfd703 mm[Hg][facility]07-30-2024 14:0400Blood [facility] Gqivv56-14-7071 14:0400Diastolic blood mm[Hg][facility]07-30-2024 14:0400Heart rate74 /[facility] Djwrr87-25-7224 14:26-8918HbU5% (BldA) [Mass fraction]99 %[facility] Ysphb72-23-8339 14:26-0400Systolic blood ktgoyddn03 mm[Hg][facility] Izadc54-93-6068 08:26-0400Blood Pressure LocationT[facility] Jduxx99-69-1305 08:26-0400 Diastolic blood tvpeinkk45 mm[Hg][facility] Mwwvh73-24-9353 08:26-0400Heart rate83 /[facility] Fjjzu24-51-8763 08:26-6745QpE1% (BldA) [Mass fraction]99 %[facility] Yacih03-30-2479 08:26-0400Systolic blood kjvvvbaa954 mm[Hg][facility] Wmvwu09-28-8415 10:35-0400Blood Pressure LocationT[facility] 01-18-2024 10:35-0400Diastolic blood bvvehwgv92 mm[Hg][facility] Pyqwu74-60-9447 10:35-0400Heart rate90 /min [facility] Ovtjw92-42-5450 10:35-6950ZwB2% (BldA) [Mass fraction]98 %[facility] Iaxnz12-41-2993 10:35-0400Systolic blood wvoxjnhy02 mm[Hg][facility] Kfiss24-15-5497 16:29-0400Blood Pressure LocationT[facility] Ypglo47-88-7740 16:29-0400Diastolic blood wtssqoon00 mm[Hg] [facility] Yzqwj27-03-5566 16:29-0400Heart rate89 /minRobK[facility]tering [facility] Hospital03-26-2024 16:29-6387BoQ7% (BldA) [Mass fraction]99 %[facility]03-26-2024 16:29-0400 Systolic blood ltpmoxrv70 mm[Hg][facility]02-23-2024 08:52-0500Blood Pressure Location[facility]02-23-2024 08:52-0500Diastolic blood adxixhgi14 mm[Hg][facility] 11-26-2023 08:52-0500Heart rate96 /minK[facility]02-23-2024 08:52-9278JlF7% (BldA) [Mass fraction]99 %[facility]02-23-2024 08:52-0500 Systolic blood mm[Hg][facility]02-07-2024 16:00-0500Body izusdg50.86 kgPamela PARDO Work Phone: [facility] HospitalPjiibydamo84-73-1534 16:00-0500Diastolic blood ukrqccsv54 mm[Hg]Pamela PARDO Work Phone: [facility] HospitalZxlxxlascx15-28-8009 16:00-0500Systolic blood mm[Hg]Pamela PARDO Work Phone: [facility] Encounters Encounter DateEncounter TypeCare ProviderFacilselect medical specialty hospital - [facility]stownStart: 11-29-2024 End: 51-32-7129ucicbkuuxhEfthgp J CromleyFacility: [place]Start: 11-29-2024 End: 89-56-9870Nzxagam encounter procedureRobmaryanne Cueva [facility] Start: 11-29-2024 End: 01-54-1605Mnru adult monitoring check doneRobmaryanne Cueva [facility] Start: 10-25-2024 End: 48-82-9821Pcdjth flowsheetCorey Jitendra DO Work Phone: [facility] BCP OBStart: 10-25-2024 End: 48-13-1089Adodna flowsheetCorey Jitendra DO Work Phone: [facility] BCP OBStart: 10-25-2024 End: 86-50-6425Rabkpnayh Result EncounterCorey Jitendra DO Work Phone: [facility] External Department UnsolicitedStart: 10-25-2024 End: 95-40-4699Hghkpgj encounter procedureCorey Jitendra DO Work Phone: noms HealthcareStart: 10-25-2024 End: 81-77-8243Uomtdhrr preventive med est patient 18-39 yrsCorey Jitendra DO Work Phone: [facility] OBComment on above:Well woman exam with routine gynecological exam; Insulin resistanceStart: 10-25-2024 End: 69-20-4424ewqqbtqodwMWEZG FAZIONot AvailableStart: 16-51-7038zvxcvxryjx Matt AgueroFacility:[facility]: 09-15-2024 End: 38-04-1740mzygaxpigyUbfdte J CromleyFacility:[facility]: 09-15-2024 End: 35-16-7436Ouhfreq encounter procedureRobmaryanne Cueva [facility] Start: 08-22-2024 End: 60-58-0361shqpnoketrOxtjms J CromleyFacility:[facility]: 08-22-2024 End: 21-44-4992Hxdpcld encounter procedureMatt Cueva [facility] Start: 08-09-2024 End: 28-25-1292Wke Drop offRobmaryanne Cueva [facility] Start: 08-09-2024 End: 14-60-4690fhtupksnibYvcloh J CromleyFacility:FTMCStart: 08-09-2024 End: 15-41-4231Qlontvf encounter Mily Rodríguez 334-1037Phcsnh-[facility]tbzjW[facility] Start: 07-18-2024 End: 79-82-3564ooljdhghwtJzswmq J CromleyFacility:[facility]Start: 07-18-2024 End: 16-69-1625Phrriib encounter procedureRobert J [facility] Start: 47-45-8691kptwrqdpbgEtjmgn J CromleyFacility:[facility]art: 06-22-2024 End: 16-06-9926gybzixknprWkcihy J CromleyFacility:[facility] [place]art: 06-22-2024 End: 99-72-2744Fhbejat encounter procedureRobert J [facility] Start: 06-12-2024 End: 52-99-5725heolryukqmDwzyfc J CromleyFacility:FTMCStart: 06-12-2024 End: 02-30-1349Wtrmiky encounter procedureRobert J [facility] Start: 06-09-2024 End: 44-07-5705nhxzulchveJhedxn J CromleyFacility:[facility] CenterStart: 06-09-2024 End: 06-43-8477Sgromlt encounter procedureRobert J [facility] Start: 28-36-9860gwcjkhymjyLtysho J CromleyFacility:[facility] CenterStart: 05-24-2024 End: 32-09-8939oibdbnbmeqHtnjjr J CromleyFacility:FTMCStart: 05-24-2024 End: 82-21-5991Suhzfio encounter procedureRobert J [facility] Start: 05-02-2024 End: 92-94-3731ewgekpnypqGfoqgd J CromleyFacility:[facility] CenterStart: 05-02-2024 End: 33-14-0166Wlnlzpd encounter procedureRobert J [facility] Start: 03-28-2024 End: 09-98-5617jnvjeutxhmKrcjte J CromleyFacility:[facility] CenterStart: 03-28-2024 End: 82-36-8403Obecteq encounter procedureRobert J [facility] Start: 03-27-2024 End: 16-20-5709pxizvbgnkeFYLNB FAZIONot AvailableStart: 03-07-2024 End: 93-87-7742inctshiifdJnzysl J CromleyFacility:[facility] CenterStart: 03-07-2024 End: 41-95-1794Hnyafky encounter procedureRobert J [facility] Start: 02-07-2024 End: 15-77-4415cxklsyddstEMQUD FAZIONot AvailableStart: 02-04-2024 End: 92-00-2086Fdlkhohhp Result EncounterPamela PARDO Work Phone: [facility] External Department UnsolicitedStart: 02-04-2024 End: 05-67-7076Grkgwyrlu Result EncounterPamela PARDO Work Phone: n[facility] External Department UnsolicitedStart: 02-03-2024 End: 45-07-3840avyxdygtcgUMY RAMEYNot AvailableStart: 02-01-2024 End: 49-84-7014uvsoubbenrRIJES FAZIONot AvailableStart: 01-27-2024 End: 34-83-3916ahavsfchvlWFG RAMEYNot AvailableStart: 01-20-2024 End: 98-78-2591pejrhzwjqyMCWHH FAZIONot AvailableStart: 01-18-2024 End: 05-06-0237whnfkgzonnFxpbld J CromleyFacility: [place]Start: 01-18-2024 End: 78-71-5875Ycqwnyg encounter procedureRobert J [facility] Start: 01-11-2024 End: 50-82-6234Lqnkvtnkd Result EncounterPamela PARDO Work Phone: NOHQ External Department UnsolicitedStart: 01-11-2024 End: 56-39-8553Sgvjcaqbc Result EncounterPamela PARDO Work Phone: noms External Department UnsolicitedStart: 01-05-2024 End: 28-38-6532nyvricetgqNWMAN FAZIONot AvailableStart: 12-28-2023 End: 82-69-1640fmgnplyureNcsoax J CromleyFacility:[facility] CenterStart: 12-28-2023 End: 47-95-3667Uwpodot encounter procedureRobert J [facility] Start: 12-22-2023 End: 31-18-3561mgtdoadzlnTVLJK FAZIONot AvailableStart: 12-09-2023 End: 20-98-5259fwdopbdvmsMHB RAMEYNot AvailableStart: 11-26-2023 End: 69-39-6950Ygjwqgb encounter procedureRobert J [facility] Start: 11-24-2023 End: 34-75-5088rugzhjtoegDTLNE FAZIONot AvailableStart: 11-10-2023 End: 36-92-4078Gdrdfity flow sheetPamela PARDO Work Phone: [facility] BCP OBComment on above:Second trimester Start: 11-10-2023 End: 83-31-0565onbchigfnjQQI RAMHeath AvailableStart: 01-85-3491Tvcxpk flowsheet Pamela PARDO Work Phone: [facility] BCP OBStart: 08-40-4663Rzwkhv flowsheetPamela PARDO Work Phone: [facility] BCP OBStart: 19-64-1504Dwkrdyldh Result Encounter Pablito Jitendra DO Work Phone: [facility] External Department UnsolicitedStart: 10-11-2023 End: 78-27-7867Xkubxuvop Result EncounterCorey Jitendra DO Work Phone: [facility] External Department UnsolicitedStart: 10-11-2023 End: 18-98-2573Jbdsyfysa Result EncounterCorey Jitendra DO Work Phone: NOJE External Department UnsolicitedStart: 06-24-2022 End: 94-70-3754Eocrwyc encounter Osmin Elizabeth Piersone [facility] Procedures DateProcedureProcedure DetailPerforming ClinicianStart: 61-55-0486OMU,APTIMA HPV,AGE GDLNCorey Jitendra DO Work Phone: Start: 82-13-1543AQ OB PLACENTAPamela PARDO Work Phone: Start: 65-23-5154BG OB TRANSVAGINALAmy Kapil PARDO Work Phone: Start: 80-80-5342ZC OB BPP WO NON-STRESSAmy Kapil PARDO Work Phone: Start: 71-98-8733DV OB GROWTHAmy Kapil PARDO Work Phone: Start: 56-45-5939Rncva dip stick/tablet rgnt non-auto w/o micrscpAmy Kapil PARDO Work Phone: Start: 17-75-5011IGZ CBC WITH AUTO DIFFCorey Jitendra DO Work Phone: Start: 86-35-7657NP OB ANATOMYCorey Jitendra DO Work Phone: Start: 87-21-3418GC OB CERVICAL LENGTHCorey Jitendra DO Work Phone: TonsillectomyRobert More Plan of Treatment DateCare ActivityDetailAuthorStart: 10-25-2024 End: 11-27-2836Uzedrzt encounter dlqvrwyhk39/22/2025 2:00 PM EST Office Visit [facility] OB [address] [place] [phone] Pablito Ham, DO [address] [place], [place] [id number] ArrivedST. [facility] OBComment on above:ArrivedStart: 11-24-2023 End: 66-06-9207Tymujat encounter avtsvfozs03/21/2024 10:50 AM EST Routine [facility] [address] [place] [phone] Pablito Ham, DO [address] [place] [address] [address] [place] [address] [facility] BCP OBStart: 11-10-2023 End: 51-09-5534Ootcnij encounter licejyvco20/07/2024 3:40 PM EST Routine [facility] [address] [place] [phone] Pamela Dick PA [address] [place] [address] Second trimester pregnancyNOEL [facility] Comment on above:Second trimester pregnancyCytology Cervical or vaginal smear or scraping studyPap Smear Pathology and Cytology Routine Well woman exam with routine gynecological exam Ordered: 10/25/2024[facility] Work Phone: comment on above:Ordered: 10/25/2024Human papilloma virus DNA [Presence] in Unspecified specimen by Probe with amplificationHPV DNA probe, amplified Microbiology Routine Well woman exam with routine gynecological exam Ordered: 10/25/2024[facility] HealthcareComment on above:Ordered: 10/25/2024 Immunizations Immunization DateImmunizationNotesCare ProviderFacilityNEGATED: Highlighted row has not occurred!64-61-3609wcqjsdlrv virus vaccine, unspecified formulation Matt [facility] AlfaNEGATED: Highlighted row has not occurred!28-42-2136qznpfmscp virus vaccine, unspecified formulationMatt [facility] Payers DatePayer CategoryPayerPolicy [id number] Health InsuranceUNTYLER HOS[facility]ITAL [facility]ALTH[facility] [id number] Health [id number] Cross Blue ShieldBCBS [id number] BCBS [id number] 2019-Present [phone] [address] [place] [address] [id number] [id number] 2.16.840.1.903672.3.57[id number] 2.16.840.1.576625.3.57[id number] 2.16.840.1.136120.3.579.2.620497-98-7511Suzlsvs2081671 2.16.840.1.911238.3.579.2.748841-63-7991Odwfnwm9247501 2.16.840.1.468844.3.579.2.059673-20-8922Cnokjjd5111629 2.16.840.1.243514.3.579.2.442084-37-3080Smjgeyv0173312 2.16.840.1.805696.3.579.2.538101-95-5208Uwhmcya5340134 2..840.1.433123.3.579.2.729174-22-7922Srjfiwg1801421 2.16.840.1.143638.3.579.2.577063-14-4588Zjwlhtc2136928 2.16.840.1.257302.3.579.2.279980-07-7617Egoqksc3492593 2.16.840.1.700946.3.579.2.286702-75-3178Mfwhpca4661739 2.16.840.1.629365.3.579.2.345054-17-0114Qdahfat0576402 2.16.840.1.459307.3.579.2.628810-30-5868Ldsytgw35567380 2.16.840.1.628268.3.579.2.69092-14-0557Tsiundm62359110 2.16.840.1.864740.3.57[id number] 2.16.840.1.301801.3.57[id number] 2.16.840.1.762523.3.57[id number] 2.16.840.1.369101.3.57[id number] 2.16.840.1.833346.3.57[id number] 2..840.1.618534.3.57[id number] 2..840.1.785187.3.57[id number] 2.840.1.071967.3.57[id number] 2..840.1.281980.3.57[id number] 2..840.1.638341.3.57[id number] 2..840.1.411254.3.57[id number] 2.840.1.657752.3.57[id number] 2..840.1.486525.3.57[id number] 2..840.1.239161.3.57[id number] 2..840.1.496535.3.57[id number] 2..840.1.349815.3.579.2.727 Social History DateTypeDetailFacilityTobacco smoking statusNo Smoking Status EnteredLima City Hospitalex Assigned At BirthFemalGreen [facility] Tobacco smoking status NHISTobacco smoking consumption unknownNOND Healthcare Start: 48-38-4619AheyrpzjdBDVV HealthcareStart: 00-55-4424Fgy Assigned At Not on fileLOGAN REGIONAL [facility] HealthcareStart: 11-26-2023 End: 84-56-0255Ejjpcdz smoking statusNever smoked tobacco (finding)[facility] HospitalStart: 56-01-4772Aczrvtp smoking statusNever [facility] Goals DatePatient GoalDesired Activity/StatePersonal health goal Functional Status VrjmCxrshnorusXbmfjxHkgaldzo42-32-8658Lxsmwvutsr StatusN/[facility]12-13-2024Functional StatusN/[facility]11-19-2024Functional StatusN/[facility]10-15-2024Functional StatusN/[facility]09-19-2024Functional StatusN/[facility]09-06-2024Functional StatusN/[facility]07-30-2024Functional StatusN/[facility]06-04-2024Functional StatusN/[facility]04-16-2024Functional StatusN/[facility]03-26-2024Functional StatusN/[facility]02-23-2024Functional StatusN/[facility] Clinical Notes 10-06-2023 to 10-25-2024 Note Date & BlafYxsySilwvfit51-69-1946 History of Present illness Narrative* Etelvina Elizabeth, JOEL - 10/25/2024 2:00 PM EST Reason for Appointment: Patient ID: Winston Carter is a 34 y.o. female who presents for Well Women Visit Patient presents today for Annual Exam. MEDICATIONS Current Outpatient Medications Medication Instructions cyclobenzaprine (FLEXERIL) 5 mg, Oral, As needed DULoxetine (CYMBALTA) 30 mg, Oral, 2 times daily, Do not crush or chew. etonogestrel-ethinyl estradiol (NuvaRing) 0.12-0.015 MG/24HR vaginal ring Insert vaginally and leave in place for 21 consecutive days (3 weeks), then remove. Wait for 7 days before inserting new ring. meloxicam (MOBIC) 15 mg, Oral, Daily ALLERGIES No Known Allergies PROBLEMS Active Ambulatory Problems Diagnosis Date Noted No Active Ambulatory Problems Resolved Ambulatory Problems Diagnosis Date Noted No Resolved Ambulatory Problems No Additional Past Medical History HISTORY PAST MEDICAL HISTORY SOCIAL HISTORY History reviewed. No pertinent past medical history. Social History Tobacco Use Smoking status: Not on file Smokeless tobacco: Not on file Substance Use Topics Alcohol use: Not on file Drug use: Not on file FAMILY HISTORY No family history on file. SURGICAL HISTORY Past Surgical History: Procedure Laterality Date TONSILLECTOMY REVIEW OF SYSTEMS Review of Systems: Review of Systems Constitutional: Negative. HENT: Negative. Eyes: Negative. Respiratory: Negative. Cardiovascular: Negative. Gastrointestinal: Negative. Genitourinary: Negative. Musculoskeletal: Negative. Skin: Negative. Neurological: Negative. All other systems reviewed and are negative. Hematological: Negative. Endocrine: Negative. Allergic/Immunologic: Negative. OBJECTIVE Objective: Physical Exam Constitutional: Appearance: Normal appearance. She is well-developed. Genitourinary: Vulva normal. Cardiovascular: Rate and Rhythm: Normal rate and regular rhythm. Pulmonary: Effort: Pulmonary effort is normal. Breath sounds: Normal breath sounds. Abdominal: General: Bowel sounds are normal. There is no distension. Palpations: Abdomen is soft. Tenderness: There is no abdominal tenderness. There is no guarding or rebound. Musculoskeletal: General: No swelling. Normal range of motion. Right lower leg: No edema. Left lower leg: No edema. Neurological: Mental Status: She is alert and oriented to person, place, and time. Skin: General: Skin is warm and dry. Psychiatric: Mood and Affect: Mood normal. Behavior: Behavior normal. Vitals and nursing note reviewed. Exam conducted with a photographic double present. Vitals: There is no height or weight on file to calculate BMI. BP: 118/74 Patient's last menstrual period was 10/04/2024. ASSESSMENT & PLAN ICD-10-CM 1. Well woman exam with routine gynecological exam Z01.419 Pap Smear HPV DNA probe, amplified Annual Exam: Patient presents today for an annual exam. Patient states she is doing well and has no complaints. Pap was obtained without difficulty. Rx for metformin faxed to pharmacy. Orders Placed This Encounter Procedures HPV DNA probe, amplified Follow Up: Patient is to return in one year for annual unless needed otherwise. Documented by Etelvina Elizabeth LPN on behalf of: Pablito Ham DO documented in this encounterTwo Rivers Psychiatric HospitalNutvvfxfch46-75-0172 Hospital Discharge instructions Patient Education 08/22/2024 17:34:07 Heat Therapy, Rqdc-yw-Hizx Heat Therapy Heat therapy can help ease [...] is very important. If you cannot feel pain,heat, or cold, you have a greater risk [...] provider. Document Revised: 07/23/2021 Document Reviewed: 07/23/2021 [employer] Patient Education 2023 [employer]. Follow Up Care 06/22/2024 15:23:46 With:Matt Aguero DO, FAM, PED Address: [address] [place] [address] [phone] When:1 month Comments:OMT PRN - 40 min slotTo go instructions (for follow up):On the day of manipulation, I strongly encourage you to to drink more water to help flush your system after today's treatmentWork on using yourcore muscles more when standing and sitting, and [...] managing musculoskeletal painF/u 1 month or PRN [facility] [place] 11-19-2024 NotePatient Education Physical Medicine and Rehabilitation Heat Therapy [...] provider. Document Revised: 07/23/2021 Document Reviewed: 07/23/2021 [employer] Patient Education ? 2023 [employer].[facility] 08-09-2024 NoteNurse Consultation Note Reason for Visit lab draw Assessment/Plan Routine [...] Vitamin B Complex, Vitamin C, Minerals and L- Methylfolate oral capsule,1 cap(s), Oral, Daily Allergies No Known Allergies Immunizations Vaccine Date Status Comments influenza virus vaccine, inactivated - Not Given Patient Refuses influenza virus vaccine, inactivated - Not Given [facility] Discharge instructions Follow Up Care 06/22/2024 15:20:50 With:Matt Aguero DO, FAM, PED Address: [address] [place] [address] [phone] When:1 month Comments:OMT PRN - 40 min slotSTOP escitalopramBEGIN duloxetine/ cymbaltayou'll start with 30mg dailyif that's enough/ adequate, continue thatif after at least 7 days, you're tolerating well but there's stillroom for improvement, you can increase to twice [...] from your centerline or when lifting thingsThis maytake some concentration and work initially but it will eventually become more natural to youWork onshoulder retraction exercisesFor patients who can tolerate anti-inflammatories and/or tylenol, those medications can help provide some comfort while you work on optimizing functionGetting adequate rest is important for managing musculoskeletal painF/u 1 month or PRN [facility] [place] 09-12-2024 Hospital Discharge instructions Follow Up Care 06/15/2024 11:39:49 With:Matt Aguero DO, FAM, PED Address: [address] [place] [address] [phone] When:1 month Comments:20 min slotincrease cyclobenzaprine to 5mg twice a dayyou can also double your dose at bedtime if that's better for youf/u PRN [facility] 07-30-2024 Hospital Discharge instructions Follow Up Care 05/02/2024 15:30:17 With:Matt Aguero DO, FAM, PED Address: [address] [place] [address] [phone] When:1 month Comments:OMT PRN - 40 min [...] managing musculoskeletal painF/u 1 month or PRN [facility] 07-30-2024 Hospital Discharge instructions Patient Education 05/02/2024 15:23:18 [...] and pain relief, followed by exercises to restoremovement and strength to your back (physical therapy). You may need surgery if other treatments do not help, or if your pain is caused by a condition or an injury. Follow your treatment plan as told by your health care provider. This may include: Relaxation techniques. Talk therapy or counseling with a mental health specialist. A form of talk therapy called cognitivebehavioral therapy (CBT) can be especially helpful. This [...] not go away or may get worse overtime. 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 Another treatment may include muscle relaxants. Take sxfy-shs-inaxhrw and prescription medicines only as told by your health care provider. Ask your health care provider if the medicine prescribed to you: ?Requires you to avoid driving or using machinery. ?Can cause constipation. You may need to take these actions to prevent or treat constipation: ?Drink enough fluid to keep your urine pale yellow. ?Take xpgy-shv-csvmfcq or prescription medicines. ?Eat foods that are high in fiber, such as beans, whole grains, and fresh fruits and vegetables. ?Limit foods that are high in fat and processed sugars, such as fried or sweet foods. Lifestyle Do not use any products that contain nicotine or tobacco, such as cigarettes, e- cigarettes, and chewing tobacco. If you need help [...] online and in-person support groups through: The [place] [employer]: theacpa.org Pain Connection Program: [...] provider. Document Revised: 10/31/2020 Document Reviewed: 07/09/2020 [employer] Patient Education 2022 [employer]. Follow Up Care 01/18/2024 11:32:40 With:Matt Aguero DO, FAM, PED Address: [address] [place] [address] [phone] When:1 month Comments:OMT PRN - 40 min slotTo go instructions (for follow up):Have xray of lumbar spine done soon - you can have this done at the [facility] near [facility] on [facility] will call to schedule your EMG soonMeloxicamBegin meloxicam 7.5 mg daily to help with your painIf after a week or two,there's still room for improvement, you can try doubling the doseIf that works better, let me know and we can update the prescription to 15mg daily Begin cyclobenzaprine 5mg at bedtime-----On the dayof manipulation, I strongly encourage you to to [...] tylenol, those medications can help provide some co mfort while you work on optimizing functionGetting adequate rest is important for managing musculoskeletal painF/u 1 month or PRN [facility] [place] 07-30-2024 NotePatient Education Orthopedics Managing Chronic Back Pain Chronic [...] and pain relief, followed by exercises to restoremovement and strength to your back (physical therapy). [...] not go away or may get worse overtime. 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 ? If you have pain with activities such as standing for a long time or reaching with your arms, liewith your spine in a neutral position and bend your knees slightly. Try: ? Lying on your side with a pillow between your knees. ? Lying on your back with a pillow under your knees. Follow these instructions at home: Medicines ? Treatment may include xaly-gyf-hhzlrlp or prescription medicines for pain and inflammation that are taken by mouth or applied to the skin. Another treatment may include muscle relaxants. Take sjwd-eyb-mcmxbzk and prescription medicines only as told by your health care provider. ? Ask your health (more content not included)...[facility] 12-31-2023 Hospital Discharge instructions Follow Up Care 12/31/2023 09:48:20 With:Matt Aguero DO, FAM, PED Address: [address] [facility] [place] [address] [phone] When:1 month Comments:To go instructions (to paste into follow up):Work on engaging core muscles - supine with knees bentOur goal is to address trunk stability and share the work with the other erector musclesWork on shoulder retraction exercisesF/u 1 month or PRN [facility] [place] 03-26-2024 Hospital Discharge instructions Follow Up Care 12/28/2023 17:23:12 With:Matt Aguero DO, FAM, PED Address: [address] [facility] [address] [place] [address] [phone] When:1 month Comments:OMT PRN - 40 min slotTo go instructions (for follow up):Read Driven to Distraction by Stanton Emerson to learn more about ADHD https://www.addneoSurgical.com/slideshows/hysh-hnyjhhqu-hzysr-paa-tku-pfxk/On the day of manipulation, I strongly encourage you to to drink more water to help flush your system after today's treatmentWork on using your core muscles more when standing and sitting, and especiallywhen leaning away from your centerline or when lifting thingsThis may take some concentration and work initially but it will eventually become more natural to youWork on shoulder retraction exercisesFor patients who can tolerate anti-inflammatories and/or tylenol, those medications can help providesome comfort while you work on optimizing functionGetting adequate rest is important for managing musculoskeletal painF/u 1 month or PRN [facility] [place] 03-26-2024 Hospital Discharge instructions Patient Education 12/28/2023 16:52:59 [...] of the head in the area of theTMJ. Other symptoms may include: Pain when moving [...] Do not chew gum. General instructions Take aetc-eqh-xmbxniq and prescription medicines only as told by [...] important. Where to find more information National [place] [employer]: www.nidcr.nih.gov Contact [...] may also make a clicking sound when youopen your mouth. TMJ syndrome often goes away [...] provider. Document Revised: 05/03/2022 Document Reviewed: 05/03/2022 [employer] Patient Education 2022 [employer]. Follow Up Care 11/26/2023 09:54:55 With:Matt Aguero DO, FAM, PED Address: [address] [place] [address] [phone] When:1 month Comments:OMT PRN - 40 min slotTo go instructions (to paste into follow up):Work on engaging core muscles - supine with knees bentOur goal is to address trunk stability and share the work with the other erector musclesWork on shoulder retraction exercisesConsider reading Driven to Distraction as discussedFor auto repair shop manager, I recommend Dr. Mar CrowleyIf you want to see a family doctor, I recommend my colleague in this office Dr. Dickson BurtonF/u 1 month or PRN [facility] 02-23-2024 Hospital Discharge instructions Follow Up Care 11/26/2023 09:59:10 With:Matt Aguero DO, FAM, PED Address: [address] [place] [address] [phone] When:1 month Comments:OMT PRN - 40 min slotTo go instructions (for follow up):On the day of manipulation, I strongly encourage you to to drink more water to help flush your system after today's treatmentWork on using yourcore muscles more when standing and sitting, and [...] managing musculoskeletal painF/u 1 month or PRN [facility] 02-07-2024 History of Present illness Narrative* EDVIN James - 11/10/2023 3:40 PM EST Reason for Appointment: Patient ID: Winston Carter [...] behalf of: EDVIN James documented in this encounterTwo Rivers Psychiatric [id number] Hospital Discharge instructions Follow Up Care 10/06/2023 12:21:08 With:Matt Aguero DO, FAM, PED Address: [address] [place] [address] [address] [place] [address] [phone] When:1 year Comments:To go instructions:f/u as neededWork on shoulder active range of motion exercises Consider reading Driven to Distraction - by Stanton Emerson [facility] Evaluation + Plan note No data available for this section [facility] Future Appointments Appointment Date:12/28/2023 04:20:00 PM Scheduled Provider:Matt Aguero DO Location:[facility] Appointment Type:FM Procedure Appointment Date:03/28/2024 08:20:00 AM Scheduled Provider:Matt Aguero DO Location:[facility] Appointment Type:FM Procedure Appointment Date:11/29/2024 09:00:00 AM Scheduled Provider:Matt Aguero DO Location:[facility] + Plan note Future Appointments Appointment Date:03/07/2024 08:20:00 AM Scheduled Provider:Matt Aguero DO Location:[facility] Appointment Type:FM Procedure Appointment Date:03/28/2024 08:20:00 AM Scheduled Provider:Matt Aguero DO Location:[facility] Appointment Type:FM Procedure Appointment Date:11/29/2024 09:00:00 AM Scheduled Provider:Matt Aguero DO Location:[facility] Appointment Type:[facility] Evaluation + Plan note Future Appointments Appointment [...] Aguero DO Location:[facility] Appointment Type:[facility] evaluation + Plan note Future Appointments Appointment Date:03/28/2024 08:20:00 AM Scheduled Provider:Matt Aguero DO Location:[facility] Appointment Type:FM Procedure Appointment Date:04/28/2024 02:00:00 PM Scheduled Provider:Matt Aguero DO Location:[facility] Appointment Type:FM Procedure Appointment Date:11/29/2024 09:00:00 AM Scheduled Provider:Matt Aguero DO Location:[facility] Appointment Type:[facility] Evaluation + Plan note Future Appointments Appointment Date:05/02/2024 02:20:00 PM Scheduled Provider:Matt Aguero DO Location:[facility] Appointment Type:FM Procedure Appointment Date:11/29/2024 09:00:00 AM Scheduled Provider:Matt Aguero DO Location:[facility] Appointment Type:[facility] evaluation + Plan note Future Appointments Appointment Date:05/25/2024 03:00:00 PM Scheduled Provider:Matt Aguero DO Location:[facility] Appointment Type:FM Open Appointment Date:06/09/2024 02:00:00 PM Scheduled Provider:Matt Aguero DO Location:[facility] Appointment Type:FM Procedure Appointment Date:11/29/2024 09:00:00 AM Scheduled Provider:Matt Aguero DO Location:[facility] Appointment Type: Open Future Scheduled Tests Radiology* XR Spine Lumbar Complete Including Bending 05/02/24 [facility] evaluation + Plan note Future Appointments Appointment Date:06/09/2024 02:00:00 PM Scheduled Provider:Matt Aguero DO Location:[facility] Appointment Type:FM Procedure Appointment Date:06/12/2024 01:00:00 PM Scheduled [facility] Bilateral Lower Extremity Appointment Date:11/29/2024 09:00:00 AM Scheduled Provider:Matt Aguero DO Location:[facility] Appointment Type:[facility] evaluation + Plan note Future Appointments Appointment Date:06/12/2024 11:00:00 AM Scheduled Provider[facility] Bilateral Lower Extremity Appointment Date:07/04/2024 11:40:00 AM Scheduled Provider:Matt Aguero DO Location:[facility] Appointment Type:FM Open Appointment Date:11/29/2024 09:00:00 AM Scheduled Provider:Matt Aguero DO Location:[facility] Appointment Type:[facility] Evaluation + Plan note Future Appointments Appointment Date:07/04/2024 11:40:00 AM Scheduled Provider:Matt Aguero DO Location:[facility] Appointment Type:FM Open Appointment Date:11/29/2024 09:00:00 AM Scheduled Provider:Matt Aguero DO Location:[facility] Appointment Type:[facility] evaluation + Plan note Future Appointments Appointment Date:07/18/2024 08:20:00 AM Scheduled Provider:Matt Aguero DO Location:[facility] Appointment Type:FM Procedure Appointment Date:08/22/2024 03:40:00 PM Scheduled Provider:Matt Agureo DO Location:[facility] Appointment Type:FM Procedure Appointment Date:09/19/2024 09:00:00 AM Scheduled Provider:Matt Aguero DO Location:[facility] Appointment Type:FM Procedure Appointment Date:11/29/2024 09:00:00 AM Scheduled Provider:Matt Aguero DO Location:[facility] Appointment Type:[facility] Evaluation + Plan note Future Appointments Appointment Date:08/22/2024 03:40:00 PM Scheduled Provider:Matt Aguero DO Location:[facility] Appointment Type:FM Procedure Appointment Date:09/19/2024 09:00:00 AM Scheduled Provider:Matt Aguero DO Location:[facility] Appointment Type:FM Procedure Appointment Date:11/29/2024 09:00:00 AM Scheduled Provider:Matt Aguero DO Location:[facility] Appointment Type: Open Future Scheduled Tests Laboratory* TSH With T4fr Reflex 07/18/24 * CBC w/ Auto Diff 07/18/24 * Comprehensive Metabolic Panel 07/18/24 * Folate Level 07/18/24 * Lipid Panel 07/18/24 * Vitamin B12 Level 07/18/24 [facility] Evaluation + Plan note Future Appointments [...] Location:[facility] Appointment Type: Open [facility] Evaluation + Plan note Future Appointments Appointment Date:09/15/2024 01:40:00 PM Scheduled Provider:Matt Aguero DO Location:[facility] Appointment Type: Open Appointment Date:11/29/2024 09:00:00 AM Scheduled Provider:Matt Aguero DO Location:[facility] Appointment Type: Open [facility] Evaluation + Plan note Future Appointments Appointment Date:11/29/2024 09:00:00 AM Scheduled Provider:Matt Aguero DO Location:[facility] Appointment Type: Open [facility] [place] Evaluation note* Diagnosis Second trimester state, incidental [facility] Diagnosis Well woman exam with routine gynecological exam Routine gynecological examination Insulin resistance Other abnormal glucose documented in this [facility] No data available for this section [facility] No data available for this section [facility] Summary Purpose Family History No Family History Records Found Advance Directives No Advanced Directives Records FoundNo Advanced Directives Records FoundNo Advanced Directives Records FoundNo Advanced Directives Records FoundNo Advanced Directives Records FoundNo Advanced Directives Records FoundNo Advanced Directives Records FoundNo Advanced Directives Records FoundNo Advanced Directives Records Found Additional Source Comments Care Team (unrecognized sect ion and content) Team MemberRelationshipSpecialtyStart DateEnd Date Pamela Colvin MD [address] [place] [address] PCP - GeneralFamily Medicine07/02/23Team MemberRelationshipSpecialtyStart DateEnd Date Pamela Colvin MD [address] [place] [address] PCP - GeneralFamily Medicine07/02/23Team MemberRelationshipSpecialtyStart DateEnd Date Pamela Colvin MD [address] [place] [address] PCP - GeneralFamily Medicine07/02/23Team MemberRelationshipSpecialtyStart DateEnd Date Pamela Colvin MD [address] [place] [address] PCP - Generalmily Medicine07/02/23Te MemberRelationshipSpecialtyStart DateEnd Date Pamela Colvin MD [address] [place] [address] PCP - [facility]07/02/23Te MemberRelationshipSpecialtyStart DateEnd Date Pamela Colvin MD [address] [place] [address] PCP - [facility]07/02/23Te MemberRelationshipSpecialtyStart DateEnd Date Pamela Colvin DO [address] [place] [address] PCP - [facility]07/02/23 Reason for Visit (unrecogniz ed section and content) ReasonCommentsRoutine VisitReasonCommentsWell Women Visit INFORMATION SOURCE (unrecogn ized section and content) DATE CREATED AUTHOR 08/11/2024 [facility] DATE CREATED AUTHOR AUTHOR'S ORGANIZ ATION 09/18/2024 [facility] DATE CREATED AUTHOR AUTHOR'S ORGANIZ ATION 10/27/2024 [facility] DATE CREATED AUTHOR AUTHOR'S ORGANIZ ATION 12/01/2024 [facility] FOR RECORDS PERTAINING TO PATIENTS WHO ARE [...] BE BASED ON THE PRIMARY CLINICAL RECORDS. [facility] [employer] [facility]. provides no warranty or guarantee of the accuracy or completeness of information in this document.
[2025-09-13 14:58] LABS: Hematocrit 34.7 % (36.0-48.0); Hemoglobin 11.4 g/dL (12.0-16.0); Immature Granulocytes Abs Auto 0.02 10^3/uL (0.00-0.03); Immature Granulocytes Pct Auto 0.2 % (0.0-0.5); Lymphocytes Absolute Auto 1.8 10^3/uL (1.2-3.8); Mean Corpuscular HGB Conc 32.9 g/dL (29.9-35.2); Mean Corpuscular Hemoglobin 28.8 pg (26.7-34.0); Mean Corpuscular Volume 87.6 fL (81.0-99.0); Platelet Count 248 10^3/uL (150-450); Red Blood Count 3.96 10^6/uL (4.20-5.40); White Blood Count 9.1 10^3/uL (4.0-11.0)
[2025-09-13 15:06] LABS: Cannabinoid Screen Urine NEGATIVE (NEGATIVE); Methamphetamines Screen Urine NEGATIVE (NEGATIVE); Tricyclic Antidepressant Urine NEGATIVE (NEGATIVE)
[2025-09-14 05:07] LABS: Rubella Antibodies, IgG 1.12 index (Immune >0.99)
[2025-09-14 13:09] LABS: Rapid Plasma Reagin, Quant Non Reactive titer (NonRea<1:1)
== END 2025-09-13 14:03 | disposition home or self-care (01) ==
LOC: LAB 14:03
PROVIDERS: Visit Provider Obstetrics & Gynecology
DX: Z34.01 Encounter for supervision of normal first pregnancy, first trimester (principal); N92.6 Irregular menstruation, unspecified
CPT/HCPCS: 36415; 80307; 83036; 85025; 86592; 86762; 86803; 86850; 86900; 86901; 87086; 87340; 87389